=== PATIENT | male | born 1950 | race Caucasian/White ===

== ENCOUNTER → 2024-03-08 06:30 | Day surgery (SDC) | payer OTHER, SELFPAY | LOC: GI 06:30 | PROVIDERS: ATTENDING PHYSICIAN Surgery | DX: Z12.11 Encounter for screening for malignant neoplasm of colon (principal); D12.3 Benign neoplasm of transverse colon; K63.5 Polyp of colon; Z85.048 Personal history of other malignant neoplasm of rectum, rectosigmoid junction, and anus | CPT/HCPCS: 45380; 88305 ==

== ENCOUNTER 2025-05-15 17:59 | Inpatient (IN) | payer OTHER, SELFPAY ==
[2025-05-15] VITALS (7 sets, daily range): BP systolic 94–122; BP diastolic 50–73; BMI 18.2; BMI 17.7
[2025-05-15 10:35] LABS: Hematocrit 37.0 % (39.0-52.0); Hemoglobin 12.4 g/dL (13.0-18.0); Mean Corp Hgb Conc. 33.5 g/dL (33.0-37.0); Mean Corpuscular Volume 86.0 fL (80.0-94.0); Nucleated Red Blood Cells % 0 % (-); Platelet Count 424 10^3/uL (130-400); Red Cell Dist. Width 13.2 % (11.5-14.5)
[2025-05-15 11:02] LABS: ALT (SGPT) 51 U/L (0-50); AST (SGOT) 31 U/L (17-59); Albumin 4.1 g/dl (3.5-5.0); Alkaline Phosphatase 116 U/L (38-126); Blood Urea Nitrogen 89 mg/dl (9-20); Calcium 8.9 mg/dl (8.4-10.2); Carbon Dioxide 19 mmol/L (22-30); Chloride 99 mmol/L (98-107); Glucose 123 mg/dl (70-99); Lipase 189 U/L (23-300); Potassium 5.9 mmol/L (3.5-5.1); Sodium 131 mmol/L (135-145); Total Protein 7.7 g/dl (6.3-8.2); eGFR 25.98
--- NOTE | 2025-05-15 13:15 | ED.GENMED ---
History of Present Illness
<IWONA Connelly - Last Filed: 05/16/25 14:24>
General
Chief Complaint: Ostomy Problem
Source: patient
Exam Limitations: none
Time Seen by Provider: 05/15/25 12:50
Nursing documentation reviewed up to this point in time: agreed with
History of Present Illness
History of Present Illness:
Patient is a 75-year-old male with known history of rectal carcinoma with bladder involvement status post sigmoid loop colostomy 2020, ilial conduit creation ileal sigmoidectomy and loop ileostomy completed chemoradiation presents to the ER. He
reports he started with issues from his colostomy bag in April. He reports he noticed that the stool stopped draining in the colostomy bag and then was draining throughout his anus however recently he noticed drainage through an open wound below his
ostomy sites. He was seen by Dr. Cooper for this and was scheduled for CAT scan tomorrow however because of continued leakage presents to the ER. He denies any fever chills. He denies any nausea vomiting. He is drinking and eating.
Past History
<IWONA Connelly - Last Filed: 05/16/25 14:24>
Past History
ED Past Medical History: Cancer, Hypercholesterolemia and Other (PAD)
ED Past Surgical History: Other (Urostomy, colostomy cystoprostatectomy)
Social History
Tobacco: Smoker
Alcohol: None
Drug: None
Personal:
Living: with family
Phy Exam
<IWONA Connelly - Last Filed: 05/16/25 14:24>
General Physical Exam
General Presentation: no apparent distress
General age: appears stated age
General Skin: warm and dry
General Habitus: normal
General Mental: alert
General Hydration: appears well hydrated
Cardiovascular Exam
Cardiovascular Exam: regular rate/rhythm, no murmur and normal peripheral pulses
Pulmonary Exam
Pulmonary Exam: lungs clear and no respiratory distress
Gastrointestinal Exam
Gastrointestinal Exam: soft and other (+ stoma x2 to abdomen ; below is open wound with what appears to be liquid stool draining from site brown in color )
Neurological Exam
Neurological Exam: alert and oriented x3
Musculoskeletal Exam
Musculoskeletal Exam: full ROM
Skin Exam
Skin Exam: normal color and warm/dry
Psychiatric Exam
Psychiatric Exam: normal mood/affect
Course
<IWONA Connelly - Last Filed: 05/16/25 14:24>
Orders/Labs/Results
Orders:
Orders
05/15/25 10:14
Complete Blood Count/With Diff Urgent
Comprehensive Metabolic Panel Urgent
Lipase Urgent
05/15/25 13:50
CT Abd/pel (oral only)-[facility] Only Urgent
Comment:
Reason For Exam: problem with colostomy dec drainage
0.9% Sodium Chloride 500 ml [Nss] 500 ml IV BOLUS
Iohexol [Omnipaque] See Protocol PO NOW STA
05/15/25 Dinner
NPO
Allow oral meds: Yes
Allow clear liquids: No
NPO with Ice Chips: No
05/15/25 15:10
WOUND/OSTOMY CONSULT Routine
Reason for Consult: redness and drainage abd
05/15/25 16:44
Electrocardiogram (*1) Stat
Reason for Study: Other
Other Reason for Exam: chest pain
05/15/25 17:28
SURGICAL CONSULT Routine
Consulting Provider: King Cooper
Was physician already notified: Yes
Reason for consult: Fecal drainage below ostomy, from penis and anus
05/15/25 17:35
Dextrose 50%-Water [Dextrose 50% Syringe] 12.5 grams IV [id number] PRN
Dextrose 50%-Water [Dextrose 50% Syringe] 25 grams IV NOW STA
Insulin Human Regular [Novolin R] 10 units IV NOW STA
05/15/25 17:36
Bedside Glucose PRE IV Insulin- HyperK+ NOW
05/15/25 17:38
NEPHROLOGY CONSULT Routine
Consulting Provider: Noe Carlson V.
Was physician already notified: Yes
Reason for consult: jessie fecal material penis/ hx urosotomy
05/15/25 17:40
Admit/Transfer Patient As Directed
Co-Sign Provider:
Level of Care: Inpatient admission
Assign to:: Telemetry
Physician / Group: maria c michelle
Diagnosis: jessie,open wound abdomen, anus/ penile fecal discharge, hyperkalemia
Reason for Telemetry: Arrhythmia
Date to Stop Telemetry: 05/18/25
Time to Stop Telemetry: 11:00
Reason for Hospitalization: jessie,open wound abdomen, anus/ penile fecal discharge, hyperkalemia
Expected length of stay greater than two midnights?: Yes
ELOS- Estimated Length of Stay in days: 4
I certify the patient meets the requirements for IP care: Yes
Code Status As Directed
Resuscitation Status: Full Code
05/15/25 17:42
PRN Pain Medication Management As Directed
May give lesser potent ordered pain med per pt: Yes
preference::
Protocol:: Medication orders for pain may be administered in a
manner that supports deferring to patient preference
when the pt is:
- Requesting an ordered lesser potent pain medication.
Least to most potent pain medications are defined
as: acetaminophen < NSAID < tramadol < opioids
(morphine, oxycodone, hydromorphone).
- Requesting a lesser dose of the same medication IF
ORDERED.
- Requesting a less intrusive route of administration
if both routes are prescribed by the provider (PO <
IV).
05/15/25 19:06
Bedside Glucose POST IV Insulin- HyperK+ Q1HX2,Q2HX2
05/15/25 21:27
0.9% Sodium Chloride 1000 ml [Nss] 1,000 ml IV 80 mls/hr
05/15/25 21:27
Activity As Directed
Activity Level: As Tolerated
Intake/ Output As Directed
Frequency: Per unit guidelines
Pneumatic Compression Sleeves As Directed
Type: Knee high
Vital Signs As Directed
Frequency: Per unit guidelines
DX Deep Vein Thrombosis Video Routine
05/15/25 22:10
Basic Metabolic Panel Urgent
05/16/25 06:23
Complete Blood Count/With Diff IN AM
Comprehensive Metabolic Panel IN AM
05/16/25 08:00
Midodrine [ProAmatine] 5 mg PO DAILY
Pantoprazole [Protonix] 40 mg PO DAILY
Rosuvastatin Calcium [Crestor] 10 mg PO DAILY
05/17/25 06:19
Complete Blood Count/With Diff IN AM
Comprehensive Metabolic Panel IN AM
05/18/25 06:06
Complete Blood Count/With Diff IN AM
Comprehensive Metabolic Panel IN AM
05/18/25 11:00
DC Protocol for Telemetry ONCE
Abnormal Lab Results
05/15/25
10:14
WBC 10.9 H 10^3/uL
(4.8-10.8)
RBC 4.30 L 10^6/uL
(4.70-6.10)
Hgb 12.4 L g/dL
(13.0-18.0)
Hct 37.0 L %
(39.0-52.0)
Plt Count 424 H 10^3/uL
(130-400)
Abs Immat Gran (auto) 0.1 H 10^3/uL
(0-0.05)
Absolute Neuts (auto) 9.0 H 10^3/uL
(1.4-6.5)
Absolute Lymphs (auto) 1.0 L 10^3/uL
(1.2-3.4)
Absolute Monos (auto) 0.8 H 10^3/uL
(0.1-0.6)
Immature Gran % 0.7 H %
(0-0.5)
Neutrophils % 82.1 H %
(42.2-75.2)
Lymphocytes % 8.8 L %
(20.5-51.1)
Sodium 131 L mmol/L
(135-145)
Potassium 5.9 H mmol/L
(3.5-5.1)
Carbon Dioxide 19 L mmol/L
(22-30)
BUN 89 H mg/dl
(9-20)
Creatinine 2.5 H mg/dL
(0.7-1.3)
Glucose 123 H mg/dl
(70-99)
ALT 51 H U/L
(0-50)
05/15/25 10:14
05/15/25 10:14
Vital Signs
Initial and Last Documented VS:
Initial Vital Signs
Temp Pulse Resp BP Pulse Ox
97.5 F 92 98 110/56 100
05/15/25 10:07 05/15/25 10:07 05/15/25 10:07 05/15/25 10:07 05/15/25 10:07
Last Documented Vital Signs
Temp Pulse Resp BP Pulse Ox
98.7 F 73 16 128/47 99
05/18/25 23:00 05/18/25 23:00 05/18/25 23:00 05/18/25 23:00 05/18/25 23:00
<Courtney Chowdhury PELT INSPECTOR - Last Filed: 05/19/25 01:45>
Orders/Labs/Results
Orders:
Orders
05/15/25 10:14
Complete Blood Count/With Diff Urgent
Comprehensive Metabolic Panel Urgent
Lipase Urgent
05/15/25 13:50
CT Abd/pel (oral only)-[facility] Only Urgent
Comment:
Reason For Exam: problem with colostomy dec drainage
0.9% Sodium Chloride 500 ml [Nss] 500 ml IV BOLUS
Iohexol [Omnipaque] See Protocol PO NOW STA
05/15/25 Dinner
NPO
Allow oral meds: Yes
Allow clear liquids: No
NPO with Ice Chips: No
05/15/25 15:10
WOUND/OSTOMY CONSULT Routine
Reason for Consult: redness and drainage abd
05/15/25 16:44
Electrocardiogram (*1) Stat
Reason for Study: Other
Other Reason for Exam: chest pain
05/15/25 17:28
SURGICAL CONSULT Routine
Consulting Provider: King Cooper
Was physician already notified: Yes
Reason for consult: Fecal drainage below ostomy, from penis and anus
05/15/25 17:35
Dextrose 50%-Water [Dextrose 50% Syringe] 12.5 grams IV [id number] PRN
Dextrose 50%-Water [Dextrose 50% Syringe] 25 grams IV NOW STA
Insulin Human Regular [Novolin R] 10 units IV NOW STA
05/15/25 17:36
Bedside Glucose PRE IV Insulin- HyperK+ NOW
05/15/25 17:38
NEPHROLOGY CONSULT Routine
Consulting Provider: Noe Carlson V.
Was physician already notified: Yes
Reason for consult: jessie fecal material penis/ hx urosotomy
05/15/25 17:40
Admit/Transfer Patient As Directed
Co-Sign Provider:
Level of Care: Inpatient admission
Assign to:: Telemetry
Physician / Group: ahmed,maria c
Diagnosis: jessie,open wound abdomen, anus/ penile fecal discharge, hyperkalemia
Reason for Telemetry: Arrhythmia
Date to Stop Telemetry: 05/18/25
Time to Stop Telemetry: 11:00
Reason for Hospitalization: jessie,open wound abdomen, anus/ penile fecal discharge, hyperkalemia
Expected length of stay greater than two midnights?: Yes
ELOS- Estimated Length of Stay in days: 4
I certify the patient meets the requirements for IP care: Yes
Code Status As Directed
Resuscitation Status: Full Code
05/15/25 17:42
PRN Pain Medication Management As Directed
May give lesser potent ordered pain med per pt: Yes
preference::
Protocol:: Medication orders for pain may be administered in a
manner that supports deferring to patient preference
when the pt is:
- Requesting an ordered lesser potent pain medication.
Least to most potent pain medications are defined
as: acetaminophen < NSAID < tramadol < opioids
(morphine, oxycodone, hydromorphone).
- Requesting a lesser dose of the same medication IF
ORDERED.
- Requesting a less intrusive route of administration
if both routes are prescribed by the provider (PO <
IV).
05/15/25 19:06
Bedside Glucose POST IV Insulin- HyperK+ Q1HX2,Q2HX2
05/15/25 21:27
0.9% Sodium Chloride 1000 ml [Nss] 1,000 ml IV 80 mls/hr
05/15/25 21:27
Activity As Directed
Activity Level: As Tolerated
Intake/ Output As Directed
Frequency: Per unit guidelines
Pneumatic Compression Sleeves As Directed
Type: Knee high
Vital Signs As Directed
Frequency: Per unit guidelines
DX Deep Vein Thrombosis Video Routine
05/15/25 22:10
Basic Metabolic Panel Urgent
05/16/25 06:23
Complete Blood Count/With Diff IN AM
Comprehensive Metabolic Panel IN AM
05/16/25 08:00
Midodrine [ProAmatine] 5 mg PO DAILY
Pantoprazole [Protonix] 40 mg PO DAILY
Rosuvastatin Calcium [Crestor] 10 mg PO DAILY
05/17/25 06:19
Complete Blood Count/With Diff IN AM
Comprehensive Metabolic Panel IN AM
05/18/25 06:06
Complete Blood Count/With Diff IN AM
Comprehensive Metabolic Panel IN AM
05/18/25 11:00
DC Protocol for Telemetry ONCE
Abnormal Lab Results
05/15/25
10:14
WBC 10.9 H 10^3/uL
(4.8-10.8)
RBC 4.30 L 10^6/uL
(4.70-6.10)
Hgb 12.4 L g/dL
(13.0-18.0)
Hct 37.0 L %
(39.0-52.0)
Plt Count 424 H 10^3/uL
(130-400)
Abs Immat Gran (auto) 0.1 H 10^3/uL
(0-0.05)
Absolute Neuts (auto) 9.0 H 10^3/uL
(1.4-6.5)
Absolute Lymphs (auto) 1.0 L 10^3/uL
(1.2-3.4)
Absolute Monos (auto) 0.8 H 10^3/uL
(0.1-0.6)
Immature Gran % 0.7 H %
(0-0.5)
Neutrophils % 82.1 H %
(42.2-75.2)
Lymphocytes % 8.8 L %
(20.5-51.1)
Sodium 131 L mmol/L
(135-145)
Potassium 5.9 H mmol/L
(3.5-5.1)
Carbon Dioxide 19 L mmol/L
(22-30)
BUN 89 H mg/dl
(9-20)
Creatinine 2.5 H mg/dL
(0.7-1.3)
Glucose 123 H mg/dl
(70-99)
ALT 51 H U/L
(0-50)
05/15/25 10:14
05/15/25 10:14
Vital Signs
Initial and Last Documented VS:
Initial Vital Signs
Temp Pulse Resp BP Pulse Ox
97.5 F 92 98 110/56 100
05/15/25 10:07 05/15/25 10:07 05/15/25 10:07 05/15/25 10:07 05/15/25 10:07
Last Documented Vital Signs
Temp Pulse Resp BP Pulse Ox
98.7 F 73 16 128/47 99
05/18/25 23:00 05/18/25 23:00 05/18/25 23:00 05/18/25 23:00 05/18/25 23:00
<IWONA Connelly - Last Filed: 05/16/25 14:24>
MDM/Problems Addressed
Differential Diagnosis Includes:
Not limited to fistula, renal failure/insufficiency dehydration
MDM/Problems Addressed:
pt with significant medical history rectal carcinoma, colostomy ilial conduit history of enteroanal fistula .presented to the ER for decreased stool in ostomy bag along with now drainage from open wound below stoma. He is followed by Dr. Cooper
and I did speak with Dr. Cooper regarding this. He was scheduled for an outpatient CAT scan tomorrow but patient presented today because of the drainage. Patient denies any abdominal pain. + drainage from open wound to abdomen.
Patient denies any fever chills and is afebrile, wbc 10.9l renal insufficiency with a BUN of 89 and creatinine of 2.5 and elevated potassium of 5.9 sodium minimally low at 131. No acute findings on EKG patient given gentle hydration here in the
ER. Case was discussed with , ct oral contrast ordered only with renal insufficiency. Patient was evaluated by colorectal surgery Elizabeth Joe, PAC will require admission for renal insufficiency as well as continued evaluation for
possible fistula pending CAT scan.
<IWONA Connelly - Last Filed: 05/16/25 14:24>
*Pulse Oximetry
SaO2: 100
Oxygen Mode of Delivery: Room air
Patient hypoxic: no
*EKG
Interpreted by ED Provider?: Yes
Interpretation: normal
Heart Rate: 66
Rate: normal
Rhythm: sinus
Ischemia: no ischemia
*Critical Care Note
Total Time (30-74mins, 75-104mins- exclusive of procedures): Not Applicable
<IWONA Connelly - Last Filed: 05/16/25 14:24>
Patient Management
Discussion with other providers: Driver'S License Examiner (DR Cooper )
<Courtney Chowdhury NP - Last Filed: 05/19/25 01:45>
Update Note
Update Note:
CT report reviewed. Dr. Cooper notified of results via tiger text. He will review CT and will assess in AM.
ED Attending Note
<IWONA Connelly - Last Filed: 05/16/25 14:24>
-
Portions of this chart may have been created with voice recognition software.� Occasional wrong word or��sound alike� substitutions may have occurred due to the inherent limitations of voice recognition software.
Discharge Plan
Departure
Patient Disposition: Admit
Date of Disposition: 05/15/25
Time of Disposition: 16:52
Admit to: Telemetry
Admit to doctor: hospitalist
Presentation/result/management discussed w/ accepting MD/DO: Hospitalist
Patient with high blood pressure during this ER visit?: No
Condition: Fair
Covid-19: Not Applicable
Discharge Problem:
Acute kidney insufficiency, possible fistula
Interventions
Interventions:
*Risk Screen - Suicide Last Done: 05/15/25 22:26
*General Assessment Last Done: 05/15/25 16:26
*Neglect/Abuse Screening Last Done: 05/15/25 15:06
*ED- Fall Risk Assessment Last Done: 05/15/25 16:26
*ED COVID-19 Vaccine History Last Done: 05/15/25 22:26
*Nursing Disposition Last Done: 05/15/25 21:40
GX-Clfkvf-Cjtwvybnhz Assessment Last Done: 05/15/25 14:00
ED-Male Genitourinary Assessment Last Done: 05/15/25 14:00
Discharge Date and Time
Discharge Date/Time: 05/15/25 21:40
--- NOTE | 2025-05-15 14:25 | CON.CRS ---
Consultation
-
Date/Time Consultation Requested: 05/15/2025, 13:30
Date/Time Consultation Performed: 05/15/2025, 14:45
Requesting Provider: Jovanna Velasco NP
Performing Provider: King Cooper MD
Reason for Consultation: fistula
Medical History
-
Chief Complaint: anal drainage/wound drainage
History of Present Illness:
75-year-old male, with an extensive past medical history of rectal cancer with bladder involvement status post multiple surgeries for rectal cancer as well as enteroanal fistula, presents to the emergency department complaining of lack of stool in
the colostomy bag and drainage in his anus. He now notices drainage through the open wound below his ostomy site. He recently saw Dr. Cooper in the office on 04/27/[address] of the abdomen and pelvis was ordered which was scheduled for
tomorrow. This was to look for tumor recurrence and evaluate the fistula situation.
The patient has a very extensive past medical history which includes a pelvic exoneration about 3-1/2 years ago on 08/14/2021. 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
partial small bowel resection about 2 years ago on 04/01/2023. The fistula reoccurred. The last colonoscopy was on 03/08/2024 which showed 2 benign polyps that were removed with plans to repeat in 3 years. He has not seen Dr. Cooper or Dr. Valente
over the past year and he has had no recent imaging. At the office appointment he had complained of increased output from the anterior cutaneous fistula in the lower midline area for the past several weeks. He also noted that passing feculent
material from the anus and penis starting on April 17.
In the ER his WBC is 10.9. He remains afebrile and his vitals are normal. He is currently awaiting a CT scan. Given the above, we have been consulted for further surgical opinion.
Past Medical History
Past Medical History: Other (rectal cancer, Hypercholesterolemia, hypotension)
Past Surgical History: Other (07/10/2021- Robotic sigmoid loop colostomy creation, 08/14/2021- Pelvic exenteration, On bloc ileocecectomy, Omental pedicle flap, Ileal loop urinary diversion following pelvic exoneration performed by Drs. Judge
Gil and King Cooper, 09/24/2021- Right subclavian Port-A-Cath placement)
Social History
Tobacco: Smoker
Alcohol: Occasional
Family History
Family History: Reviewed & Not Pertinent
Allergies / Home Medications
Allergy/AdvReac Type Severity Reaction Status Date / Time
No Known Allergies Allergy Verified 05/15/25 10:06
�Medication �Instructions �Recorded �Confirmed �Type
midodrine 5 mg tablet 5 mg PO DAILY Blood Pressure 03/11/23 03/30/23 History
rosuvastatin 20 mg tablet 20 mg PO DAILY High Cholesterol 03/12/23 03/30/23 History
pantoprazole 40 mg tablet,delayed 40 mg PO DAILY #30 tabs 04/16/23 Rx
release (Protonix)
Review of Systems
-
History Source: Patient
Abdomen/GI: Other (drainage from lower midline wound and anus)
A 10 point review of systems was completed, and was negative except as per HPI.
Physical Exam
Vital Signs
Temp 97.5 F 05/15/25 10:07
Pulse 92 05/15/25 10:07
Resp Rate 98 05/15/25 10:07
Blood pressure 110/56 05/15/25 10:07
SaO2 100 05/15/25 13:16
Lab Results / Allergies
05/15/25 10:14
05/15/25 10:14
WBC 10.9 10^3/uL (4.8-10.8) H 05/15/25 10:14
Hgb 12.4 g/dL (13.0-18.0) L 05/15/25 10:14
Hct 37.0 % (39.0-52.0) L 05/15/25 10:14
Plt Count 424 10^3/uL (130-400) H 05/15/25 10:14
Abs Immat Gran (auto) 0.1 10^3/uL (0-0.05) H 05/15/25 10:14
Neutrophils % 82.1 % (42.2-75.2) H 05/15/25 10:14
Allergy/AdvReac Type Severity Reaction Status Date / Time
No Known Allergies Allergy Verified 05/15/25 10:06
Physical Exam
General: Well Developed, Well Nourished and No Apparent Distress
GI: Other (urostomy and ileostomy warm and pink with function. Lower midline abdominal incision is open, erythematous, warm to touch, and leaking bowel movements)
Skin: Warm and Dry
Neuro: AO x 3
Psych: Calm
Data Reviewed
-
Labs: Labs Reviewed by me, Discussed with Physician and Discussed with Patient
Old Records: Reviewed
Assessment / Plan
-
Assessment: 75-year-old male with an extensive past medical history of rectal cancer status post pelvic exoneration and subsequent anterior cutaneous fistula status postrepair, now presents to the ER complaining of increased wound drainage in the
lower midline aspect as well as drainage from his anal area
Plan:
- CT of the abdomen and pelvis has been ordered. Will await read for further plans.
- For now remain n.p.o.
- Trend labs and blood work
- Stoma nurse for wound management
[2025-05-15] MEDS: OMNIPAQUE 50 ML PO (14:46)
[2025-05-15] MEDS: NSS 500 IV (14:48)
--- NOTE | 2025-05-15 17:09 | HPS.HSE ---
Addendum entered and electronically signed by IWONA Ruiz 05/15/25 18:34:
IV insulin 5 units instead of 10 due to JUANITA creat 2.6
Original Note:
Family Physician
-
Family Physician: Torito Brownlee
Chief Complaint
-
Reported fecal discharge below colostomy, rectum and penis
History of Present Illness
75-year-old male with extensive history of rectal cancer with bladder involvement requiring pelvic exenteration 08/14/2021 with postop and drug cutaneous fistula status post exploratory lap, lysis of adhesions, partial small bowel resection
04/01/2023. Status post colostomy. Patient noticed lack of stool from his colostomy site along with a weeping wound below his ostomy site. In the office he had complained of output from his cutaneous fistula in the lower midline area for the past
several weeks he also noticed passing fecal material from the anus and penis starting on April 17. He reports no stool in his ostomy bag since April 12 other past medical history includes A-fib status post chemical cardioversion with IV amiodarone,
DVT right common femoral vein/PE status post IVC filter April 2023, blood loss anemia from prior surgical site 2022, HLD
Medical History
Past Medical History
Past Medical History: Reports Other
Additional Past Medical History:
Rectal cancer of the bilateral involvement, status post colectomy, colostomy creation urostomy bladder removal
Endocervical fistula
A-fib converted with IV amiodarone
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
Blood loss anemia
Dyslipidemia
Past Surgical History: Reports Other
Additional Past Surgical History:
Colectomy
Total cystectomy, prostatectomy and urostomy creation
Colostomy creation
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
Social History
Unable to obtain full social history at this time due to: Other
Tobacco: Smoker (6 to 7 cigarettes a day)
Alcohol: Former (Daily 1-2 beers has not had in the past 2 months states cannot afford)
Personal:
Living: With Family
Employment: Retired
Family History
Family History: Other
Allergies / Home Medications
Allergies reflects when Allergies were last updated in [facility].
Home Medications with original date entered in [facility]
Allergy/Medication List:
Allergies
Allergy/AdvReac Type Severity Reaction Status Date / Time
No Known Allergies Allergy Verified 05/15/25 10:06
Home Medications
midodrine 5 mg tablet 5 mg PO DAILY Blood Pressure 03/11/23
rosuvastatin 20 mg tablet 20 mg PO DAILY High Cholesterol 03/12/23
pantoprazole 40 mg tablet,delayed release (Protonix) 40 mg PO DAILY #30 tabs 04/16/23
Review of Systems
-
History Source: Patient
A 12 point ROS was completed and negative except as noted: Yes
Constitutional: Denies Fever or Chills
EENT: Denies Sore Throat or Runny Nose
Respiratory: Denies Cough or Trouble Breathing
Cardiac: Denies Chest Pain, Diaphoresis, Palpitations or Syncope
Abdomen/GI: Reports Other (Wound below ostomy reportedly draining fecal material, ostomy left side abdomen no stool in bag); Denies Abdominal Pain, Nausea or Vomiting
: Reports Other (Reports fecal material draining from penis, urostomy bag draining yellow in color right side abdomen); Denies Dysuria
Musculoskeletal: Denies Joint Pain or Edema
Skin: Denies Itching or Rash
Neurological: Denies Dizzy, Headache or Weakness
Endocrine: Reports No Symptoms
Hematologic/Lymphatic: Reports No Symptoms
Psych: Reports Calm
Physical Exam
Vital Signs
Vital Signs
Temp Pulse Resp BP Pulse Ox
97.5 F 92 98 122/61 82
05/15/25 10:07 05/15/25 10:07 05/15/25 10:07 05/15/25 16:00 05/15/25 15:01
Physical Exam
General: No Pain, Fever or Chills
HEENT: NormoCephalic, Anicteric, Moist mucous membranes, PERRLA, [place] Conjunctivae and No Ptosis
Respiratory: Clear; No Wheezes, Rales or Rhonchi
Cardiac: S1/S2 and Regular Rhythm
Breast: Deferred by me
GI: Soft, Non Tender, Non Distended, Normal Bowel Sounds, Ostomy (Reports fecal material draining from penis, urostomy bag draining yellow in color right side abdomen) and Other
Rectal: Other (Colostomy below stoma site with excoriation/erythema from fecal drainage)
Genito-urinary: Other (Ostomy bag draining yellow in color)
Musculoskeletal: No Clubbing, No Cyanosis and No Edema
Skin: Warm and Dry; No Rash
Neuro: AO x 3, No Motor Deficits, Nonfocal/grossly intact, Cranial Nerves Intact and No Sensory Deficits; No Slurred Speech, Facial Droop, Tremors or Sedated
Psych: Calm
Laboratory Results
-
05/15/25 10:14
05/15/25 10:14
Laboratory Results
Total Bilirubin 0.8 mg/dl (0.2-1.3) 05/15/25 10:14
AST 31 U/L (17-59) 05/15/25 10:14
ALT 51 U/L (0-50) H 05/15/25 10:14
Alkaline Phosphatase 116 U/L (38-126) 05/15/25 10:14
Lipase 189 U/L (23-300) 05/15/25 10:14
Impression/Plan
-
Impression/plan:
Admit to telemetry
#Enteroanal fistula/colostomy with ileal conduit
#Open wound abdomen below ileal conduit
#History of rectal CA with bladder involvement status post multiple surgeries, postop enterocutaneous fistula status post exploratory lap/lysis of adhesions 08/14/2021, partial small bowel resection 04/01/2023
WBC 10.9 with left shift, afebrile 97.5, HR 92, 122/61
- Colorectal surgery to follow Dr. Cooper
-No current ABX
-Check CT abdomen and pelvis
-N.p.o.
- Stoma nurse for wound management
#JUANITA
Creat 2.5/bun 89 baseline 0.8
IV NSS 500 cc bolus given in ER, continue IV NSS 80 cc an hour
- Follow BMP
- Consult nephrology
#Acute hyperkalemia in setting of JUANITA
K5.9
-IV insulin 10 units now followed by IV dextrose
-Repeat BMP at 9 PM
# Chronic hypotension
-Continue midodrine 5 mg daily, BP 122/61
#A-fib hx
- March 2023 converted with IV amiodarone
ECHO with LVEF 65-70% , normal left ventricular size, thickness and systolic function. Normal right ventricular size and function. Mild mitral regurgitation. Right heart pressure could not be determined. IVC is normal in size and
demonstrate normal respiratory variation. Mildly dilated aortic root.
#DVT with right common femoral vein thrombosis/PE status post IVC filter April 2023
#Blood loss anemia hx from prior surgical site 2022
Hgb stable 12.4
# HLD
- Continue rosuvastatin 20 mg daily
GERD
Continue Protonix 40 mg daily
DVT prophylaxis
SCDs
Full code
--- NOTE | 2025-05-15 17:29 | W.PN.UPDATE ---
Update Note
Progress Note Update
I saw and examined the patient.
The BIN Ford's note was reviewed and I agree with the note.
Comment: 75 y/o M hx of rectal cancer (with bladder involvement) s/p pelvic exenteration 2020 - complicated by fistula - s/p ex-lap and lysis of adhesions for hx of bowel resection - has a colostomy and urostomy. Presents with lack of stools from
colostomy site, weeping wound below ostomy site and increasing output from cutaneous fistula for past several weeks; also with passing fecal material via anus and penis since April 17.
in ER, he is found to have Metabolic abnormalities including JUANITA And hyperkalemia. Patient sent for CT scan and admitted.
Exam:
General: No Pain, Fever or Chills
HEENT: Normocephalic, Anicteric, Moist mucous membranes, PERRLA, [place] Conjunctivae and No Ptosis
Respiratory: Clear; No Wheezes, Rales or Rhonchi
Cardiac: S1/S2 and Regular Rhythm
Breast: Deferred by me
GI: Soft, Non Tender, Non Distended, Normal Bowel Sounds, Ostomy (Reports fecal material draining from penis, urostomy bag draining yellow in color right side abdomen) and Other
Genito-urinary: Other (Ostomy bag draining yellow in color)
Musculoskeletal: No Clubbing, No Cyanosis and No Edema
Skin: Warm and Dry; Excoriated wound below ostomy bag
Neuro: AO x 3, No Motor Deficits, Nonfocal/grossly intact, Cranial Nerves Intact and No Sensory Deficits; No Slurred Speech, Facial Droop, Tremors or Sedated
Psych: Calm
Assessment:
Enteroanal fistula/colostomy with ileal conduit
Open wound abdomen below ileal conduit
History of rectal CA with bladder involvement status post multiple surgeries, postop enterocutaneous fistula status post exploratory lap/lysis of adhesions 08/14/2021, partial small bowel resection 04/01/2023
- CT scan pending
- Colorectal consulted
- Ostomy nurse consult
- NPO/IVF
- pain control, anti-emetics
JUANITA
acute hyperkalemia
acute hyponatremia
- check FeNA labs, UA
- await CT report
- maintenance IVF
- Nephrology consulted
- for hyperkalemia - provide dextrose/insulin, IVF - repeat BMP 9 PM
Hx of Parox Afib
- currently in sinus
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
Chronic anemia
- check anemia indices
HLD - statin
DVT ppx: SCDs
Code: Full
--- NOTE | 2025-05-15 18:28 | CM ---
CM reviewed chart and met with pt bedside in ED. Lives with , 2 story home, [address], has first floor BR/full BA.
Independent in ADLs, personal care and ambulation at baseline. Cares for ostomies himself.
Confirms he has prescription coverage.
PCP: Torito Brownlee
Pharmacy: [facility], switching to [facility]
Hx [facility] and [facility] in past, no hx SNF
CM will continue to follow for all discharge planning needs.
[2025-05-15 18:29] LABS: Glucose - Point of Care 103 mg/dl (70-99)
[2025-05-15] MEDS: DEXTROSE 50% SYRINGE 25 GRAMS IV (18:29)
[2025-05-15] MEDS: NOVOLIN R 5 UNITS IV (18:38)
[2025-05-15 19:19] LABS: Urine Character Clear (Clear)
[2025-05-15 19:49] LABS: Glucose - Point of Care 100 mg/dl (70-99)
[2025-05-15 19:55] LABS: Urine Red Blood Cell 0-2 /HPF (0-2)
[2025-05-15 20:48] LABS: Glucose - Point of Care 65 mg/dl (70-99)
[2025-05-15 21:09] LABS: Glucose - Point of Care 68 mg/dl (70-99)
--- NOTE | 2025-05-15 21:55 | PTCARENOTE ---
Pt transported from ED to 3W via stretcher. Pt independent from stretcher to bed, AAOX3 and able to make needs known. Vitals obtained and stable, oriented to room w/ call jarquin within reach. Pleasant and cooperative.
[2025-05-15 22:32] LABS: Potassium 5.0 mmol/L (3.5-5.1)
[2025-05-15 22:36] LABS: Blood Urea Nitrogen 88 mg/dl (9-20); Calcium 8.9 mg/dl (8.4-10.2); Carbon Dioxide 19 mmol/L (22-30); Chloride 97 mmol/L (98-107); Estimated Creatinine Clearance 23 ml/min; Glucose 109 mg/dl (70-99); Potassium 5.2 mmol/L (3.5-5.1); Sodium 128 mmol/L (135-145); eGFR 30.28
[2025-05-15] MEDS: NSS 1000 IV (23:07)
[2025-05-16] VITALS (8 sets, daily range): BP systolic 68–120; BP diastolic 50–55; BMI 17.7
[2025-05-16 04:47] LABS: Glucose - Point of Care 99 mg/dl (70-99)
[2025-05-16 07:11] LABS: ALT (SGPT) 46 U/L (0-50); AST (SGOT) 29 U/L (17-59); Albumin 3.6 g/dl (3.5-5.0); Alkaline Phosphatase 97 U/L (38-126); Blood Urea Nitrogen 81 mg/dl (9-20); Calcium 8.6 mg/dl (8.4-10.2); Carbon Dioxide 21 mmol/L (22-30); Chloride 102 mmol/L (98-107); Estimated Creatinine Clearance 24 ml/min; Glucose 88 mg/dl (70-99); Iron 78 ug/dl (49-181); Potassium 5.9 mmol/L (3.5-5.1); Sodium 131 mmol/L (135-145); Total Protein 6.7 g/dl (6.3-8.2); eGFR 33.95
[2025-05-16 07:21] LABS: Total Iron Binding Capacity 251 ug/dl (261-462)
[2025-05-16 07:24] LABS: Hematocrit 32.6 % (39.0-52.0); Hemoglobin 10.9 g/dL (13.0-18.0); Mean Corp Hgb Conc. 33.4 g/dL (33.0-37.0); Mean Corpuscular Volume 86.5 fL (80.0-94.0); Nucleated Red Blood Cells % 0 % (-); Platelet Count 321 10^3/uL (130-400); Red Cell Dist. Width 13.1 % (11.5-14.5)
[2025-05-16] MEDS: CRESTOR 10 MG PO (07:40)
[2025-05-16] MEDS: PROTONIX 40 MG PO (07:40)
[2025-05-16 07:44] LABS: Ferritin 329.0 ng/ml (17.9-464.0)
[2025-05-16 08:15] LABS: Folate > 20.0 ng/ml (2.76-20); Vitamin B12 321 pg/ml (239-931)
[2025-05-16] MEDS: DEXTROSE 50% SYRINGE 25 GRAMS IV (08:41)
[2025-05-16 08:44] LABS: Glucose - Point of Care 98 mg/dl (70-99)
[2025-05-16] MEDS: NOVOLIN R 0.05 UNITS IV (08:50)
[2025-05-16] MEDS: CALCIUM GLUCONATE 1000 MG IV (08:50)
[2025-05-16] MEDS: SODIUM BICARBONATE 50 MEQ IV (08:51)
[2025-05-16 09:48] LABS: Glucose - Point of Care 186 mg/dl (70-99)
--- NOTE | 2025-05-16 09:54 | W.CON.NEPH ---
Consultation
-
Date/Time Consultation Requested: 05/15/25 1738
Date/Time Consultation Performed: 05/15/25 0930
Requesting Provider: Brandan Palacios
Performing Provider: Linda Saldaña
Reason for Consultation: JUANITA, hyperkalemia
Medical History
-
Chief Complaint: Reported fecal discharge below colostomy, rectum and penis
History of Present Illness:
75-year-old male with extensive history of rectal cancer with bladder involvement requiring pelvic exenteration 08/14/2021 with postop and drug cutaneous fistula status post exploratory lap, lysis of adhesions, partial small bowel resection
04/01/2023. Status post colostomy, urostomy. Pt reportedly had a wound on his abdomen for years but this started to drain stool since April and saw Surg. He scheduled to have CT today but since increased amount of drainage he presented to ER
yesterday and CT shows enterocutaneous fistula. His labs noted cr 2.5 from baseline 0.6. k 5.9, sodium 131. He had insulin and dextrose with improvement of k to 5 overnight but this am labs shows k still at 5.9 and improving cr at 2. he reports no
fever or chills. No CP or sob. He lost appetite and lost wt 10-15lbs in last few weeks. No abd pain but soreness at fistula site. No edema or dysuria. No constipation or diarrhea. He is currently NPO pending surg eval.
Other past medical history includes A-fib status post chemical cardioversion, DVT right common femoral vein/PE status post IVC filter April 2023 and HLD on statin. He chronically has low BPs hence maintained on midodrine too.
Past Medical History
Rectal cancer of the bilateral involvement, status post colectomy, colostomy creation urostomy bladder removal
Endocervical fistula
A-fib converted with IV amiodarone
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
Blood loss anemia
Dyslipidemia
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
Social History
Tobacco: Smoker (6-7cigerette/day)
Alcohol: Former (none since 2m ago)
Personal:
Living: With Family
Employment: Retired (worked in [employer] in [employer])
Family History
Family History: Not Pertinent
Allergies / Home Medications
Allergy/AdvReac Type Severity Reaction Status Date / Time
No Known Allergies Allergy Verified 05/15/25 10:06
�Medication �Instructions �Recorded �Confirmed �Type
midodrine 5 mg tablet 5 mg PO DAILY Blood Pressure 03/11/23 03/30/23 History
rosuvastatin 20 mg tablet 20 mg PO DAILY High Cholesterol 03/12/23 03/30/23 History
pantoprazole 40 mg tablet,delayed 40 mg PO DAILY #30 tabs 04/16/23 Rx
release (Protonix)
Review of Systems
-
All other systems: Negative unless noted
Physical Exam
Vital Signs
Vital Signs
Temp Pulse Resp BP Pulse Ox
97.8 F 68 14 100/52 100
05/16/25 07:25 05/16/25 07:40 05/16/25 07:25 05/16/25 07:40 05/16/25 07:25
Lab Results
WBC 7.5 10^3/uL (4.8-10.8) 05/16/25 06:23
RBC 3.77 10^6/uL (4.70-6.10) L 05/16/25 06:23
Hgb 10.9 g/dL (13.0-18.0) L 05/16/25 06:23
Hct 32.6 % (39.0-52.0) L 05/16/25 06:23
Plt Count 321 10^3/uL (130-400) D 05/16/25 06:23
Sodium 131 mmol/L (135-145) L 05/16/25 06:23
Chloride 102 mmol/L (98-107) 05/16/25 06:23
Carbon Dioxide 21 mmol/L (22-30) L 05/16/25 06:23
BUN 81 mg/dl (9-20) H 05/16/25 06:23
Creatinine 2.0 mg/dL (0.7-1.3) H 05/16/25 06:23
eGFR 33.95 05/16/25 06:23
Glucose 88 mg/dl (70-99) 05/16/25 06:23
Calcium 8.6 mg/dl (8.4-10.2) 05/16/25 06:23
Albumin 3.6 g/dl (3.5-5.0) 05/16/25 06:23
Physical Exam
General: Awake, Alert, Oriented, AOx3 and No Distress
HEENT: EOMI, Anicteric, Conjunctivae Clear, Facial Symmetry and No JVD
Respiratory: Clear, Normal Excursion and Nonlabored Respirations
Cardiac: S1/S2 and Regular Rate/Rhythm
Breast: Deferred by me
Abdomen: Soft, Nontender, Nondistended and Other (lower abd wound covered with dressing)
Musculoskeletal: No Cyanosis and No Edema
Skin: No Rash
Neuro: Nonfocal/Grossly Intact
Psych: Mood/afflect pleasant, Insight/judgement good and Appropriate
Data Reviewed
-
Labs: Labs Reviewed by me, Discussed with Nurse and Discussed with Patient
Assessment/Plan
-
IMP:
Enterocutaneous fistula
Enteroanal fistula/colostomy with ileal conduit
Open wound abdomen below ileal conduit
History of rectal CA with bladder involvement status post multiple surgeries, postop enterocutaneous fistula status post exploratory lap/lysis of adhesions 08/14/2021, partial small bowel resection 04/01/2023
JUANITA
Hyperkalemia
Chronic hypotension
A-fib hx
DVT with right common femoral vein thrombosis/PE status post IVC filter April 2023
HLD
GERD
Plan:
A/w draining wound lower abd -CT noted possible enterocutaneous fistula
JUANITA-suspect poor intake based on history
UA bld but no RBC-check CK, pyuria, await cx
U na low suggest prerenal too, CT shows no hydro
cr improving with IVF,cont same
mild met acidosis-improving so far, if worsens change ot bicabr IVF
hyperkalemia likely from JUANITA-cont temporization
Lokelma when starts diet, NPO now waiting for surg eval
Bp sable cotn midodrine
monitor UOP
d/w pt and nursing
[2025-05-16 11:09] LABS: Potassium 5.1 mmol/L (3.5-5.1)
[2025-05-16 11:42] LABS: Glucose - Point of Care 114 mg/dl (70-99)
--- NOTE | 2025-05-16 12:25 | WOUNDNOTE ---
[facility] RN note: Patient admitted with acute kidney injury and new fistula.
See H&P for complete history. Lives with at home.
PMH: ED Past Medical History: Cancer, Hypercholesterolemia and Other (PAD)
ED Past Surgical History: Other (Urostomy, colostomy cystoprostatectomy)
Wound Location and type/assessment: Patient admitted with: new anterior cutaneous fistula lower abdomen supra pubic area. Foul smelling figueroa drainage of small amt, skin surrounding fistula with fungal appearing rash. Patient has urostomy with pink
budded stoma, appliance falling off. Patient reports he has to change daily, peristomal skin intact. Colostomy with slight prolapse, stoma pink and budded. Peristomal skin intact, appliance due to be changed today. Has own supplies at bedside.
Patient ambulated to by self, sacrum intact and heels slightly boggy. at bedside, had to step out of rm. states she can't tolerate the smell, does all on own.
Appetite: Poor, cachectic in appearance.
Pressure redistribution devices in place: On Accumax, turns self and is ad sarwat. Pillows under calves.
Plan: Urostomy and colostomy pouches changed. Used 1 3/4' convex [place] 2 piece for Urostomy. Teaching done with patient on new appliance and if still leakage issues add stoma paste at bedside or natalie ring. Colostomy used patient's own 2 1/4'
[place] 2 piece, gets 3-4 day wear time. Fistula site pouched using Coloplast one piece pouch. Skin prep and Natalie seal applied prior to pouch application. Will order fungal powder to use on skin surrounding fistula for next pouch change. No plan
for surgery today per TERRY Willams. Additional supplies at bedside provided; 1 3/4' convex wafers and pouches, Natalie seals, paste and small Natalie wound managers for fistula, next pouch changes. Teaching done with patient regarding managing all
types of pouches, will follow along and assist as needed.
Will confirm orders with hospitalist and update nurse Mirna. Updated care plan and will follow as needed.
Note to case management of equipment requested for discharge: VN with ostomy nurse if patient needs.
Recommend follow up with GI group.
--- NOTE | 2025-05-16 12:27 | WOUNDNOTE ---
RIGHT LOWER ABDOMEN(UROSTOMY SITE)
--- NOTE | 2025-05-16 13:18 | W.PN.HOSP.TC ---
Today's Communication/Plan
-
IRAD consulted for pelvic drain
monitor K; Lokelma this evening
Assessment / Plan
Assessment / Plan
Assessment:
Enteroanal fistula/colostomy with ileal conduit
Open wound abdomen below ileal conduit
History of rectal CA with bladder involvement status post multiple surgeries, postop enterocutaneous fistula status post exploratory lap/lysis of adhesions 08/14/2021, partial small bowel resection 04/01/2023
- CT: Postoperative changes of the pelvis with a chronic pelvic collection that contains contrast material and gas located in the inferior pelvis with a small tract that is contiguous with an adjacent loop of small bowel. Probable enterocutaneous
fistula of the anterior pelvic wall at midline where there is layering superficial contrast material external to the patient, and for which direct visualization is recommended.
- Colorectal following; IRAD consulted for pelvic drain
- Ostomy nurse following
- NPO/IVF
- pain control, anti-emetics
JUANITA
acute hyperkalemia
acute hyponatremia
- pre-renal by FENA
- maintenance IVF
- Nephrology following
- for hyperkalemia - s/p 2 rounds of dextrose/insulin, IVF. Add Lokelma post-IR procedure
Hx of Parox A.fib
- currently in sinus
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
Chronic anemia
- low normal B12 otherwise normal
- add B12 supplement
HLD - statin
DVT ppx: SCDs
Code: Full
Anticipated Discharge: > 48 hours
Subjective/Interval History
-
Date of Service: May 16, 2025
Resting comfortably, no complaints
Objective Data
-
Labs:
Laboratory Results
05/16/25 05/16/25
06:23 10:50
WBC 7.5
Hgb 10.9 L
Hct 32.6 L
Plt Count 321 D
Sodium 131 L
Potassium 5.9 H 5.1
Chloride 102
Carbon Dioxide 21 L
BUN 81 H
Creatinine 2.0 H
Glucose 88
Calcium 8.6
Total Bilirubin 0.6
AST 29
ALT 46
Alkaline Phosphatase 97
Vital Signs:
Vital Signs
Temp Pulse Resp BP Pulse Ox
97.6 F 70 16 110/50 99
05/16/25 11:15 05/16/25 11:15 05/16/25 11:15 05/16/25 11:15 05/16/25 11:15
I&O
05/15/25 05/16/25 05/17/25
06:59 06:59 06:59
Output Total 200 / 200
Balance -200 / -200
Physical Exam
-
General: No Apparent Distress
HEENT: Normocephalic and Atraumatic
Respiratory: Negative Wheezes
Cardiac: Regular Rhythm and S1/S2
GI: Soft
Genito-urinary: No Costovertebral Tender
Musculoskeletal: No Edema
Skin: Other (excoriated skin, pelvic wound, + ostomy, +urostomy)
Neuro: AO x 3
Data Reviewed
-
Total Time Spent with Patient (in minutes): 41
Labs: Labs Reviewed by me
[2025-05-16 14:17] LABS: Glucose - Point of Care 120 mg/dl (70-99)
[2025-05-16] MEDS: NSS 1000 IV (17:14)
[2025-05-16] MEDS: LOKELMA 10 GRAM PO (20:34)
[2025-05-17] VITALS (7 sets, daily range): BP systolic 96–130; BP diastolic 45–55
[2025-05-17] MEDS: NSS 1000 IV ×2 (05:16→17:23)
[2025-05-17 07:17] LABS: ALT (SGPT) 37 U/L (0-50); AST (SGOT) 24 U/L (17-59); Albumin 3.1 g/dl (3.5-5.0); Alkaline Phosphatase 76 U/L (38-126); Blood Urea Nitrogen 64 mg/dl (9-20); Calcium 8.4 mg/dl (8.4-10.2); Carbon Dioxide 24 mmol/L (22-30); Chloride 107 mmol/L (98-107); Estimated Creatinine Clearance 34 ml/min; Glucose 98 mg/dl (70-99); Potassium 4.9 mmol/L (3.5-5.1); Sodium 135 mmol/L (135-145); Total Protein 6.0 g/dl (6.3-8.2); eGFR 52.09
[2025-05-17 07:42] LABS: Hematocrit 28.7 % (39.0-52.0); Hemoglobin 9.4 g/dL (13.0-18.0); Mean Corp Hgb Conc. 32.8 g/dL (33.0-37.0); Mean Corpuscular Volume 88.0 fL (80.0-94.0); Nucleated Red Blood Cells % 0 % (-); Platelet Count 270 10^3/uL (130-400); Red Cell Dist. Width 13.2 % (11.5-14.5)
[2025-05-17] MEDS: PROTONIX 40 MG PO (08:42)
[2025-05-17] MEDS: CRESTOR 10 MG PO (08:42)
[2025-05-17] MEDS: VITAMIN B-12 1000 MCG PO (08:56)
--- NOTE | 2025-05-17 08:56 | W.PN.CRS1 ---
Today's Communication / Plan
-
await cultures
continue drain
wound care
Assessment/Plan
-
Assessment: 75-year-old male with an extensive past medical history of rectal cancer status post pelvic exoneration and subsequent anterior cutaneous fistula status postrepair, now presents to the ER complaining of increased wound drainage in the
lower midline aspect as well as drainage from his anal area
WBC: 7.0, Hgb 9.4
05/16- IR drain placement
Plan:
- Continue IR drain
- IR drain cultures pending
- Continue regular diet
- Trend labs and blood work
- Stoma nurse for wound management
- urine culture pending
- Anticipate discharge as soon as tomorrow
Subjective Data
Subjective Data
Date of Service: May 17, 2025
Patient states he feels 'great'. He has no complaints. He has no issues with urination. Denies nausea or vomiting. He is having some rectal drainage still.
Objective Data
-
Vital Signs
Temp Pulse Resp BP Pulse Ox
97.8 F 73 16 110/44 98
05/17/25 03:38 05/17/25 08:47 05/17/25 03:38 05/17/25 08:47 05/17/25 03:38
Intake & Output
05/16/25 05/17/25 05/18/25
06:59 06:59 06:59
Intake Total 960 / 960
Output Total 200 / 200
Balance -200 / -200 - 960 / 960
Intake:
IV fluids (Total) 96 / 960
Amount instilled into Drain (
Total)
Right Pelvis Gustavo-Keys
Placed in IR
Output:
Drain Output (Total)
Right Pelvis Gustavo-Keys 35 / 35
Placed in IR
Urostomy output 200 / 200
Other:
Number of approximated MODERATE 1
amounts of urine
Lab Results
05/17/25 06:19
05/17/25 06:19
Physical Exam
-
General: No Acute Distress and AOx3
Abdomen: Soft, Non Distended, Non Tender and Other (urostomy functioning, colostomy warm and pink with function, IR drain with purulent green output)
--- NOTE | 2025-05-17 11:45 | WOUNDNOTE ---
SACRUM (BLANCHABLE RED)
--- NOTE | 2025-05-17 11:55 | WOUNDNOTE ---
[facility] RN note: Checked patient's sacrum per prevalence nurse [place] requested. Sacrum blanchable red. Protective sacral shaped silicone border foam applied. Patient moves self in bed. He declined an air chair cushion. Instructed patient pressure
injury prevention measures.
--- NOTE | 2025-05-17 12:38 | W.PN.NEPH.PH ---
Today's Communication / Plan
-
IVF another day, wean off by morning
Assessment/Plan
-
IMP:
Enterocutaneous fistula
Enteroanal fistula/colostomy with ileal conduit
Open wound abdomen below ileal conduit
History of rectal CA with bladder involvement status post multiple surgeries, postop enterocutaneous fistula status post exploratory lap/lysis of adhesions 08/14/2021, partial small bowel resection 04/01/2023
JUANITA
Hyperkalemia
Chronic hypotension
A-fib hx
DVT with right common femoral vein thrombosis/PE status post IVC filter April 2023
HLD
GERD
Plan:
A/w draining wound lower abd -CT noted possible enterocutaneous fistula
JUANITA-suspect poor intake based on history
UA bld but no RBC-check CK, pyuria, await cx -GNB
U na low suggest prerenal too, CT shows no hydro
cr improving with IVF,cont same another day
mild met acidosis-improving
hyperkalemia resolved
Bp sable cotn midodrine
monitor UOP
d/w pt
-
-
Date of Service: May 17, 2025
CC / HPI / ROS
-
Chief Complaint:
JUANITA, hyperkalemia
History of Present Illness:
cr better at 1.4, k normal
Bp stable
no fever
Review of Systems:
no CP or sob
no n/v
Labs
-
Labs:
WBC 7.0 10^3/uL (4.8-10.8) 05/17/25 06:19
RBC 3.26 10^6/uL (4.70-6.10) L 05/17/25 06:19
Hgb 9.4 g/dL (13.0-18.0) L 05/17/25 06:19
Hct 28.7 % (39.0-52.0) L 05/17/25 06:19
Plt Count 270 10^3/uL (130-400) 05/17/25 06:19
Sodium 135 mmol/L (135-145) 05/17/25 06:19
Potassium 4.9 mmol/L (3.5-5.1) 05/17/25 06:19
Chloride 107 mmol/L (98-107) 05/17/25 06:19
Carbon Dioxide 24 mmol/L (22-30) 05/17/25 06:19
BUN 64 mg/dl (9-20) H 05/17/25 06:19
Creatinine 1.4 mg/dL (0.7-1.3) H 05/17/25 06:19
eGFR 52.09 05/17/25 06:19
Glucose 98 mg/dl (70-99) 05/17/25 06:19
Calcium 8.4 mg/dl (8.4-10.2) 05/17/25 06:19
Albumin 3.1 g/dl (3.5-5.0) L 05/17/25 06:19
Physical Exam
-
Vital Signs:
Vital Signs
Temp Pulse Resp BP Pulse Ox
97.5 F 71 16 112/49 98
05/17/25 11:27 05/17/25 11:27 05/17/25 11:27 05/17/25 11:27 05/17/25 11:27
Cardiovascular:: Regular rate and rhythm
Respiratory:: Bilateral: CTA
Lung Excursion:: Normal
Abdomen:: Nontender and Soft
Extremity Edema:: None: Bilateral:
Jackson Catheter: No
Other Findings::
urostomy clear urine
[2025-05-17] MEDS: NSS IV (13:02)
--- NOTE | 2025-05-17 13:57 | W.PN.HOSP.TC ---
Today's Communication/Plan
-
IVF x 24 hours further; follow BMP; follow Renal recs
continue diet; follow CRS recs
dc planning in 24 hours
Assessment / Plan
Assessment / Plan
Assessment:
Enteroanal fistula/colostomy with ileal conduit
Open wound abdomen below ileal conduit
History of rectal CA with bladder involvement status post multiple surgeries, postop enterocutaneous fistula status post exploratory lap/lysis of adhesions 08/14/2021, partial small bowel resection 04/01/2023
- CT: Postoperative changes of the pelvis with a chronic pelvic collection that contains contrast material and gas located in the inferior pelvis with a small tract that is contiguous with an adjacent loop of small bowel. Probable enterocutaneous
fistula of the anterior pelvic wall at midline where there is layering superficial contrast material external to the patient, and for which direct visualization is recommended.
- Colorectal following; s/p IRAD placed pelvic drain 05/18.
- GS with polymicrobial colonization. No evidence of active infection. Hold off antibiotics.
- Ostomy nurse following
- pain control, anti-emetics
JUANITA
acute hyperkalemia
acute hyponatremia
- pre-renal by FENKasey. admitting Cr 2.2 now currently 1.4
- maintenance IVF
- Nephrology following
- for hyperkalemia - s/p 2 rounds of dextrose/insulin, Lokelma x 1
Hx of Parox A.fib
- currently in sinus
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
Chronic anemia
- low normal B12 otherwise normal
- continue B12 supplement
HLD - statin
DVT ppx: SC Heparin
Code: Full
Anticipated Discharge: Within 24 hours
Subjective/Interval History
-
Date of Service: May 17, 2025
resting comfortably, no complaints
Objective Data
-
Labs:
Laboratory Results
05/17/25
06:19
WBC 7.0
Hgb 9.4 L
Hct 28.7 L
Plt Count 270
Sodium 135
Potassium 4.9
Chloride 107
Carbon Dioxide 24
BUN 64 H
Creatinine 1.4 H
Glucose 98
Calcium 8.4
Total Bilirubin 0.5
AST 24
ALT 37
Alkaline Phosphatase 76
Vital Signs:
Vital Signs
Temp Pulse Resp BP Pulse Ox
97.5 F 83 16 135/93 98
05/17/25 11:27 05/17/25 12:59 05/17/25 11:27 05/17/25 12:59 05/17/25 11:27
I&O
05/16/25 05/17/25 05/18/25
06:59 06:59 06:59
Intake Total 970 / 970
Output Total 200 / 200 35 / 35
Balance -200 / -200 -25 / -25 970 / 970
Physical Exam
-
General: No Apparent Distress
HEENT: Normocephalic and Atraumatic
Respiratory: Negative Wheezes
Cardiac: Regular Rhythm and S1/S2
GI: Soft
Musculoskeletal: No Edema
Skin: Other (excoriated skin, pelvic wound, + ostomy, +urostomy)
Neuro: AO x 3
Psych: Calm
Data Reviewed
-
Total Time Spent with Patient (in minutes): 41
Labs: Labs Reviewed by me
[2025-05-17] MEDS: HEPARIN 5000 UNITS SC (19:46)
[2025-05-18] MEDS: NSS 1000 IV ×2 (03:13→17:20)
[2025-05-18 03:18] VITALS: BP 67/31
[2025-05-18 03:23] VITALS: BP 92/30
[2025-05-18 06:34] LABS: Hematocrit 24.5 % (39.0-52.0); Hemoglobin 8.1 g/dL (13.0-18.0); Mean Corp Hgb Conc. 33.1 g/dL (33.0-37.0); Mean Corpuscular Volume 89.1 fL (80.0-94.0); Nucleated Red Blood Cells % 0 % (-); Platelet Count 219 10^3/uL (130-400); Red Cell Dist. Width 13.2 % (11.5-14.5)
[2025-05-18 06:57] LABS: ALT (SGPT) 30 U/L (0-50); AST (SGOT) 20 U/L (17-59); Albumin 2.6 g/dl (3.5-5.0); Alkaline Phosphatase 65 U/L (38-126); Blood Urea Nitrogen 32 mg/dl (9-20); Calcium 7.6 mg/dl (8.4-10.2); Carbon Dioxide 22 mmol/L (22-30); Chloride 111 mmol/L (98-107); Estimated Creatinine Clearance 54 ml/min; Glucose 92 mg/dl (70-99); Potassium 4.1 mmol/L (3.5-5.1); Sodium 135 mmol/L (135-145); Total Protein 5.3 g/dl (6.3-8.2); eGFR > 60.00
[2025-05-18] MEDS: CRESTOR 10 MG PO (07:26)
[2025-05-18] MEDS: PROTONIX 40 MG PO (07:26)
[2025-05-18] MEDS: VITAMIN B-12 1000 MCG PO (07:26)
[2025-05-18] MEDS: HEPARIN 5000 UNITS SC ×2 (07:26→20:13)
[2025-05-18 07:45] VITALS: BP 75/48
--- NOTE | 2025-05-18 09:57 | W.PN.NEPH.PH ---
Today's Communication / Plan
-
JUANITA resolved
We will sign off
Maintain midodrine for blood pressures
Assessment/Plan
-
IMP:
Enterocutaneous fistula
Enteroanal fistula/colostomy with ileal conduit
Open wound abdomen below ileal conduit
History of rectal CA with bladder involvement status post multiple surgeries, postop enterocutaneous fistula status post exploratory lap/lysis of adhesions 08/14/2021, partial small bowel resection 04/01/2023
JUANITA
Hyperkalemia
Chronic hypotension
A-fib hx
DVT with right common femoral vein thrombosis/PE status post IVC filter April 2023
HLD
GERD
Plan:
A/w draining wound lower abd -CT noted possible enterocutaneous fistula
JUANITA-suspect poor intake based on history , now resolved
UA bld but no RBC-check CK, pyuria, await cx -GNB
U na low suggest prerenal too, CT shows no hydro
mild met acidosis-improving
hyperkalemia resolved
Blood pressure labile on midodrine support 5mg TID,chronic issue
monitor UOP
We will sign off
-
-
Date of Service: May 18, 2025
CC / HPI / ROS
-
Chief Complaint:
JUANITA, hyperkalemia
History of Present Illness:
cr better at 0.9 k normal
Bp labile on midodrine support
no fever
Review of Systems:
no CP or sob
no n/v
Labs
-
Labs:
WBC 6.4 10^3/uL (4.8-10.8) 05/18/25 06:06
RBC 2.75 10^6/uL (4.70-6.10) L 05/18/25 06:06
Hgb 8.1 g/dL (13.0-18.0) L 05/18/25 06:06
Hct 24.5 % (39.0-52.0) L 05/18/25 06:06
Plt Count 219 10^3/uL (130-400) 05/18/25 06:06
Sodium 135 mmol/L (135-145) 05/18/25 06:06
Potassium 4.1 mmol/L (3.5-5.1) 05/18/25 06:06
Chloride 111 mmol/L (98-107) H 05/18/25 06:06
Carbon Dioxide 22 mmol/L (22-30) 05/18/25 06:06
BUN 32 mg/dl (9-20) H 05/18/25 06:06
Creatinine 0.9 mg/dL (0.7-1.3) 05/18/25 06:06
eGFR > 60.00 05/18/25 06:06
Glucose 92 mg/dl (70-99) 05/18/25 06:06
Calcium 7.6 mg/dl (8.4-10.2) L 05/18/25 06:06
Albumin 2.6 g/dl (3.5-5.0) L 05/18/25 06:06
Physical Exam
-
Vital Signs:
Vital Signs
Temp Pulse Resp BP Pulse Ox
98.2 F 62 16 75/48 99
05/18/25 07:45 05/18/25 07:45 05/18/25 07:45 05/18/25 07:45 05/18/25 07:45
Cardiovascular:: Regular rate and rhythm
Respiratory:: Bilateral: CTA
Lung Excursion:: Normal
Abdomen:: Nontender and Soft
Extremity Edema:: None: Bilateral:
Jackson Catheter: No
Other Findings::
urostomy clear urine
--- NOTE | 2025-05-18 11:25 | W.PN.CRS1 ---
Today's Communication / Plan
-
Maintain IR drain
Okay for discharge if hypotension resolves from our standpoint
Follow-up in the office with Dr. Cooper
Assessment/Plan
-
Assessment: 75-year-old male with an extensive past medical history of rectal cancer status post pelvic exoneration and subsequent anterior cutaneous fistula status postrepair, now presents to the ER complaining of increased wound drainage in the
lower midline aspect as well as drainage from his anal area
WBC: 6.4, hemoglobin 8.1 (9.4)
05/16- IR drain placement
Plan:
- Continue IR drain as an outpatient
- IR drain cultures pending
- Continue regular diet
- Trend labs and blood work
- Stoma nurse for wound management
- urine culture pending
- Anticipate discharge as soon as today if blood pressure issues have resolved. Follow-up in the office with Dr. Cooper in a few weeks. At that time we may order a drain study
Subjective Data
Subjective Data
Date of Service: May 18, 2025
Patient states he feels 'fine'. He has no current complaints. Denies nausea or vomiting. Tolerated diet.
Objective Data
-
Vital Signs
Temp Pulse Resp BP Pulse Ox
98.2 F 62 16 75/48 99
05/18/25 07:45 05/18/25 07:45 05/18/25 07:45 05/18/25 07:45 05/18/25 07:45
Intake & Output
05/17/25 05/18/25 05/19/25
06:59 06:59 06:59
Intake Total 2941.7 / 2941.7
Output Total 35 / 35 60 / 60
Balance -25 / 25 2881.7 / 2881.7
Intake:
Oral fluids 1070 / 1070
IV fluids (Total) 1861.7 / 1860.
Amount instilled into Drain (
Total)
Right Pelvis Gustavo-Keys
Placed in IR
Output:
Drain Output (Total) 60 /
Right Pelvis Gustavo-Keys 60 /
Placed in IR
Other:
Number of approximated MODERATE 1 2
amounts of urine
Lab Results
05/18/25 06:06
05/18/25 06:06
Physical Exam
-
General: No Acute Distress and AOx3
Abdomen: Soft, Non Distended, Non Tender and Other (SURAJ drain with purulent output)
Skin: Warm and Dry
[2025-05-18 11:26] VITALS: BP 119/48
[2025-05-18] MEDS: NSS IV (12:48)
--- NOTE | 2025-05-18 12:52 | W.PN.HOSP.TC ---
Today's Communication/Plan
-
monitor BP
Rocephin for possible UTI
Assessment / Plan
Assessment / Plan
Assessment:
Enteroanal fistula/colostomy with ileal conduit
Open wound abdomen below ileal conduit
History of rectal CA with bladder involvement status post multiple surgeries, postop enterocutaneous fistula status post exploratory lap/lysis of adhesions 08/14/2021, partial small bowel resection 04/01/2023
- CT: Postoperative changes of the pelvis with a chronic pelvic collection that contains contrast material and gas located in the inferior pelvis with a small tract that is contiguous with an adjacent loop of small bowel. Probable enterocutaneous
fistula of the anterior pelvic wall at midline where there is layering superficial contrast material external to the patient, and for which direct visualization is recommended.
- Colorectal following; s/p IRAD placed pelvic drain 05/18.
- GS with polymicrobial colonization. No evidence of active infection. Hold off antibiotics.
- Ostomy nurse following
- pain control, anti-emetics
Possible UTI
- Rocephin, day 1
- dc on Cefdinir
JUANITA
acute hyperkalemia
acute hyponatremia
- pre-renal by FENA. admitting Cr 2.2 now currently 0.9
- cap IVF after current bag
- Nephrology following
- for hyperkalemia - s/p 2 rounds of dextrose/insulin, Lokelma x 1
Hx of Parox A.fib
- currently in sinus
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
Chronic anemia
- low normal B12 otherwise normal
- continue B12 supplement
HLD - statin
DVT ppx: SC Heparin
Code: Full
Anticipated Discharge: Within 24 hours
Subjective/Interval History
-
Date of Service: May 18, 2025
resting comfortably, no complaints at present
Objective Data
-
Labs:
Laboratory Results
05/18/25
06:06
WBC 6.4
Hgb 8.1 L
Hct 24.5 L
Plt Count 219
Sodium 135
Potassium 4.1
Chloride 111 H
Carbon Dioxide 22
BUN 32 H
Creatinine 0.9
Glucose 92
Calcium 7.6 L
Total Bilirubin 0.4
AST 20
ALT 30
Alkaline Phosphatase 65
Vital Signs:
Vital Signs
Temp Pulse Resp BP Pulse Ox
98.5 F 73 14 122/49 100
05/18/25 11:26 05/18/25 12:44 05/18/25 11:26 05/18/25 12:44 05/18/25 11:26
I&O
05/17/25 05/18/25 05/19/25
06:59 06:59 06:59
Intake Total 2941.7 / 2941.7
Output Total 35 / 35 60 / 60
Balance - / 2881.7 / 2881.7
Physical Exam
-
General: No Apparent Distress
HEENT: Normocephalic and Atraumatic
Respiratory: Negative Wheezes
Cardiac: Regular Rhythm and S1/S2
GI: Soft and Ostomy
Genito-urinary: No Costovertebral Tender
Musculoskeletal: No Edema
Neuro: AO x 3
Psych: Calm
Data Reviewed
-
Total Time Spent with Patient (in minutes): 42
Labs: Labs Reviewed by me
--- NOTE | 2025-05-18 12:57 | PN.CDI ---
CDI
- -
CDI:
Physician Documentation Request
Admit Date: 05/15/25 17:59
Dear Doctor Adonis,
Patient admitted with enteroanal fistula/colostomy with ileal conduit.
05/16 Nutrition note, 'RD able to visualize temporal wasting, apparent ribs, protrusion of clavicle. With observed muscle and fat wasting and > 5% weight loss in 1 month pt meets AND/ASPEN criteria for severe protein calorie malnutrition of chronic
illness.....clavicle and temporal muscle loss severe...subcutaneous fat loss of rib cage and orbitals severe.'
Please provide in your note the diagnosis associated with the patient's nutrition status and your assessment:
Severe protein calorie malnutrition
Other (please specify)
Hardy Criteria ([facility] 2017)
2 or more criteria must be present for either
non severe or severe malnutrition
Note that the criteria differs related to the
presence of an acute or chronic illness
Chronic Illness
Energy Intake Non Severe: <75% for >1 month
Severe: <75% for >1 month
Weight Loss Non Severe: 5% over 1 month
7.5% over 3 months
10% over 6 months
20% over 1 year
Severe: >5% over 1 month
>7.5% over 3 months
>10% over 6 months
>20% over 1 year
Body Fat Non Severe: Mild Loss
Severe: Severe Loss
Muscle Mass Non Severe: Mild Loss
Severe: Severe Loss
Fluid Accumulation Non Severe: Mild Accumulation
Severe: Moderate to severe
accumulation
Reduced [employer] Custody Strength Non Severe: N/A
Severe: Measurably reduced
Use of terms such as suspected, likely, concern for, or probable (associated with a specific diagnosis that is being evaluated, monitored, or treated as if it exists) are acceptable and can be coded in the inpatient setting, when documented at the
time of discharge.
Thank you,
Bridgette KUHN,RN,CCDS
CDI Specialist
Available via [place] text
Please use your independent medical judgment in providing your response.
[2025-05-18] MEDS: STERILE WATER FOR INJECTION 10 ML IV (13:36)
[2025-05-18] MEDS: ROCEPHIN 1000 MG IV (13:36)
[2025-05-18 15:45] VITALS: BP 124/49
--- NOTE | 2025-05-18 16:44 | CM ---
Referrals sent to [facility], [facility], and [facility]. Please check [facility]port for responses.
[2025-05-18 23:00] VITALS: BP 128/47
[2025-05-19] MEDS: NSS 1000 IV (05:15)
[2025-05-19 07:07] LABS: Hematocrit 24.4 % (39.0-52.0); Hemoglobin 8.0 g/dL (13.0-18.0); Mean Corp Hgb Conc. 32.8 g/dL (33.0-37.0); Mean Corpuscular Volume 88.7 fL (80.0-94.0); Platelet Count 226 10^3/uL (130-400); Red Cell Dist. Width 13.5 % (11.5-14.5)
[2025-05-19 07:30] LABS: Blood Urea Nitrogen 16 mg/dl (9-20); Calcium 7.3 mg/dl (8.4-10.2); Carbon Dioxide 21 mmol/L (22-30); Chloride 111 mmol/L (98-107); Estimated Creatinine Clearance 60 ml/min; Glucose 85 mg/dl (70-99); Potassium 4.0 mmol/L (3.5-5.1); Sodium 135 mmol/L (135-145); eGFR > 60.00
[2025-05-19 08:08] VITALS: BP 133/51
[2025-05-19] MEDS: PROTONIX 40 MG PO (08:17)
[2025-05-19] MEDS: CRESTOR 10 MG PO (08:17)
[2025-05-19] MEDS: HEPARIN 5000 UNITS SC ×2 (08:18→19:27)
[2025-05-19] MEDS: VITAMIN B-12 1000 MCG PO (10:19)
[2025-05-19 11:37] VITALS: BP 106/53
--- NOTE | 2025-05-19 11:38 | W.PN.CRS1 ---
Addendum entered and electronically signed by Yung Dickey MD 05/19/25 14:47:
I saw and examined the patient.
The HOT REPAIRMAN's note was reviewed and I agree with the note.
�Draining succus from around the IR drain versus the enterocutaneous fistula; will request IR to study the drain and possibly upsized to encourage control drainage away from the EC fistula
� Continue regular diet and IV ceftriaxone
Original Note:
Today's Communication / Plan
-
IR drain study on Wednesday
Assessment/Plan
-
Assessment: 75-year-old male with an extensive past medical history of rectal cancer status post pelvic exoneration and subsequent anterior cutaneous fistula status postrepair presenting with inecreasing drainage form chronic EC fistula/rectum.
IR drain placed on 05/16/25 to assist with management
Labs stable
Increased drainage around drain
polymicrobial wound and urine cx
Plan:
- d/w IR, will plan drain study on Wednesday and ?upsizing
- Continue regular diet
- c/w ABX
- Stoma nurse following for wound management
Subjective Data
Subjective Data
Date of Service: May 19, 2025
Pt seen and examined at bedside with Dr. Dickey. His spouse is present, questions addressed. Denies pain, tolerating diet. Notes significant drainage around his IR drain but believes there is less from fistula site.
Objective Data
-
Vital Signs
Temp Pulse Resp BP Pulse Ox
97.5 F 79 16 106/53 98
05/19/25 11:37 05/19/25 11:37 05/19/25 11:37 05/19/25 11:37 05/19/25 11:37
Intake & Output
05/18/25 05/19/25 05/20/25
06:59 06:59 06:59
Intake Total 2941.7 / 2941.7 1068.3 / 1068.3
Output Total 60 / 60 30 / 30
Balance 2881.7 / 2881.7 1038.3 / 1038.3
Intake:
Oral fluids 1070 / 1070 950 / 950
IV fluids (Total) 1861.7 / 1861.7 98.3 / 98.3
Amount instilled into Drain (
Total)
Right Pelvis Gustavo-Keys
Placed in IR
Output:
Drain Output (Total)
Right Pelvis Gustavo-Keys
Placed in IR
Other:
Number of approximated MODERATE 2 1
amounts of urine
Number of approximated LARGE 1
amounts of urine
Lab Results
05/19/25 06:32
05/19/25 06:32
Physical Exam
-
General: No Acute Distress and AOx3
Abdomen: Soft, Non Distended, Non Tender and Other (SURAJ drain with succus output with large amount of drainage on dressing. Pelvic fistula site with some succus drainage as well, minimal)
Skin: Warm, Dry and Other (stoma to urostomy and colostomy both pink. urostomy productive of urine. colostomy productive of soft brown stool)
--- NOTE | 2025-05-19 13:30 | W.PN.HOSP.TC ---
Addendum entered and electronically signed by Glenn Lamb MD 05/19/25 13:38:
CDI response:
Severe protein calorie malnutrition
Original Note:
Today's Communication/Plan
-
IR drain study Wednesday
continue UTI abx (Rocephin)
continue diet
follow CRS recs
Assessment / Plan
Assessment / Plan
Assessment:
Enteroanal fistula/colostomy with ileal conduit
Open wound abdomen below ileal conduit
History of rectal CA with bladder involvement status post multiple surgeries, postop enterocutaneous fistula status post exploratory lap/lysis of adhesions 08/14/2021, partial small bowel resection 04/01/2023
- CT: Postoperative changes of the pelvis with a chronic pelvic collection that contains contrast material and gas located in the inferior pelvis with a small tract that is contiguous with an adjacent loop of small bowel. Probable enterocutaneous
fistula of the anterior pelvic wall at midline where there is layering superficial contrast material external to the patient, and for which direct visualization is recommended.
- Colorectal following; s/p IRAD placed pelvic drain 05/16. IRAD reconsulted 05/19 due to drainage around existing size; evaluation for upsizing on Wednesday.
- GS with polymicrobial colonization. No evidence of active infection. Hold off antibiotics.
- Ostomy nurse following
- pain control, anti-emetics
E. Coli and multi drug resistant Klebsiella UTI
- continue Rocephin, day 11/10
JUANITA
acute hyperkalemia
acute hyponatremia
- pre-renal by FENA. admitting Cr 2.2 now currently 0.9 (after IV fluids)
- Nephrology following
- for hyperkalemia - s/p 2 rounds of dextrose/insulin, Lokelma x 1
Hx of Parox A.fib
- currently in sinus
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
Chronic anemia
- low normal B12 otherwise normal
- continue B12 supplement
HLD - statin
DVT ppx: SC Heparin
Code: Full
Anticipated Discharge: > 48 hours
Subjective/Interval History
-
Date of Service: May 19, 2025
resting comfortably
significant drainage around IR Drain site today
Objective Data
-
Labs:
Laboratory Results
05/19/25
06:32
WBC 7.3
Hgb 8.0 L
Hct 24.4 L
Plt Count 226
Sodium 135
Potassium 4.0
Chloride 111 H
Carbon Dioxide 21 L
BUN 16
Creatinine 0.8
Glucose 85
Calcium 7.3 L
Vital Signs:
Vital Signs
Temp Pulse Resp BP Pulse Ox
97.5 F 79 16 106/53 98
05/19/25 11:37 05/19/25 11:37 05/19/25 11:37 05/19/25 11:37 05/19/25 11:37
I&O
05/18/25 05/19/25 05/20/25
06:59 06:59 06:59
Intake Total 2941.7 / 2941.7 1068.3 / 1068.3
Output Total 60 / 60 30 / 30
Balance 2881.7 / 2881.7 1038.3 / 1038.3
Physical Exam
-
General: No Apparent Distress
HEENT: Normocephalic and Atraumatic
Respiratory: Negative Wheezes
Cardiac: Regular Rhythm and S1/S2
GI: Soft, Ostomy and Other (SURAJ drain with large output/drainage on dressing. Fistula site with some drainage. )
Genito-urinary: Other (urostomy)
Musculoskeletal: No Edema
Neuro: AO x 3
Psych: Calm
Data Reviewed
-
Total Time Spent with Patient (in minutes): 42
Labs: Labs Reviewed by me
[2025-05-19] MEDS: STERILE WATER FOR INJECTION 10 ML IV (14:12)
[2025-05-19] MEDS: FLUSH (NSS) 2 FLUSH IV (14:12)
[2025-05-19] MEDS: ROCEPHIN 1000 MG IV (14:12)
[2025-05-19] MEDS: NSS IV (14:15)
[2025-05-19 16:41] VITALS: BP 156/65
--- NOTE | 2025-05-19 17:41 | PTCARENOTE ---
Pt BP 156/65. TT cross coverage to see if we should hold 1800 dose of Midodrine. Doctor notified this RN to hold 1800 dose of Midodrine, if BP drops later today then to give. Otherwise pt is good until tomorrow's dose.
[2025-05-19 19:50] VITALS: BP 119/60
[2025-05-19 23:39] VITALS: BP 121/57
[2025-05-20 03:25] VITALS: BP 110/50
[2025-05-20 07:30] VITALS: BP 109/50
[2025-05-20 07:37] LABS: Hematocrit 24.0 % (39.0-52.0); Hemoglobin 8.0 g/dL (13.0-18.0); Mean Corp Hgb Conc. 33.3 g/dL (33.0-37.0); Mean Corpuscular Volume 87.3 fL (80.0-94.0); Platelet Count 219 10^3/uL (130-400); Red Cell Dist. Width 13.5 % (11.5-14.5)
[2025-05-20 07:45] LABS: Blood Urea Nitrogen 11 mg/dl (9-20); Calcium 7.3 mg/dl (8.4-10.2); Carbon Dioxide 23 mmol/L (22-30); Chloride 111 mmol/L (98-107); Estimated Creatinine Clearance 60 ml/min; Glucose 82 mg/dl (70-99); Potassium 3.8 mmol/L (3.5-5.1); Sodium 136 mmol/L (135-145); eGFR > 60.00
[2025-05-20] MEDS: PROTONIX 40 MG PO (08:54)
[2025-05-20] MEDS: HEPARIN 5000 UNITS SC ×2 (08:54→20:46)
[2025-05-20] MEDS: CRESTOR 10 MG PO (08:54)
[2025-05-20] MEDS: VITAMIN B-12 1000 MCG PO (08:54)
--- NOTE | 2025-05-20 09:21 | PTCARENOTE ---
Lab informed this RN of critical wound specimen result, result= proteus mirabilis- ESBL. MD made aware. Pt placed on contact precautions.
[2025-05-20 11:30] VITALS: BP 138/56
--- NOTE | 2025-05-20 11:40 | W.PN.HOSP.TC ---
Today's Communication/Plan
-
IR drain study Wednesday
continue UTI abx (Rocephin)
continue diet
follow CRS recs
Assessment / Plan
Assessment / Plan
Assessment:
Enteroanal fistula/colostomy with ileal conduit
Open wound abdomen below ileal conduit
History of rectal CA with bladder involvement status post multiple surgeries, postop enterocutaneous fistula status post exploratory lap/lysis of adhesions 08/14/2021, partial small bowel resection 04/01/2023
- CT: Postoperative changes of the pelvis with a chronic pelvic collection that contains contrast material and gas located in the inferior pelvis with a small tract that is contiguous with an adjacent loop of small bowel. Probable enterocutaneous
fistula of the anterior pelvic wall at midline where there is layering superficial contrast material external to the patient, and for which direct visualization is recommended.
- Colorectal following; s/p IRAD placed pelvic drain 05/16. IRAD reconsulted 05/19 due to drainage around existing size; evaluation for upsizing on Wednesday.
- GS with polymicrobial colonization. No evidence of active infection. Hold off antibiotics.
- Ostomy nurse following
- pain control, anti-emetics
E. Coli and multi drug resistant Klebsiella UTI
- continue Rocephin, day 3
JUANITA
acute hyperkalemia
acute hyponatremia
- pre-renal by FENA. admitting Cr 2.2 now currently 0.9 (after IV fluids)
- for hyperkalemia - s/p 2 rounds of dextrose/insulin, Lokelma x 1
- Nephrology signed off
Hx of Parox A.fib
- currently in sinus
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
Chronic anemia
- low normal B12 otherwise normal
- continue B12 supplement
HLD - statin
Severe protein calorie malnutrition
DVT ppx: SC Heparin
Code: Full
Anticipated Discharge: 24 - 48 hours
Subjective/Interval History
-
Date of Service: May 20, 2025
resting comfortably, no complaints
Objective Data
-
Labs:
Laboratory Results
05/20/25
06:40
WBC 5.8
Hgb 8.0 L
Hct 24.0 L
Plt Count 219
Sodium 136
Potassium 3.8
Chloride 111 H
Carbon Dioxide 23
BUN 11
Creatinine 0.8
Glucose 82
Calcium 7.3 L
Vital Signs:
Vital Signs
Temp Pulse Resp BP Pulse Ox
97.9 F 61 16 109/50 99
05/20/25 07:30 05/20/25 08:54 05/20/25 07:30 05/20/25 08:54 05/20/25 07:30
I&O
05/19/25 05/20/25 05/21/25
06:59 06:59 06:59
Intake Total 1068.3 / 1068.3 1230 / 1230
Output Total 275 / 275
Balance 1038.3 / 1038.3 955 / 955
Physical Exam
-
General: No Apparent Distress
HEENT: Normocephalic and Atraumatic
Respiratory: Negative Wheezes
Cardiac: Regular Rhythm and S1/S2
GI: Soft, Ostomy and Other (SURAJ drain with large output/drainage on dressing. Fistula site with some drainage.)
Genito-urinary: Other (urostomy)
Neuro: AO x 3
Psych: Calm
Data Reviewed
-
Total Time Spent with Patient (in minutes): 42
Labs: Labs Reviewed by me
--- NOTE | 2025-05-20 11:45 | PTCARENOTE ---
Pt ambulating to bathroom, HR increased to 140's. Asymptomatic. HR decreased to 80's-90's. MD made aware.
[2025-05-20] MEDS: ROCEPHIN 1000 MG IV (13:51)
[2025-05-20] MEDS: STERILE WATER FOR INJECTION 10 ML IV (13:52)
--- NOTE | 2025-05-20 15:24 | W.PN.CRS1 ---
Today's Communication / Plan
-
IR for tube study tomorrow
Assessment/Plan
-
Assessment: 75-year-old male with an extensive past medical history of rectal cancer status post pelvic exoneration and subsequent anterior cutaneous fistula status postrepair presenting with increasing drainage form chronic EC fistula/rectum.
IR drain placed on 05/16/25 to assist with management
Labs stable
Draining fluid around IR drain, anally and via EC fistula
polymicrobial wound and urine cx
Plan:
- will plan drain study on Wednesday in IR and ?upsizing
- Continue regular diet, NPO after MN for procedure
- c/w ABX
- Stoma nurse following for wound management
Subjective Data
Subjective Data
Date of Service: May 20, 2025
Pt seen and examined at bedside with Dr. Dickey. Notes he is passing loose material anally as well as around his drain and fistula site. Denies pain.
Objective Data
-
Vital Signs
Temp Pulse Resp BP Pulse Ox
97.5 F 76 16 137/67 99
05/20/25 11:30 05/20/25 13:52 05/20/25 11:30 05/20/25 13:52 05/20/25 11:30
Intake & Output
05/19/25 05/20/25 05/21/25
06:59 06:59 06:59
Intake Total 1068.3 / 1068.3 1230 / 1230
Output Total 275 / 275
Balance 1038.3 / 1038.3 955 / 955
Intake:
Oral fluids 950 / 950 720 / 720
IV fluids (Total) 98.3 / 98.3 500 / 500
Amount instilled into Drain (
Total)
Right Pelvis Gustavo-Keys
Placed in IR
Output:
Drain Output (Total)
Right Pelvis Gustavo-Keys
Placed in IR
Urostomy output 200 / 200
Other:
Number of approximated MODERATE 1
amounts of urine
Number of approximated LARGE 1
amounts of urine
Lab Results
05/20/25 06:40
05/20/25 06:40
Physical Exam
-
General: No Acute Distress and AOx3
Abdomen: Soft, Non Distended, Non Tender and Other (SURAJ drain with succus output with large amount of drainage on dressing. Pelvic fistula site with some succus drainage as well, minimal)
Skin: Warm, Dry and Other (stoma to urostomy and colostomy both pink. urostomy productive of urine. colostomy productive of soft brown stool)
[2025-05-20 16:00] VITALS: BP 132/75
--- NOTE | 2025-05-20 19:30 | PTCARENOTE ---
Pt HR in 140s when ambulating to bathroom. Pt asymptomatic. HR dropped back to 70s. IWONA Zavala notified. Educated patient on remaining in bed for shift. Plan of care ongoing.
[2025-05-20 20:24] VITALS: BP 125/59
[2025-05-21] VITALS (13 sets, daily range): BP systolic 49–128; BP diastolic 45–90
--- NOTE | 2025-05-21 06:39 | PTCARENOTE ---
Dressings at SURAJ drain site and fistula changed due to drainage. Pt wearing attends from home. Attends are soiled with drainage. This RN offered pt underwear with peripads inside. Pt refused. This RN educated pt on infection risk. Pt still refusing.
Stated that his will bring in more attends for him today. Plan of care ongoing.
[2025-05-21 08:27] LABS: Hematocrit 24.3 % (39.0-52.0); Hemoglobin 8.2 g/dL (13.0-18.0); Mean Corp Hgb Conc. 33.7 g/dL (33.0-37.0); Mean Corpuscular Volume 87.1 fL (80.0-94.0); Platelet Count 229 10^3/uL (130-400); Red Cell Dist. Width 13.4 % (11.5-14.5)
--- NOTE | 2025-05-21 08:42 | W.PN.HOSP.TC ---
Today's Communication/Plan
-
For Irad drain study today for upsizing
Assessment / Plan
Assessment / Plan
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
-Tolerating orally
-Though NPO
-IRAD drain 05/16 with drain around the wound
-For IR drain study for upsizing
Urinary tract infection
-E. Coli and multi drug resistant Klebsiella
- IV Rocephin day 5
-Repeat UA on day 5 (tomorrow -05/23/2025)
-Current WBC 6.5
-Broaden ABx coverage (Unacyn) if symtomatic
JUANITA
acute hyperkalemia Now --Now 3.5
acute hyponatremia
- pre-renal by FENA. admitting Cr 2.2 now currently 0.9 (after IV fluids)
- for hyperkalemia - s/p 2 rounds of dextrose/insulin, Lokelma x 1
Nephrology signed off
Hx of Parox A.fib
- currently in sinus
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
Chronic anemia
- low normal B12 otherwise normal
- continue B12 supplement
HLD - statin
Severe protein calorie malnutrition
DVT ppx: SC Heparin
Code: Full
Anticipated Discharge: > 48 hours
Subjective/Interval History
-
Date of Service: May 21, 2025
Patient met in bed
No complains today
Objective Data
-
Labs:
Laboratory Results
05/21/25
07:46
WBC 6.5
Hgb 8.2 L
Hct 24.3 L
Plt Count 229
Sodium Pending
Potassium Pending
Chloride Pending
Carbon Dioxide Pending
BUN Pending
Creatinine Pending
Glucose Pending
Calcium Pending
Vital Signs:
Vital Signs
Temp Pulse Resp BP Pulse Ox
97.9 F 57 16 110/55 100
05/21/25 07:30 05/21/25 07:30 05/21/25 07:30 05/21/25 07:30 05/21/25 07:30
I&O
05/20/25 05/21/25 05/22/25
06:59 06:59 06:59
Intake Total 1230 / 1230 810 / 810
Output Total 275 / 275 1650 / 1650
Balance 955 / 955 -840 / -840
Physical Exam
-
General: No Apparent Distress
HEENT: Normocephalic and Atraumatic
Respiratory: Clear to Auscultation
Cardiac: Regular Rhythm and S1/S2
GI: Soft, Ostomy and Other (SURAJ drain with large output/drainage on dressing. Fistula site with some drainage.)
Genito-urinary: Other (Ostomy bag and SURAJ drain )
Neuro: AO x 3
Psych: Calm
[2025-05-21 08:43] LABS: Blood Urea Nitrogen 11 mg/dl (9-20); Calcium 7.9 mg/dl (8.4-10.2); Carbon Dioxide 22 mmol/L (22-30); Chloride 110 mmol/L (98-107); Estimated Creatinine Clearance 69 ml/min; Glucose 82 mg/dl (70-99); Potassium 3.5 mmol/L (3.5-5.1); Sodium 134 mmol/L (135-145); eGFR > 60.00
[2025-05-21] MEDS: PROTONIX 40 MG PO (08:47)
[2025-05-21] MEDS: CRESTOR 10 MG PO (08:48)
[2025-05-21] MEDS: VITAMIN B-12 1000 MCG PO (08:48)
[2025-05-21] MEDS: HEPARIN 5000 UNITS SC ×2 (08:48→20:20)
--- NOTE | 2025-05-21 08:54 | W.PN.CRS1 ---
Today's Communication / Plan
-
IR today for ?upsizing of drain
Assessment/Plan
-
Assessment: 75-year-old male with an extensive past medical history of rectal cancer status post pelvic exoneration and subsequent anterior cutaneous fistula status postrepair presenting with increasing drainage form chronic EC fistula/rectum.
IR drain placed on 05/16/25 to assist with management
Labs stable
Draining fluid around IR drain, anally and via EC fistula
polymicrobial wound and urine cx
Plan:
- Drain study on Wednesday in IR and ?upsizing
- Continue regular diet, NPO after MN for procedure. Can advance back to regular after IR.
- c/w ABX
- Stoma nurse following for wound management
Subjective Data
Subjective Data
Date of Service: May 21, 2025
Patient states he is still having a lot of discharge from his anus. It ranges from brown to bloody. It describes feeling a 'constant' pressure.
Objective Data
-
Vital Signs
Temp Pulse Resp BP Pulse Ox
97.9 F 57 16 110/55 100
05/21/25 07:30 05/21/25 07:30 05/21/25 07:30 05/21/25 07:30 05/21/25 07:30
Intake & Output
05/20/25 05/21/25 05/22/25
06:59 06:59 06:59
Intake Total 1230 / 1230 810 / 810
Output Total 275 / 275 1650 / 1650
Balance 955 / 955 -840 / -840
Intake:
Oral fluids 720 / 720 800 / 800
IV fluids (Total) 500 / 500
Amount instilled into Drain (
Total)
Right Pelvis Gustavo-Keys
Placed in IR
Output:
Liquid stool amount 600 / 600
Colostomy 600 / 600
Drain Output (Total) 75 / 75 150 / 150
Right Pelvis Gustavo-Keys 75 / 75 150 / 150
Placed in IR
Urostomy output 200 / 200 900 / 900
Lab Results
05/21/25 07:46
05/21/25 07:46
Physical Exam
-
General: No Acute Distress and AOx3
Abdomen: Soft, Non Distended, Non Tender and Other (Drain with purulent output )
Skin: Warm and Dry
Incision: Clear, Dry, Intact
--- NOTE | 2025-05-21 15:58 | CM ---
Patient unavailable - At IR
at bedside
referrals in [facility] for [facility] accepted- agreeable
PLAN: home with [facility] fax #: [phone]
[2025-05-21] MEDS: STERILE WATER FOR INJECTION 10 ML IV (17:17)
[2025-05-21] MEDS: ROCEPHIN 1000 MG IV (17:17)
[2025-05-22 04:00] VITALS: BP 121/40
[2025-05-22 06:18] LABS: Hematocrit 27.0 % (39.0-52.0); Hemoglobin 9.1 g/dL (13.0-18.0); Mean Corp Hgb Conc. 33.7 g/dL (33.0-37.0); Mean Corpuscular Volume 86.8 fL (80.0-94.0); Platelet Count 245 10^3/uL (130-400); Red Cell Dist. Width 13.4 % (11.5-14.5)
[2025-05-22 06:48] LABS: Blood Urea Nitrogen 13 mg/dl (9-20); Calcium 8.4 mg/dl (8.4-10.2); Carbon Dioxide 24 mmol/L (22-30); Chloride 108 mmol/L (98-107); Estimated Creatinine Clearance 60 ml/min; Glucose 86 mg/dl (70-99); Potassium 4.2 mmol/L (3.5-5.1); Sodium 136 mmol/L (135-145); eGFR > 60.00
[2025-05-22 06:54] LABS: Urine Character Clear (Clear)
[2025-05-22 07:04] LABS: Urine Squamous Cell None seen /LPF (Few)
[2025-05-22 07:05] LABS: Urine White Cell 50-60 /HPF (0-5)
--- NOTE | 2025-05-22 07:08 | W.PN.HOSP.TC ---
Today's Communication/Plan
-
Drain replacement done, plan for definitive surgery on outpatient basis
Convert IV Ceftriaxone to Amoxicillin/Clavulanate today to complete 7 day ABX
Assessment / Plan
Assessment / Plan
Stomy- (600), urostomy 620, drain 70
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
-Tolerating orally
-Had IRAD drain upsizing done yesterday
-Previous draining 05/16 with drain around the wound
-For a definitive surgery per surgical team
Urinary tract infection
-E. Coli and multi drug resistant Klebsiella
-Repeat UA today, Pyuria with moderate bacteruria,
-Culture pending
-Currently Asymptomatic, Current WBC 7.2
- IV Rocephin day 5
-Can be converted to PO Amoxicillin/Clavulanate 875/125
-Fu with PCP with culture
Hypotension
-121/40
-Midodrine 5mg
JUANITA
-Resolved
-Initial acute hyperkalemia Now -Now- K-4.2
acute hyponatremia
- pre-renal by FENA. Admitting Cr 2.2 now currently 0.8 (after IV fluids)
Hx of Parox A.fib
- currently in sinus
Chronic anemia
-Hb 9.1
- low normal B12 otherwise normal
- continue B12 supplement
HLD -
Rosuvastatin
Severe protein calorie malnutrition
DVT ppx: SC Heparin
Code: Full
Anticipated Discharge: Today
Subjective/Interval History
-
Date of Service: May 22, 2025
A 75 year old male, S/P drain study and upsizing done yesterday (05/21/2025) Initial done 05/16/2025
History of Pelvic exenteration for extensive pelvic cancer
Procedure was well tolerated, he is eating well
Still draining from his penis and anus
Objective Data
-
Labs:
Laboratory Results
05/22/25
05:49
WBC 7.2
Hgb 9.1 L
Hct 27.0 L
Plt Count 245
Sodium 136
Potassium 4.2
Chloride 108 H
Carbon Dioxide 24
BUN 13
Creatinine 0.8
Glucose 86
Calcium 8.4
Vital Signs:
Vital Signs
Temp Pulse Resp BP Pulse Ox
98.5 F 58 16 121/40 100
05/22/25 04:00 05/22/25 04:00 05/22/25 04:00 05/22/25 04:00 05/22/25 04:00
I&O
05/21/25 05/22/25 05/23/25
06:59 06:59 06:59
Intake Total 810 / 810 1135 / 1135
Output Total 1650 / 1650 990 / 990
Balance -840 / -840 145 / 145
Review of Systems
-
History Source: Patient
Constitutional: Reports No Symptoms
EENT: Reports No Symptoms Reported
Respiratory: Reports No Symptoms
Cardiac: Reports No Symptoms
Abdomen/GI: Reports No Symptoms
Physical Exam
-
General: No Apparent Distress
HEENT: Normocephalic and Atraumatic
Respiratory: Clear to Auscultation
Cardiac: Regular Rhythm and S1/S2
GI: Soft, Ostomy (Draining stool from the Penis, anus and minimal around the SURAJ) and Other (SURAJ drain with large output/drainage on dressing. Fistula site with some drainage.)
Genito-urinary: Other (Ostomy bag and SURAJ drain )
Neuro: AO x 3
Psych: Calm
Data Reviewed
-
Labs: Labs Reviewed by me, Discussed with Physician and Discussed with Patient
[2025-05-22 07:44] VITALS: BP 115/51
[2025-05-22] MEDS: PROTONIX 40 MG PO (08:45)
[2025-05-22] MEDS: HEPARIN 5000 UNITS SC (08:46)
[2025-05-22] MEDS: CRESTOR 10 MG PO (08:46)
[2025-05-22] MEDS: VITAMIN B-12 1000 MCG PO (09:23)
--- NOTE | 2025-05-22 09:23 | W.PN.CRS1 ---
Today's Communication / Plan
-
continue current care
eventual surgery (not during this admission)
dispo per primary team
Assessment/Plan
-
Assessment: 75-year-old male with an extensive past medical history of rectal cancer status post pelvic exoneration and subsequent anterior cutaneous fistula status postrepair presenting with increasing drainage form chronic EC fistula/rectum.
IR drain placed on 05/16/25 to assist with management
Labs normal, vitals normal
Drain: 70ml
liquid stool: 300ml
Draining fluid around IR drain, anally and via EC fistula
05/21: drain upsized to 10F
Plan:
- Will need eventual surgery per Dr. Cooper (not during this admission). He will work on surgical planning and correspond with the patient for a surgical date.
- c/w ABX per hospitalist
- Stoma nurse following for wound management
- Follow up with Dr. Cooper in 2 to 4 weeks in the office to discuss surgical planning. Dispo per primary team. Continue IR drain as an outpatient. Will need clearance by his primary care doctor, Dr. Sanz, for eventual surgery. Discussed with
patient.
Subjective Data
Subjective Data
Date of Service: May 22, 2025
Patient states he is still having drainage from his buttock area. He is tolerating a diet. His ileostomy is functioning. Denies nausea or vomiting.
Objective Data
-
Vital Signs
Temp Pulse Resp BP Pulse Ox
98.6 F 57 22 115/51 100
05/22/25 07:44 05/22/25 08:45 05/22/25 07:44 05/22/25 08:45 05/22/25 07:44
Intake & Output
05/21/25 05/22/25 05/23/25
06:59 06:59 06:59
Intake Total 810 / 810 1135 / 1135
Output Total 1650 / 1650 990 / 990
Balance -840 / -840 145 / 145
Intake:
Oral fluids 800 / 800 1040 / 1040
IV fluids (Total) 75 / 75
NSS 75 / 75
Amount instilled into Drain (
Total)
Right Lower Pelvis Gustavo-
Keys B Placed in IR
Right Pelvis Gustavo-Keys
Placed in IR
Output:
Liquid stool amount 600 / 600 300 / 300
Colostomy 600 / 600 300 / 300
Drain Output (Total) 150 / 150 70 / 70
Right Lower Pelvis Gustavo- 70 / 70
Keys B Placed in IR
Right Pelvis Gustavo-Keys 150 / 150
Placed in IR
Urostomy output 900 / 900 620 / 620
Lab Results
05/22/25 05:49
05/22/25 05:49
Physical Exam
-
General: No Acute Distress and AOx3
Abdomen: Soft, Non Distended, Non Tender and Other (lower midline incision with drainage, IR drain with brown purulent output)
Skin: Warm and Dry
[2025-05-22] MEDS: AUGMENTIN 875 MG/125 MG 1 TABLET PO (09:24)
--- NOTE | 2025-05-22 10:22 | WOUNDNOTE ---
FISTULA SITE AND DRAIN
[2025-05-22 11:50] VITALS: BP 120/64
[2025-05-22] MEDS: SANDOSTATIN 200 MCG SC (12:26)
[2025-05-22 12:29] VITALS: BP 120/64
[2025-05-22 15:08] VITALS: BP 111/53
== END 2025-05-22 15:55 | disposition home health service (06) | DRG 393 ==
LOC: 3 WEST ACU 17:59
PROVIDERS: Clinical Nurse Specialist Family Health; Radiology Vascular & Interventional Radiology; Student in an Organized Health Care Education/Training Program; ADMITTING PHYSICIAN Internal Medicine; ATTENDING PHYSICIAN Internal Medicine; CONSULT PHYSICIAN Surgery; EMERGENCY PHYSICIAN Emergency Medicine; FAMILY PHYSICIAN Family Medicine; OTHER PHYSICIAN Internal Medicine
PROC: 0W9J30Z Drainage of Pelvic Cavity with Drainage Device, Percutaneous Approach (ICD-10-PCS; 2025-05-16)
DX: K63.2 Fistula of intestine (principal); E43 Unspecified severe protein-calorie malnutrition; S31.605A Unspecified open wound of abdominal wall, periumbilic region with penetration into peritoneal cavity, initial encounter; N17.9 Acute kidney failure, unspecified; E87.1 Hypo-osmolality and hyponatremia; E87.20 Acidosis, unspecified; Z68.1 Body mass index [BMI] 19.9 or less, adult; N39.0 Urinary tract infection, site not specified; Z16.24 Resistance to multiple antibiotics; E78.00 Pure hypercholesterolemia, unspecified; F17.210 Nicotine dependence, cigarettes, uncomplicated; E87.5 Hyperkalemia; L98.8 Other specified disorders of the skin and subcutaneous tissue; L25.9 Unspecified contact dermatitis, unspecified cause; I95.89 Other hypotension; K21.9 Gastro-esophageal reflux disease without esophagitis; I77.810 Thoracic aortic ectasia; D64.9 Anemia, unspecified; I48.0 Paroxysmal atrial fibrillation; E86.0 Dehydration; B96.1 Klebsiella pneumoniae [K. pneumoniae] as the cause of diseases classified elsewhere; B96.20 Unspecified Escherichia coli [E. coli] as the cause of diseases classified elsewhere; X58.XXXA Exposure to other specified factors, initial encounter; Y93.9 Activity, unspecified; Y92.9 Unspecified place or not applicable; Z93.3 Colostomy status; Z85.048 Personal history of other malignant neoplasm of rectum, rectosigmoid junction, and anus; Z92.21 Personal history of antineoplastic chemotherapy; Z92.3 Personal history of irradiation; Z90.49 Acquired absence of other specified parts of digestive tract; Z86.718 Personal history of other venous thrombosis and embolism; Z95.828 Presence of other vascular implants and grafts
CPT/HCPCS: 49406; 49423; 74176; 75984; 80048; 80053; 81003; 81015; 82550; 82570; 82607; 82728; 82746; 82962; 83540; 83550; 83690; 84132; 84300; 85025; 85027; 87070; 87077; 87086; 87186; 87205; 93005; 96360; 99285; C1729; C1769

== ENCOUNTER → 2025-07-10 12:48 | Outpatient (REF) | payer OTHER, SELFPAY ==
[2025-07-10 14:07] LABS: Potassium 5.7 mmol/L (3.5-5.1)
== END ==
LOC: REG 12:48
PROVIDERS: ATTENDING PHYSICIAN Surgery; FAMILY PHYSICIAN Family Medicine
DX: E87.6 Hypokalemia (principal)
CPT/HCPCS: 36415; 84132

== ENCOUNTER 2025-07-11 15:08 | Inpatient (IN) | payer OTHER, SELFPAY ==
[2025-07-11] VITALS (13 sets, daily range): BP systolic 84–113; BP diastolic 49–85
[2025-07-11 12:32] LABS: Hematocrit 33.7 % (39.0-52.0); Hemoglobin 11.2 g/dL (13.0-18.0); Mean Corp Hgb Conc. 33.2 g/dL (33.0-37.0); Mean Corpuscular Volume 84.9 fL (80.0-94.0); Nucleated Red Blood Cells % 0 % (-); Platelet Count 342 10^3/uL (130-400); Red Cell Dist. Width 14.7 % (11.5-14.5)
[2025-07-11 13:02] LABS: Troponin I 0.017 ng/ml
[2025-07-11 13:09] LABS: Blood Urea Nitrogen 82 mg/dl (9-20); Calcium 9.3 mg/dl (8.4-10.2); Carbon Dioxide 17 mmol/L (22-30); Chloride 102 mmol/L (98-107); Glucose 130 mg/dl (70-99); Sodium 130 mmol/L (135-145); eGFR 27.28
--- NOTE | 2025-07-11 13:53 | ED.GENMED ---
History of Present Illness
<Horacio Lu PA-C - Last Filed: 07/11/25 14:59>
General
Chief Complaint: Abnormal Lab Value
Source: patient, records, spouse and physician
Time Seen by Provider: 07/11/25 13:40
History of Present Illness
History of Present Illness:
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
potassium of 5.7, sent to the ER to be admitted for medical optimization prior to surgery which is scheduled for this coming Wednesday. Notes that he has a history of chronic rectal pain which is not any different today, declining anything for current
symptoms. He denies any nausea/vomiting, notes somewhat liquidy stool within his colostomy. No fevers. No other concerns at this time.
Past History
<Horacio Lu PA-C - Last Filed: 07/11/25 14:59>
Past History
ED Past Medical History: Cancer, Hypercholesterolemia and Other (PAD)
ED Past Surgical History: Urological and Other (Urostomy, colostomy cystoprostatectomy)
Social History
Tobacco: Smoker
Alcohol: None
Drug: None
Personal:
Living: with family
Review of Systems
<Horacio Lu PA-C - Last Filed: 07/11/25 14:59>
Review of Systems
All Other Systems: ROS reviewed and negative except as documented in HPI and ROS
Phy Exam
<Horacio Lu PA-C - Last Filed: 07/11/25 14:59>
Physical Exam
Physical Exam:
GENERAL: Alert , in no apparent distress, Thin and appears older than stated age
EYE: clear conjunctiva b/l
HEAD: NCAT
ENT: Dry mucous membranes
CARDIAC: Regular rate and rhythm .
LUNGS: Clear breath sounds bilaterally, no acute respiratory distress, no wheezes/rales/rhonchi
ABDOMEN: Soft, without focal tenderness, no r/g, no cvat, urostomy and colostomy noted, clear yellow urine and light brown stool within the bag.
NEUROLOGICAL: Alert and oriented
SKIN: Warm and dry, skin intact.
MUSCULOSKELETAL: No edema, well perfused.
PSYCH: Normal and appropriate interaction.
Scores
<Horacio Lu PA-C - Last Filed: 07/11/25 14:59>
Heart Failure Risk
Heart Failure Risk Score: Not Applicable
Heart Score for Chest Pain Patients
STEMI patient?: Not applicable
Withdrawal Assessment of Alcohol
Withdrawal Assessment Completed?: Not applicable
Course
<Horacio Lu PA-C - Last Filed: 07/11/25 14:59>
Orders/Labs/Results
Orders:
Orders
07/11/25 12:14
Electrocardiogram (*1) Urgent
Reason for Study: Other
Other Reason for Exam: elevated Potassium
07/11/25 12:15
EKG- Treatment ONCE
07/11/25 12:24
Basic Metabolic Panel Urgent
Complete Blood Count/With Diff Urgent
Troponin I Urgent
07/11/25 13:41
0.9% Sodium Chloride 1000 ml [Nss] 1,000 ml IV BOLUS
07/11/25 14:11
WOUND/OSTOMY CONSULT Routine
Reason for Consult: leaking ostomy bag
07/11/25 14:47
Admit/Transfer Patient As Directed
Co-Sign Provider:
Level of Care: Inpatient admission
Assign to:: Telemetry
Physician / Group: Vivian Chaney
Diagnosis: acute kidney injury, acute hyponatremia
Reason for Telemetry: Arrhythmia
Date to Stop Telemetry: 07/14/25
Time to Stop Telemetry: 11:00
Reason for Hospitalization: acute kidney injury, acute hyponatremia
Expected length of stay greater than two midnights?: Yes
ELOS- Estimated Length of Stay in days: 3
I certify the patient meets the requirements for IP care: Yes
07/11/25 14:48
PRN Pain Medication Management As Directed
May give lesser potent ordered pain med per pt: Yes
preference::
Protocol:: Medication orders for pain may be administered in a
manner that supports deferring to patient preference
when the pt is:
- Requesting an ordered lesser potent pain medication.
Least to most potent pain medications are defined
as: acetaminophen < NSAID < tramadol < opioids
(morphine, oxycodone, hydromorphone).
- Requesting a lesser dose of the same medication IF
ORDERED.
- Requesting a less intrusive route of administration
if both routes are prescribed by the provider (PO <
IV).
07/11/25 14:49
Code Status As Directed
Resuscitation Status: Full Code
07/11/25 14:54
Potassium Urgent
07/14/25 11:00
DC Protocol for Telemetry ONCE
Abnormal Lab Results
07/11/25
12:24
WBC 10.9 H 10^3/uL
(4.8-10.8)
RBC 3.97 L 10^6/uL
(4.70-6.10)
Hgb 11.2 L g/dL
(13.0-18.0)
Hct 33.7 L %
(39.0-52.0)
RDW 14.7 H %
(11.5-14.5)
Abs Immat Gran (auto) 0.1 H 10^3/uL
(0-0.05)
Absolute Neuts (auto) 8.6 H 10^3/uL
(1.4-6.5)
Absolute Monos (auto) 0.8 H 10^3/uL
(0.1-0.6)
Immature Gran % 0.6 H %
(0-0.5)
Neutrophils % 78.9 H %
(42.2-75.2)
Lymphocytes % 10.9 L %
(20.5-51.1)
Sodium 130 L mmol/L
(135-145)
Carbon Dioxide 17 L mmol/L
(22-30)
BUN 82 H mg/dl
(9-20)
Creatinine 2.4 H mg/dL
(0.7-1.3)
Glucose 130 H mg/dl
(70-99)
07/11/25 12:24
Vital Signs
Initial and Last Documented VS:
Initial Vital Signs
Temp Pulse Resp BP Pulse Ox
97.8 F 114 18 92/55 98
07/11/25 12:11 07/11/25 12:11 07/11/25 12:11 07/11/25 12:11 07/11/25 12:11
Last Documented Vital Signs
Temp Pulse Resp BP Pulse Ox
97.7 F 72 16 84/69 95
07/11/25 14:56 07/11/25 14:45 07/11/25 14:45 07/11/25 14:42 07/11/25 14:56
<Matt Allen MD - Last Filed: 07/11/25 14:14>
Orders/Labs/Results
Orders:
Orders
07/11/25 12:14
Electrocardiogram (*1) Urgent
Reason for Study: Other
Other Reason for Exam: elevated Potassium
07/11/25 12:15
EKG- Treatment ONCE
07/11/25 12:24
Basic Metabolic Panel Urgent
Complete Blood Count/With Diff Urgent
Troponin I Urgent
07/11/25 13:41
0.9% Sodium Chloride 1000 ml [Nss] 1,000 ml IV BOLUS
07/11/25 14:11
WOUND/OSTOMY CONSULT Routine
Reason for Consult: leaking ostomy bag
07/11/25 14:47
Admit/Transfer Patient As Directed
Co-Sign Provider:
Level of Care: Inpatient admission
Assign to:: Telemetry
Physician / Group: Vivian Chaney
Diagnosis: acute kidney injury, acute hyponatremia
Reason for Telemetry: Arrhythmia
Date to Stop Telemetry: 07/14/25
Time to Stop Telemetry: 11:00
Reason for Hospitalization: acute kidney injury, acute hyponatremia
Expected length of stay greater than two midnights?: Yes
ELOS- Estimated Length of Stay in days: 3
I certify the patient meets the requirements for IP care: Yes
07/11/25 14:48
PRN Pain Medication Management As Directed
May give lesser potent ordered pain med per pt: Yes
preference::
Protocol:: Medication orders for pain may be administered in a
manner that supports deferring to patient preference
when the pt is:
- Requesting an ordered lesser potent pain medication.
Least to most potent pain medications are defined
as: acetaminophen < NSAID < tramadol < opioids
(morphine, oxycodone, hydromorphone).
- Requesting a lesser dose of the same medication IF
ORDERED.
- Requesting a less intrusive route of administration
if both routes are prescribed by the provider (PO <
IV).
07/11/25 14:49
Code Status As Directed
Resuscitation Status: Full Code
07/11/25 14:54
Potassium Urgent
07/14/25 11:00
DC Protocol for Telemetry ONCE
Abnormal Lab Results
07/11/25
12:24
WBC 10.9 H 10^3/uL
(4.8-10.8)
RBC 3.97 L 10^6/uL
(4.70-6.10)
Hgb 11.2 L g/dL
(13.0-18.0)
Hct 33.7 L %
(39.0-52.0)
RDW 14.7 H %
(11.5-14.5)
Abs Immat Gran (auto) 0.1 H 10^3/uL
(0-0.05)
Absolute Neuts (auto) 8.6 H 10^3/uL
(1.4-6.5)
Absolute Monos (auto) 0.8 H 10^3/uL
(0.1-0.6)
Immature Gran % 0.6 H %
(0-0.5)
Neutrophils % 78.9 H %
(42.2-75.2)
Lymphocytes % 10.9 L %
(20.5-51.1)
Sodium 130 L mmol/L
(135-145)
Carbon Dioxide 17 L mmol/L
(22-30)
BUN 82 H mg/dl
(9-20)
Creatinine 2.4 H mg/dL
(0.7-1.3)
Glucose 130 H mg/dl
(70-99)
07/11/25 12:24
Vital Signs
Initial and Last Documented VS:
Initial Vital Signs
Temp Pulse Resp BP Pulse Ox
97.8 F 114 18 92/55 98
07/11/25 12:11 07/11/25 12:11 07/11/25 12:11 07/11/25 12:11 07/11/25 12:11
Last Documented Vital Signs
Temp Pulse Resp BP Pulse Ox
97.7 F 72 16 84/69 95
07/11/25 14:56 07/11/25 14:45 07/11/25 14:45 07/11/25 14:42 07/11/25 14:56
<Horacio Lu PA-C - Last Filed: 07/11/25 14:59>
MDM/Problems Addressed
Differential Diagnosis Includes:
JUANITA
CKD
Hyperkalemia 2/2 dehydration/renal dysfunction vs medication side effects
Malabsorption
Worsening fistula/abscess
MDM/Problems Addressed:
75-year-old male presenting to the ER for evaluation of abnormal chemistry found on outpatient labs, scheduled for major operative surgery with colorectal surgery this coming Wednesday, recommended to come to the ER for medical optimization prior to
surgery. Other than patient's chronic rectal pain he notes no current new symptoms. Labs initiated in triage do show a new JUANITA and a significantly elevated BUN. Will treat this with normal saline. Potassium unfortunately hemolyzed, will redraw.
EKG without any acute changes but will have low threshold to treat potassium if patient still has significant hyperkalemia.
Chronic conditions affecting care: Previous abdomnial surgery
Acute Exacerbation and/or Progression of Chronic Illness: Previous abdomnial surgery
<Horacio Lu PA-C - Last Filed: 07/11/25 14:59>
*Pulse Oximetry
SaO2: 98
Oxygen Mode of Delivery: Room air
Patient hypoxic: no
*EKG
Heart Rate: 75
Rate: normal
Rhythm: sinus
QRS Pattern: normal QRS
Ischemia: no ischemia
*Artificial Breeding Technician Interpretation
Rate: normal
Heart Rate: 72
Rhythm: sinus
*Critical Care Note
Total Time (30-74mins, 75-104mins- exclusive of procedures): Not Applicable
Data Reviewed
Review of Other/Old Records Reveals: Labs, Records and Operative Reports
Source: patient, records and physician
<Horacio Lu PA-C - Last Filed: 07/11/25 14:59>
Patient Management
Discussion with other providers: Hospitalist and Payroll Administrator
Escalation/DeEscalation of care consider admission/obs:
Hospitalist team accepts for continued evaluation and treatment
ED Attending Note
<Horacio Lu PA-C - Last Filed: 07/11/25 14:59>
-
Portions of this chart may have been created with voice recognition software.� Occasional wrong word or��sound alike� substitutions may have occurred due to the inherent limitations of voice recognition software.
<Matt Allen MD - Last Filed: 07/11/25 14:14>
ED Attending Note
Patient seen and examined by attending physician: Yes
ED Attending Note:
I have seen and evaluated the patient with a [id number] encounter. I have spoken to the advance practicer provider and involved in the medical history, the physical exam, medical decision making.
Evaluation and management service: agree unless noted differently below.
Results interpretation: agree unless noted differently below.
Focused HPI: 75-year-old male with history as noted presents to the ER sent by his colorectal surgeon due to abnormal labs. Patient is set for significant surgery for small bowel fistula this upcoming Wednesday. His preop labs showed mild elevation
of creatinine as well as elevated potassium. He was sent by his surgeon for admission for optimization of labs prior to operation. Patient reports he has had some leaking from his ostomy. He has had some chronic pains in his rear-end. He denies
any other acute complaints today.
Physical exam: Awake and alert not in distress. No cardiac rubs gallops or murmurs appreciated. Lungs sound clear. [address] on the abdomen with good output�right sided ostomy bag is secured in place with duct tape as patient says
there was leakage.
Medical Decision Makin-year-old male sent in for abnormal labs in anticipation of major procedure on Wednesday. Will provide IV fluids, treat potassium pending repeat to confirm elevation. Ostomy consult for bag change. Admit to hospitalist.
Discussed with colorectal surgery.
Discharge Plan
Departure
Patient Disposition: Admit
Date of Disposition: 07/11/25
Time of Disposition: 13:53
Presentation/result/management discussed w/ accepting MD/DO: Hospitalist
Discharge Problem:
Fistula of small intestine, JUANITA (acute kidney injury), Hyperkalemia
Prescriptions:
No Action
midodrine 5 MG tablet
5 mg PO TID
rosuvastatin 20 mg tablet
20 mg PO DAILY
cholecalciferol (vitamin D3) [Vitamin D3] 25 mcg (1,000 unit) Tablet,Chewable
25 mcg PO DAILY
pantoprazole [Protonix] 40 mg Tablet,Delayed Release (Dr/Ec)
40 mg PO DAILY
Referrals:
UNKNOWN - PT DOES,NOT KNOW [Unknown Provider]
Interventions
Interventions:
*Risk Screen - Suicide Last Done: 07/11/25 12:11
*General Assessment Last Done: 07/11/25 12:11
*Neglect/Abuse Screening Last Done: 07/11/25 12:11
*ED- Fall Risk Assessment Last Done: 07/11/25 14:56
*ED COVID-19 Vaccine History Last Done: 07/11/25 14:56
*ED Influenza Vaccine History Last Done: 07/11/25 14:56
Discharge Date and Time
Print Language: NEPALI
--- NOTE | 2025-07-11 14:07 | HPS.HSE ---
Addendum entered and electronically signed by Kuldip Chaney MD 07/11/25 19:41:
This is an addendum to H&P written by Lisandra Mera on 07/11/2025. �Patient seen and examined independently with SIGNAL WIRER.
75-year-old male past medical history of atrial fibrillation, chronic hypotension, hyperlipidemia, rectal cancer with bladder involvement status post colostomy with ileal conduit complicated by postoperative enterocutaneous fistula status post
repair, prior DVT of right common femoral veins, pulmonary embolism status post IVC filter, chronic anemia, multidrug-resistant Klebsiella UTI, presenting with outpatient labs showing hyperkalemia 5.7. He has upcoming surgery on Wednesday for
enterocutaneous fistula. Patient denies any symptoms such as abdominal pain fever, vomiting or diarrhea.
Vital signs showed blood pressure 90s.
Labs show leukocytosis of 10.9. Stable hemoglobin 11.2. Creatinine of 2.4. Sodium 130. Potassium 6.3.
Patient with JUANITA, hyperkalemia presumably prerenal. IV fluids. Bladder scan protocol. Repeat potassium showed elevation of potassium to 6.3. Insulin dextrose given, Lokelma and calcium gluconate given. Recheck BMP. Colorectal surgery consulted
for planned surgery in 2 days.
Consider Abdominal imaging if Renal fucntion does not improve.
Addendum entered and electronically signed by IWONA Jones 07/11/25 16:02:
#hyperkalemia
Patient potassium resulted at 6.3
- IV insulin 5mg with IV dextrose ordered
- Repeat K+ at 2000 this evening
- trend daily BMP
Original Note:
Family Physician
-
Family Physician: Torito Brownlee
Chief Complaint
-
abnormal out patient labs
History of Present Illness
Patient is a 75-year-old with past medical history significant for hypertension, dyslipidemia, rectal cancer with bladder involvement and enterovesical fistula who presented to [facility] ED for abnormal out patient labs. Patient states he had out patient
labs drawn yesterday for Colorectal in preparation of scheduled surgery on Wednesday07/13/2025. He received a call today requesting he come to the ED for evaluation for elevated potassium. He reports labs last Wednesday07/02/2025, that he assumes were
all normal as he did not receive any phone call. Patient reports he has poor PO intake and is mainly drinking Boost, lemonade or ice tea at home. He has complaint about leaking ostomy site. Denies any fever, chills, cough, shortness of breath, chest
pain, nausea or vomiting.
Medical History
Past Medical History
Past Medical History: Reports Other
Additional Past Medical History:
Rectal cancer of the bilateral involvement, status post colectomy, colostomy creation urostomy bladder removal
Endocervical fistula
A-fib converted with IV amiodarone
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
Blood loss anemia
Dyslipidemia
hypertension
GERD
Past Surgical History: Reports Other
Additional Past Surgical History:
Colectomy
Total cystectomy, prostatectomy and urostomy creation
Colostomy creation
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
Social History
Unable to obtain full social history at this time due to: Other
Tobacco: Smoker (5 to 7 cigarettes a day)
Alcohol: Former (Daily 1-2 beers has not had in the past 2 months states cannot afford)
Drug: None
Personal:
Living: With Family
Employment: Retired
Family History
Family History: Other
Allergies / Home Medications
Allergies reflects when Allergies were last updated in Collections.
Home Medications with original date entered in Collections
Allergy/Medication List:
Allergies
Allergy/AdvReac Type Severity Reaction Status Date / Time
No Known Allergies Allergy Verified 07/11/25 12:11
Home Medications
midodrine 5 mg tablet 5 mg PO TID Blood Pressure 03/11/23
rosuvastatin 20 mg tablet 20 mg PO DAILY High Cholesterol 03/12/23
cholecalciferol (vitamin D3) 25 mcg (1,000 unit) chewable tablet (Vitamin D3) 25 mcg PO DAILY 07/06/25
pantoprazole 40 mg tablet,delayed release (Protonix) 40 mg PO DAILY 07/11/25
Review of Systems
-
History Source: Patient
Constitutional: Denies Fever, Weight Gain or Chills
EENT: Denies Sore Throat
Respiratory: Denies Cough, Hemoptysis or Trouble Breathing
Cardiac: Denies Chest Pain, Diaphoresis, Palpitations or Syncope
Abdomen/GI: Denies Abdominal Pain, Nausea or Vomiting
: Denies Dysuria, Frequency or Urgency
Musculoskeletal: Denies Joint Pain
Skin: Reports Other (leaking around ostomy ); Denies Rash
Neurological: Denies Dizzy, Headache or Numbness
Physical Exam
Vital Signs
Vital Signs
Temp Pulse Resp BP Pulse Ox
97.8 F 114 18 92/55 98
07/11/25 12:11 07/11/25 12:11 07/11/25 12:11 07/11/25 12:11 07/11/25 13:59
Physical Exam
General: No Apparent Distress, Comfortable, Conversant, Appears Chronically Ill and Cachectic
HEENT: NormoCephalic and [place] Conjunctivae
Respiratory: Clear and Non Labored Respirations; No Wheezes, Rales, Rhonchi or Crackles
Cardiac: S1/S2 and Regular Rhythm; No Murmur, Rub or Gallop
GI: Soft, Non Tender, Non Distended, Normal Bowel Sounds and Ostomy (colostomy (light brown stool))
Genito-urinary: Other (urostomy (clear yellow urine) )
Musculoskeletal: No No Clubbing, No Cyanosis or No Edema
Skin: Other (duct tape around ostomy sites, patient states all leaking )
Neuro: Awake and AO x 3
Psych: Calm
Laboratory Results
-
07/11/25 12:24
Laboratory Results
Total Bilirubin Cancelled 07/11/25 12:24
AST Cancelled 07/11/25 12:24
ALT Cancelled 07/11/25 12:24
Alkaline Phosphatase Cancelled 07/11/25 12:24
Troponin I 0.017 ng/ml 07/11/25 12:24
Data Reviewed
-
Medical Tests (Nuc Med, Echo, EKG etc): Report Reviewed by me (EKG: NORMAL SINUS RHYTHM)
Lab Data: Labs Reviewed by me (WBC 10.9, hgb 11.2, hct 33.7, neut 78.9, Na+ 130, HCO3 17, BUN 82, Creat 2.4, eGFR 27.28)
Impression/Plan
-
IMPRESSION/PLAN:
#abnormal out patient labs (K+ 5.7)
#acute kidney injury
#acute hyponatremia
likely r/t poor PO intake, patient mainly drinking Boost, lemonade or ice tea at home
Na+ 130, HCO3 17, BUN 82, Creat 2.4, eGFR 27.28
- Admit to telemetry
- K+ pending
- Consider Consult to Nephrology if no improvement
- IV NSS 80cc/hr
- trend BMP
#rectal cancer with bladder involvement
#enterovesical fistula
WBC 10.9, hgb 11.2, hct 33.7, neut 78.9
- Consult Colorectal Surgery
- Consult Ostomy nurse
- currently scheduled for surgery Wednesday07/13/2025
#chronic hypotension
- continue midodrine
#dyslipidemia
- continue rosuvastatin
#GERD
- continue pantoprazole
#Hx atrial fibrillation
EKG: NORMAL SINUS RHYTHM
03/2023 converted with IV amiodarone
#DVT with right common femoral vein thrombosis/PE
s/p IVC filter April 2023
Code status: full code
DVT prophylaxis: heparin sq
[2025-07-11] MEDS: NSS 1000 IV ×2 (14:32→20:42)
--- NOTE | 2025-07-11 15:36 | WOUNDNOTE ---
RIGHT LOWER ABDOMEN(UROSTOMY SITE)
--- NOTE | 2025-07-11 15:39 | WOUNDNOTE ---
SACRAL COCCYX/BILATERAL BUTTOCKS
[2025-07-11 15:47] LABS: Potassium 6.3 mmol/L (3.5-5.1)
[2025-07-11] MEDS: LOKELMA 10 GRAM PO (16:19)
[2025-07-11 16:31] LABS: Glucose - Point of Care 92 mg/dl (70-99)
[2025-07-11] MEDS: DEXTROSE 50% SYRINGE 25 GRAMS IV (16:31)
[2025-07-11] MEDS: NOVOLIN R 5 UNITS IV (16:36)
[2025-07-11] MEDS: CALCIUM GLUCONATE 1000 MG IV (16:40)
[2025-07-11 17:36] LABS: Glucose - Point of Care 186 mg/dl (70-99)
--- NOTE | 2025-07-11 18:15 | EDCM ---
CM reviewed chart and spoke with patient in ED room 20.
He lives in a 2 story home with his . 5STE. He has 1st floor setup with full bath.
Prior to admission he reports that he was independent with ADLs. Ambulating w/o any AD.
Only DME he reports are urostomy and ostomy and fistula care.Scheduled for OR on 07/13 for fistula take down.
Has all the supplies at home but cannot remember the name of DME vendor
Confirmed RX coverage
hx of VN last one [facility] but pat declined the service
no hx of SNF
PCP Dr. Torito Sanz
RX [facility] in [place]
Anticipated dc location home
CM will continue to follow for dcp needs.
[2025-07-11 20:30] LABS: Glucose - Point of Care 113 mg/dl (70-99)
[2025-07-11] MEDS: HEPARIN 5000 UNITS SC (20:39)
[2025-07-11 21:46] LABS: Blood Urea Nitrogen 79 mg/dl (9-20); Calcium 9.1 mg/dl (8.4-10.2); Carbon Dioxide 21 mmol/L (22-30); Chloride 101 mmol/L (98-107); Estimated Creatinine Clearance 24 ml/min; Glucose 92 mg/dl (70-99); Potassium 5.1 mmol/L (3.5-5.1); Sodium 131 mmol/L (135-145); eGFR 36.11
[2025-07-11 22:54] LABS: Glucose - Point of Care 126 mg/dl (70-99)
[2025-07-12] MEDS: HEPARIN SC (01:02)
[2025-07-12 03:14] VITALS: BP 101/42
[2025-07-12 07:13] LABS: Hematocrit 27.2 % (39.0-52.0); Hemoglobin 9.0 g/dL (13.0-18.0); Mean Corp Hgb Conc. 33.1 g/dL (33.0-37.0); Mean Corpuscular Volume 85.5 fL (80.0-94.0); Platelet Count 243 10^3/uL (130-400); Red Cell Dist. Width 14.6 % (11.5-14.5)
[2025-07-12 07:22] LABS: Blood Urea Nitrogen 69 mg/dl (9-20); Calcium 8.6 mg/dl (8.4-10.2); Carbon Dioxide 20 mmol/L (22-30); Chloride 105 mmol/L (98-107); Estimated Creatinine Clearance 27 ml/min; Glucose 88 mg/dl (70-99); Potassium 5.1 mmol/L (3.5-5.1); Sodium 130 mmol/L (135-145); eGFR 41.26
[2025-07-12 07:43] VITALS: BP 109/69
[2025-07-12] MEDS: LR 1000 IV (08:16)
[2025-07-12] MEDS: CRESTOR 20 MG PO (08:21)
[2025-07-12] MEDS: PROTONIX 40 MG PO (08:23)
[2025-07-12] MEDS: HEPARIN 5000 UNITS SC (08:23)
--- NOTE | 2025-07-12 10:18 | WOUNDNOTE ---
[facility] RN NOTE: Reviewed chart and met with patient. Patient has extensive history and a colostomy, urostomy and suprapubic fistula with SURAJ drain, as well as fecal drainage from rectum. Patient performs all care on his own. At time of assessment
patient had duct tape securing his urostomy pouch and his fistula dressing. Colostomy pouch intact without duct tape. Patient reports changing colostomy pouch before going to ER. Patient said he likes using the convex barrier for his urostomy, but
he never ordered and reports leaking with using flat barrier and paste. He changes urostomy pouch daily.The urostomy stoma is pink and budded and peristomal skin is intact. Urostomy changed with barrier [id number] and urostomy pouch # [id number] and [place]
seal. Urostomy was attached to drainage bag. Redness noted around fistula after duct tape removed. The skin was cleaned with soap and water and no-sting barrier was applied to skin. Site was dressed with drain sponges and secured with micropore
tape. Sacral and buttocks with some open areas and redness related to MASD. The skin was cleaned with soap and water and Calazime was applied. Patient said he had not been using skin barrier and reported pain and soreness to this area. Will
recommend antifungal ointment to buttocks and sacrum. Plan is for patient to have multiple surgeries on 07/13 which include lap and hernia repair, fistula take down and muscle flap. Explained to patient that urostomy ordering information will be
added to discharge instructions. Heel are intact and patient turns well in bed. Patient is on a [employer]. Will continue to follow during in patient stay.
[2025-07-12] MEDS: NSS 1000 IV (10:33)
[2025-07-12 11:24] LABS: Blood Urea Nitrogen 65 mg/dl (9-20); Calcium 8.2 mg/dl (8.4-10.2); Carbon Dioxide 19 mmol/L (22-30); Chloride 106 mmol/L (98-107); Estimated Creatinine Clearance 35 ml/min; Glucose 98 mg/dl (70-99); Potassium 4.6 mmol/L (3.5-5.1); Sodium 130 mmol/L (135-145); eGFR 56.93
[2025-07-12] MEDS: ANTIFUNGAL CLEAR 1 APPLIC TOPICAL ×2 (12:19→22:14)
--- NOTE | 2025-07-12 13:00 | W.PN.HOSP.TC ---
Today's Communication/Plan
-
Monitor BMP
CLD, bowel prep this evening
OR tomorrow
Assessment / Plan
Assessment / Plan
General: No Apparent Distress, Comfortable, Conversant, Appears Chronically Ill and Cachectic
HEENT: NormoCephalic and [place] Conjunctivae
Respiratory: Clear and Non Labored Respirations; No Wheezes, Rales, Rhonchi or Crackles
Cardiac: S1/S2 and Regular Rhythm; No Murmur, Rub or Gallop
GI: Soft, Non Tender, Non Distended, Normal Bowel Sounds and Ostomy (colostomy (light brown stool))
Genito-urinary: Other (urostomy (clear yellow urine) )
Musculoskeletal: No No Clubbing, No Cyanosis or No Edema
Skin: Other (duct tape around ostomy sites, patient states all leaking )
Neuro: Awake and AO x 3
Psych: Calm
#Hyperkalemia, likely 2/2 to JUANITA
#acute kidney injury, improved
#acute hyponatremia, likely hypovolemic hyponatremia
likely pre-renal in setting of poor PO intake
-Improving with Fluids
-S/p Cocktail for hyperK
- Admit to telemetry
-Cont IVF
-LR bolus today
- trend BMP
#rectal cancer with bladder involvement
#enterovesical fistula
- Consult Colorectal Surgery
- Consult Ostomy nurse
- currently scheduled for surgery Wednesday07/13/2025 - planned for CLD and bowel prep today
#chronic hypotension
- continue midodrine
#dyslipidemia
- continue rosuvastatin
#GERD
- continue pantoprazole
#Hx atrial fibrillation
EKG: NORMAL SINUS RHYTHM
03/2023 converted with IV amiodarone
#DVT with right common femoral vein thrombosis/PE
s/p IVC filter April 2023
Code status: full code
DVT prophylaxis: heparin sq
Anticipated Discharge: > 48 hours
Subjective/Interval History
-
Date of Service: July 12, 2025
Electrolytes improvement with fluid
Objective Data
-
Labs:
Laboratory Results
07/12/25 07/12/25
06:35 10:07
WBC 7.3
Hgb 9.0 L
Hct 27.2 L
Plt Count 243 D
Sodium 130 L 130 L
Potassium 5.1 4.6
Chloride 105 106
Carbon Dioxide 20 L 19 L
BUN 69 H 65 H
Creatinine 1.7 H 1.3
Glucose 88 98
Calcium 8.6 8.2 L
Vital Signs:
Vital Signs
Temp Pulse Resp BP Pulse Ox
98.2 F 69 17 109/69 97
07/12/25 07:43 07/12/25 07:43 07/12/25 07:43 07/12/25 07:43 07/12/25 07:43
I&O
07/11/25 07/12/25 07/13/25
06:59 06:59 06:59
Output Total 625 / 625
Balance -625 / -625
Review of Systems
-
History Source: Patient
Constitutional: Reports No Symptoms
EENT: Reports No Symptoms Reported
Respiratory: Reports No Symptoms
Cardiac: Reports No Symptoms
Abdomen/GI: Reports No Symptoms
Data Reviewed
-
Ultrasound: Report Reviewed by me
Labs: Labs Reviewed by me
--- NOTE | 2025-07-12 14:25 | CON.CRS ---
Consultation
-
Date/Time Consultation Requested: 07/11/2025, 18:25
Date/Time Consultation Performed: 07/12/2025, 08:00
Requesting Provider: Kelley Mera
Performing Provider: King Cooper MD
Reason for Consultation: rectal cancer
Medical History
-
Chief Complaint: rectal drainage
History of Present Illness:
Patient is now almost 3 years status post pelvic exenteration after chemoradiation for rectal cancer on 08/14/2021. This was followed by exploratory laparotomy with takedown of enterocutaneous fistula on 04/01/2023 which is a bit over 2 years ago.
Unfortunately he has recurrent enterocutaneous fistulas. Also has fistulas to his urethra into his anal stump. Since his last visit to the office he was admitted to the hospital for exacerbation of his symptoms. He had a IR drain placed that is
putting out feculent material.� Imaging at that time confirmed a small bowel fistula. CEA on 04/27/2025 was reasonable at 3.7. He is scheduled for surgery with Dr. Cooper tomorrow as well as Dr. Ramos. However, his outpatient K was high and thus he
was admitted to the hospital for further workup.
Past Medical History
Past Medical History: Other (Rectal cancer of the bilateral involvement, status post colectomy, colostomy creation, urostomy bladder removal Endocervical fistula, A-fib converted with IV amiodarone, DVT with PE status post IVC filter April 2023,
Blood loss anemia, Dyslipidemia, hypertension, GERD)
Past Surgical History: Other (Colectomy Total cystectomy, prostatectomy and urostomy creation, Colostomy creation, DVT with PE status post IVC filter April 2023)
Social History
Tobacco: Smoker (5-7 cigarettes a day)
Alcohol: Former
Drug: None
Personal:
Family History
Family History: Reviewed & Not Pertinent
Allergies / Home Medications
Allergy/AdvReac Type Severity Reaction Status Date / Time
No Known Allergies Allergy Verified 07/11/25 12:11
�Medication �Instructions �Recorded �Confirmed �Type
midodrine 5 mg tablet 5 mg PO TID Blood Pressure 03/11/23 07/11/25 History
rosuvastatin 20 mg tablet 20 mg PO DAILY High Cholesterol 03/12/23 07/11/25 History
cholecalciferol (vitamin D3) 25 25 mcg PO DAILY Supplement 07/06/25 07/11/25 History
mcg (1,000 unit) chewable tablet
(Vitamin D3)
pantoprazole 40 mg tablet,delayed 40 mg PO DAILY GERD 07/11/25 07/11/25 History
release (Protonix)
Review of Systems
-
History Source: Patient
Constitutional: No Symptoms
: Other (anal drainage)
A 10 point review of systems was completed, and was negative except as per HPI.
Physical Exam
Vital Signs
Temp 98.2 F 07/12/25 07:43
Pulse 69 07/12/25 07:43
Resp Rate 17 07/12/25 07:43
Blood pressure 109/69 07/12/25 07:43
SaO2 97 07/12/25 07:43
07/11/25 07/12/25 07/13/25
06:59 06:59 06:59
Actual Weight 51.4 kg
Body Mass Index (BMI) 0.0
Lab Results / Allergies
07/12/25 06:35
07/12/25 10:07
WBC 7.3 10^3/uL (4.8-10.8) 07/12/25 06:35
Hgb 9.0 g/dL (13.0-18.0) L 07/12/25 06:35
Hct 27.2 % (39.0-52.0) L 07/12/25 06:35
Plt Count 243 10^3/uL (130-400) D 07/12/25 06:35
Abs Immat Gran (auto) 0.1 10^3/uL (0-0.05) H 07/11/25 12:24
Neutrophils % 78.9 % (42.2-75.2) H 07/11/25 12:24
Allergy/AdvReac Type Severity Reaction Status Date / Time
No Known Allergies Allergy Verified 07/11/25 12:11
Physical Exam
General: No Apparent Distress
GI: Soft, Non Tender, Non Distended and Other (ileostomy and urostomy in place)
Neuro: AO x 3
Psych: Calm
Data Reviewed
-
Labs: Labs Reviewed by me, Discussed with Physician and Discussed with Patient
Old Records: Reviewed
Assessment / Plan
-
75-year-old male with a history of radiation for rectal cancer and pelvic exenteration with both a right sided urostomy and a left-sided colostomy with a parastomal hernia as well as anterocutaneous fistula to the lower midline and to a IR drain as
well as fistulization to his urethra and to his probably partially chronically�dehisced anal staple line/anal stump
-OR tomorrow with Dr. Cooper and Dr. Ramos
-Appreciate hospitalist for electrolyte correction
-Pre op medications and labs ordered
-Bowel prep today, NPO at midnight
-Hold heparin sq prior to surgery
-Discussed above with patient
[2025-07-12 14:32] VITALS: BMI 16.3
[2025-07-12 15:10] VITALS: BP 102/57
--- NOTE | 2025-07-12 17:21 | PTCARENOTE ---
patient with poor PO intake, no complaints. patient has had frequent bed changes due to large amount of feces leaking from rectum and fistula at SURAJ drain site leaking large amount of feces. colostomy draining brown loose/liquid stool and urostomy
draining yellow urine. assist x1 to bsc, vss, will continue to monitor.
[2025-07-12] MEDS: CITROMA 300 ML PO (18:03)
--- NOTE | 2025-07-12 18:11 | CM ---
chart reviewed
OR tomorrow with Dr. Cooper and Dr. Ramos
PLAN: TBD, follow hospital progress, CM to follow for needs
[2025-07-12 18:45] LABS: Hepatitis C Antibody Negative (Negative)
[2025-07-12 19:00] VITALS: BP 114/63
[2025-07-12 23:15] VITALS: BP 108/55
[2025-07-13] VITALS (35 sets, daily range): BP systolic 10–117; BP diastolic 34–72; BMI 16.2
[2025-07-13] MEDS: NSS 1000 IV ×2 (02:34→17:34)
[2025-07-13] MEDS: HEPARIN 5000 UNITS SC (06:06)
[2025-07-13] MEDS: NEURONTIN 600 MG PO (06:07)
[2025-07-13] MEDS: TYLENOL 1000 MG PO (06:08)
--- NOTE | 2025-07-13 09:30 | W.IMMPOSTOP ---
Addendum entered and electronically signed by King Cooper MD 07/13/25 09:44:
Patient's updated via phone conversation.
Original Note:
Surgical Immed Post Op Note
-
Primary Surgeon: Zainab Cooper MD
Assisting Surgeon: Anselmo Dickey MD; GRACIELA Kim
Pre-op Diagnosis: 1) entero-cutaneous/urethral/anal fistulas 2) parastomal hernia
Post-op Diagnosis: same
Procedure Performed: exploratory laparotomy with lysis of adhesions
Anesthesia Type: general plus local
Specimen / Cultures: none
Estimated Blood Loss: 20 cc
Complications: no immediate
Operative Findings: concrete like/dense upper pelvic adhesions (leading to decision to abort the plan and back out)
Will send to med surg.
--- NOTE | 2025-07-13 09:59 | PN.CDI ---
CDI
- -
CDI:
Physician Documentation Request
Admit Date: 07/11/25 15:08
Dear Doctor Maxim,
Patient admitted with hyperkalemia.
07/12 Nutrition note, 'With observed muscle and fat wasting and > 10% weight loss in 3 month pt meets AND/ASPEN criteria for severe protein calorie malnutrition of chronic illness....subcutaneous loss over rib cage -severe and orbit- moderate....
temporal muscle loss moderate.... clavicle muscle loss severe.'
Please provide in your note the diagnosis associated with the above nutritional findings and your assessment:
Severe protein calorie malnutrition of chronic illness
Moderate protein calorie malnutrition of chronic illness
Other
[place] Criteria ([facility] Hospitalist 2017)
2 or more criteria must be present for either
non severe or severe malnutrition
Note that the criteria differs related to the
presence of an acute or chronic illness
Chronic Illness
Energy Intake Non Severe: <75% for >1 month
Severe: <75% for >1 month
Weight Loss Non Severe: 5% over 1 month
7.5% over 3 months
10% over 6 months
20% over 1 year
Severe: >5% over 1 month
>7.5% over 3 months
>10% over 6 months
>20% over 1 year
Body Fat Non Severe: Mild Loss
Severe: Severe Loss
Muscle Mass Non Severe: Mild Loss
Severe: Severe Loss
Fluid Accumulation Non Severe: Mild Accumulation
Severe: Moderate to severe
accumulation
Reduced Brim Molder Strength Non Severe: N/A
Severe: Measurably reduced
Use of terms such as suspected, likely, concern for, or probable (associated with a specific diagnosis that is being evaluated, monitored, or treated as if it exists) are acceptable and can be coded in the inpatient setting, when documented at the
time of discharge.
Thank you,
Bridgette KUHN,RN,CCDS
CDI Specialist
Available via [place] text
Please use your independent medical judgment in providing your response.
[2025-07-13 10:15] LABS: Hematocrit 25.2 % (39.0-52.0); Hemoglobin 8.1 g/dL (13.0-18.0); Mean Corp Hgb Conc. 32.1 g/dL (33.0-37.0); Mean Corpuscular Volume 86.6 fL (80.0-94.0); Nucleated Red Blood Cells % 0 % (-); Platelet Count 204 10^3/uL (130-400); Red Cell Dist. Width 14.4 % (11.5-14.5)
[2025-07-13 10:28] LABS: Glucose - Point of Care 103 mg/dl (70-99)
[2025-07-13 10:38] LABS: Blood Urea Nitrogen 39 mg/dl (9-20); Calcium 7.9 mg/dl (8.4-10.2); Carbon Dioxide 18 mmol/L (22-30); Chloride 108 mmol/L (98-107); Estimated Creatinine Clearance 41 ml/min; Glucose 99 mg/dl (70-99); Magnesium 2.5 mg/dl (1.6-2.3); Potassium 4.4 mmol/L (3.5-5.1); Sodium 133 mmol/L (135-145); eGFR > 60.00
[2025-07-13] MEDS: LR 1000 IV ×2 (11:10→22:53)
[2025-07-13 12:28] LABS: Venous Blood Gas B.E. -8.0 mmol/L (-4 to +4); Venous Blood Gas O2 Sat % 68.0 %
[2025-07-13 12:29] LABS: Hematocrit 24.9 % (39.0-52.0); Hemoglobin 8.1 g/dL (13.0-18.0); Mean Corp Hgb Conc. 32.5 g/dL (33.0-37.0); Mean Corpuscular Volume 87.1 fL (80.0-94.0); Platelet Count 177 10^3/uL (130-400); Red Cell Dist. Width 14.6 % (11.5-14.5)
--- NOTE | 2025-07-13 12:42 | SUR.PHASEI ---
Dr. Cooper made aware pt remains in PACU. Low BP's. At bedside and updated pt on procedure.
Dr. Pan made aware, BP remains low after LR bolus. Labs drawn and sent. Will upgrade to IMU level of care
[2025-07-13] MEDS: ANTIFUNGAL CLEAR TOPICAL (12:47)
[2025-07-13 12:49] LABS: ALT (SGPT) 25 U/L (0-50); AST (SGOT) 15 U/L (17-59); Albumin 2.3 g/dl (3.5-5.0); Alkaline Phosphatase 77 U/L (38-126); Blood Urea Nitrogen 33 mg/dl (9-20); Calcium 7.2 mg/dl (8.4-10.2); Carbon Dioxide 18 mmol/L (22-30); Chloride 112 mmol/L (98-107); Estimated Creatinine Clearance 51 ml/min; Glucose 98 mg/dl (70-99); Potassium 4.5 mmol/L (3.5-5.1); Sodium 134 mmol/L (135-145); Total Protein 4.9 g/dl (6.3-8.2); eGFR > 60.00
[2025-07-13] MEDS: TYLENOL 650 MG PO ×2 (12:49→18:29)
[2025-07-13] MEDS: CRESTOR 20 MG PO (12:59)
[2025-07-13] MEDS: PROTONIX 40 MG PO (13:00)
--- NOTE | 2025-07-13 13:47 | W.PN.HOSP.TC ---
Today's Communication/Plan
-
LR bolus, IVF
Midodrine
monitor MAPs, maintain >65
Assessment / Plan
Assessment / Plan
General: No Apparent Distress, Comfortable, Conversant, Appears Chronically Ill and Cachectic
HEENT: NormoCephalic and [place] Conjunctivae
Respiratory: Clear and Non Labored Respirations; No Wheezes, Rales, Rhonchi or Crackles
Cardiac: S1/S2 and Regular Rhythm; No Murmur, Rub or Gallop
GI: Soft, Non Tender, Non Distended, Normal Bowel Sounds and Ostomy (colostomy (light brown stool))
Genito-urinary: Other (urostomy (clear yellow urine) )
Musculoskeletal: No No Clubbing, No Cyanosis or No Edema
Skin: Other (duct tape around ostomy sites, patient states all leaking )
Neuro: Awake and AO x 3
Psych: Calm
#Hyperkalemia, likely 2/2 to JUANITA
#acute kidney injury, improved
#acute hyponatremia, likely hypovolemic hyponatremia
likely pre-renal in setting of poor PO intake
-Improving with Fluids
-S/p Cocktail for hyperK
- Admit to telemetry
-Cont IVF
- trend BMP
#hypotension
-likely related to analgesics, sedation, volume depletion
-ivf - 2L bolus
-monitor
-lactate neg
-may need additional liter bolus
-midodrine
-tx to IMU due to hypotension despite fluids
#rectal cancer with bladder involvement
#enterovesical fistula
- Consult Colorectal Surgery
- Consult Ostomy nurse
- currently scheduled for surgery Wednesday07/13/2025 - planned for CLD and bowel prep today
#chronic hypotension
- continue midodrine
#dyslipidemia
- continue rosuvastatin
#GERD
- continue pantoprazole
#Hx atrial fibrillation
EKG: NORMAL SINUS RHYTHM
03/2023 converted with IV amiodarone
#DVT with right common femoral vein thrombosis/PE
s/p IVC filter April 2023
Code status: full code
DVT prophylaxis: heparin sq
Total time spent on today's encounter was 51 minutes which included time spent in counseling the patient/family regarding diagnosis and treatment plan as listed above, goals of care, and symptom management. Case was discussed with nursing staff,
specialists, and care coordinators/case management. All labs and imaging personally reviewed by me. Remainder the time spent in detailed review of previous records, lab data, imaging, and other medical provider documentation.
Anticipated Discharge: 24 - 48 hours
Subjective/Interval History
-
Date of Service: July 13, 2025
unable to perform procedure
Objective Data
-
Labs:
Laboratory Results
07/13/25 07/13/25
09:53 12:19
WBC 3.8 L 4.9
Hgb 8.1 L 8.1 L
Hct 25.2 L 24.9 L
Plt Count 204 177
Sodium 133 L 134 L
Potassium 4.4 4.5
Chloride 108 H 112 H
Carbon Dioxide 18 L 18 L
BUN 39 H 33 H
Creatinine 1.1 0.9
Glucose 99 98
Calcium 7.9 L 7.2 L
Total Bilirubin 0.4
AST 15 L
ALT 25
Alkaline Phosphatase 77
Vital Signs:
Vital Signs
Temp Pulse Resp BP Pulse Ox
96.9 F L 91 19 94/48 100
07/13/25 09:30 07/13/25 13:15 07/13/25 13:15 07/13/25 13:15 07/13/25 13:15
I&O
07/12/25 07/13/25 07/14/25
06:59 06:59 06:59
Intake Total 3010 / 3010 1999
Output Total 625 / 625 1860 / 1860 295 / 295
Balance -625 / -625 1150 / 1150 1705 / 1705
Review of Systems
-
History Source: Patient
Constitutional: Reports No Symptoms
EENT: Reports No Symptoms Reported
Respiratory: Reports No Symptoms
Cardiac: Reports No Symptoms
Abdomen/GI: Reports No Symptoms
Data Reviewed
-
Ultrasound: Report Reviewed by me
Labs: Labs Reviewed by me
[2025-07-13] MEDS: TYLENOL PO (16:09)
[2025-07-13 16:29] LABS: Glucose - Point of Care 128 mg/dl (70-99)
--- NOTE | 2025-07-13 18:30 | PTCARENOTE ---
Received patient from PACU. Patient transferred to IMU for closer monitoring of BP's. Patient AAOx3. BP on arrival to unit 99/58(71) SB on monitor HR 55,13,99% RA. IV fluids infusing via left arm NSS@80mls/hr. Right abdominal SURAJ drain emptied
for 85mls brown purulent drainage. Urostomy and colostomy bags were emptied prior to arrival to the floor. Patient denies any pain or discomfort. Clear liquid diet ordered. Knee high sequentials on. Oriented patient to room.
[2025-07-13] MEDS: NSS 500 IV (21:26)
[2025-07-13] MEDS: LEVOPHED 250 IV (21:45)
--- NOTE | 2025-07-13 22:20 | W.PN.UPDATE ---
Addendum entered and electronically signed by IWONA Marcelino 07/14/25 05:27:
HH recheck 8.8/26.2. Will attempt to wean dopamine infusion. BP 149/46 with HR 79. In good spirits. No abdominal pain, distention. Blood transfusion cancelled for now.
Addendum entered and electronically signed by IWONA Marcelino 07/14/25 04:43:
Ultrasound of abdomen (limited) done to ascertain if patient bleeding post operatively. No overt fluid collections noted and final report is pending. Hgb came back at 7.4 which could be dilutional too. Dopamine started for HR and BP support. Very
sensitive though with bp 129/59 (89) and when paused he drops to 79/40. HR improves to 70s NSR. Will recheck HH this am.
Original Note:
Update Note
Progress Note Update
Hypothermic, lina hugger.� hypotensive 80-90s systolic, bradycardia 40s . IVF bolus (1 L LR and 500 MLs NSS). Added levophed infusion but became more bradycardic into 30s so stopped. Gave midodrine x2. Has hx of afib has seen CBC in past consult
placed. Will draw electrolytes and replete to K+ 4 and Mag 2 if needed.
[2025-07-13] MEDS: ANTIFUNGAL CLEAR 1 APPLIC TOPICAL (22:26)
[2025-07-14] VITALS (79 sets, daily range): BP systolic 73–152; BP diastolic 33–114; PULSE 45–72; BMI 18.1
[2025-07-14 01:42] LABS: Hematocrit 22.2 % (39.0-52.0); Hemoglobin 7.4 g/dL (13.0-18.0); Mean Corp Hgb Conc. 33.3 g/dL (33.0-37.0); Mean Corpuscular Volume 85.4 fL (80.0-94.0); Platelet Count 185 10^3/uL (130-400); Red Cell Dist. Width 14.6 % (11.5-14.5)
[2025-07-14] MEDS: TYLENOL PO ×5 (02:07→17:03)
[2025-07-14 02:08] LABS: Blood Urea Nitrogen 26 mg/dl (9-20); Calcium 7.9 mg/dl (8.4-10.2); Carbon Dioxide 18 mmol/L (22-30); Chloride 112 mmol/L (98-107); Estimated Creatinine Clearance 57 ml/min; Glucose 150 mg/dl (70-99); Magnesium 2.1 mg/dl (1.6-2.3); Potassium 4.8 mmol/L (3.5-5.1); Sodium 133 mmol/L (135-145); eGFR > 60.00
[2025-07-14 05:08] LABS: Hematocrit 26.2 % (39.0-52.0); Hemoglobin 8.8 g/dL (13.0-18.0)
[2025-07-14] MEDS: NSS IV (05:33)
--- NOTE | 2025-07-14 05:37 | PTCARENOTE ---
Addendum entered by Kristen Arreguin RN 07/14/25 06:16:
Pt also initially hypothermic at 95 rectally. lina hugger applied at 2130. temp improved up to 97 orally, lina hugger off at 0245, pt tolerating
Original Note:
Assumed care of patient at 1900. Pt AOx3, resting comfortably in bed. Pts heart rate bradycardic in the 50's occasionally 40's. BP running low also but pt asymptomatic. throughout shift, HR and BP continued to be low. No signs of bleeding. Attempted
extra doses of midodrine and 2 boluses. Attempted starting levophed but pts hr dropped into 30s shortly after so SHACTOR HELPER discontinued for the time being.Pt was eventually started on dopamine. He is very sensitive to dosage and will have high BP with 5
mcg/kg/min but drops back to 79/40 with it being on standby. Pt also had labs drawn and it showed a low hgb so SHACTOR HELPER ordered an US of abdomen to make sure he was not bleeding. Abdomen is soft, nontender, no increased drainage from drain/colostomy.
repeat hgb check was normal. Pt remains asymptomatic and has no complaints at this time. Call jarquin within reach.
[2025-07-14] MEDS: PROTONIX 40 MG PO (08:26)
[2025-07-14] MEDS: CRESTOR 20 MG PO (08:26)
[2025-07-14] MEDS: ANTIFUNGAL CLEAR TOPICAL ×2 (08:28→20:45)
--- NOTE | 2025-07-14 11:58 | W.PN.CRS1 ---
Today's Communication / Plan
-
Regular diet
Assessment/Plan
-
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
fistula as wall as L parastomal hernia. Has chronic IR drain in place to pelvis.
POD #1 ex lap, claritza. Was originally planned for fistula takedown and parastomal hernia repair but frozen abdomen encountered intraop and procedure aborted
chronic anemia present, stable
hyponatremia, stable
Afebrile
Stable vss but on dopamine gtt (being weaned)
Tolerating clears with good bowel function
Plan:
Advance to regular diet
Medical management as per hospitalist team
OOB as tolerated
Lovenox for VTE ppx, scds while in bed
Subjective Data
Procedure
07/13/2025 exploratory laparotomy with lysis of adhesions
Subjective Data
Date of Service: July 14, 2025
Pt seen and examined at bedside with Dr. Holland. Denies pain. Denies n/v. Stoma and urostomy with good function. No acute complaints
Objective Data
-
Vital Signs
Temp Pulse Resp BP Pulse Ox
98.6 F 69 15 148/51 97
07/14/25 07:45 07/14/25 06:30 07/14/25 06:30 07/14/25 06:30 07/14/25 06:00
Intake & Output
07/13/25 07/14/25 07/15/25
06:59 06:59 06:59
Intake Total 3010 / 3010 4060 / 4060
Output Total 1860 / 1860 1775 / 1775 450 / 450
Balance 1150 / 1150 2285 / 2285 -450 / -450
Intake:
Oral fluids 1690 / 1690
IV fluids (Total) 1320 / 1320 4060 / 4060
lactacted ringers 1000 / 1000
normal saline 560 / 560
normosol 1000 / 1000
Output:
Liquid stool amount 150 / 150
Colostomy 150 / 150
Drain Output (Total) 460 / 460 350 / 350
Right Pelvis Gustavo-Keys 460 / 460 350 / 350
Urostomy output 1250 / 1250 1425 / 1425 450 / 450
Lab Results
07/14/25 04:56
07/14/25 01:29
Physical Exam
-
General: No Acute Distress
Abdomen: Soft, Non Distended, Tender and Other (left abd colostomy with stool/flatus, right abd Urostomy with yellow urine, pelvic drain with succus )
Incision: Clear, Dry, Intact (intact midline dressing)
[2025-07-14] MEDS: LEVOPHED 250 IV (13:09)
--- NOTE | 2025-07-14 13:40 | CON.CAR ---
Consultation
Consultation Request
Date/Time Consultation Requested: 07/14/25
Date/Time Consultation Performed: 07/14/25
Requesting Provider: Dr Pan
Performing Provider: Dr Lima
Reason for Consultation: Bradycardia
Medical History
-
Chief Complaint: anal leakage
History of Present Illness:
75 y/o male with complex history of colon cancer with rectal and bladder with raditiona s/p right sided urostomy and a left-sided colostomy with a parastomal hernia with multiple fistulas, post op afib in 2022 <24 hours after ex lap, CLARITZA, SBR, and
takedown of enteroanal fistula on 04/01/23 further complicated by PE but not a OAT candidateafter bleeding on heparin so IVC filter was placed, chronic anemia, MDR Kleb UTI presented with JUANITA and hyperkalemia prior to schedule enterocutaneous
fistula on 07/13/25. Now he is POD #1 ex lap, claritza. The planned for fistula takedown and parastomal hernia repair was aborted due to intraop finding of frozen abdomen. Post op was noted to be hypotensive, levophed was started resulting in
paradoxical bradycardia. DA was started with normal HR and BP response. Currently back on levophed with normal rate. He has no dizziness, fatigue, sob or cp.
Past Medical History
Past Medical History: Cancer, Hypercholesterolemia and Other (low BP)
Past Surgical History: Other (colon)
Social History
Tobacco: Smoker
Alcohol: Occasional
Family History
Family History: Reviewed & Not Pertinent
Allergies / Home Medications
Allergy/AdvReac Type Severity Reaction Status Date / Time
No Known Allergies Allergy Verified 07/11/25 12:11
�Medication �Instructions �Recorded �Confirmed �Type
midodrine 5 mg tablet 5 mg PO TID Blood Pressure 03/11/23 07/11/25 History
rosuvastatin 20 mg tablet 20 mg PO DAILY High Cholesterol 03/12/23 07/11/25 History
cholecalciferol (vitamin D3) 25 25 mcg PO DAILY Supplement 07/06/25 07/11/25 History
mcg (1,000 unit) chewable tablet
(Vitamin D3)
pantoprazole 40 mg tablet,delayed 40 mg PO DAILY GERD 07/11/25 07/11/25 History
release (Protonix)
Review of Systems
-
All other systems: Negative unless noted
Physical Exam
Vital Signs
Temp Pulse Resp BP Pulse Ox
98.4 F 67 17 106/46 99
07/14/25 11:30 07/14/25 12:15 07/14/25 12:15 07/14/25 12:00 07/14/25 12:15
Lab Results
07/14/25 04:56
07/14/25 01:29
Troponin I 0.017 ng/ml 07/11/25 12:24
Physical Exam
General: Well Developed, Well Nourished and No Apparent Distress
HEENT: Normocephalic and Anicteric
Respiratory: Clear; Negative Wheezes, Crackles or Rhonchi
Cardiac: S1/S2 and Regular Rhythm; Negative Murmur, Rub or Peripheral Edema
GI: Soft and Other (ostomy in place)
Musculoskeletal: No Clubbing, No Cyanosis and No Edema
Neuro: AO x 3
Impression / Plan
-
Bradycardia;
-in sinus and ectopic atrial rhythm (no clinical significance)
-Sinus debbie during hypothermia and Levophed, no pathologic.
-no e/o pauses or high grade av block
-no indication for any intervention
-treat source of hypothermia and hypotension
paf: one episode 2 years ago, monitor for recurrence
hypotension: acute on chronic
-on levophed
- chronically on midodrine, add back and wean levophed
-w/u per medicine and sugery
JUANITA: on arrival, with hyperkalemia. Resolved.
rectal cancer with bladder involvement
enterovesical fistula
POD #1 ex lap, claritza.
-care per surgery
No active cardiac issue, available to return at your request
Data Reviewed
-
EKG: Tracing Personally Visualized and interpreted (Sinus bradycardia with pacs, prolonged QTC at 482m/s . Compared to the prior the HR is decreased and qtc is prolonged) and Other (tele sinus,ectopic atrial rhythm)
--- NOTE | 2025-07-14 15:25 | W.PN.HOSP.TC ---
Today's Communication/Plan
-
increase midodrine
cortisol in am
wean pressors
Assessment / Plan
Assessment / Plan
General: No Apparent Distress, Comfortable, Conversant, Appears Chronically Ill and Cachectic
HEENT: NormoCephalic and [place] Conjunctivae
Respiratory: Clear and Non Labored Respirations; No Wheezes, Rales, Rhonchi or Crackles
Cardiac: S1/S2 and Regular Rhythm; No Murmur, Rub or Gallop
GI: Soft, Non Tender, Non Distended, Normal Bowel Sounds and Ostomy (colostomy (light brown stool))
Genito-urinary: Other (urostomy (clear yellow urine) )
Musculoskeletal: No No Clubbing, No Cyanosis or No Edema
Skin: Other (duct tape around ostomy sites, patient states all leaking )
Neuro: Awake and AO x 3
Psych: Calm
#acute on chronic hypotension, vasopressor dependent
-likely related to analgesics, sedation, volume depletion s/p post OP
-ivf - 2L bolus
-monitor
-lactate neg
-midodrine increased to 10mg TID
-Cortisol in the AM
-Wean off Pressors; Goal SBP >90
-may Consider stress dose steroids if continued BP drop -
-tx to IMU due to hypotension despite fluids
#Bradycardia
-likely related to hypothermia
-resolved
-ctm
#Hypothermia, resolved
-most likely post op
-monitor fever curve, hemodynamics
#Hyperkalemia, likely 2/2 to JUANITA
#acute kidney injury, improved
#acute hyponatremia, likely hypovolemic hyponatremia
likely pre-renal in setting of poor PO intake
-Improving with Fluids
-S/p Cocktail for hyperK
- Admit to telemetry
-Cont IVF
- trend BMP
#rectal cancer with bladder involvement
#enterovesical fistula
- Consult Colorectal Surgery
- Consult Ostomy nurse
- currently scheduled for surgery Wednesday07/13/2025 -aborted tony-operatively
#Hyponatremia
-mild
#chronic hypotension
- continue midodrine, increase midodrine
-see plan above
#dyslipidemia
- continue rosuvastatin
#GERD
- continue pantoprazole
#Hx atrial fibrillation
EKG: NORMAL SINUS RHYTHM
03/2023 converted with IV amiodarone
#DVT with right common femoral vein thrombosis/PE
s/p IVC filter April 2023
Code status: full code
DVT prophylaxis: heparin sq
Total Critical Care Time 45 minutes. I was immediately available to the patient and staff. I personally examined, reviewed labs, diagnostic images/reports, interpretations, treatment plans, discussed patient care with other providers and family
or caregivers (if patient is unable to make decisions), entered orders as appropriate and documented the medical record.
Anticipated Discharge: Today
Subjective/Interval History
-
Date of Service: July 14, 2025
hypothermic, bradycardic requiring lina hugger overnight. on dopamine overnight until this morning.
Objective Data
-
Labs:
Laboratory Results
07/14/25
04:56
Hgb 8.8 L
Hct 26.2 L
Vital Signs:
Vital Signs
Temp Pulse Resp BP Pulse Ox
98.4 F 63 17 103/52 98
07/14/25 11:30 07/14/25 14:15 07/14/25 14:15 07/14/25 14:15 07/14/25 14:15
I&O
07/13/25 07/14/25 07/15/25
06:59 06:59 06:59
Intake Total 3010 / 3010 4060 / 4060
Output Total 1860 / 1860 1775 / 1775 600 / 600
Balance 1150 / 1150 2285 / 2285 -600 / -600
Review of Systems
-
History Source: Patient
Constitutional: Reports No Symptoms
EENT: Reports No Symptoms Reported
Respiratory: Reports No Symptoms
Cardiac: Reports No Symptoms
Abdomen/GI: Reports No Symptoms
Physical Exam
-
General: No Apparent Distress
HEENT: Normocephalic and Atraumatic
Respiratory: Clear to Auscultation
Cardiac: Regular Rhythm and S1/S2
GI: Soft, Ostomy (Draining stool from the Penis, anus and minimal around the SURAJ) and Other (SURAJ drain with large output/drainage on dressing. Fistula site with some drainage.)
Genito-urinary: Other (Ostomy bag and SURAJ drain )
Neuro: AO x 3
Psych: Calm
Data Reviewed
-
Ultrasound: Report Reviewed by me
Labs: Labs Reviewed by me
[2025-07-14] MEDS: LOVENOX 40 MG SC (18:28)
[2025-07-14] MEDS: TYLENOL 650 MG PO (20:41)
[2025-07-15] VITALS (24 sets, daily range): BP systolic 91–139; BP diastolic 36–66; BMI 17.5
[2025-07-15] MEDS: TYLENOL PO ×5 (01:06→23:49)
--- NOTE | 2025-07-15 02:31 | PTCARENOTE ---
Pt resting comfortably in bed; Urostomy red budded draining clear yellow urine; Colostomy red budded draining brown tarry stool; Right SURAJ drain intact and draining thin brown liquid; Pt frequently incontinent of loose liquid stool - rectum and
surrounding skin red and tender, Calazime cream applied often. Aquacel dressing over midline abdominal incision intact and maintained. Pt denies pain at surgical site at rest however states moderate pain when turning or using abd muscles.
[2025-07-15 05:51] LABS: Hematocrit 22.8 % (39.0-52.0); Hemoglobin 7.6 g/dL (13.0-18.0); Mean Corp Hgb Conc. 33.3 g/dL (33.0-37.0); Mean Corpuscular Volume 87.7 fL (80.0-94.0); Platelet Count 188 10^3/uL (130-400); Red Cell Dist. Width 14.6 % (11.5-14.5)
[2025-07-15 06:15] LABS: ALT (SGPT) 19 U/L (0-50); AST (SGOT) 14 U/L (17-59); Albumin 2.3 g/dl (3.5-5.0); Alkaline Phosphatase 75 U/L (38-126); Blood Urea Nitrogen 18 mg/dl (9-20); Calcium 7.7 mg/dl (8.4-10.2); Carbon Dioxide 20 mmol/L (22-30); Chloride 111 mmol/L (98-107); Estimated Creatinine Clearance 55 ml/min; Glucose 99 mg/dl (70-99); Potassium 4.6 mmol/L (3.5-5.1); Sodium 134 mmol/L (135-145); Total Protein 4.9 g/dl (6.3-8.2); eGFR > 60.00
[2025-07-15 06:44] LABS: Cortisol, Random 9.9 ug/dl
[2025-07-15] MEDS: ANTIFUNGAL CLEAR TOPICAL ×2 (08:36→21:16)
[2025-07-15] MEDS: CRESTOR 20 MG PO (09:02)
[2025-07-15] MEDS: PROTONIX 40 MG PO (09:02)
[2025-07-15] MEDS: LR 1000 IV (09:09)
--- NOTE | 2025-07-15 09:35 | W.PN.CRS1 ---
Today's Communication / Plan
-
Regular diet
Assessment/Plan
-
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
fistula as wall as L parastomal hernia. Has chronic IR drain in place to pelvis.
POD #2 ex lap, claritza. Was originally planned for fistula takedown and parastomal hernia repair but frozen abdomen encountered intraop and procedure aborted
chronic anemia present, stable
hyponatremia, stable
Afebrile, VSS (off all drips)
Tolerating regular diet
Plan:
Continue regular diet
Wound care consult for am, will change ostomy appliances and incisional dressing together
Medical management as per hospitalist team
OOB as tolerated
Lovenox for VTE ppx, scds while in bed
Subjective Data
Procedure
07/13/2025 exploratory laparotomy with lysis of adhesions
Subjective Data
Date of Service: July 15, 2025
Pt seen and examined at bedside with Dr. Holland. Denies n/v. Denies pain. Tolerating diet. Not much from colostomy.
Objective Data
-
Vital Signs
Temp Pulse Resp BP Pulse Ox
97.6 F 61 15 91/38 97
07/15/25 07:25 07/15/25 07:00 07/15/25 07:00 07/15/25 07:00 07/15/25 05:00
Intake & Output
07/14/25 07/15/25 07/16/25
06:59 06:59 06:59
Intake Total 4060 / 4060 480 / 480
Output Total 1775 / 1775 1400 / 1400
Balance 2285 / 2285 -920 / -920
Intake:
Oral fluids 480 / 480
IV fluids (Total) 4060 / 4060
lactacted ringers 1000 / 1000
normal saline 560 / 560
normosol 1000 / 1000
Output:
Drain Output (Total) 350 / 350 175 / 175
Right Pelvis Gustavo-Keys 350 / 350 175 / 175
Urostomy output 1425 / 1425 1225 / 1225
Lab Results
07/15/25 05:36
07/15/25 05:36
Physical Exam
-
General: No Acute Distress
Abdomen: Soft, Non Distended, Tender and Other (left abd colostomy with minimal stool/flatus, right abd Urostomy with yellow urine, pelvic drain with succus )
Incision: Clear, Dry, Intact (intact midline dressing)
--- NOTE | 2025-07-15 13:53 | W.PN.HOSP.TC ---
Addendum entered and electronically signed by Jeremy Pan MD 07/25/25 15:42:
Severe protein calorie malnutrition of chronic illness
Original Note:
Today's Communication/Plan
-
lr bolus today
monitor hemodynamics, can downgrade if blood pressures remain steady throughout the day
Continue midodrine
Wound care for ostomy
Assessment / Plan
Assessment / Plan
General: No Apparent Distress, Comfortable, Conversant, Appears Chronically Ill and Cachectic
HEENT: NormoCephalic and [place] Conjunctivae
Respiratory: Clear and Non Labored Respirations; No Wheezes, Rales, Rhonchi or Crackles
Cardiac: S1/S2 and Regular Rhythm; No Murmur, Rub or Gallop
GI: Soft, Non Tender, Non Distended, Normal Bowel Sounds and Ostomy (colostomy (light brown stool))
Genito-urinary: Other (urostomy (clear yellow urine) )
Musculoskeletal: No No Clubbing, No Cyanosis or No Edema
Skin: Other (duct tape around ostomy sites, patient states all leaking )
Neuro: Awake and AO x 3
Psych: Calm
#acute on chronic hypotension, vasopressor dependent
-likely related to analgesics, sedation, volume depletion and neurogenic delay s/p post OP
-ivf - 3L bolus (3rd liter today)
-monitor
-lactate neg
-midodrine increased to 10mg TID
-Cortisol WNL
-Wean off Pressors - weaned off norepinephrine 10/11 night. Goal SBP >90
-Can downgrade to tele if continued improvement later tonight
#rectal cancer with bladder involvement
#enterovesical fistula
-POD #2 ex lap, claritza. Was originally planned for fistula takedown and parastomal hernia repair but frozen abdomen encountered intraop and procedure aborted
-Wound care consult for am
#Bradycardia
-likely related to hypothermia
-resolved
-ctm
#Hypothermia, resolved
-most likely post op
-monitor fever curve, hemodynamics
#Hyperkalemia, likely 2/2 to JUANITA
#acute kidney injury, improved
#acute hyponatremia, likely hypovolemic hyponatremia
likely pre-renal in setting of poor PO intake
-Improving with Fluids
-S/p Cocktail for hyperK
- Admit to telemetry
-Cont IVF
- trend BMP
#Hyponatremia
-mild
#chronic hypotension
- continue midodrine, increase midodrine
-see plan above
#dyslipidemia
- continue rosuvastatin
#GERD
- continue pantoprazole
#Hx atrial fibrillation
EKG: NORMAL SINUS RHYTHM
03/2023 converted with IV amiodarone
#DVT with right common femoral vein thrombosis/PE
s/p IVC filter April 2023
Code status: full code
DVT prophylaxis: lovenox
Anticipated Discharge: Within 24 hours
Subjective/Interval History
-
Date of Service: July 15, 2025
off pressors last night
Objective Data
-
Labs:
Laboratory Results
07/15/25
05:36
WBC 6.2
Hgb 7.6 L
Hct 22.8 L
Plt Count 188
Sodium 134 L
Potassium 4.6
Chloride 111 H
Carbon Dioxide 20 L
BUN 18
Creatinine 0.9
Glucose 99
Calcium 7.7 L
Total Bilirubin 0.2
AST 14 L
ALT 19
Alkaline Phosphatase 75
Vital Signs:
Vital Signs
Temp Pulse Resp BP Pulse Ox
98.5 F 67 16 121/49 97
07/15/25 11:17 07/15/25 12:00 07/15/25 12:00 07/15/25 12:00 07/15/25 05:00
I&O
07/14/25 07/15/25 07/16/25
06:59 06:59 06:59
Intake Total 4060 / 4060 480 / 480 1480 / 1480
Output Total 1775 / 1775 1400 / 1400 300 / 300
Balance 2285 / 2285 -920 / -920 1180 / 1180
Review of Systems
-
History Source: Patient
Constitutional: Reports No Symptoms
EENT: Reports No Symptoms Reported
Respiratory: Reports No Symptoms
Cardiac: Reports No Symptoms
Abdomen/GI: Reports No Symptoms
Data Reviewed
-
Ultrasound: Report Reviewed by me
Labs: Labs Reviewed by me
[2025-07-15] MEDS: TYLENOL 650 MG PO ×2 (15:40→21:16)
[2025-07-15] MEDS: LOVENOX 40 MG SC (18:15)
[2025-07-16] VITALS (20 sets, daily range): BP systolic 97–140; BP diastolic 46–72; PULSE 82; O2SAT 97; BMI 17.7
[2025-07-16] MEDS: TYLENOL PO ×2 (04:09→12:00)
--- NOTE | 2025-07-16 04:16 | PTCARENOTE ---
Pt reported ABD derssing over lower abd saturated; Noted large amounts thin brown liquid oozing around SURAJ tube at insertion site; Area cleaned and new dressing applied and secured with tegaderm. 100ml's drained from SURAJ tube as well; Pt also
continues to have anal leakage via rectum, skin around rectum and sacrum excoriated. Area thoroughly cleaned and moisture barrier applied; No output from Colostomy; Will continue to monitor and assess.
[2025-07-16 05:39] LABS: Hematocrit 25.0 % (39.0-52.0); Hemoglobin 8.3 g/dL (13.0-18.0); Mean Corp Hgb Conc. 33.2 g/dL (33.0-37.0); Mean Corpuscular Volume 88.0 fL (80.0-94.0); Platelet Count 191 10^3/uL (130-400); Red Cell Dist. Width 14.8 % (11.5-14.5)
[2025-07-16 05:59] LABS: ALT (SGPT) 20 U/L (0-50); AST (SGOT) 16 U/L (17-59); Albumin 2.2 g/dl (3.5-5.0); Alkaline Phosphatase 73 U/L (38-126); Blood Urea Nitrogen 15 mg/dl (9-20); Calcium 7.7 mg/dl (8.4-10.2); Carbon Dioxide 23 mmol/L (22-30); Chloride 111 mmol/L (98-107); Estimated Creatinine Clearance 62 ml/min; Glucose 88 mg/dl (70-99); Potassium 3.9 mmol/L (3.5-5.1); Sodium 134 mmol/L (135-145); Total Protein 5.0 g/dl (6.3-8.2); eGFR > 60.00
[2025-07-16] MEDS: TYLENOL 650 MG PO ×2 (08:45→16:51)
[2025-07-16] MEDS: CRESTOR 20 MG PO (08:46)
[2025-07-16] MEDS: PROTONIX 40 MG PO (08:46)
[2025-07-16] MEDS: ANTIFUNGAL CLEAR TOPICAL (10:04)
--- NOTE | 2025-07-16 11:30 | WOUNDNOTE ---
JANEY RN NOTE: Followed up today at request of GI group for leaking fistula drain R suprapubic area and can remove incisional dressing. Urostomy and Colostomy appliances both changed, stoma's pink and peristomal skin intact, additional set of supplies
at bedside. SURAJ drain emptied 60ml, quickly filled up again, leaking around insertion site. Skin surrounding drain is getting pink and denuded from leaking. Confirmed with Ting Екатерина can pouch drain. Trimmed pubic hair with electric razor, skin
prepped surrounding skin then applied cut to fit one piece Coloplast pouch. Patient able to turn onto sides, sacrum and heels are blanchable pink, on Air mattress. Teaching done with patient on how to change fistula drain pouch. Will see if
tolerates and contains drainage before ordering more supplies. Abdominal surgical site with intact lan, no drainage, removed dressing as requested. Will update nurse, discharge instructions and follow as needed.
--- NOTE | 2025-07-16 12:02 | W.PN.CRS1 ---
Today's Communication / Plan
-
wound RN for ostomy/bandage change
d/c per hospitalist, okay from our perspective
f/u with Dr. Cooper as an outpatient
Assessment/Plan
-
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
fistula as wall as L parastomal hernia. Has chronic IR drain in place to pelvis.
POD #3 ex lap, claritza. Was originally planned for fistula takedown and parastomal hernia repair but frozen abdomen encountered intraop and procedure aborted
Hgb: 8.3 (7.6, 8.8), WBC 6.7
Afebrile, VSS (off all drips)
Tolerating regular diet
Plan:
-Continue regular diet
-Wound care consult for am, will change ostomy appliances and incisional dressing together
-Medical management as per hospitalist team
-OOB as tolerated
-Lovenox for VTE ppx, scds while in bed
-Pelvic drain remains in place
-Okay for discharge from our perspective after wound care. Will need to follow up with Dr. Cooper in the office for further discussions.
Subjective Data
Procedure
07/13/2025 exploratory laparotomy with lysis of adhesions
Subjective Data
Date of Service: July 16, 2025
Patient states he has no complaints. He overall feels well. He has bowel function. Denies nausea or vomiting.
Objective Data
-
Vital Signs
Temp Pulse Resp BP Pulse Ox
98.1 F 56 13 108/53 95
07/16/25 07:45 07/16/25 11:00 07/16/25 11:00 07/16/25 11:00 07/16/25 11:00
Intake & Output
07/15/25 07/16/25 07/17/25
06:59 06:59 06:59
Intake Total 480 / 480 1960 / 1960
Output Total 1400 / 1400 1050 / 1050
Balance -920 / -920 910 / 910
Intake:
Oral fluids 480 / 480 960 / 960
IV fluids (Total) 1000 / 1000
Output:
Drain Output (Total) 175 / 175 200 / 200
Right Pelvis Gustavo-Keys 175 / 175 200 / 200
Urostomy output 1225 / 1225 850 / 850
Lab Results
07/16/25 05:26
07/16/25 05:26
Physical Exam
-
General: No Acute Distress and AOx3
Abdomen: Soft, Non Distended, Non Tender and Other (SURAJ drain in place - stool )
Skin: Warm and Dry
Wound: Dressing in Place
--- NOTE | 2025-07-16 12:30 | W.DCSUMMARY ---
Addendum entered and electronically signed by Nas Almodovar MD 07/16/25 13:53:
Physical examination
HEENT: moist mucus membrane,
Chest: Clear to auscultation
Heart: N s1/s2, RRR, no rub/mrumur/gallops
Abd: Colostomy/urostomy, midline dressing, no tenderness normal bowel sound
Neuro: No motor deficits, aox3
Ext: No cyanosis, Clubbing, edema
Original Note:
Discharge Summary
Discharge Data
Date of Admission: 07/11/25
Date of Discharge: 07/16/25
-
Pending Results: No
Hospital Course
Discharging Physician : Dr Nas Almodovar
Disposition : Home
Primary care physician : Dr Torito Brownlee
Principal Discharge diagnosis :
Acute renal failure
Hyperkalemia
Postoperative hypotension requiring vasopressor
Hypothermia
Bradycardia
Chronic Discharge diagnosis :
History of rectal cancer with history of exenteration surgery
History of colostomy with parastomal hernia
Enterocutaneous/anal/urethral fistula
History of urostomy formation
History of paroxysmal atrial fibrillation
History of deep venous thrombosis/pulmonary embolism
History of inferior vena cava filter placement
Hyperlipidemia
Hypertension
Gastroesophageal reflux disease
Hospital Course :
Patient is a 75-year-old male with no major past medical history was sent into ER after patient was noted to having abnormal potassium level on outpatient lab. In ER on evaluation patient was noted to having renal failure and likely explaining
hyperkalemia. Patient was provided temporizing measures for hyperkalemia and was started on IV hydration. Patient had rapid improvement in renal function and hyperkalemia within 48 hours. Patient also had an elective outpatient surgery planned
for patient's chronic enterocutaneous/urethral/anal fistulas. Colorectal surgeon was involved in care and patient was taken to the OR. Intraoperatively patient was found to have concrete/dense upper pelvic adhesions and surgery was aborted.
Postoperatively patient was noted to be having pronounced Hypotension and required to be started on vasopressor for blood pressure support. Patient was not deemed to be septic per se in light of history of chronic hypotension. With adjunctive
therapy of IV hydration and midodrine patient was able to be weaned off of pressors. Cortisol levels were checked and were within normal limit. Patient was cleared by colorectal surgery at this point with plan for patient to be discharged at home .
Important imaging findings :
None
Procedure findings :
None
Discharge Plan
-
Patient Disposition: Home (Routine Discharge)
Discharge Diagnosis/Procedures: Entero cutaneous fistula, acute kidney inj, hyperkalemia
Condition: Fair
Diet: Regular
Activity: As tolerated
Driving Restrictions: As prior to admission
Bathing Restrictions: OK to Shower
Wound Care: Change midline incision daily and as needed. Okay to leave open to air when skin is sealed between lan. Okay to remove to shower.
Activity Restrictions/Additional Instructions:
Urostomy changed with barrier 05719 and urostomy pouch # [id number] and [place]ins seal. Continue with current appliance for colostomy.
Call supply company (list in folder provided) for monthly Ostomy supplies after discharge (ask VN to order supplies while on service).
Follow up with surgeon.
Call [facility] RN nurse for ostomy pouching concerns or leakage problems [phone] or [phone] or [phone].
Referrals:
King Cooper MD [Active, ColoRectal] - in two to three weeks
Torito Brownlee MD [Family Provider, Family Practice] - in one week
Prescriptions:
Continued
midodrine 5 MG tablet
5 mg PO TID
rosuvastatin 20 mg tablet
20 mg PO DAILY
cholecalciferol (vitamin D3) [Vitamin D3] 25 mcg (1,000 unit) Tablet,Chewable
25 mcg PO DAILY
pantoprazole [Protonix] 40 mg Tablet,Delayed Release (Dr/Ec)
40 mg PO DAILY
Discharge Orders:
Discharge Patient (As Directed); Ordered 07/16/25
Ordered By: Nas Almodovar
Discharge Date and Time
Print Language: BHUTANESE
--- NOTE | 2025-07-16 16:00 | WOUNDNOTE ---
JANEY RN NOTE: Nurse Diana notified this customs entry writer that patient states pouch around fistula drain is leaking. Patient said he prefers drainage sponges that can be changed as needed. Teaching done with nurse on how to remove pouch, confirmed she can do
by self. Available for assistance if needed.
--- NOTE | 2025-07-16 16:32 | CM ---
Addendum entered by Orville Marroquin 07/16/25 16:41:
Patient declined Home VN as well. Patient/ takes care of his ostomy and see physician as outpatient, per patient.
Addendum entered by Orville Marroquin 07/16/25 16:40:
IMM Completed
Original Note:
F/U: ARPAN Jacinto saw discharge order so spoke to the RN who said PT/OT will evaluate him. Patient did well to not need SNF. Hospitalist was told that the / patient (more the ) is stalling on the discharge. Hospitalist said there is nothing
else to keep the patient here. ARPAN Jacinto met with the patient, said he was discharge, that we can offer Home PT, but he refused, otherwise told both / patient that discharge order is in and time to discharge. There was no push back and RN aware
to move forward with the discharge after she fix his drain aware with dressing. Hospitalist aware.
PLAN: Home No Needs
== END 2025-07-16 17:27 | disposition home or self-care (01) | DRG 335 ==
LOC: IMU 15:08
PROVIDERS: Emergency Medicine; Internal Medicine; Nurse Practitioner Family; Physician Assistant Medical; Registered Nurse; ADMITTING PHYSICIAN Hospitalist; ATTENDING PHYSICIAN Hospitalist; CONSULT PHYSICIAN Internal Medicine Cardiovascular Disease; EMERGENCY PHYSICIAN Emergency Medicine; FAMILY PHYSICIAN Family Medicine; OTHER PHYSICIAN Surgery
PROC: 0DN80ZZ Release Small Intestine, Open Approach (ICD-10-PCS; 2025-07-13)
DX: K66.0 Peritoneal adhesions (postprocedural) (postinfection) (principal); E43 Unspecified severe protein-calorie malnutrition; K63.2 Fistula of intestine; C20 Malignant neoplasm of rectum; N17.9 Acute kidney failure, unspecified; I48.20 Chronic atrial fibrillation, unspecified; N32.1 Vesicointestinal fistula; N36.0 Urethral fistula; Z68.1 Body mass index [BMI] 19.9 or less, adult; E87.1 Hypo-osmolality and hyponatremia; E87.5 Hyperkalemia; K43.5 Parastomal hernia without obstruction or gangrene; E78.00 Pure hypercholesterolemia, unspecified; I73.9 Peripheral vascular disease, unspecified; F17.210 Nicotine dependence, cigarettes, uncomplicated; D72.829 Elevated white blood cell count, unspecified; I95.89 Other hypotension; K21.9 Gastro-esophageal reflux disease without esophagitis; I10 Essential (primary) hypertension; E78.5 Hyperlipidemia, unspecified; G89.29 Other chronic pain; R68.0 Hypothermia, not associated with low environmental temperature; Z53.9 Procedure and treatment not carried out, unspecified reason; Z86.718 Personal history of other venous thrombosis and embolism; Z90.49 Acquired absence of other specified parts of digestive tract; Z93.3 Colostomy status; Z95.828 Presence of other vascular implants and grafts; Z86.711 Personal history of pulmonary embolism; Z87.440 Personal history of urinary (tract) infections; Z79.899 Other long term (current) drug therapy
CPT/HCPCS: 76705; 76770; 80048; 80053; 82533; 82805; 82962; 83605; 83735; 84132; 84484; 85014; 85018; 85025; 85027; 86803; 86850; 86900; 86901; 86920; 87070; 93005; 96360; 97163; 99285; 99406; C1776; J1335

== ENCOUNTER 2025-07-29 06:09 | Inpatient (IN) | payer OTHER, SELFPAY ==
[2025-07-29] VITALS (69 sets, daily range): BP systolic 67–135; BP diastolic 36–102; PULSE 66–76; O2SAT 100; BMI 15.6
[2025-07-29] MEDS: NSS 1000 IV (02:43)
[2025-07-29 02:50] LABS: Hematocrit 36.8 % (39.0-52.0); Hemoglobin 11.5 g/dL (13.0-18.0); Mean Corp Hgb Conc. 31.3 g/dL (33.0-37.0); Mean Corpuscular Volume 88.9 fL (80.0-94.0); Nucleated Red Blood Cells % 0 % (-); Platelet Count 666 10^3/uL (130-400); Red Cell Dist. Width 14.2 % (11.5-14.5)
[2025-07-29 03:22] LABS: Troponin I 0.021 ng/ml
[2025-07-29 03:27] LABS: ALT (SGPT) 40 U/L (0-50); AST (SGOT) 27 U/L (17-59); Albumin 3.9 g/dl (3.5-5.0); Alkaline Phosphatase 229 U/L (38-126); Blood Urea Nitrogen 74 mg/dl (9-20); Calcium 9.5 mg/dl (8.4-10.2); Carbon Dioxide 16 mmol/L (22-30); Chloride 93 mmol/L (98-107); Estimated Creatinine Clearance 9 ml/min; Glucose 229 mg/dl (70-99); Potassium 6.7 mmol/L (3.5-5.1); Sodium 128 mmol/L (135-145); Total Protein 7.8 g/dl (6.3-8.2); eGFR 12.83
[2025-07-29 04:12] LABS: Urine Character Cloudy (Clear)
--- NOTE | 2025-07-29 04:23 | ED.GENMED ---
History of Present Illness
General
Chief Complaint: Breathing Problem
Source: patient and previous hospital records (Recent hospitalization July 11 to July 16 for acute renal failure, hyperkalemia, postoperative hypotension requiring vasopressors.)
Exam Limitations: none
Time Seen by Provider: 07/29/25 04:19
Nursing documentation reviewed up to this point in time: agreed with
History of Present Illness
History of Present Illness:
This is a 75-year-old gentleman who resides at home with his . He has extensive past medical history including history of rectal cancer with exenteration surgery, history of colostomy with parastomal hernia, enterocutaneous anal/urethral
fistula, urostomy formation, history of paroxysmal atrial fibrillation, history of DVT/PE, inferior vena cava filter placement, hypertension, GERD. Recent hospitalization July 11 to July 16 for treatment of acute kidney injury with
hyperkalemia thought to be prerenal in nature. He underwent surgical procedure/exploratory laparotomy on July 13 with lysis of adhesions and plan for repair of enterocutaneous/urethral/anal fistulas and parastomal hernia. Unfortunately finding
concrete like dense upper pelvic adhesions thus surgery was aborted. Since discharge home on the patient reports minimal oral intake and has had minimal output in his colostomy. In fact he tells me he has not needed to change the bag since he
was discharged on the . He has continued with regular output from his urostomy however somewhat decreased. He continues with drainage from his SURAJ drain that is located suprapubic.
He presents tonight via EMS due to shortness of breath, significant lightheadedness and fatigue with standing as well as generalized lower abdominal discomfort. He has not had a fever nor chills. No cough, no chest pain. No leg pain or swelling.
According to our records he has lost approximately 20 pounds over the past 2 weeks.
He arrives via EMS. Sinus tachycardia, hypotensive with systolic blood pressure at 70. Patient does have history of low blood pressure, maintained on midodrine.
Clinically appears dry. IV fluid bolus has been initiated promptly upon arrival. BP has responded nicely, systolic blood pressure now in the 90s to 100.
He remains afebrile.
Past History
Past History
ED Past Medical History: Cancer (Colorectal cancer, vesico-intestinal fistula), Hypercholesterolemia, Other (PAD, DVT/PE, IVC filter in place,) and Other (Orthostatic hypotension)
ED Past Surgical History: Urological (Ileal conduit, chronic SURAJ drains suprapubic) and Other (Urostomy, colostomy cystoprostatectomy)
Social History
Tobacco: Smoker
Alcohol: None
Drug: None
Personal:
Living: with family
Employment: Retired
Family History
Family History: Other (Noncontributory)
Phy Exam
Physical Exam
Physical Exam:
GENERAL: 75-year-old gentleman appears somewhat older than stated age, appears somewhat chronically debilitated, cachectic, he is bright and alert, pleasant, overall appears in no acute distress.
EYE: pupils equal and reactive. anicteric
NECK: Supple, nontender, no meningismus, no significant adenopathy.
ENT: posterior pharynx is clear, oral mucosa is significantly dry. Lips are dry. TM clear b/l, nares patent.
CARDIAC: Regular rhythm, mildly tachycardic, no murmur.
LUNGS: Clear breath sounds bilaterally, no acute respiratory distress, no wheezes/rales/rhonchi
ABDOMEN: nondistended, colostomy left lower quadrant with soft brown stool in the bag. Ileal conduit right lower quadrant with cloudy yellow urine. There is a SURAJ drain suprapubic region with dark purulent liquid within the bulb. There is
midline, vertical, lower abdominal lan intact. Lower abdomen is concave, significantly firm without appreciable tenderness. There is mild erythema suprapubic and bilateral inguinal area which patient states is chronic and unchanged. no r/g,
no cvat. normoactive BS.
NEUROLOGICAL: Alert and oriented x3, no focal neuro deficits.
SKIN: Warm and dry, normal color, skin intact. No rash. Poor turgor.
MUSCULOSKELETAL: No C/C/E. peripheral pulses are full and equal b/l. No palpable tenderness.
PSYCH: Normal and appropriate interaction.
Scores
Heart Failure Risk
Heart Failure Risk Score: Not Applicable
Sepsis
Sepsis Screening
Sepsis Assessment: Sepsis
Sepsis Screening: Lactate >2mmol/L, Hypotension and ARF-Creatinine >2.0
Sepsis Screen
Sepsis Screen: Sepsis
Date: 07/29/25
Time: 06:39
Course
Orders/Labs/Results
Orders:
Orders
07/29/25 02:28
Electrocardiogram (*1) Urgent
Reason for Study: Shortness of Breath
07/29/25 02:29
Electrocardiogram (*1) Urgent
Reason for Study: Other
Other Reason for Exam: Respiratory Distress
Cardiac Monitoring- Treatment ONCE
EKG- Treatment ONCE
EKG- Treatment ONCE
IV Insert/Care/Rem.- Treatment PRN
CR Chest - 2 Views Urgent
Comment:
Reason For Exam: respiratory distress
Pulse Ox/cont/shift [RESP] Urgent
Quantity: 1
Special Instructions: continuous pulse ox
07/29/25 02:35
Complete Blood Count/With Diff Urgent
Comprehensive Metabolic Panel Urgent
NT-proBNP Urgent
Troponin I Urgent
07/29/25 02:37
Lactic Acid Urgent
Blood Culture Urgent
GEOFFREY Source: Blood/Venous
Specimen Description:
07/29/25 02:43
0.9% Sodium Chloride 1000 ml [Nss] 1,000 ml IV BOLUS
07/29/25 04:01
Urinalysis Reflex To Culture Urgent
Date Specimen was Collected: 07/29/25
Time Specimen was Collected: 03:52
Urine Microscopic Reflex Cult Urgent
Urine Culture Urgent
GEOFFREY Source: U
Specimen Description:
Date Specimen was Collected: 07/29/25
Time Specimen was Collected: 03:52
07/29/25 04:19
Cardiac Monitoring- Treatment ONCE
Calcium Gluconate 1,000 mg IV NOW STA
Dextrose 50%-Water [Dextrose 50% Syringe] 12.5 grams IV [id number] PRN
Dextrose 50%-Water [Dextrose 50% Syringe] 25 grams IV NOW STA
Insulin Human Regular [Novolin R] 5 units IV NOW STA
Sodium Bicarbonate 50 meq IV NOW STA
07/29/25 04:22
Bedside Glucose PRE IV Insulin- HyperK+ NOW
07/29/25 04:23
CT Abd/pel Without Iv Or Oral Urgent
Comment:
Reason For Exam: GENERALIZED LOWER ABD PAIN, SEPSIS
07/29/25 04:35
Piperacillin/Tazo 3.375 Gram [Zosyn] 3.375 gram in 50 ml IV NOW
07/29/25 04:36
Potassium Urgent
Comment: draw 2 hours after regular insulin IV administration
Blood Culture Urgent
GEOFFREY Source: Blood/Venous
Specimen Description:
07/29/25 05:22
0.9% Sodium Chloride 500 ml [Nss] 500 ml IV BOLUS
07/29/25 05:30
0.45% Sodium Chloride 1000 ml [0.45%NaCl] 500 ml Sodium Bicarbonate 75 meq IV 1,000 mls/hr
07/29/25 05:32
Sodium Zirconium Cyclosilicate [Lokelma] 10 gram PO NOW STA
07/29/25 05:37
Admit/Transfer Patient As Directed
Co-Sign Provider:
Level of Care: Inpatient admission
Assign to:: IMU- Intermediate Care
Physician / Group: Edel
Diagnosis: sepsis with JUANITA secondary to possible intraabdominal infection
Reason for Hospitalization: sepsis with JUANITA secondary to possible intraabdominal infection
Expected length of stay greater than two midnights?: Yes
ELOS- Estimated Length of Stay in days: 2
I certify the patient meets the requirements for IP care: Yes
PRN Pain Medication Management As Directed
May give lesser potent ordered pain med per pt: Yes
preference::
Protocol:: Medication orders for pain may be administered in a
manner that supports deferring to patient preference
when the pt is:
- Requesting an ordered lesser potent pain medication.
Least to most potent pain medications are defined
as: acetaminophen < NSAID < tramadol < opioids
(morphine, oxycodone, hydromorphone).
- Requesting a lesser dose of the same medication IF
ORDERED.
- Requesting a less intrusive route of administration
if both routes are prescribed by the provider (PO <
IV).
07/29/25 05:38
Code Status As Directed
Resuscitation Status: Full Code
07/29/25 05:52
Bedside Glucose POST IV Insulin- HyperK+ Q1HX2,Q2HX2
07/29/25 06:00
0.45% Sodium Chloride 1000 ml [0.45%NaCl] 1,000 ml Sodium Bicarbonate 75 meq IV 100 mls/hr
Abnormal Lab Results
07/29/25 07/29/25 07/29/25
02:35 02:37 04:01
WBC 21.8 H 10^3/uL
(4.8-10.8)
RBC 4.14 L 10^6/uL
(4.70-6.10)
Hgb 11.5 L g/dL
(13.0-18.0)
Hct 36.8 L %
(39.0-52.0)
MCHC 31.3 L g/dL
(33.0-37.0)
Plt Count 666 H 10^3/uL
(130-400)
Abs Immat Gran (auto) 0.6 H 10^3/uL
(0-0.05)
Absolute Neuts (auto) 18.7 H 10^3/uL
(1.4-6.5)
Absolute Monos (auto) 1.0 H 10^3/uL
(0.1-0.6)
Immature Gran % 2.8 H %
(0-0.5)
Neutrophils % 85.8 H %
(42.2-75.2)
Lymphocytes % 5.7 L %
(20.5-51.1)
Sodium 128 L mmol/L
(135-145)
Potassium 6.7 H* mmol/L
(3.5-5.1)
Chloride 93 L mmol/L
(98-107)
Carbon Dioxide 16 L mmol/L
(22-30)
BUN 74 H mg/dl
(9-20)
Creatinine 4.5 H* mg/dL
(0.7-1.3)
Glucose 229 H mg/dl
(70-99)
Lactic Acid 8.6 H* mmol/L
(0.7-2.0)
Alkaline Phosphatase 229 H U/L
(38-126)
Urine Ketones 1+ A
(Negative)
Ur Occult Blood Reflex 2+ A
(Negative)
Leukocyte Esterase Rfl 3+ A
(Negative)
Urine Bacteria (Reflex) Many A
(Negative)
Urine Albumin (Reflex) 3+ A
(Neg - Trace)
POC Glucose
07/29/25 07/29/25 07/29/25
04:36 04:58 06:07
WBC
RBC
Hgb
Hct
MCHC
Plt Count
Abs Immat Gran (auto)
Absolute Neuts (auto)
Absolute Monos (auto)
Immature Gran %
Neutrophils %
Lymphocytes %
Sodium
Potassium 6.0 H mmol/L
(3.5-5.1)
Chloride
Carbon Dioxide
BUN
Creatinine
Glucose
Lactic Acid
Alkaline Phosphatase
Urine Ketones
Ur Occult Blood Reflex
Leukocyte Esterase Rfl
Urine Bacteria (Reflex)
Urine Albumin (Reflex)
POC Glucose 114 H mg/dl 149 H mg/dl
(70-99) (70-99)
07/29/25 02:35
07/29/25 04:36
Vital Signs
Initial and Last Documented VS:
Initial Vital Signs
Temp Pulse Resp
97.8 F 105 28
07/29/25 02:23 07/29/25 02:23 07/29/25 02:23
Last Documented Vital Signs
Temp Pulse Resp BP Pulse Ox
97.8 F 84 30 107/55 100
07/29/25 02:23 07/29/25 06:15 07/29/25 06:15 07/29/25 06:15 07/29/25 06:15
MDM/Problems Addressed
Differential Diagnosis Includes:
The Differential Diagnosis includes, in no particular order and is not limited to:
- Post-surgical complications
- Colostomy blockage or malfunction
- Dehydration due to insufficient oral intake
- Electrolyte imbalance
- Gastrointestinal infection
- Respiratory infection (secondary to decreased breath sounds)
- Radiation enteritis
- Adhesive bowel obstruction
- Fistula complications
- Malnutrition
MDM/Problems Addressed:
Acute Problems:
- Shortness of breath
- Dehydration
- JUANITA
- Significant lactic acidosis
- Elevated potassium levels
- Abdominal pain with decreased colostomy output
Chronic Problems:
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
Patient appears significantly dehydrated and initial EKG shows sinus tachycardia with peaked T waves.
Noted to be moderately hypotensive. Blood pressure is improved with IV fluid resuscitation.
Noted to have significantly elevated lactic acid, 8.6; significantly elevated creatinine at 4.5 with elevated potassium of 6.7.
Significantly elevated white blood cell count as well as 21.8.
I have significant concern for sepsis.
Concern for intra-abdominal sepsis, UTI related sepsis.
Chest x-ray shows clear lung connors.
IV fluid resuscitation continues, thus far has not required pressors.
Acute treatment for hyperkalemia with IV calcium gluconate, sodium bicarb, IV insulin and dextrose.
Will check CT abdomen pelvis without contrast.
Will initiate broad-spectrum antibiotics and will admit to hospitalist service.
Chronic conditions affecting care: HTN, Arrhythmia, Kidney disease, Cancer and Other (Prior history of DVT/PE. Vena cava filter in place.)
Acute Exacerbation and/or Progression of Chronic Illness: Previous abdomnial surgery and Kidney disease
*Radiology
Radiology exam reviewed: preliminary read by ED provider (Chest x-ray shows clear lung connors.) and radiology read reviewed (Limited CAT scan due to lack of contrast. Drainage catheter present at the level of the bladder which is surgically absent,
difficult to differentiate from perforation/abscess in this area.)
*Pulse Oximetry
SaO2: 100
Nasal Cannula flow liters per minute: 2
Patient hypoxic: no
*EKG
Interpreted by ED Provider?: Yes
Interpretation: abnormal
Comparison EKG: changes noted (Sinus tachycardia has replaced sinus bradycardia noted July 13)
Rate: tachycardiac
Rhythm: sinus
Elmer: normal axis
Interval: normal interval
QRS Pattern: normal QRS
Ischemia: other (Peaked T waves)
*Mission Worker Interpretation
Rate: tachycardiac
Interpretation: abnormal
Rhythm: sinus
*Critical Care Note
Total Time (30-74mins, 75-104mins- exclusive of procedures): 50
comment:
Critical care statement: A total of 50 minutes of critical care time was provided for this patient. This includes management of unstable vital signs, evaluation of the patient at bedside, reviewing the patient's pertinent medical records, discussion
with consultants, review of old EKGs and review of pertinent medical records. This time with separate from time utilized to perform the aforementioned documented procedures
ED Attending Note
-
Portions of this chart may have been created with voice recognition software.� Occasional wrong word or��sound alike� substitutions may have occurred due to the inherent limitations of voice recognition software.
Discharge Plan
Departure
Patient Disposition: Admit
Date of Disposition: 07/29/25
Time of Disposition: 04:35
Admit to: ICU
Admit to doctor: Shailesh
Presentation/result/management discussed w/ accepting MD/DO: Hospitalist
Condition: Serious
Discharge Problem:
Acute renal failure related to dehydrati, Acute lactic acidosis, Sepsis associated hypotension, Abdominal fistula, Fistula of small intestine, JUANITA (acute kidney injury), Hyperkalemia, Severe protein-calorie malnutrition, Urinary tract infection
Interventions
Interventions:
*Risk Screen - Suicide Last Done: 07/29/25 02:32
*General Assessment Last Done: 07/29/25 02:32
*Neglect/Abuse Screening Last Done: 07/29/25 02:32
*ED- Fall Risk Assessment Last Done: 07/29/25 02:32
*ED COVID-19 Vaccine History Last Done: 07/29/25 02:32
*ED Influenza Vaccine History Last Done: 07/29/25 02:32
ED- Cardiac Assessment Last Done: 07/29/25 04:00
ED- Pulmonary Assessment Last Done: 07/29/25 04:00
[2025-07-29 04:29] LABS: Urine Squamous Cell SEEN /LPF (Few)
--- NOTE | 2025-07-29 04:39 | HPS.HSE ---
Family Physician
-
Family Physician: Torito Brownlee
Chief Complaint
-
Generalized aches and shortness of breath
History of Present Illness
Patient is a 75-year-old male with extensive surgical history who presents to the emergency for ongoing and worsening generalized aches, shortness of breath and lightheadedness.
Patient has a past medical history significant for rectal cancer with extensive surgery including colostomy with proximal hernia, enterocutaneous anal/urethral fistula, urostomy formation, history of proximal atrial fibrillation, history of DVT/PE
status post IVC filter, orthostatic hypotension, GERD will was recently hospitalized in July 11 through 05 16 for acute kidney injury with hyperkalemia thought to be prerenal. Status post ex lap on July 13 with lysis of adhesion and went for
repair of the enterocutaneous/ureteral/renal fistula and parastomal hernia, unfortunately he had significant adhesions and surgery was aborted. Post-op hypotension, JUANITA and hyperkalemia.
Patient was given fluids and started on vasopressor support briefly. He was not thought to be septic and culture data was negative on that admission. With midodrine he was weaned off pressors. His cortisol was within normal limits. His renal
function recovered. And he was discharged.
Patient reported that since discharge he has very limited output from his colostomy bag. He also reports that his urostomy output has reduced. He states that he has not changed his colostomy bag and content has been there since July 16. Denies
nausea or vomiting. He has chronic abdominal discomfort. Denies any distension. Denies have any fevers or chills. Denies flank pain.
He states he has just been drinking water and no significant p.o. intake. He does report some increased drainage from around the SURAJ's insertion site as well as opening in the suprapubic region (cutanous fistula). Some erythema around that area and
chronic discomfort discomfort. He has surgical lan that he says have remained clean dry without any drainage. He also reports that he is urostomy output has been more cloudy.
When EMS arrived to bring the patient to the ED is blood pressures were in the 70s systolic.
On initial arrival to the emergency department blood pressure was 67/30, it improved to 117/71 with fluids. Pulse rate was in the 90s compared to his prior ECG that showed bradycardia usually. He is satting 100% on room air with a temperature of
nine 7.8. His chest x-ray was completely clear. His UA was positive similar to prior. CBC shows a white count of 21.8 and normal hemoglobin of 11.5 with a platelet of 600. He had a hyperkalemia to 6.2 and a sodium of 128 bicarb of 16. Lactic
acid was 8. LFTs were normal. Troponin was negative.
CT abdomen pelvis without IV or oral contrast is pending.
Medical History
Past Medical History
Past Medical History: Reports Other
Additional Past Medical History:
Rectal cancer of the bilateral involvement, status post colectomy, colostomy creation urostomy bladder removal
Endocervical fistula
A-fib converted with IV amiodarone
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
Blood loss anemia
Dyslipidemia
hypertension
GERD
Past Surgical History: Reports Other
Additional Past Surgical History:
Colectomy
Total cystectomy, prostatectomy and urostomy creation
Colostomy creation
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
Social History
Unable to obtain full social history at this time due to: Other
Tobacco: Smoker (5 to 7 cigarettes a day)
Alcohol: Former (Daily 1-2 beers has not had in the past 2 months states cannot afford)
Drug: None
Personal:
Living: With Family
Employment: Retired
Family History
Family History: Other
Allergies / Home Medications
Allergies reflects when Allergies were last updated in [facility].
Home Medications with original date entered in [facility]
Allergy/Medication List:
Allergies
Allergy/AdvReac Type Severity Reaction Status Date / Time
No Known Allergies Allergy Verified 07/11/25 12:11
Home Medications
midodrine 5 mg tablet 5 mg PO TID Blood Pressure 03/11/23
rosuvastatin 20 mg tablet 20 mg PO DAILY High Cholesterol 03/12/23
cholecalciferol (vitamin D3) 25 mcg (1,000 unit) chewable tablet (Vitamin D3) 25 mcg PO DAILY 07/06/25
pantoprazole 40 mg tablet,delayed release (Protonix) 40 mg PO DAILY 07/11/25
Review of Systems
-
History Source: Patient
Constitutional: Denies Fever, Weight Gain or Chills
EENT: Denies Sore Throat
Respiratory: Reports Trouble Breathing; Denies Cough or Hemoptysis
Cardiac: Denies Chest Pain, Diaphoresis, Palpitations or Syncope
Abdomen/GI: Reports Abdominal Pain; Denies Nausea or Vomiting
: Denies Dysuria, Frequency, Flank Pain or Urgency
Musculoskeletal: Denies Joint Pain
Skin: Reports Other (leaking around ostomy ); Denies Rash
Neurological: Reports Dizzy; Denies Headache or Numbness
Physical Exam
Vital Signs
Vital Signs
Temp Pulse Resp BP Pulse Ox
97.8 F 90 16 117/71 100
07/29/25 02:23 07/29/25 03:45 07/29/25 03:45 07/29/25 03:45 07/29/25 04:34
Physical Exam
General: No Apparent Distress, Appears Chronically Ill and Cachectic
HEENT: NormoCephalic and [place] Conjunctivae
Respiratory: Clear and Non Labored Respirations; No Wheezes, Rales, Rhonchi or Crackles
Cardiac: S1/S2 and Regular Rhythm; No Murmur, Rub or Gallop
GI: Soft, Non Tender, Non Distended, Normal Bowel Sounds, Ostomy (colostomy pasty light brown stool, urostomy with slightly cloudy urine, SURAJ tube with dark serosanguineous drainage) and Other (Suprapubic opening likely fistula with mucus drainage
but clear., There is mild erythema surrounding the drain site without crepitus or induration. SURAJ drain with brown serosanguinous material); No Tender or Distended
Rectal: Deferred by Provider
Genito-urinary: Other (urostomy (clear yellow urine) )
Musculoskeletal: No No Clubbing, No Cyanosis or No Edema
Skin: Other (duct tape around ostomy sites, patient states all leaking )
Neuro: Awake, AO x 3 and Nonfocal/grossly intact
Psych: Calm
Laboratory Results
-
07/29/25 02:35
Laboratory Results
Lactic Acid 8.6 mmol/L (0.7-2.0) H* 07/29/25 02:37
Total Bilirubin 1.1 mg/dl (0.2-1.3) 07/29/25 02:35
AST 27 U/L (17-59) 07/29/25 02:35
ALT 40 U/L (0-50) 07/29/25 02:35
Alkaline Phosphatase 229 U/L (38-126) H 07/29/25 02:35
Troponin I 0.021 ng/ml 07/29/25 02:35
Data Reviewed
-
Diagnostic Radiology: Image Personally Visualized and interpreted
CT Scan: Report Reviewed by me
Lab Data: Labs Reviewed by me
Old Records: Reviewed
Impression/Plan
-
IMPRESSION:
77-year-old with past medical history significant for severe protein calorie malnutrition, hypotension, rectal cancer status post surgery with extensive postsurgical complications now with colostomy, urostomy, enterocutaneous/anal/ureteral fistulae,
recent ex lap and DC lysis, follow-up attempted repair of the fistula was aborted due to extensive compacted adhesions, presents to the emergency department with lightheadedness (patient states this is primary symptoms), shortness of breath and
generalized aches and pains. He has had minimal p.o. intake and was found to have about a 20 pound weight loss since July 16 2 weeks ago. Patient has minimal appetite, does not eat food but has been drinking water. He has been no nausea or
vomiting. CT scan of the abdomen pelvis without contrast is negative for any acute obstruction. He came in hypotensive to the 60s systolic improving with hydration. His labs are markedly abnormal with profound leukocytosis to 21.8, lactic
acidosis to 8.6, hyperkalemia to 6.2, JUANITA with a creatinine of 4.5 and a BUN of 70. His chest x-ray is clear.
PLAN:
Hypotension -hypovolemic and/or in combination with sepsis, source not entirely clear.
- admit to IMU
Possible sepsis with JUANITA 2/2 intraabdominal infection or possible ut
- possible sepsis sources include intraabdominal abscess, urine or skin. Lungs completely clear despite sob. Not requiring oxygen, placed on for comfort.
- blood, urine cultures sent
- fluid sample from SURAJ drain and likely enterocutanous fistula sent. Patient reports increased drainage from the fistula but no evidence of down-stream obstruction. Cannot rule out enteritis.
- IV zosyn for now, mrsa swab
- 30 ml/kg crystalloid, 1.5L NS, then another 500 ml for MAP < 65.
- vasopressor to maintain map> 65, wean with midodrine
- ID consultation
- colorectal consult
Hypovolemia - chronic continous output from enteroanal and enterocutanous fistula with very poor intake/cachexia
- patient clearly cachectic, minimal colostomy output, 20 Ib weightloss in 2 weeks, Na 128. BUN/Cr relatively high given cachexia.
- sepsis fluids
- continue with 1/2NS+75meq bicarb at 100ml/hr
Hyperkalemia - K 6.7. 2/2 prerenal azotemia. Similar prior presentation. Normal cortisol levels at that time.
- temporized in ED to 6.0
- add lokelma 10 now
- low K diet,
- nephrology consult,
Lactic acidosis - Lactate 8. Hepatic function normal. C/W sepsis, global hypoperfusion from hypovolemia and hypotension. Cannot rule out bowel ischemia but patient is w/o sig abd pain or bowel obstruction. Abdomen is benign on examination except
for the suprapubic fistula drainage and surrounding erythema
- sepsis protocol for now, fluids, maintain map > 65
- trend lactate levels
- unable to perform CT angio due to creatinine at this time
- based on benign exam, no obvious obstruction on imaging, chronic collection, consult to surgery
JUANITA - Creatinine 4.5, bl 0.9. Suspect pre-renal azotemia. No obstruction on CT scan. Cannot rule out ATN
- non oliguric, continue IV hydration but monitor closely. BNP elevated. Xray is clear for now
- i/os
- pulse oximetry
- nephrology consult
Hyponatremia - Suspect hypovolemic given history of poor po, JUANITA and hypotension. Prior w/u negative for adrenal insufficiency
- Fluid resuscitation with isotonic crystalloids
- f/u repeat labs
- nephrology consult
DVT s/p IVC filter, h/o afib. Not on AC. NSR now.
- heparin s/q
PTOT
Code status - full code
[2025-07-29] MEDS: SODIUM BICARBONATE 50 MEQ IV (04:52)
[2025-07-29] MEDS: NOVOLIN R 5 UNITS IV (04:56)
[2025-07-29] MEDS: CALCIUM GLUCONATE 1000 MG IV (04:56)
[2025-07-29] MEDS: DEXTROSE 50% SYRINGE 25 GRAMS IV (04:56)
[2025-07-29 04:58] LABS: Potassium 6.0 mmol/L (3.5-5.1)
[2025-07-29 05:09] LABS: Glucose - Point of Care 114 mg/dl (70-99)
[2025-07-29] MEDS: ZOSYN 50 IV ×3 (05:23→20:08)
[2025-07-29] MEDS: NSS 500 IV ×2 (05:28→07:21)
[2025-07-29] MEDS: LOKELMA 10 GRAM PO ×2 (05:56→17:28)
[2025-07-29 06:08] LABS: Glucose - Point of Care 149 mg/dl (70-99)
[2025-07-29] MEDS: SODIUM BICARBONATE 1075 MEQ IV (06:53)
[2025-07-29 07:05] LABS: Glucose - Point of Care 103 mg/dl (70-99)
[2025-07-29] MEDS: LEVOPHED 250 IV ×2 (07:34→23:07)
--- NOTE | 2025-07-29 07:46 | W.CON.NEPH ---
Consultation
-
Date/Time Consultation Requested: 07/29/2025 7:30 AM
Date/Time Consultation Performed: 07/29/2025 7:45 AM
Requesting Provider: Dr. Pan
Performing Provider: Dr. Carlson
Reason for Consultation: Acute kidney injury/hyperkalemia
Medical History
-
Chief Complaint: Acute kidney injury hyperkalemia
History of Present Illness:
75-year-old male with extensive history of rectal cancer with bladder involvement requiring pelvic exenteration 08/14/2021 with postop and drug cutaneous fistula status post exploratory lap, lysis of adhesions, partial small bowel resection
04/01/2023. Status post colostomy, urostomy. He was recently hospitalized from July 11 through July 16, 2025 for acute kidney injury with hyperkalemia thought to be prerenal in origin. He underwent ex lap on July 13 with lysis of adhesions
and 1 for repair of enterocutaneous ureteral renal fistula with parastomal hernia. Unfortunately had significant adhesions and the surgery was aborted. There were also complications including postop hypotension acute kidney injury and
hyperkalemia. His kidney function eventually improved and he was discharged. Since discharge he has had very limited output from his colostomy bag. He also reports that his urostomy output had been reduced. He denied any associated nausea or
vomiting but does have chromanol abdominal discomfort. He also denied any fevers chills or flank pain. He says he had only been drinking water without significant p.o. intake. He also noted some increased drainage from around the JPs insertion
site as well as opening in the suprapubic region from the cutaneous fistula. He also reported that his urostomy output had been more cloudy. When he was brought to the emergency room he was profoundly hypotensive with systolic blood pressures in
the 70s. He was hyperkalemic and an acute kidney injury with creatinine rise into the fours. His blood pressure on arrival to the emergency room was 67/30. He was also noted to be hyponatremic and with lactic metabolic acidosis. Nephrology was
consulted for his acute kidney injury hyperkalemia and metabolic acidosis.
Other past medical history includes A-fib status post chemical cardioversion, DVT right common femoral vein/PE status post IVC filter April 2023 and HLD on statin. He chronically has low BPs hence maintained on midodrine too.
Past Medical History
Rectal cancer of the bilateral involvement, status post colectomy, colostomy creation urostomy bladder removal
Endocervical fistula
A-fib converted with IV amiodarone
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
Blood loss anemia
Dyslipidemia
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
Social History
Tobacco: Smoker (6-7cigerette/day)
Alcohol: Former (none since 2m ago)
Personal:
Living: With Family
Employment: Retired (worked in [employer] in [place])
Family History
Family History: Not Pertinent
Allergies / Home Medications
Allergy/AdvReac Type Severity Reaction Status Date / Time
No Known Allergies Allergy Verified 07/11/25 12:11
�Medication �Instructions �Recorded �Confirmed �Type
midodrine 5 mg tablet 5 mg PO TID Blood Pressure 03/11/23 07/29/25 History
rosuvastatin 20 mg tablet 20 mg PO DAILY High Cholesterol 03/12/23 07/29/25 History
cholecalciferol (vitamin D3) 25 25 mcg PO DAILY Supplement 07/06/25 07/29/25 History
mcg (1,000 unit) chewable tablet
(Vitamin D3)
pantoprazole 40 mg tablet,delayed 40 mg PO DAILY GERD 07/11/25 07/29/25 History
release (Protonix)
Review of Systems
-
History Source: Patient
All other systems: Negative unless noted
Constitutional: Weight Loss
Abdomen/GI: Anorexia and Other (Colostomy)
: Other (Suprapubic discomfort, urostomy)
Physical Exam
Vital Signs
Vital Signs
Temp Pulse Resp BP Pulse Ox
98.6 F 76 16 97/49 100
07/29/25 07:16 07/29/25 07:16 07/29/25 07:16 07/29/25 07:16 07/29/25 07:16
Lab Results
07/29/25 02:35
WBC 21.8 10^3/uL (4.8-10.8) H 07/29/25 02:35
RBC 4.14 10^6/uL (4.70-6.10) L 07/29/25 02:35
Hgb 11.5 g/dL (13.0-18.0) L 07/29/25 02:35
Hct 36.8 % (39.0-52.0) L 07/29/25 02:35
Plt Count 666 10^3/uL (130-400) H 07/29/25 02:35
eGFR 12.83 07/29/25 02:35
Jic-N-Iqcatvwvxcm Pept 1630 pg/ml 07/29/25 02:35
Albumin 3.9 g/dl (3.5-5.0) 07/29/25 02:35
Physical Exam
General: Awake, Alert, Oriented, AOx3, No Distress and Other (Advanced cachexia)
HEENT: EOMI, Anicteric, Conjunctivae Clear, Oropharynx Clear/Moist (Mucous membranes dry), Dentition Intact (Exceedingly poor dentition), Facial Symmetry, Neck Supple, Trachea Midline and No JVD
Respiratory: Clear, Normal Excursion and Nonlabored Respirations
Cardiac: S1/S2 and Regular Rate/Rhythm
Breast: Deferred by me
Abdomen: Soft, Nondistended and Other (lower abd wound covered with dressing, urostomy/colostomy/Johan drain)
Genito-urinary: Other (Suprapubic opening like fistula with mucus drainage, tender and erythematous)
Musculoskeletal: No Cyanosis and No Edema
Skin: No Rash
Neuro: Nonfocal/Grossly Intact
Psych: Mood/afflect pleasant, Insight/judgement good and Appropriate
Data Reviewed
-
Radiology: Image Personally Visualized and interpreted (Chest x-ray personally reviewed showed hyperinflated lung connors no evidence of heart failure or pneumonic process)
Labs: Labs Reviewed by me (BMP CBC lactic acid)
Old Records: Reviewed (Reviewed previous nephrology consult for acute kidney injury on 05/16/2025. Also reviewed recent creatinine level of 0.8 on 07/16/25)
Assessment/Plan
-
Impression:
Acute kidney injury
Hyperkalemia
Metabolic acidosis (lactic acidosis)
Hyponatremia
Hypotension in setting of suspected hypovolemia in combination with possible underlying sepsis
History of DVT with IVC filter
History of atrial fibrillation
Chronic hypotension on midodrine
History of rectal cancer with bladder involvement status post multiple procedures
Enterocutaneous fistula
Colostomy/urostomy
GERD
Plan:
JUANITA:
- Presumably prerenal in nature given hypotension with possible underlying sepsis on admission
-Isotonic IVs fluid resuscitation's and pressor support (Levophe) to keep MAP 65 or greater, change IV fluids to 150 mill equivalents of sodium bicarbonate per liter
-Continue chronic p.o. midodrine
-CT scan will evaluate for any obstructive process or intra-abdominal processes
Hyponatremia:
- Likely a function of appropriate ADH in setting of hypotension as well as poor solute intake
-Isotonic saline and religious of hemodynamics
Hyperkalemia:
- Likely due to hypotension and acute renal failure with exacerbation by underlying lactic acidosis (due to hypotension)
- Lokelma provided should improve with recovery of acute renal failure
-Can temporize with insulin and glucose
Anion gapped (19) acidosis
- Likely due to evolving lactic acidosis in setting of hypotension
Patient is critically ill in setting of hemodynamic instability acute renal failure metabolic acidosis and life-threatening hyperkalemia
Total Time Spent with Patient (in minutes): 45 minutes critical care time spent with patient
[2025-07-29 08:11] LABS: Blood Urea Nitrogen 73 mg/dl (9-20); Calcium 8.0 mg/dl (8.4-10.2); Carbon Dioxide 24 mmol/L (22-30); Chloride 100 mmol/L (98-107); Estimated Creatinine Clearance 11 ml/min; Glucose 81 mg/dl (70-99); Potassium 5.5 mmol/L (3.5-5.1); Sodium 130 mmol/L (135-145); eGFR 15.23
[2025-07-29] MEDS: SODIUM BICARBONATE 1150 MEQ IV ×2 (09:07→19:37)
--- NOTE | 2025-07-29 09:21 | EDRN ---
this RN called report to the receiving IMU nurse Frida SUMNER
[2025-07-29 09:24] LABS: Glucose - Point of Care 100 mg/dl (70-99)
--- NOTE | 2025-07-29 09:30 | EDRN ---
this RN received the pt from previous plant operator/shift supervisor nurse Christiane SUMNER, the pt is resting in stretcher in the lowest position, side rails up x2, call jarquin within reach, HOB elevated, this RN noticed that the pts blood pressure was hypotensive upon
entering the pts room during shift change, Dr. Hollingsworth was at the pts bedside and an IVF Bolus was discussed and starting Levophed was discussed, IVF Bolus was hung and Levophed was initiated for pressure support, Sodium Bicarb was hung and
running, appropriate PIV access was obtained, the tp has a RUQ urostomy and LLQ colostomy which and the wafers and drainage bags had not been changed since 07/16 per the pt and per the dates labeled on the wafer, this RN called SPD and requested for
the ostomy box be brought to this RN in the ED, SPD brought the ostomy box and this RN removed the old colostomy and urostomy bags and wafers and placed new ones, the pt stated that he was soiled and this RN cleaned the pt, and provided a new gown,
new covidian pad with a new draw sheet, and repositioned the pt in stretcher for comfort, this RN noticed that the pts b/l buttock and sacral area was excoriated, this RN placed barrier cream, the pt has c/o b/l buttock pain from excoriation, the pt
will be turned every two ours to offload the pt off of his bottom, pt has a positive response to levophed, the pt is on 3L NC Sp02 100%, no c/o chest pain, no c/o SOB, NSR in the 70's, MRSA swab sent, and BMP was sent per providers orders,
medication reconciliation was performed and completed, the pt was updated on the plan of care, while the pt was in the ED nephrology was at the pts bedside and surgery was at the pts bedside and spoke to the pt
--- NOTE | 2025-07-29 09:41 | CON.CRS ---
Consultation
-
Date/Time Consultation Performed: 07/29/25 0745
Medical History
-
History of Present Illness:
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 Has chronic IR drain in place and was taken for elective surgery on 07/13/25 for laparotomy with planned open partial SBR with takedown fistula(s), resection of anal remnant, primary
parastomal hernia repair but the procedure had to be aborted due to a frozen abdomen. He was noted to be hypotensive post operatively and was placed on pressors which were quickly weaned off. He was able to be discharged on POD #3 for outpatient
follow up. He presents through the ED with shortness of breath and generalized achiness. He notes limited outputs from his ostomy at home although some stool noted on exam. The chronic IR drain is present with feculant outpus. EC fistula with some
minimal redness to site and expected succus present. He denies fevers or chills.
Past Medical History
Past Medical History: Arrhythmias (afib ), Cancer (Rectal cancer with bladder involvement status post colectomy, colostomy creation, urostomy bladder removal Endocervical fistula), HTN, Hypercholesterolemia and Other (DVT/PE with IVC filter placed
2022, chronic pelvic enterocutaneous, enteroanal and possible entero urethral fistulas)
Past Surgical History: Bowel Resection (colectomy with colostomy creation (pelvic exoneration)), Urological (prostatectomy/cystectomy with urostomy at time of pelvic exoneration ) and Other (ex lap on 07/13 with frozen abdomen encountered)
Social History
Tobacco: Smoker (5-7/day)
Alcohol: Former
Personal:
Living: With Family
Employment: Retired
Family History
Family History: Reviewed & Not Pertinent
Allergies / Home Medications
Allergy/AdvReac Type Severity Reaction Status Date / Time
No Known Allergies Allergy Verified 07/11/25 12:11
�Medication �Instructions �Recorded �Confirmed �Type
midodrine 5 mg tablet 5 mg PO TID Blood Pressure 03/11/23 07/29/25 History
rosuvastatin 20 mg tablet 20 mg PO DAILY High Cholesterol 03/12/23 07/29/25 History
cholecalciferol (vitamin D3) 25 25 mcg PO DAILY Supplement 07/06/25 07/29/25 History
mcg (1,000 unit) chewable tablet
(Vitamin D3)
pantoprazole 40 mg tablet,delayed 40 mg PO DAILY GERD 07/11/25 07/29/25 History
release (Protonix)
Review of Systems
-
History Source: Patient
All other systems: Negative unless noted
A 10 point review of systems was completed, and was negative except as per HPI.
Physical Exam
Vital Signs
Temp 98.6 F 07/29/25 07:16
Pulse 76 07/29/25 09:24
Resp Rate 20 07/29/25 09:24
Blood pressure 88/53 07/29/25 09:24
SaO2 100 07/29/25 09:24
07/28/25 07/29/25 07/30/25
06:59 06:59 06:59
Actual Weight 48 kg
Body Mass Index (BMI) 15.6
Lab Results / Allergies
07/29/25 02:35
WBC 21.8 10^3/uL (4.8-10.8) H 07/29/25 02:35
Hgb 11.5 g/dL (13.0-18.0) L 07/29/25 02:35
Hct 36.8 % (39.0-52.0) L 07/29/25 02:35
Plt Count 666 10^3/uL (130-400) H 07/29/25 02:35
Abs Immat Gran (auto) 0.6 10^3/uL (0-0.05) H 07/29/25 02:35
Neutrophils % 85.8 % (42.2-75.2) H 07/29/25 02:35
Allergy/AdvReac Type Severity Reaction Status Date / Time
No Known Allergies Allergy Verified 07/11/25 12:11
Physical Exam
General: Well Developed and Well Nourished
HEENT: Normocephalic and Moist Mucous Membranes
Respiratory: Non Labored Respirations
GI: Soft, Non Tender and Non Distended
Skin: Warm and Other (midline incision with intact lan. Stoma to left abd: pink/intact with stool in appliance. Urostomy to right abd: pink/intact with urine present) EC fistula to pelvis with succus. IR drain to pelvis with feculent outputs. )
Neuro: Awake, Alert and AO x 3
Psych: Calm
Assessment / Plan
-
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 Has chronic IR drain in place and was taken for elective surgery on 07/13/25 for laparotomy with planned open partial SBR with takedown fistula(s), resection of anal remnant, primary
parastomal hernia repair but the procedure had to be aborted due to a frozen abdomen.
He presents through the ED with shortness of breath and generalized achiness. He has noted leukocytosis (WBC of 21.8) with unclear etiology. JUANIAT present with nephrology following. BP soft, but with normal MAP. ?Poor PO intake/dehydration as
etiology of elevated WBC. CT without IV or PO contrast without acute findings. Fistulas present as previous. Await official ready on CXR.
Plan:
ID eval pending
Continue IR drain
Will consult wound nurses to assist with stomas, ?appliance to EC fistula in pelvis.
No surgical interventions warranted, Ok for regular diet from surgical standpoint
--- NOTE | 2025-07-29 10:35 | CON.ID ---
Consultation
-
Date/Time Consultation Requested: 07/29/25 7:30
Date/Time Consultation Performed: 07/29/25 10:36
Requesting Provider: Dr Hollingsworth
Performing Provider: Dr Michelle
Reason for Consultation: sepsis, source uncertain
Chief Complaint / Past History
Chief Complaint
malaise and shortness of breath
History of Present Illness
Mr Delong is a 75 year old male history of locally advanced rectal cancer with bladder involvement status post sigmoid loop colostomy July 2021 followed by pelvic exoneration with ileal conduit creation patient, ileal sigmoidectomy and loop
ileostomy in August 2021 followed by chemotherapy and radiation completed. 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
He has a chronic IR drain in place. He was planned for ex lap Jul 13 however procedure aborted de to frozen abdomen. Post operatively he has developed anorexia, malaise. He now presents to the ER for dyspnea and myalgias, he reports limited
output from his ostomy - he states he hasnt changed the bag and the contents have been there for the last 13 days. His urostomy continues with some output reports he is drinking some fluids. He denies headaches, sinus tenderness, sore throat, new
sputum production, nausea, vomiting, diarrhea, distension. He reports urostomy output has been cloudy. Has a chronic cough and is a smoker. No fevers or chills. Had his influenza shot. Has never had a covid shot.
Since arrival here he has been afebrile, BP was initially hypotensive now requiring pressors at 4 mcg/min, HR 90s, saturing 100% on room air, WBC 21.8, hgb 11.5, plt 600, sodium 128, bicarb 16, cr 4.5 from 0.8, K initially 6.7 on repeat 5.5, lactic
acid initially 8.6 now improved to 3.4, UA with 3+ leukocyte esterase and many bacteria, CXR formal read pending my read clear lung connors, CT a/p 4.8 x 3.3 cm gas and fluid containing focus with a percutaneous drain present
Past History
Additional Past Medical History:
Rectal cancer of the bilateral involvement, status post colectomy, colostomy creation urostomy bladder removal
Endocervical fistula
A-fib converted with IV amiodarone
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
Blood loss anemia
Dyslipidemia
hypertension
GERD
Additional Past Surgical History:
Colectomy
Total cystectomy, prostatectomy and urostomy creation
Colostomy creation
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
Allergy History:
No Known Allergies Allergy (Verified 07/11/25 12:11)
Medications Reviewed: Yes
Social History
Tobacco: Smoker
Alcohol: Occasional
Drug: None
Family History
Family History: Not Pertinent
Review of Systems
Review of Systems
Constitutional: Denies Fever, Weight Gain or Chills
EENT: Denies Sore Throat
Respiratory: Reports Trouble Breathing; Denies Cough or Hemoptysis
Cardiac: Denies Chest Pain, Diaphoresis, Palpitations or Syncope
Abdomen/GI: Reports Abdominal Pain; Denies Nausea or Vomiting
: Denies Frequency, Flank Pain
Musculoskeletal: Denies Joint Pain
Skin: Reports Other (leaking around urostomy ); Denies Rash
Neurological: Reports Dizzy; Denies Headache or Numbness
Vital Signs
Temp Pulse Resp BP Pulse Ox
97.9 F 68 14 118/92 100
07/29/25 09:54 07/29/25 10:15 07/29/25 10:15 07/29/25 10:00 07/29/25 09:30
Physical Exam
Physical Exam
Constitutional: No Acute Distress
Cardiovascular: Regular Rate and S1/S2; Negative Murmur or Rub
Pulmonary: Clear and Symmetric; Negative Wheezes, Rales or Rhonchi
Gastrointestinal: Soft, Non Tender, Non Distended and Normal Bowel Sounds
Skin: Warm and Dry; Negative Rash or Jaundice
Wound: Other (urostomy with clear urine, colostomy with scant loose stool, EC fistula drain - liquid stool)
Lab / Diagnostic Study Results
07/29/25 02:35
Abs Immat Gran (auto) 0.6 10^3/uL (0-0.05) H 07/29/25 02:35
Absolute Neuts (auto) 18.7 10^3/uL (1.4-6.5) H 07/29/25 02:35
Absolute Lymphs (auto) 1.2 10^3/uL (1.2-3.4) 07/29/25 02:35
Absolute Monos (auto) 1.0 10^3/uL (0.1-0.6) H 07/29/25 02:35
Absolute Basos (auto) 0.1 10^3/uL (0-0.2) 07/29/25 02:35
Immature Gran % 2.8 % (0-0.5) H 07/29/25 02:35
Neutrophils % 85.8 % (42.2-75.2) H 07/29/25 02:35
Lymphocytes % 5.7 % (20.5-51.1) L 07/29/25 02:35
Monocytes % 4.6 % (1.7-9.3) 07/29/25 02:35
Eosinophils % 0.6 % (0-6) 07/29/25 02:35
Basophils % 0.5 % (0-2) 07/29/25 02:35
Lactic Acid 3.4 mmol/L (0.7-2.0) H 07/29/25 06:37
Ur Squamous Epith Cells Seen /LPF (Few) 07/29/25 04:01
Microbiology Results
Micro:
07/29/25 07:42 MRSA Screen - Pending
Nose
07/29/25 04:36 Blood Culture - Pending
Blood/Venous
07/29/25 04:01 Urine Culture - Pending
Urine
07/29/25 02:37 Blood Culture - Pending
Blood/Venous
Assessment / Plan
Septic shock
Leukocytosis
JUANITA
Hyperkalemia
- surgical site clean, dry, intact - no reports of contamination by patient.
- check covid and influenza swabs
- UA with pyuria - urine culture in progress
- blood cultures are in progress
- broken carious teeth noted throughout the mouth, no obvious swelling or abscess
- CXR clear lung connors
- CT a/p drain may be slightly retracted, however clinically patient continues with output from the drain
- mrsa screen pending
- agree with antonia
Discussed possibility of hospice, patient reports that prior to the last two weeks he has been content with his quality of life and he has hopes to return to that.
[2025-07-29] MEDS: HEPARIN 5000 UNITS SC ×2 (11:41→20:08)
[2025-07-29] MEDS: PROTONIX IV 40 MG IV (11:44)
[2025-07-29] MEDS: NSS (PRESERVATIVE FREE) 10 ML IV (11:46)
[2025-07-29 12:10] LABS: COVID-19 Antigen Negative (Negative)
[2025-07-29 12:22] LABS: Glucose - Point of Care 128 mg/dl (70-99)
--- NOTE | 2025-07-29 12:25 | W.PN.UPDATE ---
Update Note
Progress Note Update
Continue antibiotics
Imaging with contrast unfortunately cannot be done due to JUANITA�defer need to surgery
Follow-up MRSA screening
Follow-up cultures including blood and urine
Wound nurse assistance
Nephrology recommendations for JUANITA, hyperkalemia�monitor closely
Continue bicarbonate drip
Lactate improved
Monitor labs, hemodynamics closely
--- NOTE | 2025-07-29 12:43 | PTCARENOTE ---
Received ptwho is alert and oriented x 3, he becomes angry when questioned about his personal care and follow up at home. He has been refusing to accept visiting nurse and he also reports poor nutiritional intake. Pt's and son at bedside and
are expressing frustration with pt's refusal of food and VN. Discussed options and purpose of VN support. Pt is oriented x3. Moving all extremities but reports having to be carried from bathroom yesterday and extreme weakness. Pt received on 4mcg of
Levophed and will continue with protocol. NSR in 60-70s. Pt on 3L nc with pulse ox98% Lungs diminished throughout. Pt reports eating difficulties stem with 'too much ' chewing ' that contributes to fatigue and that he has been focused on liquids
such as lemonade,juices, milk on occasional and black coffee. He denies difficulty with swallowing process or food getting caught. Arrived with Colostomy intact with light brown pastey BM, Urostomy with cloudy sediment yellow, SURAJ with Liquid brown,
Rectum leakage of large amount of liquid Brown that he reports has been occurring since original GI surgery. He has midline abdominal incision with lan intact , redness present along incisional line. CBS stable after morning treatment for
elevated Potassium.
--- NOTE | 2025-07-29 14:10 | CM ---
manager advertising reviewed patient's chart and met with patient and patient states that he lives with his spouse and son in a 2 story home with 5 steps to enter, patient reports he is independent with adl's and ambulation, patient says he may have a
walker in the basement but he does not remember where it is. Patient drives, home when stable. Patient manages own ostomy.
PCP: Dr. Torito Brownlee
Pharmacy: [facility] in [place].
[2025-07-29 16:20] LABS: Blood Urea Nitrogen 76 mg/dl (9-20); Calcium 8.4 mg/dl (8.4-10.2); Carbon Dioxide 26 mmol/L (22-30); Chloride 95 mmol/L (98-107); Estimated Creatinine Clearance 11 ml/min; Glucose 130 mg/dl (70-99); Potassium 5.6 mmol/L (3.5-5.1); Sodium 129 mmol/L (135-145); eGFR 15.72
[2025-07-29 17:23] LABS: Glucose - Point of Care 168 mg/dl (70-99)
--- NOTE | 2025-07-29 18:32 | PTCARENOTE ---
Upon admission noted that pt rectal area, groin and pelvic red and excoriated. Copious amounts of liquid brown from rectum and pt reports he has been continually leaking this at home. Pt anterior groin area red, excoriated.midline incision with
lan and redness, at base of midline incision. Pt provided with frequent skin care and order obtained to place rectal trumpet to decrease MASD and increase pt comfort. >600ml of rectal output. Colostomy functioning for small amount of brown
stool and Urostomy found to be leaking and bed saturated once. measurable amount documented. SURAJ drain inrt lower quadrant draining Brown liquid and filling frequently, discussed this with Dr. Woodard and will continue to empty frequently. Pt
instructed to notify staff if he feels the bulb has filled. Desenex also obtain for skin care. Abd dressing placed under colostomy and Urostomy pouches to protect skin. Pt denies need for any pain medication but had yelled out in discomfort during
perineal clean up.
[2025-07-29] MEDS: DESENEX/MITRAZOL/ZEASORB 1 APPLIC TOPICAL (20:08)
[2025-07-29 21:52] LABS: Blood Urea Nitrogen 74 mg/dl (9-20); Calcium 8.1 mg/dl (8.4-10.2); Carbon Dioxide 30 mmol/L (22-30); Chloride 92 mmol/L (98-107); Estimated Creatinine Clearance 12 ml/min; Glucose 113 mg/dl (70-99); Potassium 4.6 mmol/L (3.5-5.1); Sodium 128 mmol/L (135-145); eGFR 16.23
[2025-07-30] VITALS (55 sets, daily range): BP systolic 64–121; BP diastolic 26–89; BMI 15.9
--- NOTE | 2025-07-30 03:33 | PTCARENOTE ---
assumed care of patient. pt is AAOx3, flat affect. able to make needs known. 1L NC, 100%, pt was on 3L NC at start of the shift. colostomy intact draining brown soft stool. urostomy intact, draining yellow urine. SURAJ drain to right abdomen intact,
draining brown foul smelling urine. lan in midline abdomen intact, TEODORA. rectal trumpet intact, draining figueroa/brown liquid. q2t. IV fluids infusing. levophed gtt infusing to keep MAP >65. titrated per protocol. care ongoing.
[2025-07-30] MEDS: SODIUM BICARBONATE 1150 MEQ IV (05:30)
[2025-07-30] MEDS: ZOSYN 50 IV ×3 (05:30→21:19)
[2025-07-30 05:56] LABS: ALT (SGPT) 26 U/L (0-50); AST (SGOT) 18 U/L (17-59); Albumin 2.7 g/dl (3.5-5.0); Alkaline Phosphatase 135 U/L (38-126); Blood Urea Nitrogen 73 mg/dl (9-20); Calcium 7.7 mg/dl (8.4-10.2); Carbon Dioxide 34 mmol/L (22-30); Chloride 91 mmol/L (98-107); Estimated Creatinine Clearance 13 ml/min; Glucose 121 mg/dl (70-99); Potassium 3.8 mmol/L (3.5-5.1); Sodium 128 mmol/L (135-145); Total Protein 5.7 g/dl (6.3-8.2); eGFR 17.96
[2025-07-30 06:06] LABS: Hematocrit 22.9 % (39.0-52.0); Hemoglobin 7.8 g/dL (13.0-18.0); Mean Corp Hgb Conc. 34.1 g/dL (33.0-37.0); Mean Corpuscular Volume 83.0 fL (80.0-94.0); Platelet Count 410 10^3/uL (130-400); Red Cell Dist. Width 14.0 % (11.5-14.5)
[2025-07-30 06:52] LABS: Hepatitis C Antibody Negative (Negative)
--- NOTE | 2025-07-30 08:39 | W.PN.HOSP.TC ---
Today's Communication/Plan
-
see A/P
Assessment / Plan
Assessment / Plan
HPI: 77-year-old M with past medical history significant for severe protein calorie malnutrition, hypotension, rectal cancer status post surgery with extensive postsurgical complications now with colostomy, urostomy, enterocutaneous/anal/ureteral
fistulae, recent ex lap and DC lysis, follow-up attempted repair of the fistula was aborted due to extensive compacted adhesions, history of proximal atrial fibrillation, history of DVT/PE status post IVC filter; was recently hospitalized in July
through for acute kidney injury with hyperkalemia thought to be prerenal and status post ex lap on July 13 with lysis of adhesion and went for repair of the enterocutaneous/ureteral/renal fistula and parastomal hernia, unfortunately he had
significant adhesions and surgery was aborted, p/w lightheadedness (patient states this is primary symptoms), shortness of breath and generalized aches and pains.
Patient reported that since recent discharge he has very limited output from his colostomy bag. He also reports that his urostomy output has reduced. He has chronic abdominal discomfort. Denies any distension.
He does report some increased drainage from around the SURAJ's insertion site as well as opening in the suprapubic region (cutanous fistula). Some erythema around that area and chronic discomfort discomfort. He has surgical lan that he says have
remained clean dry without any drainage. He also reports that he is urostomy output has been more cloudy.
He has had minimal p.o. 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 Patient has minimal appetite, does not eat food but has been drinking water. No nausea or vomiting.
CT scan of the abdomen pelvis without contrast is negative for any acute obstruction.
He came in hypotensive to the 60s systolic improved with hydration.
His labs are markedly abnormal with profound leukocytosis to 21.8, lactic acidosis to 8.6, hyperkalemia to 6.2, JUANITA with a creatinine of 4.5 and a BUN of 70.
His chest x-ray is clear.
A/P:
# Hypovolemic Hypotension
# Possible Septic shock POA, Source may be intraabdominal abscess vs urine
# Lactic acidosis POA, resolved
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
CT AP without contrast is limited, showed a 4.8 x 3.3 cm gas and fluid containing focus within the lower abdomen with a percutaneous drain present. This may represent an abscess or possibly the urinary bladder with superimposed infection.
Admission blood cultures so far negative
Follow urine culture
Cont Zosyn
Cont pressor Levophed and wean as tolerated
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
Appreciate ID input
Colorectal on board, continue IR drain. No surgical interventions warranted
Wound nurse CS to assist with stomas
# cachexia
# Severe protein caloric malnutrition
BMP 15
Regular diet with ensure supplement
# JUANITA suspect Prerenal, Cannot rule out ATN
# Hyperkalemia, resolved
Creatinine 4.5 on admission, today at 3.4
Continue IV hydration , change bicarb drip to NSS
Renal on board
# Hyponatremia - Suspect hypovolemic
Cont IVF with NSS
Monitor Sodium level, today at 128
# h/o DVT s/p IVC filter
# h/o paroxysmal afib.
Not on AC.
DVT ppx: HSQ
Code status - full code
DW RN
total time 51 min
Anticipated Discharge: > 48 hours
Subjective/Interval History
-
Date of Service: July 30, 2025
Objective Data
-
Labs:
Laboratory Results
07/29/25 07/30/25
21:19 05:25
WBC 8.3
Hgb 7.8 L D
Hct 22.9 L
Plt Count 410 H D
Sodium 128 L 128 L
Potassium 4.6 3.8
Chloride 92 L 91 L
Carbon Dioxide 30 34 H
BUN 74 H 73 H
Creatinine 3.7 H 3.4 H
Glucose 113 H 121 H
Calcium 8.1 L 7.7 L
Total Bilirubin 0.8
AST 18
ALT 26
Alkaline Phosphatase 135 H
Vital Signs:
Vital Signs
Temp Pulse Resp BP Pulse Ox
36.9 C 69 14 106/50 100
07/30/25 03:23 07/30/25 06:30 07/30/25 06:30 07/30/25 06:30 07/30/25 06:30
I&O
07/29/25 07/30/25 07/31/25
06:59 06:59 06:59
Intake Total 1457 / 1457
Output Total 120 / 120 1845 / 1845
Balance -120 / -120 -388 / -388
Review of Systems
-
History Source: Patient
All other systems: Reviewed and negative
Physical Exam
-
General: No Apparent Distress, Comfortable, Appears Chronically Ill and Cachectic
HEENT: Normocephalic and Atraumatic
Respiratory: Clear to Auscultation and Non Labored Respirations; Negative Accessory Resp Muscle Use
Cardiac: Regular Rhythm and S1/S2
GI: Soft, Ostomy and Other (SURAJ drain)
Genito-urinary: Other (urostomy bag)
Neuro: Awake and Alert
Psych: Calm and Intact Judgement/Insight
Data Reviewed
-
CT Scan: Report Reviewed by me
Labs: Labs Reviewed by me
--- NOTE | 2025-07-30 09:42 | WOUNDNOTE ---
[facility] RN note: Patient admitted with sepsis, JUANITA. Patient lives with family. He does his own ostomy care at home.
See H&P for complete history.
PMH: rectal and bladder ca, s/p MANAGER INTEGRITY, pelvic exoneration, urostomy, colostomy, enterocutaneous fistula, a fib, DVT/PE, IVC filter, orthostatic HOTN, JUANITA, aborted exploratory lap, smoker.
Wound Location and type/assessment: Patient admitted with: stage 2 along with MASD sacral/coccyx ulcers. Perianal/buttocks MASD. Pelvic/lower abdominal MASD. Stomas pink and functioning. Stool soft brown. Urine yellow.
Appetite: currently NPO. Patient cachectic appearing.
Pressure redistribution devices in place: Centrella Max air bed. He can turn self in bed.
Plan: Colostomy appliance change using Umberto wafer # [id number], Natalie seal and Dauphin pouch # [id number]. Urostomy 1 piece pouch # [id number] intact and patient requested it not be changed. Patient stated he did not want a leg or bedside drainage bag
attached to urostomy pouch. Sacral shaped silicone border foam applied to sacrum. Silicone border foam applied to R lower buttocks linear skin crack. Heels off bed with air chair cushion. Instructed patient pressure injury prevention measures.
Ostomy supplies left in room. Nursing care assist patient with routine ostomy appliance changes. Cavilon advance skin protectant applied to red skin around SURAJ drain and suprapubic fistula. Patient reports not too much drainage from SURAJ nor fistula.
Patient is a poor candidate for pouching suprapubic fistula d/t patient's anatomy and it is in a deep crease. Drainage sponges changed around SURAJ drain and ABD pad applied over fistula/drainage sponges. Instructed patient to take air chair cushion
when discharged. He uses [employer] [facility] for ostomy supplies.
Will confirm orders with Dr. Llanes and will update nurse Jensen.
Care plan to be updated and will follow as needed.
Note to case management requested for discharge: VN if patient wants.
Recommend follow up at wound care center upon discharge if needed.
[2025-07-30] MEDS: HEPARIN 5000 UNITS SC ×2 (10:19→21:19)
[2025-07-30] MEDS: NSS (PRESERVATIVE FREE) 10 ML IV (10:20)
[2025-07-30] MEDS: PROTONIX IV 40 MG IV (10:20)
[2025-07-30] MEDS: DESENEX/MITRAZOL/ZEASORB 1 APPLIC TOPICAL ×2 (10:21→21:20)
[2025-07-30] MEDS: NSS 1000 IV ×2 (10:21→21:20)
--- NOTE | 2025-07-30 10:36 | W.PN.ID1 ---
Date of Service
Date of Service: July 30, 2025
Today's Communication
repeat urine culture
follow pressor requirements
Assessment / Plan
Septic shock
Suspected urinary tract infection
Leukocytosis - improved
JUANITA - improving
Cachexia
- surgical site clean, dry, intact - no reports of contamination by patient; small hematoma vs seroma under the incision site
- covid and influenza swabs - negative
- UA with pyuria - urine culture mixed abbi, will repeat
- blood cultures are in progress
- broken carious teeth noted throughout the mouth, no obvious swelling or abscess
- CXR clear lung connors
- CT a/p drain may be slightly retracted, however clinically patient continues with output from the drain
- mrsa screen pending
- agree with zosyn
Chief Complaint
-: Fever and Other (septic shock)
Subjective / Review of Systems
afebrile
continues with levophed requirement 4 mcg/min
Vital Signs / Physical Exam
Vital Signs
Vital Signs
Temp Pulse Resp BP Pulse Ox
97.9 F 69 14 106/50 100
07/30/25 07:40 07/30/25 06:30 07/30/25 06:30 07/30/25 06:30 07/30/25 06:30
Physical Exam
Constitutional: No Acute Distress
Cardiovascular: Regular Rate and S1/S2; Negative Murmur or Rub
Pulmonary: Clear and Symmetric; Negative Wheezes or Rales
Gastrointestinal: Soft, Non Tender, Non Distended and Normal Bowel Sounds
Genito-Urinary: Clear Urine
Skin: Warm and Dry; Negative Rash or Jaundice
Objective Data
Lab Data
Lab Results
07/30/25 05:25
07/30/25 05:25
Estimated Creat Clear 13 ml/min 07/30/25 05:25
Lactic Acid 2.0 mmol/L (0.7-2.0) 07/30/25 05:25
Total Bilirubin 0.8 mg/dl (0.2-1.3) 07/30/25 05:25
AST 18 U/L (17-59) 07/30/25 05:25
ALT 26 U/L (0-50) 07/30/25 05:25
Alkaline Phosphatase 135 U/L (38-126) H 07/30/25 05:25
Most recent labs reviewed.
Micro Results:
07/29/25 04:01 Urine Culture - Final
Urine
07/29/25 07:42 MRSA Screen - Final
Nose No Methicillin Resistant Staphylococcus aureus isolated.
07/29/25 04:36 Blood Culture - Preliminary
Blood/Venous No Growth in 24 hours- Final report to follow
07/29/25 02:37 Blood Culture - Preliminary
Blood/Venous No Growth in 24 hours- Final report to follow
07/29/25 11:35 Influenza Types A & B (FRANCISCO) - Final
Nasal Swab Negative for Influenza A & B, NAAT
Negative results must be combined with clinical observations
and patient history.
Nucleic Acid Amplification test (NAAT)performed on the
[employer] platform.
--- NOTE | 2025-07-30 10:47 | W.PN.CRS1 ---
Today's Communication / Plan
-
IR study today
rectal trumpet to remain in place
Assessment/Plan
-
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 Has chronic IR drain in place and was taken for elective surgery on 07/13/25 for laparotomy with planned open partial SBR with takedown fistula(s), resection of anal remnant, primary
parastomal hernia repair but the procedure had to be aborted due to a frozen abdomen.
WBC: 8.3 (21.8), Hgb 7.8 (11.5)
Creatinine: 3.4 (3.7)
Plan:
-Appreciate ID/hospitalist/nephrology
-On zosyn IV- blood/urine cultures pending
-IR reconsulted for drain study
-NPO for IR, then okay for regular diet with supplements
-Will consult wound nurses to assist with stomas
-No surgical interventions warranted
-Trend wbc
-Maintain rectal trumpet
Subjective Data
Subjective Data
Date of Service: July 30, 2025
Patient states he feels 'okay'. Denies nausea or vomiting. A fecal tube was placed yesterday which was initially painful but now he feels better.
Objective Data
-
Vital Signs
Temp Pulse Resp BP Pulse Ox
97.9 F 69 14 106/50 100
07/30/25 07:40 07/30/25 06:30 07/30/25 06:30 07/30/25 06:30 07/30/25 06:30
Intake & Output
07/29/25 07/30/25 07/31/25
06:59 06:59 06:59
Intake Total 1457 / 1457
Output Total 120 / 120 1845 / 1845 120 / 120
Balance -120 / -120 -388 / -388 -120 / -120
Intake:
Oral fluids 407 / 407
IV fluids (Total) 1000 / 1000
IV piggybacks 50 / 50
Output:
Liquid stool amount 1100 / 1100
Rectum 1100 / 1100
Drain Output (Total) 145 / 145
Right Gustavo-Keys 145 / 145
Urinary Drain Output (Total)
Right Nephrostomy
Urostomy output 100 / 100 575 / 575 120 / 120
Other:
Number of unmeasured liquid
stools
Colostomy 1
Rectum 1
Lab Results
07/30/25 05:25
07/30/25 05:25
Physical Exam
-
General: No Acute Distress and AOx3
Abdomen: Soft, Non Distended, Non Tender and Other (colostomy warm and pink, urostomy pink and intact, IR drain to pelvic with feculent output, rectal tube with feculent output)
--- NOTE | 2025-07-30 10:49 | W.PN.NEPH.PH ---
Today's Communication / Plan
-
continue midodrine
Assessment/Plan
-
Impression:
Acute kidney injury
Hyperkalemia
Metabolic acidosis (lactic acidosis)
Hyponatremia
Hypotension in setting of suspected hypovolemia in combination with possible underlying sepsis
History of DVT with IVC filter
History of atrial fibrillation
Chronic hypotension on midodrine
History of rectal cancer with bladder involvement status post multiple procedures
Enterocutaneous fistula
Colostomy/urostomy
GERD
Plan:
switch to NSS
follow BMP
drain upsizing
continue midodrine
-
-
Date of Service: July 30, 2025
CC / HPI / ROS
-
Chief Complaint:
hypotension
History of Present Illness:
acidosis resolved on IVF bicarb
Na 128
JUANITA/Cr down to 3.4
BP low stable on midodrine
Review of Systems:
no CP/SOB
NPO currently
Labs
-
Labs:
WBC 8.3 10^3/uL (4.8-10.8) 07/30/25 05:25
RBC 2.76 10^6/uL (4.70-6.10) L 07/30/25 05:25
Hgb 7.8 g/dL (13.0-18.0) L D 07/30/25 05:25
Hct 22.9 % (39.0-52.0) L 07/30/25 05:25
Plt Count 410 10^3/uL (130-400) H D 07/30/25 05:25
Sodium 128 mmol/L (135-145) L 07/30/25 05:25
Potassium 3.8 mmol/L (3.5-5.1) 07/30/25 05:25
Chloride 91 mmol/L (98-107) L 07/30/25 05:25
Carbon Dioxide 34 mmol/L (22-30) H 07/30/25 05:25
BUN 73 mg/dl (9-20) H 07/30/25 05:25
Creatinine 3.4 mg/dL (0.7-1.3) H 07/30/25 05:25
eGFR 17.96 07/30/25 05:25
Glucose 121 mg/dl (70-99) H 07/30/25 05:25
Calcium 7.7 mg/dl (8.4-10.2) L 07/30/25 05:25
Vie-X-Wxdvdmihksf Pept 1630 pg/ml 07/29/25 02:35
Albumin 2.7 g/dl (3.5-5.0) L 07/30/25 05:25
Physical Exam
-
Vital Signs:
Vital Signs
Temp Pulse Resp BP Pulse Ox
97.9 F 69 14 106/50 100
07/30/25 07:40 07/30/25 06:30 07/30/25 06:30 07/30/25 06:30 07/30/25 06:30
[2025-07-30] MEDS: LEVOPHED 250 IV (15:26)
--- NOTE | 2025-07-30 16:20 | CM ---
F/U: [facility] [place] remembers patient who was admitted before. Patient refused Home VN as well as PT. This time, PT/OT recommend SNF, but he wants to know what his medical course will be here and see how he does after some more PT/OT sessions befoer
deciding. PLAN: Home VN/PT vs. SNF
[2025-07-31] VITALS (50 sets, daily range): BP systolic 80–125; BP diastolic 35–73; PULSE 67–83; O2SAT 100; BMI 16.1
[2025-07-31] MEDS: ZOSYN 50 IV ×3 (04:32→20:27)
[2025-07-31 05:00] LABS: Hematocrit 22.7 % (39.0-52.0); Hemoglobin 7.4 g/dL (13.0-18.0); Mean Corp Hgb Conc. 32.6 g/dL (33.0-37.0); Mean Corpuscular Volume 85.0 fL (80.0-94.0); Platelet Count 335 10^3/uL (130-400); Red Cell Dist. Width 14.0 % (11.5-14.5)
[2025-07-31 05:22] LABS: Blood Urea Nitrogen 53 mg/dl (9-20); Calcium 7.6 mg/dl (8.4-10.2); Carbon Dioxide 32 mmol/L (22-30); Chloride 98 mmol/L (98-107); Estimated Creatinine Clearance 16 ml/min; Glucose 94 mg/dl (70-99); Magnesium 1.9 mg/dl (1.6-2.3); Potassium 3.3 mmol/L (3.5-5.1); Sodium 132 mmol/L (135-145); eGFR 23.68
--- NOTE | 2025-07-31 05:48 | PTCARENOTE ---
Received pt at change of shift. Levo running at 2 mcg/min. Increased to 4 throughout shift to maintain map>65. Attempted to wean again at 03:00 but unable to maintain MAP. Currently running at 4 mcg/min. Pt offers no complaints at this time.
--- NOTE | 2025-07-31 08:00 | W.PN.HOSP.TC ---
Addendum entered and electronically signed by Aniya Llanes MD 07/31/25 14:13:
# stage 2 along with MASD sacral/ coccyx ulcer POA
Original Note:
Today's Communication/Plan
-
see A/P
Assessment / Plan
Assessment / Plan
HPI: 77-year-old M with past medical history significant for severe protein calorie malnutrition, hypotension, rectal cancer status post surgery with extensive postsurgical complications now with colostomy, urostomy, enterocutaneous/anal/ureteral
fistulae, recent ex lap and DC lysis, follow-up attempted repair of the fistula was aborted due to extensive compacted adhesions, history of proximal atrial fibrillation, history of DVT/PE status post IVC filter; was recently hospitalized in July
through for acute kidney injury with hyperkalemia thought to be prerenal and status post ex lap on July 13 with lysis of adhesion and went for repair of the enterocutaneous/ureteral/renal fistula and parastomal hernia, unfortunately he had
significant adhesions and surgery was aborted, p/w lightheadedness (patient states this is primary symptoms), shortness of breath and generalized aches and pains.
Patient reported that since recent discharge he has very limited output from his colostomy bag. He also reports that his urostomy output has reduced. He has chronic abdominal discomfort. Denies any distension.
He does report some increased drainage from around the SURAJ's insertion site as well as opening in the suprapubic region (cutanous fistula). Some erythema around that area and chronic discomfort discomfort. He has surgical lan that he says have
remained clean dry without any drainage. He also reports that he is urostomy output has been more cloudy.
He has had minimal p.o. 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 Patient has minimal appetite, does not eat food but has been drinking water. No nausea or vomiting.
CT scan of the abdomen pelvis without contrast is negative for any acute obstruction.
He came in hypotensive to the 60s systolic improved with hydration.
His labs are markedly abnormal with profound leukocytosis to 21.8, lactic acidosis to 8.6, hyperkalemia to 6.2, JUANITA with a creatinine of 4.5 and a BUN of 70.
His chest x-ray is clear.
A/P:
# Hypovolemic Hypotension POA
# Possible Septic shock POA, Source may be intraabdominal abscess vs urine
# Lactic acidosis POA, resolved
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
CT AP without contrast is limited, showed a 4.8 x 3.3 cm gas and fluid containing focus within the lower abdomen with a percutaneous drain present. This may represent an abscess or possibly the urinary bladder with superimposed infection.
Admission blood cultures negative
Admission urine culture contaminated, checking repeat urine culture
Cont Zosyn
Cont pressor Levophed and wean as tolerated
Cont DIGITAL ASSET MANAGER midodrine
Appreciate ID input
Colorectal on board, continue IR drain. No surgical interventions warranted
Wound care nurse on board
# cachexia
# Severe protein caloric malnutrition
BMP 15
Cont regular diet with ensure supplement
# JUANITA suspect Prerenal, Cannot rule out ATN
# Hyperkalemia, resolved
Creatinine 4.5 on admission, today at 2.7
Continue IVF NSS
Renal on board
# Hypokalemia
replete lyte
# Hyponatremia - Suspect hypovolemic , improving
Cont IVF with NSS
Monitor Sodium level, today at 132
# h/o DVT s/p IVC filter
# h/o paroxysmal afib.
Not on AC.
DVT ppx: HSQ
Code status - full code
Anticipated Discharge: > 48 hours
Subjective/Interval History
-
Date of Service: July 31, 2025
Objective Data
-
Labs:
Laboratory Results
07/31/25
04:38
WBC 6.6
Hgb 7.4 L
Hct 22.7 L
Plt Count 335
Sodium 132 L
Potassium 3.3 L
Chloride 98
Carbon Dioxide 32 H
BUN 53 H
Creatinine 2.7 H
Glucose 94
Calcium 7.6 L
Vital Signs:
Vital Signs
Temp Pulse Resp BP Pulse Ox
36.7 C 54 19 108/45 99
07/31/25 03:00 07/31/25 06:00 07/31/25 06:00 07/31/25 06:00 07/31/25 06:00
I&O
07/30/25 07/31/25 08/01/25
06:59 06:59 06:59
Intake Total 1457 / 1457 1440 / 1440
Output Total 1845 / 1845 1875 / 1875
Balance -388 / -388 -435 / -435
Review of Systems
-
History Source: Patient
All other systems: Reviewed and negative
Physical Exam
-
General: No Apparent Distress, Comfortable, Conversant, Appears Chronically Ill and Cachectic
HEENT: Normocephalic and Atraumatic
Respiratory: Clear to Auscultation and Non Labored Respirations; Negative Accessory Resp Muscle Use
Cardiac: Regular Rhythm and S1/S2
GI: Soft, Ostomy and Other (SURAJ drain)
Genito-urinary: Other (urostomy )
Neuro: Awake and Alert
Psych: Calm and Intact Judgement/Insight
Data Reviewed
-
CT Scan: Report Reviewed by me
Labs: Labs Reviewed by me
[2025-07-31] MEDS: NSS 1000 IV ×2 (08:48→18:10)
[2025-07-31] MEDS: KCL 40 MEQ PO (08:49)
[2025-07-31] MEDS: PROTONIX IV 40 MG IV (08:49)
[2025-07-31] MEDS: HEPARIN 5000 UNITS SC ×2 (08:49→20:22)
[2025-07-31] MEDS: NSS (PRESERVATIVE FREE) 10 ML IV (08:49)
[2025-07-31] MEDS: DESENEX/MITRAZOL/ZEASORB 1 APPLIC TOPICAL ×2 (08:50→20:22)
--- NOTE | 2025-07-31 08:54 | W.PN.ID1 ---
Date of Service
Date of Service: July 31, 2025
Today's Communication
continue zosyn
Assessment / Plan
Septic shock - persistent
Suspected urinary tract infection
Leukocytosis - improved
JUANITA - improving
Cachexia
- surgical site clean, dry, intact - no reports of contamination by patient; small hematoma vs seroma under the incision site
- covid and influenza swabs - negative
- UA with pyuria - urine culture mixed abbi, will repeat
- blood cultures are in progress
- broken carious teeth noted throughout the mouth, no obvious swelling or abscess
- CXR clear lung connors
- drain study done yesterday and tube now in good position
- mrsa screen pending
- agree with zosyn
Chief Complaint
-: Fever and Other (septic shock)
Subjective / Review of Systems
afebrile
remains on norepi at 4 mcg/min
underwent abscess drain change yesterday
Vital Signs / Physical Exam
Vital Signs
Vital Signs
Temp Pulse Resp BP Pulse Ox
98.0 F 59 19 110/54 99
07/31/25 03:00 07/31/25 08:49 07/31/25 06:00 07/31/25 08:49 07/31/25 06:00
Physical Exam
Constitutional: No Acute Distress
Cardiovascular: Regular Rate and S1/S2; Negative Murmur or Rub
Pulmonary: Clear and Symmetric; Negative Wheezes or Rales
Gastrointestinal: Soft, Non Tender, Non Distended and Normal Bowel Sounds
Skin: Warm and Dry; Negative Rash or Jaundice
Objective Data
Lab Data
Lab Results
07/31/25 04:38
07/31/25 04:38
Estimated Creat Clear 16 ml/min 07/31/25 04:38
Lactic Acid 2.0 mmol/L (0.7-2.0) 07/30/25 05:25
Total Bilirubin 0.8 mg/dl (0.2-1.3) 07/30/25 05:25
AST 18 U/L (17-59) 07/30/25 05:25
ALT 26 U/L (0-50) 07/30/25 05:25
Alkaline Phosphatase 135 U/L (38-126) H 07/30/25 05:25
Most recent labs reviewed.
Micro Results:
07/29/25 04:36 Blood Culture - Preliminary
Blood/Venous No Growth in 48 hours- Final report to follow
07/29/25 02:37 Blood Culture - Preliminary
Blood/Venous No Growth in 48 hours- Final report to follow
07/29/25 04:01 Urine Culture - Final
Urine
07/29/25 07:42 MRSA Screen - Final
Nose No Methicillin Resistant Staphylococcus aureus isolated.
07/29/25 11:35 Influenza Types A & B ([facility]ISCO) - Final
Nasal Swab Negative for Influenza A & B, NAAT
Negative results must be combined with clinical observations
and patient history.
Nucleic Acid Amplification test (NAAT)performed on the
[employer] platform.
--- NOTE | 2025-07-31 09:26 | W.PN.CRS1 ---
Today's Communication / Plan
-
abx
continue regular tube
regular diet
Assessment/Plan
-
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 Has chronic IR drain in place and was taken for elective surgery on 07/13/25 for laparotomy with planned open partial SBR with takedown fistula(s), resection of anal remnant, primary
parastomal hernia repair but the procedure had to be aborted due to a frozen abdomen.
WBC: 6.6 (8.3, 21.8), Hgb 7.4 (7.8, 11.5)
Creatinine: 2.7 (3.4, 3.7)
07/30- IR drain repositioned
Plan:
-Appreciate ID/hospitalist/nephrology
-On zosyn IV- blood/urine cultures pending
-Regular diet with supplements
-Wound nurses to assist with stomas
-No surgical interventions warranted
-Trend wbc
-Maintain rectal trumpet
Subjective Data
Subjective Data
Date of Service: July 31, 2025
Patient states he feels okay. He is eating. Denies nausea or vomiting. His pain is controlled.
Objective Data
-
Vital Signs
Temp Pulse Resp BP Pulse Ox
98.0 F 59 19 110/54 99
07/31/25 03:00 07/31/25 08:49 07/31/25 06:00 07/31/25 08:49 07/31/25 06:00
Intake & Output
07/30/25 07/31/25 08/01/25
06:59 06:59 06:59
Intake Total 1457 / 1457 1440 / 1440
Output Total 1845 / 1845 187 / 187
Balance -388 / -388 -435 / -435
Intake:
Oral fluids 407 / 407 240 / 240
IV fluids (Total) 1000 / 1000 1200 / 1200
IV piggybacks 50 / 50
Output:
Liquid stool amount 1100 / 1100 1100 / 1100
Rectum 1100 / 1100 1100 / 1100
Drain Output (Total) 145 / 145 30 / 30
Right Gustavo-Keys 145 / 145 30 / 30
Urinary Drain Output (Total)
Right Nephrostomy /
Urine, Voided 275 / 275
Urostomy output 575 / 575 470 / 470
Other:
Number of unmeasured liquid
stools
Colostomy 1
Rectum 1
Lab Results
07/31/25 04:38
07/31/25 04:38
Physical Exam
-
General: No Acute Distress and AOx3
Abdomen: Soft, Non Distended, Non Tender and Other (urostomy warm and pink, colostomy warm and pink with output)
Rectal: Other (rectal tube - feculent output)
Skin: Warm and Dry
[2025-07-31] MEDS: LEVOPHED 250 IV (10:53)
--- NOTE | 2025-07-31 10:56 | PTOTSP ---
AUTUMN ORDER OCCUPATIONAL THERAPY FOR ADL DYSFUNCTION AND DC PLANNING. THANK YOU.
--- NOTE | 2025-07-31 12:07 | W.PN.NEPH.PH ---
Today's Communication / Plan
-
follow BMP
Assessment/Plan
-
Impression:
Acute kidney injury
Hyperkalemia
Metabolic acidosis (lactic acidosis)
Hyponatremia
Hypotension in setting of suspected hypovolemia in combination with possible underlying sepsis
History of DVT with IVC filter
History of atrial fibrillation
Chronic hypotension on midodrine
History of rectal cancer with bladder involvement status post multiple procedures
Enterocutaneous fistula
Colostomy/urostomy
GERD
Plan:
continue NSS
follow BMP
taking po
could also consider florinef if BP remains low
continue midodrine
-
-
Date of Service: July 31, 2025
CC / HPI / ROS
-
Chief Complaint:
hypotension
History of Present Illness:
now with alkalosis
Na up to 132
JUANITA/Cr down to 2.7
BP low stable on midodrine
s/p tube upsizing
Review of Systems:
no CP/SOB
Labs
-
Labs:
WBC 6.6 10^3/uL (4.8-10.8) 07/31/25 04:38
RBC 2.67 10^6/uL (4.70-6.10) L 07/31/25 04:38
Hgb 7.4 g/dL (13.0-18.0) L 07/31/25 04:38
Hct 22.7 % (39.0-52.0) L 07/31/25 04:38
Plt Count 335 10^3/uL (130-400) 07/31/25 04:38
Sodium 132 mmol/L (135-145) L 07/31/25 04:38
Potassium 3.3 mmol/L (3.5-5.1) L 07/31/25 04:38
Chloride 98 mmol/L (98-107) 07/31/25 04:38
Carbon Dioxide 32 mmol/L (22-30) H 07/31/25 04:38
BUN 53 mg/dl (9-20) H 07/31/25 04:38
Creatinine 2.7 mg/dL (0.7-1.3) H 07/31/25 04:38
eGFR 23.68 07/31/25 04:38
Glucose 94 mg/dl (70-99) 07/31/25 04:38
Calcium 7.6 mg/dl (8.4-10.2) L 07/31/25 04:38
Clp-N-Veqkuuqqgst Pept 1630 pg/ml 07/29/25 02:35
Albumin 2.7 g/dl (3.5-5.0) L 07/30/25 05:25
Physical Exam
-
Vital Signs:
Vital Signs
Temp Pulse Resp BP Pulse Ox
98.0 F 64 15 89/39 98
07/31/25 03:00 07/31/25 11:30 07/31/25 09:45 07/31/25 11:30 07/31/25 09:38
Respiratory:: Bilateral: Coarse
Lung Excursion:: Normal
Abdomen:: Nontender and Soft
Bowel Sounds:: Normal
Extremity Edema:: None: Bilateral:
--- NOTE | 2025-07-31 13:29 | PN.CDI ---
CDI
- -
CDI:
Physician Documentation Request
Admit Date: 07/29/25 06:09
Dear Doctor Mario Alberto,
07/30 WOCN note states 'Patient admitted with: stage 2 along with MASD sacral/ coccyx ulcer'
Physician documentation of the type and location of wounds is required for compliant documentation. Based on the above clinical findings and your assessment, please provide the following in your progress note:
1. Location of the ulcer/wound, including laterality.
2. Type (etiology) of ulcer/wound:
- Traumatic wound
- Pressure (decubitus) ulcer
- Other
Use of terms such as suspected, likely, concern for, or probable (associated with a specific diagnosis that is being evaluated, monitored, or treated as if it exists) are acceptable and can be coded in the inpatient setting, when documented at the
time of discharge.
Thank you,
Tory Moctezuma RN, BSN
CDI Specialist
tiger text
Please use your independent medical judgment in providing your response.
*Source: National Pressure Ulcer Advisory Panel (NPUAP)
--- NOTE | 2025-07-31 15:52 | CM ---
F/U: PT/OT is recommending SNF again after a second time seeing the patient. ARPAN Moranjay spoke to the patient who is not sure, stating that he has 'not got out of bed', but then said 'today' was his first time, and he wished he could walk to the
bathroom. His blood pressure was the issue thus why PT/OT could not try. Patient was agreeable to send referrals out just in case when he is ready, he might want SNF. PLAN: Home No Needs (because he always refuses VN) vs. SNF.
--- NOTE | 2025-07-31 20:47 | PTCARENOTE ---
Caring for pt overnight. NSR, RA 98%. Denies pain. No SOB. Urostomy draining yellow urine, good output. Colostomy draining formed brown stool, although pt has stated that it hasnt had new output for days, the stool thats in the bag has been there.
RT in place draining liquid brown, DRAINED 1700ml at the very start of my shift. SURAJ drained 10ml brown liquid. Lungs clear. Apical regular. +BS. No edema. Pt comfortable. Ate dinner, good appetite. IVF & IVABX. Levo running at 3mcg to keep MAP >65.
Will monitor.
[2025-08-01] VITALS (49 sets, daily range): BP systolic 89–136; BP diastolic 39–107; BMI 16.0
[2025-08-01] MEDS: LEVOPHED 250 IV ×2 (02:41→23:45)
[2025-08-01] MEDS: ZOSYN 50 IV ×4 (05:38→23:46)
[2025-08-01] MEDS: NSS 1000 IV ×3 (05:38→20:01)
[2025-08-01 05:45] LABS: Hematocrit 25.6 % (39.0-52.0); Hemoglobin 7.9 g/dL (13.0-18.0); Mean Corp Hgb Conc. 30.9 g/dL (33.0-37.0); Mean Corpuscular Volume 90.8 fL (80.0-94.0); Platelet Count 334 10^3/uL (130-400); Red Cell Dist. Width 13.9 % (11.5-14.5)
[2025-08-01 06:07] LABS: Blood Urea Nitrogen 30 mg/dl (9-20); Calcium 7.6 mg/dl (8.4-10.2); Carbon Dioxide 26 mmol/L (22-30); Chloride 102 mmol/L (98-107); Estimated Creatinine Clearance 24 ml/min; Glucose 115 mg/dl (70-99); Magnesium 1.8 mg/dl (1.6-2.3); Potassium 3.4 mmol/L (3.5-5.1); Sodium 135 mmol/L (135-145); eGFR 38.53
--- NOTE | 2025-08-01 07:54 | W.PN.HOSP.TC ---
Addendum entered and electronically signed by Aniya Llanes MD 08/01/25 10:31:
d/w patient about GOC.
d/w about GOC for pt. verbalized understanding but appears to need some time.
Will let them process the information and [place] back tmr.
Original Note:
Today's Communication/Plan
-
see A/P
Assessment / Plan
Assessment / Plan
HPI: 77-year-old M with past medical history significant for severe protein calorie malnutrition, hypotension, rectal cancer status post surgery with extensive postsurgical complications now with colostomy, urostomy, enterocutaneous/anal/ureteral
fistulae, recent ex lap and DC lysis, follow-up attempted repair of the fistula was aborted due to extensive compacted adhesions, history of proximal atrial fibrillation, history of DVT/PE status post IVC filter; was recently hospitalized in July
through for acute kidney injury with hyperkalemia thought to be prerenal and status post ex lap on July 13 with lysis of adhesion and went for repair of the enterocutaneous/ureteral/renal fistula and parastomal hernia, unfortunately he had
significant adhesions and surgery was aborted, p/w lightheadedness (patient states this is primary symptoms), shortness of breath and generalized aches and pains.
Patient reported that since recent discharge he has very limited output from his colostomy bag. He also reports that his urostomy output has reduced. He has chronic abdominal discomfort. Denies any distension.
He does report some increased drainage from around the SURAJ's insertion site as well as opening in the suprapubic region (cutanous fistula). Some erythema around that area and chronic discomfort discomfort. He has surgical lan that he says have
remained clean dry without any drainage. He also reports that he is urostomy output has been more cloudy.
He has had minimal p.o. intake and was found to have about a 20 pound weight loss since July 16, 2 weeks ago AIRPLANE NAVIGATOR. Patient has minimal appetite, does not eat food but has been drinking water. No nausea or vomiting.
CT scan of the abdomen pelvis without contrast is negative for any acute obstruction.
He came in hypotensive to the 60s systolic improved with hydration.
His labs are markedly abnormal with profound leukocytosis to 21.8, lactic acidosis to 8.6, hyperkalemia to 6.2, JUANITA with a creatinine of 4.5 and a BUN of 70.
His chest x-ray is clear.
A/P:
# Hypovolemic Hypotension POA
# Possible Septic shock POA, Source may be intraabdominal abscess vs urine
# Lactic acidosis POA, resolved
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
CT AP without contrast is limited, showed a 4.8 x 3.3 cm gas and fluid containing focus within the lower abdomen with a percutaneous drain present. This may represent an abscess or possibly the urinary bladder with superimposed infection.
Admission blood cultures negative
Admission urine culture contaminated, checking repeat urine culture
Cont Zosyn
Cont to require pressor Levophed, wean as tolerated
Cont AIRPLANE NAVIGATOR midodrine
Appreciate ID input
Colorectal on board, continue IR drain. No surgical interventions warranted
Wound care nurse on board
# cachexia
# Severe protein caloric malnutrition
BMP 15
Cont regular diet with ensure supplement
# JUANITA suspect Prerenal, Cannot rule out ATN
# Hyperkalemia- resolved, now hypokalemia
Creatinine 4.5 on admission, today at 1.8
Continue IVF NSS
replete lyte K
Renal on board
# Hyponatremia - Suspect hypovolemic, resolved
Cont IVF with NSS
Monitor Sodium level, today at 135
# h/o DVT s/p IVC filter
# h/o paroxysmal afib.
Not on AC.
DVT ppx: HSQ
Code status - full code
Anticipated Discharge: > 48 hours
Subjective/Interval History
-
Date of Service: August 01, 2025
Objective Data
-
Labs:
Laboratory Results
08/01/25
05:15
WBC 7.0
Hgb 7.9 L
Hct 25.6 L
Plt Count 334
Sodium 135
Potassium 3.4 L
Chloride 102
Carbon Dioxide 26
BUN 30 H
Creatinine 1.8 H
Glucose 115 H
Calcium 7.6 L
Vital Signs:
Vital Signs
Temp Pulse Resp BP Pulse Ox
36.9 C 66 16 103/55 100
08/01/25 03:00 08/01/25 06:30 08/01/25 06:30 08/01/25 06:30 08/01/25 06:30
I&O
07/31/25 08/01/25 08/02/25
06:59 06:59 06:59
Intake Total 1440 / 1440 1974
Output Total 1875 / 1875 5310 / 5310
Balance -435 / -435 -3335 / -3335
Review of Systems
-
History Source: Patient
All other systems: Reviewed and negative
Physical Exam
-
General: No Apparent Distress, Comfortable, Conversant, Appears Chronically Ill and Cachectic
HEENT: Normocephalic and Atraumatic
Respiratory: Clear to Auscultation and Non Labored Respirations; Negative Accessory Resp Muscle Use
Cardiac: Regular Rhythm and S1/S2
GI: Soft, Ostomy and Other (SURAJ drain)
Genito-urinary: Other (urostomy )
Neuro: Awake and Alert
Psych: Calm and Intact Judgement/Insight
Data Reviewed
-
CT Scan: Report Reviewed by me
Labs: Labs Reviewed by me
--- NOTE | 2025-08-01 08:05 | W.PN.CRS1 ---
Today's Communication / Plan
-
maintain rectal drain
iv abx
no plans for surgery
Assessment/Plan
-
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 Has chronic IR drain in place and was taken for elective surgery on 07/13/25 for laparotomy with planned open partial SBR with takedown fistula(s), resection of anal remnant, primary
parastomal hernia repair but the procedure had to be aborted due to a frozen abdomen.
WBC: 7.0 (6.6, 8.3, 21.8), Hgb 7.8 (7.4, 7.8, 11.5)
Creatinine: 1.7 (2.7, 3.4, 3.7)
07/30- IR drain repositioned
Plan:
-Appreciate ID/hospitalist/nephrology
-On zosyn IV- blood/urine cultures pending
-Regular diet with supplements
-Wound nurses to assist with stomas
-No surgical interventions warranted
-Trend wbc
-Palliative care discussed with patient - he is willing to discuss options with them
-Maintain rectal trumpet
Subjective Data
Subjective Data
Date of Service: August 01, 2025
Patient states he does not have any pain. He has no rectal pain. His tube is draining quite a bit. He denies any output from his penis. He has been eating.
Objective Data
-
Vital Signs
Temp Pulse Resp BP Pulse Ox
98.4 F 66 16 103/55 100
08/01/25 03:00 08/01/25 06:30 08/01/25 06:30 08/01/25 06:30 08/01/25 06:30
Intake & Output
07/31/25 08/01/25 08/02/25
06:59 06:59 06:59
Intake Total 1440 / 1440 1974
Output Total 1875 / 1875 5310 / 5310
Balance -435 / -435 -3335 / -3335
Intake:
Oral fluids 240 / 240 600 / 600
IV fluids (Total) 1200 / 1200 1200 / 1200
IV piggybacks 175 / 175
Output:
Liquid stool amount 1100 / 1100 4450 / 4450
Rectum 1100 / 1100 4450 / 4450
Drain Output (Total)
Right Gustavo-Keys
Right Pelvis
Urinary Drain Output (Total) 175 / 175
Right Nephrostomy 175 / 175
Urine, Voided 275 / 275 125 / 125
Urostomy output 470 / 470 550 / 550
Other:
Number of unmeasured liquid
stools
Colostomy 1
Lab Results
08/01/25 05:15
08/01/25 05:15
Physical Exam
-
General: No Acute Distress and AOx3
Abdomen: Soft, Non Distended, Non Tender and Other (urostomy warm and pink with urine, colostomy warm and pink with stool output, IR drain with feculent output)
Rectal: Other (rectal tube with feculent output)
[2025-08-01] MEDS: HEPARIN 5000 UNITS SC ×2 (08:21→20:02)
[2025-08-01] MEDS: KCL 270 MEQ IV (08:21)
[2025-08-01] MEDS: NSS (PRESERVATIVE FREE) 10 ML IV (08:21)
[2025-08-01] MEDS: PROTONIX IV 40 MG IV (08:21)
[2025-08-01] MEDS: DESENEX/MITRAZOL/ZEASORB 1 APPLIC TOPICAL ×2 (08:22→20:01)
--- NOTE | 2025-08-01 10:29 | W.PN.ID1 ---
Date of Service
Date of Service: August 01, 2025
Today's Communication
continue zosyn
Assessment / Plan
Septic shock - persistent
Suspected urinary tract infection
Leukocytosis - improved
JUANITA - improving
Cachexia
- surgical site clean, dry, intact - no reports of contamination by patient; small hematoma vs seroma under the incision site
- UA with pyuria - 3K johana albicans - johana is not the source of sepsis, I do suspect the original polymicrobial urine is the cause of sepsis
- blood cultures are in progress - no growth to date
- drain study done and tube now in good position - may be a high output EC fistula
- mrsa screen pending
- continue with zosyn
- goals of care conversations are ongoing
Chief Complaint
-: Fever and Other (septic shock)
Subjective / Review of Systems
remains afebrile
continues with a low dose pressor requirement
concern for high output from the EC fistula
Vital Signs / Physical Exam
Vital Signs
Vital Signs
Temp Pulse Resp BP Pulse Ox
98.3 F 65 16 114/49 100
08/01/25 07:25 08/01/25 08:21 08/01/25 06:30 08/01/25 08:21 08/01/25 06:30
Physical Exam
Constitutional: No Acute Distress
Cardiovascular: Regular Rate and S1/S2; Negative Murmur or Rub
Pulmonary: Clear and Symmetric; Negative Wheezes or Rales
Gastrointestinal: Soft, Non Tender, Non Distended and Normal Bowel Sounds
Skin: Warm and Dry; Negative Rash or Jaundice
Objective Data
Lab Data
Lab Results
08/01/25 05:15
08/01/25 05:15
Estimated Creat Clear 24 ml/min 08/01/25 05:15
Lactic Acid 2.0 mmol/L (0.7-2.0) 07/30/25 05:25
Total Bilirubin 0.8 mg/dl (0.2-1.3) 07/30/25 05:25
AST 18 U/L (17-59) 07/30/25 05:25
ALT 26 U/L (0-50) 07/30/25 05:25
Alkaline Phosphatase 135 U/L (38-126) H 07/30/25 05:25
Most recent labs reviewed.
Micro Results:
07/31/25 10:37 Urine Culture - Preliminary
Urine Johana albicans
07/29/25 04:36 Blood Culture - Preliminary
Blood/Venous No Growth in 72 hours- Final report to follow
07/29/25 02:37 Blood Culture - Preliminary
Blood/Venous No Growth in 72 hours- Final report to follow
07/29/25 04:01 Urine Culture - Final
Urine
07/29/25 07:42 MRSA Screen - Final
Nose No Methicillin Resistant Staphylococcus aureus isolated.
07/29/25 11:35 Influenza Types A & B (FRANCISCO) - Final
Nasal Swab Negative for Influenza A & B, NAAT
Negative results must be combined with clinical observations
and patient history.
Nucleic Acid Amplification test (NAAT)performed on the
[employer] platform.
--- NOTE | 2025-08-01 12:56 | W.PN.NEPH.PH ---
Today's Communication / Plan
-
see plan
Assessment/Plan
-
Impression:
Acute kidney injury
Hyperkalemia
Metabolic acidosis (lactic acidosis)
Hyponatremia
Hypotension in setting of suspected hypovolemia in combination with possible underlying sepsis
History of DVT with IVC filter
History of atrial fibrillation
Chronic hypotension on midodrine
History of rectal cancer with bladder involvement status post multiple procedures
Enterocutaneous fistula
Colostomy/urostomy
GERD
Plan:
JUANTIA-prerenal improving with IVF
still net neg balance with sig GI out put
will increase IVF rate to 150cc/hr
titrate pressor to keep MAP>65
increase midodrine dose
follow BMP
taking po
could also consider florinef if BP remains low
d/w pt and nursing
agree need GOC , briefly reviewed with pt
-
-
Date of Service: August 01, 2025
CC / HPI / ROS
-
Chief Complaint:
hypotension
History of Present Illness:
Na up to 135
JUANITA/Cr down to 1.8, k low 3.4
BP low stable on midodrine, levo
s/p tube upsizing this admit
4lit out from rectal tube
non oliguric with urostomy
Review of Systems:
no CP/SOB
no dizzines, no n/v
Labs
-
Labs:
WBC 7.0 10^3/uL (4.8-10.8) 08/01/25 05:15
RBC 2.82 10^6/uL (4.70-6.10) L 08/01/25 05:15
Hgb 7.9 g/dL (13.0-18.0) L 08/01/25 05:15
Hct 25.6 % (39.0-52.0) L 08/01/25 05:15
Plt Count 334 10^3/uL (130-400) 08/01/25 05:15
Sodium 135 mmol/L (135-145) 08/01/25 05:15
Potassium 3.4 mmol/L (3.5-5.1) L 08/01/25 05:15
Chloride 102 mmol/L (98-107) 08/01/25 05:15
Carbon Dioxide 26 mmol/L (22-30) 08/01/25 05:15
BUN 30 mg/dl (9-20) H 08/01/25 05:15
Creatinine 1.8 mg/dL (0.7-1.3) H 08/01/25 05:15
eGFR 38.53 08/01/25 05:15
Glucose 115 mg/dl (70-99) H 08/01/25 05:15
Calcium 7.6 mg/dl (8.4-10.2) L 08/01/25 05:15
Xji-R-Ewpznzpnius Pept 1630 pg/ml 07/29/25 02:35
Albumin 2.7 g/dl (3.5-5.0) L 07/30/25 05:25
Physical Exam
-
Vital Signs:
Vital Signs
Temp Pulse Resp BP Pulse Ox
98.3 F 73 16 104/49 100
08/01/25 07:25 08/01/25 12:12 08/01/25 06:30 08/01/25 12:12 08/01/25 06:30
Cardiovascular:: Regular rate and rhythm
Respiratory:: Bilateral: CTA
Lung Excursion:: Normal
Abdomen:: Nontender and Soft (urostomy, colostomy )
Bowel Sounds:: Normal
Extremity Edema:: None: Bilateral:
Jackson Catheter: No
--- NOTE | 2025-08-01 16:20 | W.PN.UPDATE ---
Update Note
Progress Note Update
Spoke to patient at the bedside just now for 15 minutes or so. Discussed his very high transanal drain output and what this portends. Discussed options including maximum medical measures including TPN/octreotide/continued antibiotics vs palliative
care/Hospice. He understands that if maximal medical measures are undertaken, it is still a longshot that he would get strong enough to tolerate another surgical attempt at correction of the fistula. I believe he undersands the gravity of his
circumstances. He wishes to ponder these optons further. I also updated his via phone thereafter.
--- NOTE | 2025-08-01 17:55 | PTCARENOTE ---
Rec'd pt this AM. remains on levo. rectal trumpet continues to drain large amt of stool. able to tolerate meals. multiple conversations with providers regarding goals of care and prognosis.
[2025-08-02] VITALS (25 sets, daily range): BP systolic 100–127; BP diastolic 37–66; BMI 16.6
--- NOTE | 2025-08-02 01:04 | PTCARENOTE ---
Caring for patient overnight. Pt AAOx3, very pleasant. NSR on the monitor. Pt remains on RA, 98%. Pt remains on Levo currently at 4mcg to keep MAP >65. IVF cont. IV abx. Colostomy emptying soft brown stool. RT putting out large amounts of liquid
stool. SURAJ drain site cleaned and redressed. CHG bath done. Pt denies any pain. Moisture barrier cream applied to buttocks. Urostomy draining yellow urine. Call jarquin within reach.
--- NOTE | 2025-08-02 02:04 | PTCARENOTE ---
Caring for patient overnight. Pt AAOx3, very pleasant. NSR on the monitor. Pt remains on RA, 98%. Pt remains on Levo currently at 3mcg to keep MAP >65. IVF cont. IV abx. Colostomy emptying soft brown stool. RT putting out large amounts of liquid
stool. SURAJ drain site cleaned and redressed. CHG bath done. Pt denies any pain. Moisture barrier cream applied to buttocks. Urostomy draining yellow urine. Call jarquin within reach.
[2025-08-02] MEDS: NSS 1000 IV ×2 (03:07→09:08)
[2025-08-02] MEDS: ZOSYN 50 IV ×4 (05:06→23:15)
[2025-08-02 05:58] LABS: Hematocrit 23.7 % (39.0-52.0); Hemoglobin 7.3 g/dL (13.0-18.0); Mean Corp Hgb Conc. 30.8 g/dL (33.0-37.0); Mean Corpuscular Volume 91.9 fL (80.0-94.0); Platelet Count 259 10^3/uL (130-400); Red Cell Dist. Width 14.1 % (11.5-14.5)
[2025-08-02 06:09] LABS: Blood Urea Nitrogen 19 mg/dl (9-20); Calcium 7.4 mg/dl (8.4-10.2); Carbon Dioxide 23 mmol/L (22-30); Chloride 106 mmol/L (98-107); Estimated Creatinine Clearance 35 ml/min; Glucose 104 mg/dl (70-99); Magnesium 1.6 mg/dl (1.6-2.3); Potassium 3.7 mmol/L (3.5-5.1); Sodium 131 mmol/L (135-145); eGFR 56.93
--- NOTE | 2025-08-02 08:23 | W.PN.HOSP.TC ---
Today's Communication/Plan
-
see A/P
Assessment / Plan
Assessment / Plan
HPI: 77-year-old M with past medical history significant for severe protein calorie malnutrition, hypotension, rectal cancer status post surgery with extensive postsurgical complications now with colostomy, urostomy, enterocutaneous/anal/ureteral
fistulae, recent ex lap and DC lysis, follow-up attempted repair of the fistula was aborted due to extensive compacted adhesions, history of proximal atrial fibrillation, history of DVT/PE status post IVC filter; was recently hospitalized in July
through for acute kidney injury with hyperkalemia thought to be prerenal and status post ex lap on July 13 with lysis of adhesion and went for repair of the enterocutaneous/ureteral/renal fistula and parastomal hernia, unfortunately he had
significant adhesions and surgery was aborted, p/w lightheadedness (patient states this is primary symptoms), shortness of breath and generalized aches and pains.
Patient reported that since recent discharge he has very limited output from his colostomy bag. He also reports that his urostomy output has reduced. He has chronic abdominal discomfort. Denies any distension.
He does report some increased drainage from around the SURAJ's insertion site as well as opening in the suprapubic region (cutanous fistula). Some erythema around that area and chronic discomfort discomfort. He has surgical lan that he says have
remained clean dry without any drainage. He also reports that he is urostomy output has been more cloudy.
He has had minimal p.o. 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 Patient has minimal appetite, does not eat food but has been drinking water. No nausea or vomiting.
CT scan of the abdomen pelvis without contrast is negative for any acute obstruction.
He came in hypotensive to the 60s systolic improved with hydration.
His labs are markedly abnormal with profound leukocytosis to 21.8, lactic acidosis to 8.6, hyperkalemia to 6.2, JUANITA with a creatinine of 4.5 and a BUN of 70.
His chest x-ray is clear.
A/P:
# Hypovolemic Hypotension POA
# Possible Septic shock POA, Source may be intraabdominal abscess vs urine
# Lactic acidosis POA, resolved
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
CT AP without contrast is limited, showed a 4.8 x 3.3 cm gas and fluid containing focus within the lower abdomen with a percutaneous drain present. This may represent an abscess or possibly the urinary bladder with superimposed infection.
Admission blood cultures negative
Admission urine culture contaminated, repeat urine culture grew kanika
Cont current Zosyn per ID
Pt cont to require pressor Levophed support, has not difficult to wean thus far
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
Appreciate ID input
Colorectal on board, continue IR drain. No surgical interventions warranted. Grace GOC discussion with transitioning to hospice appropriate due to current severe clinical deconditioning.
Wound care nurse on board
# cachexia
# Severe protein caloric malnutrition
# severe clinical deconditioning
BMP 15
Cont regular diet with ensure supplement
# JUANITA suspect Prerenal, Cannot rule out ATN
# Hyperkalemia- resolved
# hypokalemia- repleted
Creatinine 4.5 on admission, today at 1.3
Continue IVF NSS
replete lyte K PRN
Renal on board
# Hyponatremia - Suspect hypovolemic
# h/o DVT s/p IVC filter
# h/o paroxysmal afib.
Not on AC.
DVT ppx: HSQ
Code status - full code
Updated on phone. Continued GOC discussion with her.
Anticipate to meet in person today to cont GOC discussion in the presence of the patient.
Anticipated Discharge: > 48 hours
Subjective/Interval History
-
Date of Service: August 02, 2025
Objective Data
-
Labs:
Laboratory Results
08/02/25
05:17
WBC 6.5
Hgb 7.3 L
Hct 23.7 L
Plt Count 259 D
Sodium 131 L
Potassium 3.7
Chloride 106
Carbon Dioxide 23
BUN 19
Creatinine 1.3
Glucose 104 H
Calcium 7.4 L
Vital Signs:
Vital Signs
Temp Pulse Resp BP Pulse Ox
36.9 C 57 14 106/45 100
08/02/25 07:43 08/02/25 06:00 08/02/25 06:00 08/02/25 06:00 08/02/25 06:00
I&O
08/01/25 08/02/25 08/03/25
06:59 06:59 06:59
Intake Total 1974 / 1974 1600 / 1600
Output Total 5310 / 5310 4230 / 4230
Balance -3335 / -3335 -2630 / -2630
Review of Systems
-
History Source: Patient
All other systems: Reviewed and negative
Physical Exam
-
General: No Apparent Distress, Comfortable, Conversant, Appears Chronically Ill and Cachectic
HEENT: Normocephalic and Atraumatic
Respiratory: Clear to Auscultation and Non Labored Respirations; Negative Accessory Resp Muscle Use
Cardiac: Regular Rhythm and S1/S2
GI: Soft, Ostomy and Other (SURAJ drain)
Genito-urinary: Other (urostomy )
Neuro: Awake and Alert
Psych: Calm and Intact Judgement/Insight
Data Reviewed
-
CT Scan: Report Reviewed by me
Labs: Labs Reviewed by me
--- NOTE | 2025-08-02 09:02 | W.PN.ID1 ---
Addendum entered and electronically signed by Yudi Michelle MD 08/02/25 09:28:
surgical site clean, dry, no erythema or dehiscence
rectal tube, fistula drain, urostomy and colostomy noted
Original Note:
Date of Service
Date of Service: August 02, 2025
Today's Communication
continue zosyn
Assessment / Plan
Shock - persistent - hypovolemic/septic
Suspected urinary tract infection
Leukocytosis - improved
JUANITA - improving
Cachexia
- I do suspect the original polymicrobial urine is the cause of sepsis
- blood cultures are in progress - no growth to date
- note high output EC fistula
- continue with zosyn
- goals of care conversations are ongoing
Chief Complaint
-: Fever and Other (septic shock)
Subjective / Review of Systems
afebrile
bp stable
net negative 2.5L
Vital Signs / Physical Exam
Vital Signs
Vital Signs
Temp Pulse Resp BP Pulse Ox
98.5 F 57 14 106/45 100
08/02/25 07:43 08/02/25 06:00 08/02/25 06:00 08/02/25 06:00 08/02/25 06:00
Physical Exam
Constitutional: No Acute Distress
Cardiovascular: Regular Rate and S1/S2; Negative Murmur or Rub
Pulmonary: Clear and Symmetric; Negative Wheezes or Rales
Gastrointestinal: Soft, Non Tender, Non Distended and Normal Bowel Sounds
Skin: Warm and Dry; Negative Rash or Jaundice
Objective Data
Lab Data
Lab Results
08/02/25 05:17
08/02/25 05:17
Estimated Creat Clear 35 ml/min 08/02/25 05:17
Lactic Acid 2.0 mmol/L (0.7-2.0) 07/30/25 05:25
Total Bilirubin 0.8 mg/dl (0.2-1.3) 07/30/25 05:25
AST 18 U/L (17-59) 07/30/25 05:25
ALT 26 U/L (0-50) 07/30/25 05:25
Alkaline Phosphatase 135 U/L (38-126) H 07/30/25 05:25
Most recent labs reviewed.
Micro Results:
07/31/25 10:37 Urine Culture - Final
Urine Johana albicans
07/29/25 04:36 Blood Culture - Preliminary
Blood/Venous No Growth in 4 days- Final report to follow
07/29/25 02:37 Blood Culture - Preliminary
Blood/Venous No Growth in 4 days- Final report to follow
07/29/25 04:01 Urine Culture - Final
Urine
07/29/25 07:42 MRSA Screen - Final
Nose No Methicillin Resistant Staphylococcus aureus isolated.
07/29/25 11:35 Influenza Types A & B (FRANCISCO) - Final
Nasal Swab Negative for Influenza A & B, NAAT
Negative results must be combined with clinical observations
and patient history.
Nucleic Acid Amplification test (NAAT)performed on the
[employer] platform.
[2025-08-02] MEDS: MAGNESIUM SULFATE 50 IV (09:12)
[2025-08-02] MEDS: HEPARIN 5000 UNITS SC ×2 (09:14→20:25)
[2025-08-02] MEDS: DESENEX/MITRAZOL/ZEASORB 1 APPLIC TOPICAL ×2 (09:14→20:25)
[2025-08-02] MEDS: NSS (PRESERVATIVE FREE) 10 ML IV (09:16)
[2025-08-02] MEDS: PROTONIX IV 40 MG IV (09:18)
--- NOTE | 2025-08-02 10:30 | WOUNDNOTE ---
[facility] RN note: Patient's urostomy and colostomy appliances changed. Skin red around urostomy stoma d/t pouch opening too large. Miconazole powder and Cavilon advanced skin prep applied then Parker urostomy pouch # [id number] with an Natalie seal. Colostomy
peristomal skin intact. Parker wafer # [id number], Natalie seal and Parker pouch # [id number] applied. Sacral skin less open. R lower buttocks slit opening healed. Buttocks skin dull red with flaking dry skin. Sacral shaped silicone border foam changed on
sacrum. Miconazole and Calazime applied to buttocks. Patient turns self in bed. Skin on heels intact without redness. Patient declined heel elevation. Air chair cushion in room. Patient is on a [facility] air bed. Nursing can assist patient with
ongoing routine appliance changes. Ostomy supplies left at bedside. Next appliance change due Wednesday or Wednesday.
--- NOTE | 2025-08-02 10:30 | WOUNDNOTE ---
L ELBOW (DISTAL LATERAL)
--- NOTE | 2025-08-02 11:44 | W.PN.CRS1 ---
Today's Communication / Plan
-
maintain rectal trumpet
family meeting today
Assessment/Plan
-
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 Has chronic IR drain in place and was taken for elective surgery on 07/13/25 for laparotomy with planned open partial SBR with takedown fistula(s), resection of anal remnant, primary
parastomal hernia repair but the procedure had to be aborted due to a frozen abdomen.
WBC: 6.5 (7.0, 6.6, 8.3, 21.8), Hgb 7.3 (7.8, 7.4, 7.8, 11.5)
Creatinine: 1.3 (1.7, 2.7, 3.4, 3.7)
07/30- IR drain repositioned
Plan:
-Appreciate ID/hospitalist/nephrology
-On zosyn IV- blood/urine cultures pending
-Regular diet with supplements
-Wound nurses to assist with stomas
-No surgical interventions warranted
-Trend wbc
-His will be in today to talk with hospitalist regarding overall plan/prognosis/quality of life. We will try to attend if schedule around surgeries allow.
-Maintain rectal trumpet
Subjective Data
Subjective Data
Date of Service: August 02, 2025
Patient states he feels 'the same'. He has no complaints.
Objective Data
-
Vital Signs
Temp Pulse Resp BP Pulse Ox
98.5 F 58 14 114/60 100
08/02/25 11:13 08/02/25 09:17 08/02/25 06:00 08/02/25 09:17 08/02/25 06:00
Intake & Output
08/01/25 08/02/25 08/03/25
06:59 06:59 06:59
Intake Total 1974 / 1974 1600 / 1600
Output Total 5310 / 5310 4230 / 4230
Balance -3335 / -3335 -2630 / -2630
Intake:
Oral fluids 600 / 600
IV fluids (Total) 1200 / 1200 1500 / 1500
IV piggybacks 175 / 175 100 / 100
Output:
Liquid stool amount 4450 / 4450 2350 / 2350
Rectum 4450 / 4450 2350 / 2350
Drain Output (Total)
Right Pelvis
Urinary Drain Output (Total) 175 / 175 350 / 350
Right Nephrostomy 175 / 175 350 / 350
Urostomy output 675 / 675 1525 / 1525
Other:
Number of unmeasured liquid
stools
Colostomy 1
Lab Results
08/02/25 05:17
08/02/25 05:17
Physical Exam
-
General: No Acute Distress and AOx3
Abdomen: Soft, Non Distended, Non Tender and Other (colostomy warm and pink with liquid output. Urostomy with urine in bag. IR drain with scant feculent output. Rectal tube with feculent liquid output. )
Skin: Warm and Dry
--- NOTE | 2025-08-02 13:32 | W.PN.NEPH.PH ---
Today's Communication / Plan
-
follow lab s
Assessment/Plan
-
Impression:
Acute kidney injury
Hyperkalemia
Metabolic acidosis (lactic acidosis)
Hyponatremia
Hypotension in setting of suspected hypovolemia in combination with possible underlying sepsis
History of DVT with IVC filter
History of atrial fibrillation
Chronic hypotension on midodrine
History of rectal cancer with bladder involvement status post multiple procedures
Enterocutaneous fistula
Colostomy/urostomy
GERD
Plan:
JUANITA-prerenal improved with IVF
monitor off IVF
titrate pressor to keep MAP>65
cont midodrine dose
follow BMP
encourage po intake
could also consider florinef if BP remains low
monitor h/h low at 7.3
d/w pt
agree need GOC
will s/o, call with ?s
-
-
Date of Service: August 02, 2025
CC / HPI / ROS
-
Chief Complaint:
hypotension
History of Present Illness:
Na down to 131
JUANITA/Cr down to 1.3, k low 3.7
BP low stable on midodrine, levo
s/p tube upsizing this admit
liquid stool from rectal tube
non oliguric with urostomy
Review of Systems:
no CP/SOB
no dizzines supine, no n/v
Labs
-
Labs:
WBC 6.5 10^3/uL (4.8-10.8) 08/02/25 05:17
RBC 2.58 10^6/uL (4.70-6.10) L 08/02/25 05:17
Hgb 7.3 g/dL (13.0-18.0) L 08/02/25 05:17
Hct 23.7 % (39.0-52.0) L 08/02/25 05:17
Plt Count 259 10^3/uL (130-400) D 08/02/25 05:17
Sodium 131 mmol/L (135-145) L 08/02/25 05:17
Potassium 3.7 mmol/L (3.5-5.1) 08/02/25 05:17
Chloride 106 mmol/L (98-107) 08/02/25 05:17
Carbon Dioxide 23 mmol/L (22-30) 08/02/25 05:17
BUN 19 mg/dl (9-20) 08/02/25 05:17
Creatinine 1.3 mg/dL (0.7-1.3) 08/02/25 05:17
eGFR 56.93 08/02/25 05:17
Glucose 104 mg/dl (70-99) H 08/02/25 05:17
Calcium 7.4 mg/dl (8.4-10.2) L 08/02/25 05:17
Mnb-L-Hkydurebzyu Pept 1630 pg/ml 07/29/25 02:35
Albumin 2.7 g/dl (3.5-5.0) L 07/30/25 05:25
Physical Exam
-
Vital Signs:
Vital Signs
Temp Pulse Resp BP Pulse Ox
98.5 F 63 14 108/47 100
08/02/25 11:13 08/02/25 12:02 08/02/25 06:00 08/02/25 12:02 08/02/25 06:00
Cardiovascular:: Regular rate and rhythm
Respiratory:: Bilateral: CTA
Lung Excursion:: Normal
Abdomen:: Nontender and Soft (urostomy, colostomy )
Bowel Sounds:: Normal
Extremity Edema:: None: Bilateral:
Jackson Catheter: No
--- NOTE | 2025-08-02 15:44 | W.PN.UPDATE ---
Update Note
Progress Note Update
Discussed care with and son in person, in front of the patient.
Explained to everyone pt's current clinical deconditioning and that he is unable to support his own BP without pressor support.
He also has high ostomy output for which he has been getting IVF.
Pt, and son verbalized understanding and his current clinical deconditioning/deterioration.
Discussed GOC, and they are accepting the idea of hospice.
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
They agree with stopping levo and IVF and observe clinically.
They understand that if he does not do well without levo and IVF, then plan would be to transition to hospice.
Also addressed code status, pt and family agree with code status change to DNR DNI.
Informed CRS Dr Cooper, ID, Renal, RN on family discussion.
--- NOTE | 2025-08-02 16:47 | CM ---
F/U: RN stated that the Hospital team spoke to the patient, ex-, and son today to share that his treatment option are starting to be limited due to needing BP medication with all the medical issues/ re-hospitalizations that he has had. Patient/
family may consider hospice. Case Management to follow up. PLAN: Hospice vs. SNF
--- NOTE | 2025-08-02 19:34 | PTCARENOTE ---
see nursing assessment. ostomy bags changed by woc rn this am. dressing over flynn changed x 2 for large amounts brownish drainage. flynn drained 20 mls. pt tolerating diet. denies discomfort. iv levophed discontinued per order. purple dnr bracelet placed
as pt is now dnr status.
[2025-08-03] VITALS (12 sets, daily range): BP systolic 83–115; BP diastolic 40–55; BMI 16.9
--- NOTE | 2025-08-03 01:28 | PTCARENOTE ---
Caring for patient overnight. Levo and IVF d/c'd during the day. Pt aware of POC. Pt denies any pain or discomfort. Pt AAOx3, pleasant. NSR on the monitor. BPs soft. RT putting out large amounts of liquid stool. Colostomy emptying soft brown stool.
Pt offers no complaints. Call jarquin within reach.
[2025-08-03] MEDS: ZOSYN 50 IV ×4 (05:02→23:44)
[2025-08-03 05:32] LABS: Hematocrit 22.0 % (39.0-52.0); Hemoglobin 7.2 g/dL (13.0-18.0); Mean Corp Hgb Conc. 32.7 g/dL (33.0-37.0); Mean Corpuscular Volume 87.6 fL (80.0-94.0); Platelet Count 255 10^3/uL (130-400); Red Cell Dist. Width 14.2 % (11.5-14.5)
[2025-08-03 05:52] LABS: Blood Urea Nitrogen 15 mg/dl (9-20); Calcium 7.6 mg/dl (8.4-10.2); Carbon Dioxide 23 mmol/L (22-30); Chloride 106 mmol/L (98-107); Estimated Creatinine Clearance 39 ml/min; Glucose 79 mg/dl (70-99); Magnesium 1.8 mg/dl (1.6-2.3); Potassium 3.9 mmol/L (3.5-5.1); Sodium 130 mmol/L (135-145); eGFR > 60.00
--- NOTE | 2025-08-03 08:30 | W.PN.HOSP.TC ---
Today's Communication/Plan
-
Cont current Zosyn
GOC discussion ongoing, current plan is to observe off pressor Levo and IVF support, and if the pt is unable to support himself, then would likely transition to hospice
Assessment / Plan
Assessment / Plan
HPI: 77-year-old M with past medical history significant for severe protein calorie malnutrition, hypotension, rectal cancer status post surgery with extensive postsurgical complications now with colostomy, urostomy, enterocutaneous/anal/ureteral
fistulae, recent ex lap and DC lysis, follow-up attempted repair of the fistula was aborted due to extensive compacted adhesions, history of proximal atrial fibrillation, history of DVT/PE status post IVC filter; was recently hospitalized in July
through for acute kidney injury with hyperkalemia thought to be prerenal and status post ex lap on July 13 with lysis of adhesion and went for repair of the enterocutaneous/ureteral/renal fistula and parastomal hernia, unfortunately he had
significant adhesions and surgery was aborted, p/w lightheadedness (patient states this is primary symptoms), shortness of breath and generalized aches and pains.
Patient reported that since recent discharge he has very limited output from his colostomy bag. He also reports that his urostomy output has reduced. He has chronic abdominal discomfort. Denies any distension.
He does report some increased drainage from around the SURAJ's insertion site as well as opening in the suprapubic region (cutanous fistula). Some erythema around that area and chronic discomfort discomfort. He has surgical lan that he says have
remained clean dry without any drainage. He also reports that he is urostomy output has been more cloudy.
He has had minimal p.o. 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 Patient has minimal appetite, does not eat food but has been drinking water. No nausea or vomiting.
CT scan of the abdomen pelvis without contrast is negative for any acute obstruction.
He came in hypotensive to the 60s systolic improved with hydration.
His labs are markedly abnormal with profound leukocytosis to 21.8, lactic acidosis to 8.6, hyperkalemia to 6.2, JUANITA with a creatinine of 4.5 and a BUN of 70.
His chest x-ray is clear.
A/P:
# Hypovolemic Hypotension POA
# Possible Septic shock POA, Source may be intraabdominal abscess vs urine
# Lactic acidosis POA, resolved
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
CT AP without contrast is limited, showed a 4.8 x 3.3 cm gas and fluid containing focus within the lower abdomen with a percutaneous drain present. This may represent an abscess or possibly the urinary bladder with superimposed infection.
Admission urine culture contaminated, repeat urine culture grew kanika
Cont current Zosyn per ID (suspect the original polymicrobial urine is the cause of sepsis)
Started GOC discussion, current plan is to observe off pressor Levo and IVF support, and if the pt is unable to support himself, then would likely transition to hospice
Cont midodrine, now at 10 mg TID
of note, per CRS. No surgical interventions warranted at this time.
# cachexia
# Severe protein caloric malnutrition
# severe clinical deconditioning
BMP 15
Cont regular diet with ensure supplement
# JUANITA suspect Prerenal, Cannot rule out ATN
# Hyperkalemia- resolved
# hypokalemia- repleted
Creatinine 4.5 on admission, today at 1.2
Observe off additional IVF support
replete lyte K PRN
Renal on board
# Hyponatremia - Suspect hypovolemic
# h/o DVT s/p IVC filter
# h/o paroxysmal afib.
Not on AC.
DVT ppx: HSQ
Code status - full code
DW RN
Anticipated Discharge: > 48 hours
Subjective/Interval History
-
Date of Service: August 03, 2025
Objective Data
-
Labs:
Laboratory Results
08/03/25
04:56
WBC 7.4
Hgb 7.2 L
Hct 22.0 L
Plt Count 255
Sodium 130 L
Potassium 3.9
Chloride 106
Carbon Dioxide 23
BUN 15
Creatinine 1.2
Glucose 79
Calcium 7.6 L
Vital Signs:
Vital Signs
Temp Pulse Resp BP Pulse Ox
36.8 C 55 17 83/40 100
08/03/25 07:27 08/03/25 06:00 08/03/25 06:00 08/03/25 06:00 08/03/25 06:00
I&O
08/02/25 08/03/25 08/04/25
06:59 06:59 06:59
Intake Total 1600 / 1600 2800 / 2800
Output Total 4230 / 4230 2975 / 2975
Balance -2630 / -2630 -175 / -175
Review of Systems
-
History Source: Patient
All other systems: Reviewed and negative
Physical Exam
-
General: No Apparent Distress, Comfortable, Conversant, Appears Chronically Ill and Cachectic
HEENT: Normocephalic and Atraumatic
Respiratory: Clear to Auscultation and Non Labored Respirations; Negative Accessory Resp Muscle Use
Cardiac: Regular Rhythm and S1/S2
GI: Soft, Ostomy and Other (SURAJ drain)
Genito-urinary: Other (urostomy )
Neuro: Awake and Alert
Psych: Calm and Intact Judgement/Insight
Data Reviewed
-
CT Scan: Report Reviewed by me
Labs: Labs Reviewed by me
[2025-08-03] MEDS: HEPARIN 5000 UNITS SC ×2 (08:53→19:34)
[2025-08-03] MEDS: DESENEX/MITRAZOL/ZEASORB 1 APPLIC TOPICAL ×2 (08:55→19:33)
[2025-08-03] MEDS: PROTONIX 40 MG PO (08:57)
[2025-08-03] MEDS: NSS (PRESERVATIVE FREE) IV (09:14)
[2025-08-03] MEDS: PROTONIX IV IV (09:14)
--- NOTE | 2025-08-03 09:17 | W.PN.ID1 ---
Date of Service
Date of Service: August 03, 2025
Today's Communication
continue with zosyn for now pending hospice decision
Assessment / Plan
Shock - persistent - hypovolemic/septic
s/p Suspected urinary tract infection
Leukocytosis - improved
JUANITA - improving
Cachexia
- I do suspect the original polymicrobial urine is the cause of sepsis
- blood cultures no growth
- note high output EC fistula
- overall poor prognosis
- continue with zosyn for now pending hospice decision
- currently observing off pressor; if continues to decline, transition to comfort measure/hospice.
Chief Complaint
-: Other (septic shock)
Subjective / Review of Systems
No pain. Is comfortable.
Vital Signs / Physical Exam
Vital Signs
Vital Signs
Temp Pulse Resp BP Pulse Ox
98.2 F 55 17 83/40 100
08/03/25 07:27 08/03/25 06:00 08/03/25 06:00 08/03/25 06:00 08/03/25 06:00
Physical Exam
Constitutional: Chronically Ill
Cardiovascular: Regular Rate and S1/S2
Pulmonary: Clear (anterior chest)
Gastrointestinal: Soft, Non Tender, Non Distended, Normal Bowel Sounds and Other (Rectal trumpet with light brown thick liquid stool, urostomy and colostomy intact, SURAJ drain brown ouput)
Extremities: Negative Edema
Neurological: Awake and Alert
Objective Data
Lab Data
Lab Results
08/03/25 04:56
08/03/25 04:56
Estimated Creat Clear 39 ml/min 08/03/25 04:56
Lactic Acid 2.0 mmol/L (0.7-2.0) 07/30/25 05:25
Total Bilirubin 0.8 mg/dl (0.2-1.3) 07/30/25 05:25
AST 18 U/L (17-59) 07/30/25 05:25
ALT 26 U/L (0-50) 07/30/25 05:25
Alkaline Phosphatase 135 U/L (38-126) H 07/30/25 05:25
Most recent labs reviewed.
Micro Results:
07/29/25 04:36 Blood Culture - Final
Blood/Venous No Growth - Final Report
07/29/25 02:37 Blood Culture - Final
Blood/Venous No Growth - Final Report
07/31/25 10:37 Urine Culture - Final
Urine Johana albicans
07/29/25 04:01 Urine Culture - Final
Urine
07/29/25 07:42 MRSA Screen - Final
Nose No Methicillin Resistant Staphylococcus aureus isolated.
07/29/25 11:35 Influenza Types A & B (FRANCISCO) - Final
Nasal Swab Negative for Influenza A & B, NAAT
Negative results must be combined with clinical observations
and patient history.
Nucleic Acid Amplification test (NAAT)performed on the
[employer] platform.
--- NOTE | 2025-08-03 09:24 | W.PN.CRS1 ---
Today's Communication / Plan
-
maintain current care
no plans for surgery
Assessment/Plan
-
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 Has chronic IR drain in place and was taken for elective surgery on 07/13/25 for laparotomy with planned open partial SBR with takedown fistula(s), resection of anal remnant, primary
parastomal hernia repair but the procedure had to be aborted due to a frozen abdomen.
WBC: 7.4 (6.5, 7.0, 6.6, 8.3, 21.8), Hgb 7.2 (7.3, 7.8, 7.4, 7.8, 11.5)
Creatinine: 1.2 (1.3, 1.7, 2.7, 3.4, 3.7)
07/30- IR drain repositioned
Plan:
-Appreciate ID/hospitalist/nephrology
-On zosyn IV- blood/urine cultures pending
-Regular diet with supplements
-Wound nurses to assist with stomas
-No surgical interventions warranted
-Trend wbc
-Patient and decided no further levophed. Now DNR. If decompensates, transitions to hospice.
-Maintain rectal trumpet
Subjective Data
Subjective Data
Date of Service: August 03, 2025
Patient has no complaints.
Objective Data
-
Vital Signs
Temp Pulse Resp BP Pulse Ox
98.2 F 55 17 83/40 100
08/03/25 07:27 08/03/25 06:00 08/03/25 06:00 08/03/25 06:00 08/03/25 06:00
Intake & Output
08/02/25 08/03/25 08/04/25
06:59 06:59 06:59
Intake Total 1600 / 1600 2800 / 2800
Output Total 4230 / 4230 2975 / 2975 125 / 125
Balance -2630 / -2630 -175 / -175 -125 / -125
Intake:
Oral fluids 1400 / 1400
IV fluids (Total) 1500 / 1500 1200 / 1200
IV piggybacks 100 / 100 200 / 200
Output:
Liquid stool amount 2350 / 2350 1350 / 1350
Rectum 2350 / 2350 1350 / 1350
Drain Output (Total)
Right Pelvis
Urinary Drain Output (Total) 350 / 350
Right Nephrostomy 350 / 350
Urostomy output 1525 / 1525 1600 / 1600 125 / 125
Lab Results
08/03/25 04:56
08/03/25 04:56
Physical Exam
-
General: No Acute Distress and AOx3
Abdomen: Soft, Non Distended, Non Tender and Other (colostomy with output, SURAJ with feculent output, rectal tube with feculent output, urostomy warm with urine)
Skin: Warm and Dry
--- NOTE | 2025-08-03 15:08 | PTCARENOTE ---
Encouraged to get oob - declines d/t dizziness and bp dropping. Midodrine given as orderd, BP maintaining 90-110s/50s. Oriented x3 pleasant, denies pain. Vandana encouraged po diet says he will order soon but has only had liquids from this
nursing station. Urostomy with clear yellow output, Left Colostomy with no output today, stoma pink . SURAJ suprapubic area is purulent. Rectal trumpet patent- cleansed well and replaced tape, flushed it with 40ml gently. Calazime to scabbed areas
in perineum. Midline incision CDI and dixie- cleansed as well. RSC Port with kvo infusing for antibx. Refuses turning but will turn side to side with care.
--- NOTE | 2025-08-03 19:49 | PTCARENOTE ---
Pt received resting in bed at beginning of shift. at bedside. AAOX3. Denies pain or discomfort. VSS. Afebrile. SB/PQT on CM rate 48's. POX RA 100%. Colostomy red/budded stoma without drainage in bag. Urostomy drained for 300mls urine with
sediment. Mid lower perineum SURAJ with scant amount yellow drainage. At site of SURAJ drain with large amount purulent drainage pools in perineum and on gown and top sheet and cover. Pt received partial bath and linens and gown changed. MASD to perineum
area and would care provided. Gauze dressing placed over site. Rectal trumpet remains in and draining. Cachectic. Very diminished appetite. Able to eat some small pieces of chocolate. Rest of assessment as documented. Able to turn self in bed. Call
jarquin remains within reach. Will continue to monitor.
[2025-08-04] VITALS (12 sets, daily range): BP systolic 97–117; BP diastolic 40–62; BMI 16.9
[2025-08-04 03:58] LABS: Hematocrit 24.2 % (39.0-52.0); Hemoglobin 7.5 g/dL (13.0-18.0); Mean Corp Hgb Conc. 31.0 g/dL (33.0-37.0); Mean Corpuscular Volume 90.6 fL (80.0-94.0); Platelet Count 233 10^3/uL (130-400); Red Cell Dist. Width 14.4 % (11.5-14.5)
[2025-08-04 04:22] LABS: Blood Urea Nitrogen 18 mg/dl (9-20); Calcium 7.5 mg/dl (8.4-10.2); Carbon Dioxide 21 mmol/L (22-30); Chloride 108 mmol/L (98-107); Estimated Creatinine Clearance 46 ml/min; Glucose 124 mg/dl (70-99); Potassium 3.8 mmol/L (3.5-5.1); Sodium 132 mmol/L (135-145); eGFR > 60.00
--- NOTE | 2025-08-04 04:55 | PTCARENOTE ---
Colostomy without drainage for shift. Rectal trumpet output 1400mls loose light brown stool. Lower mid pelvic area redressed multiple times throughout shift for large amounts purulent drainage from SURAJ site. 10ml TO from purulent. Urostomy
draining yellow with sediment urine. VSS. No change from previous assessment. Call jarquin remains within reach. Will continue to monitor.
[2025-08-04] MEDS: ZOSYN 50 IV ×3 (05:08→17:54)
[2025-08-04] MEDS: PROTONIX 40 MG PO (08:43)
[2025-08-04] MEDS: HEPARIN 5000 UNITS SC ×2 (08:43→19:26)
[2025-08-04] MEDS: DESENEX/MITRAZOL/ZEASORB 1 APPLIC TOPICAL ×2 (08:43→19:26)
--- NOTE | 2025-08-04 08:57 | W.PN.ID1 ---
Date of Service
Date of Service: August 04, 2025
Today's Communication
Continue Zosyn for today.
Assessment / Plan
Hypotension; improved
- Remains off pressors
s/p Suspected urinary tract infection
Leukocytosis - improved
JUANITA - improving
Cachexia
Recommendations:
- blood cultures no growth; white count normal
- note high output EC fistula
- overall poor prognosis
- continue with zosyn (d#8) pending hospice decision
����������������������������������������������������������
Chief Complaint
-: Other (septic shock)
Subjective / Review of Systems
Review of Systems: No Fever, No Chills and No Abdominal Pain
Vital Signs / Physical Exam
Vital Signs
Vital Signs
Temp Pulse Resp BP Pulse Ox
98.5 F 63 17 97/43 100
08/04/25 07:00 08/04/25 08:42 08/04/25 06:02 08/04/25 08:42 08/04/25 06:02
Physical Exam
Constitutional: No Acute Distress, Comfortable, Chronically Ill and Non-toxic
Eyes: Sclera Anicteric
Cardiovascular: Regular Rate and S1/S2; Negative S3/S4
Pulmonary: Clear (anterior chest)
Gastrointestinal: Soft, Non Tender, Non Distended, Normal Bowel Sounds and Other (Rectal trumpet with light brown thick liquid stool, urostomy and colostomy intact, SURAJ drain brown ouput)
Extremities: Negative Edema
Neurological: Awake and Alert
Objective Data
Lab Data
Lab Results
08/04/25 03:37
08/04/25 03:37
Estimated Creat Clear 46 ml/min 08/04/25 03:37
Lactic Acid 2.0 mmol/L (0.7-2.0) 07/30/25 05:25
Total Bilirubin 0.8 mg/dl (0.2-1.3) 07/30/25 05:25
AST 18 U/L (17-59) 07/30/25 05:25
ALT 26 U/L (0-50) 07/30/25 05:25
Alkaline Phosphatase 135 U/L (38-126) H 07/30/25 05:25
Most recent labs reviewed.
Micro Results:
07/29/25 04:36 Blood Culture - Final
Blood/Venous No Growth - Final Report
07/29/25 02:37 Blood Culture - Final
Blood/Venous No Growth - Final Report
07/31/25 10:37 Urine Culture - Final
Urine Johana albicans
07/29/25 04:01 Urine Culture - Final
Urine
07/29/25 07:42 MRSA Screen - Final
Nose No Methicillin Resistant Staphylococcus aureus isolated.
07/29/25 11:35 Influenza Types A & B (FRANCISCO) - Final
Nasal Swab Negative for Influenza A & B, NAAT
Negative results must be combined with clinical observations
and patient history.
Nucleic Acid Amplification test (NAAT)performed on the
[employer] platform.
--- NOTE | 2025-08-04 09:22 | W.PN.HOSP.TC ---
Today's Communication/Plan
-
see AP
Assessment / Plan
Assessment / Plan
HPI: 77-year-old M with past medical history significant for severe protein calorie malnutrition, hypotension, rectal cancer status post surgery with extensive postsurgical complications now with colostomy, urostomy, enterocutaneous/anal/ureteral
fistulae, recent ex lap and DC lysis, follow-up attempted repair of the fistula was aborted due to extensive compacted adhesions, history of proximal atrial fibrillation, history of DVT/PE status post IVC filter; was recently hospitalized in July
through for acute kidney injury with hyperkalemia thought to be prerenal and status post ex lap on July 13 with lysis of adhesion and went for repair of the enterocutaneous/ureteral/renal fistula and parastomal hernia, unfortunately he had
significant adhesions and surgery was aborted, p/w lightheadedness (patient states this is primary symptoms), shortness of breath and generalized aches and pains.
Patient reported that since recent discharge he has very limited output from his colostomy bag. He also reports that his urostomy output has reduced. He has chronic abdominal discomfort. Denies any distension.
He does report some increased drainage from around the SURAJ's insertion site as well as opening in the suprapubic region (cutanous fistula). Some erythema around that area and chronic discomfort discomfort. He has surgical lan that he says have
remained clean dry without any drainage. He also reports that he is urostomy output has been more cloudy.
He has had minimal p.o. intake and was found to have about a 20 pound weight loss since July 16, 2 weeks ago [facility]. Patient has minimal appetite, does not eat food but has been drinking water. No nausea or vomiting.
CT scan of the abdomen pelvis without contrast is negative for any acute obstruction.
He came in hypotensive to the 60s systolic improved with hydration.
His labs are markedly abnormal with profound leukocytosis to 21.8, lactic acidosis to 8.6, hyperkalemia to 6.2, JUANITA with a creatinine of 4.5 and a BUN of 70.
His chest x-ray is clear.
A/P:
# Hypovolemic Hypotension POA
# Possible Septic shock POA, Source may be intraabdominal abscess vs urine
# Lactic acidosis POA, resolved
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
CT AP without contrast is limited, showed a 4.8 x 3.3 cm gas and fluid containing focus within the lower abdomen with a percutaneous drain present. This may represent an abscess or possibly the urinary bladder with superimposed infection.
Admission urine culture contaminated, repeat urine culture grew kanika
Cont current Zosyn per ID (suspect the original polymicrobial urine is the cause of sepsis)
Started GOC discussion, current plan is to observe off pressor Levo and IVF support, and if the pt is unable to support himself, plan would be to transition to hospice
Cont midodrine, now at 10 mg TID
of note, per CRS. No surgical interventions warranted at this time.
# cachexia
# Severe protein caloric malnutrition
# severe clinical deconditioning
BMP 15
Cont regular diet with ensure supplement
# JUANITA suspect Prerenal, Cannot rule out ATN
# Hyperkalemia- resolved
# hypokalemia- repleted
Creatinine 4.5 on admission, today at 1.0
Observe off additional IVF support
replete lyte K PRN
Renal on board
# Hyponatremia - Suspect hypovolemic
# h/o DVT s/p IVC filter
# h/o paroxysmal afib.
Not on AC.
DVT ppx: HSQ
Code status - full code
DW at bedside
Anticipated Discharge: 24 - 48 hours
Subjective/Interval History
-
Date of Service: August 04, 2025
Objective Data
-
Labs:
Laboratory Results
08/04/25
03:37
WBC 6.8
Hgb 7.5 L
Hct 24.2 L
Plt Count 233
Sodium 132 L
Potassium 3.8
Chloride 108 H
Carbon Dioxide 21 L
BUN 18
Creatinine 1.0
Glucose 124 H
Calcium 7.5 L
Vital Signs:
Vital Signs
Temp Pulse Resp BP Pulse Ox
36.9 C 63 17 97/43 100
08/04/25 07:00 08/04/25 08:42 08/04/25 06:02 08/04/25 08:42 08/04/25 06:02
I&O
08/03/25 08/04/25 08/05/25
06:59 06:59 05:59
Intake Total 2800 / 2800 960 / 960
Output Total 2975 / 2975 2625 / 2625
Balance -175 / -175 -1665 / -1665
Review of Systems
-
History Source: Patient
All other systems: Reviewed and negative
Physical Exam
-
General: No Apparent Distress, Comfortable, Conversant, Appears Chronically Ill and Cachectic
HEENT: Normocephalic and Atraumatic
Respiratory: Clear to Auscultation and Non Labored Respirations; Negative Accessory Resp Muscle Use
Cardiac: Regular Rhythm and S1/S2
GI: Soft, Ostomy and Other (SURAJ drain)
Genito-urinary: Other (urostomy )
Neuro: Awake and Alert
Psych: Calm and Intact Judgement/Insight
Data Reviewed
-
CT Scan: Report Reviewed by me
Labs: Labs Reviewed by me
--- NOTE | 2025-08-04 18:22 | PTCARENOTE ---
Rec'd pt this AM. no output in colostomy. urostomy with urine and sediment. rectal trumpet with large amount of liquid plus air. vital signs stable.
--- NOTE | 2025-08-04 20:27 | PTCARENOTE ---
Pt received resting in bed. AAOX3. At present time without pain or discomfort. VSS. Afebrile. SR on CM. Colostomy without drainage. Rectal trumpet draining light brown loose BM. SURAJ with minimal amount purulent drainage. Mid lower abdomen/perineum
with with less purulent drainage than last night. Urostomy draining yellow with sediment urine. Perineum with MASD. Wound care provided. Odor noted presently unsure from where. CHG bath given. Rest of assessment as documented. Turns self in bed.
Call jarquin remains within reach. Will continue to monitor.
[2025-08-05] VITALS (11 sets, daily range): BP systolic 88–116; BP diastolic 36–67; BMI 16.5
[2025-08-05] MEDS: ZOSYN 50 IV ×5 (00:04→23:47)
[2025-08-05 03:31] LABS: Hematocrit 25.6 % (39.0-52.0); Hemoglobin 8.0 g/dL (13.0-18.0); Mean Corp Hgb Conc. 31.3 g/dL (33.0-37.0); Mean Corpuscular Volume 90.5 fL (80.0-94.0); Platelet Count 235 10^3/uL (130-400); Red Cell Dist. Width 14.7 % (11.5-14.5)
[2025-08-05 03:54] LABS: Blood Urea Nitrogen 19 mg/dl (9-20); Calcium 8.2 mg/dl (8.4-10.2); Carbon Dioxide 22 mmol/L (22-30); Chloride 107 mmol/L (98-107); Estimated Creatinine Clearance 46 ml/min; Glucose 77 mg/dl (70-99); Potassium 4.0 mmol/L (3.5-5.1); Sodium 130 mmol/L (135-145); eGFR > 60.00
--- NOTE | 2025-08-05 08:37 | W.PN.ID1 ---
Date of Service
Date of Service: August 05, 2025
Today's Communication
Continue antibiotics for today.
Assessment / Plan
Hypotension; improved
- Remains off pressors
s/p Suspected urinary tract infection
Leukocytosis - improved
JUANITA - improving
Cachexia
EC fistula
Hx rectal CA
Recommendations:
- blood cultures no growth; white count normal
- note high output EC fistula
- overall poor prognosis
- continue with zosyn (d#9) pending [facility] discussions
����������������������������������������������������������
Chief Complaint
-: Other (septic shock)
Subjective / Review of Systems
Review of Systems: No Fever and No Chills
Vital Signs / Physical Exam
Vital Signs
Vital Signs
Temp Pulse Resp BP Pulse Ox
98.4 F 57 19 114/64 100
08/05/25 03:42 08/05/25 04:00 08/05/25 04:00 08/05/25 04:00 08/05/25 04:00
Physical Exam
Constitutional: No Acute Distress, Comfortable, Chronically Ill and Non-toxic
Eyes: Sclera Anicteric
Cardiovascular: Regular Rate and S1/S2; Negative S3/S4
Pulmonary: Clear (anterior chest)
Gastrointestinal: Soft, Non Tender, Non Distended, Normal Bowel Sounds and Other (Urostomy and colostomy intact, SURAJ drain brown ouput)
Extremities: Negative Edema
Neurological: Awake and Alert
Objective Data
Lab Data
Lab Results
08/05/25 03:07
08/05/25 03:07
Estimated Creat Clear 46 ml/min 08/05/25 03:07
Lactic Acid 2.0 mmol/L (0.7-2.0) 07/30/25 05:25
Total Bilirubin 0.8 mg/dl (0.2-1.3) 07/30/25 05:25
AST 18 U/L (17-59) 07/30/25 05:25
ALT 26 U/L (0-50) 07/30/25 05:25
Alkaline Phosphatase 135 U/L (38-126) H 07/30/25 05:25
Most recent labs reviewed.
Micro Results:
07/29/25 04:36 Blood Culture - Final
Blood/Venous No Growth - Final Report
07/29/25 02:37 Blood Culture - Final
Blood/Venous No Growth - Final Report
07/31/25 10:37 Urine Culture - Final
Urine Johana albicans
07/29/25 04:01 Urine Culture - Final
Urine
07/29/25 07:42 MRSA Screen - Final
Nose No Methicillin Resistant Staphylococcus aureus isolated.
07/29/25 11:35 Influenza Types A & B (FRANCISCO) - Final
Nasal Swab Negative for Influenza A & B, NAAT
Negative results must be combined with clinical observations
and patient history.
Nucleic Acid Amplification test (NAAT)performed on the
[employer] platform.
--- NOTE | 2025-08-05 08:40 | W.PN.HOSP.TC ---
Today's Communication/Plan
-
see A/P
OK to downgrade to med surg
Assessment / Plan
Assessment / Plan
HPI: 77-year-old M with past medical history significant for severe protein calorie malnutrition, hypotension, rectal cancer status post surgery with extensive postsurgical complications now with colostomy, urostomy, enterocutaneous/anal/ureteral
fistulae, recent ex lap and DC lysis, follow-up attempted repair of the fistula was aborted due to extensive compacted adhesions, history of proximal atrial fibrillation, history of DVT/PE status post IVC filter; was recently hospitalized in July
through for acute kidney injury with hyperkalemia thought to be prerenal and status post ex lap on July 13 with lysis of adhesion and went for repair of the enterocutaneous/ureteral/renal fistula and parastomal hernia, unfortunately he had
significant adhesions and surgery was aborted, p/w lightheadedness (patient states this is primary symptoms), shortness of breath and generalized aches and pains.
Patient reported that since recent discharge he has very limited output from his colostomy bag. He also reports that his urostomy output has reduced. He has chronic abdominal discomfort. Denies any distension.
He does report some increased drainage from around the SURAJ's insertion site as well as opening in the suprapubic region (cutanous fistula). Some erythema around that area and chronic discomfort discomfort. He has surgical lan that he says have
remained clean dry without any drainage. He also reports that he is urostomy output has been more cloudy.
He has had minimal p.o. intake and was found to have about a 20 pound weight loss since July 16, 2 weeks ago [facility]. Patient has minimal appetite, does not eat food but has been drinking water. No nausea or vomiting.
CT scan of the abdomen pelvis without contrast is negative for any acute obstruction.
He came in hypotensive to the 60s systolic improved with hydration.
His labs are markedly abnormal with profound leukocytosis to 21.8, lactic acidosis to 8.6, hyperkalemia to 6.2, JUANITA with a creatinine of 4.5 and a BUN of 70.
His chest x-ray is clear.
A/P:
# Hypovolemic Hypotension POA
# Possible Septic shock POA, Source may be intraabdominal abscess vs urine
# Lactic acidosis POA, resolved
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
CT AP without contrast is limited, showed a 4.8 x 3.3 cm gas and fluid containing focus within the lower abdomen with a percutaneous drain present. This may represent an abscess or possibly the urinary bladder with superimposed infection.
Admission urine culture contaminated, repeat urine culture grew kanika
Cont current Zosyn per ID (suspect the original polymicrobial urine is the cause of sepsis)
Started GOC discussion, current plan is to observe off pressor Levo and IVF support, and if the pt is unable to support himself, plan would be to transition to hospice. If remain, stable, could consider dispo to SNF.
Cont midodrine, now at 10 mg TID
of note, per CRS. No surgical interventions warranted at this time.
# cachexia
# Severe protein caloric malnutrition
# severe clinical deconditioning
BMP 15
Cont regular diet with ensure supplement
# JUANITA suspect Prerenal, Cannot rule out ATN
# Hyperkalemia- resolved
# hypokalemia- repleted
Creatinine 4.5 on admission, today at 1.0
Observe off additional IVF support
replete lyte K PRN
Renal on board
# Hyponatremia - Suspect hypovolemic
# h/o DVT s/p IVC filter
# h/o paroxysmal afib.
Not on AC.
DVT ppx: HSQ
Code status - full code
Anticipated Discharge: 24 - 48 hours
Subjective/Interval History
-
Date of Service: August 05, 2025
Objective Data
-
Labs:
Laboratory Results
08/05/25
03:07
WBC 5.8
Hgb 8.0 L
Hct 25.6 L
Plt Count 235
Sodium 130 L
Potassium 4.0
Chloride 107
Carbon Dioxide 22
BUN 19
Creatinine 1.0
Glucose 77
Calcium 8.2 L
Vital Signs:
Vital Signs
Temp Pulse Resp BP Pulse Ox
36.9 C 57 19 114/64 100
08/05/25 03:42 08/05/25 04:00 08/05/25 04:00 08/05/25 04:00 08/05/25 04:00
I&O
08/04/25 08/05/25 08/06/25
06:59 05:59 06:59
Intake Total 960 / 960 580 / 580
Output Total 2625 / 2625 2910 / 2910
Balance -1665 / -1665 -2330 / -2330
Review of Systems
-
History Source: Patient
All other systems: Reviewed and negative
Physical Exam
-
General: No Apparent Distress, Comfortable, Conversant, Appears Chronically Ill and Cachectic
HEENT: Normocephalic and Atraumatic
Respiratory: Clear to Auscultation and Non Labored Respirations; Negative Accessory Resp Muscle Use
Cardiac: Regular Rhythm and S1/S2
GI: Soft, Ostomy and Other (SURAJ drain)
Genito-urinary: Other (urostomy )
Neuro: Awake and Alert
Psych: Calm and Intact Judgement/Insight
Data Reviewed
-
CT Scan: Report Reviewed by me
Labs: Labs Reviewed by me
[2025-08-05] MEDS: HEPARIN 5000 UNITS SC ×2 (09:24→21:45)
[2025-08-05] MEDS: DESENEX/MITRAZOL/ZEASORB 1 APPLIC TOPICAL ×2 (09:24→21:45)
[2025-08-05] MEDS: PROTONIX 40 MG PO (09:24)
--- NOTE | 2025-08-05 10:14 | W.PN.CRS1 ---
Addendum entered and electronically signed by Bebeto Peters MD 08/05/25 10:45:
Patient seen and examined. Agree with assessment plan as documented below.
Original Note:
Today's Communication / Plan
-
regular diet/rectal trumpet
Assessment/Plan
-
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 Has chronic IR drain in place and was taken for elective surgery on 07/13/25 for laparotomy with planned open partial SBR with takedown fistula(s), resection of anal remnant, primary
parastomal hernia repair but the procedure had to be aborted due to a frozen abdomen.
07/30- IR drain repositioned, Rectal tube in place
Plan:
-Appreciate ID/hospitalist/nephrology
-Regular diet with supplements
-Wound nurses to assist with stomas
-No surgical interventions warranted
-Now DNR. If decompensates, transitions to hospice. May need SNF.
-Maintain rectal trumpet
Subjective Data
Subjective Data
Date of Service: August 05, 2025
Pt seen at bedside with Dr. Peters. Denies acute complaints, only minimal discomfort. Eating breakfast.
Objective Data
-
Vital Signs
Temp Pulse Resp BP Pulse Ox
98.4 F 80 19 98/67 100
08/05/25 03:42 08/05/25 09:24 08/05/25 04:00 08/05/25 09:24 08/05/25 04:00
Intake & Output
08/04/25 08/05/25 08/06/25
06:59 05:59 06:59
Intake Total 960 / 960 580 / 580
Output Total 2625 / 2625 2910 / 2910 240 / 240
Balance -1665 / -1665 -2330 / -2330 -240 / -240
Intake:
Oral fluids 720 / 720 480 / 480
IV fluids (Total) 40 / 40
IV piggybacks 200 / 200 100 / 100
Output:
Liquid stool amount 1600 / 1600 2149 / 2149
Colostomy 0 / 0
Rectum 1600 / 1600 2149 / 2149
Drain Output (Total) 50 / 50 50 / 50 90 / 90
Right Pelvis 50 / 50 50 / 50 90 / 90
Urinary Drain Output (Total) 250 / 250 150 / 150
Right Nephrostomy 250 / 250 150 / 150
Urostomy output 725 / 725 710 / 710
Lab Results
08/05/25 03:07
08/05/25 03:07
Physical Exam
-
General: No Acute Distress and AOx3
Abdomen: Soft, Non Distended, Non Tender and Other (colostomy with output, SURAJ with feculent output, rectal tube with feculent output, urostomy warm with urine)
Skin: Warm and Dry
--- NOTE | 2025-08-05 13:21 | PTCARENOTE ---
Patient in bed, denying pain when asked. SURAJ drain putting out approx. 100ml of figueroa/ brown fluid, midline incision on abdomen has an area underneath that is draining figueroa liquid. Area cleansed and covered with gauze. Pateint has a colostomy with no
output. Urostomy draining yellow urine with sediment.
--- NOTE | 2025-08-05 14:36 | PTCARENOTE ---
Report given to Leonarda SUMNER for transfer to med/surg. Belongings packed up and sent with patient. Patient educated about plan of care, verbalized understanding.
[2025-08-06 04:58] LABS: Hematocrit 24.4 % (39.0-52.0); Hemoglobin 8.0 g/dL (13.0-18.0); Mean Corp Hgb Conc. 32.8 g/dL (33.0-37.0); Mean Corpuscular Volume 86.8 fL (80.0-94.0); Platelet Count 218 10^3/uL (130-400); Red Cell Dist. Width 14.9 % (11.5-14.5)
[2025-08-06 05:22] LABS: Blood Urea Nitrogen 22 mg/dl (9-20); Calcium 8.1 mg/dl (8.4-10.2); Carbon Dioxide 23 mmol/L (22-30); Chloride 106 mmol/L (98-107); Estimated Creatinine Clearance 41 ml/min; Glucose 111 mg/dl (70-99); Potassium 4.3 mmol/L (3.5-5.1); Sodium 133 mmol/L (135-145); eGFR > 60.00
[2025-08-06] MEDS: ZOSYN 50 IV (05:29)
[2025-08-06 05:51] VITALS: BMI 16.5
[2025-08-06 07:41] VITALS: BP 87/50
[2025-08-06] MEDS: HEPARIN 5000 UNITS SC ×2 (08:15→20:25)
[2025-08-06] MEDS: DESENEX/MITRAZOL/ZEASORB 1 APPLIC TOPICAL ×2 (08:17→20:25)
[2025-08-06] MEDS: PROTONIX 40 MG PO (08:17)
--- NOTE | 2025-08-06 09:30 | W.PN.ID1 ---
Date of Service
Date of Service: August 06, 2025
Today's Communication
stop zosyn and observe clinically
Assessment / Plan
Hypotension; improved
- Remains off pressors
s/p Suspected urinary tract infection
Leukocytosis - improved
JUANITA - improving
Cachexia
EC fistula
Hx rectal CA
Recommendations:
- blood cultures no growth; white count normal
- note high output EC fistula
- overall poor prognosis
- stop zosyn and observe clinically
����������������������������������������������������������
Chief Complaint
-: Other (septic shock)
Subjective / Review of Systems
afebrile
bp stable
tolerating current therapies
Vital Signs / Physical Exam
Vital Signs
Vital Signs
Temp Pulse Resp BP Pulse Ox
98.0 F 61 16 87/50 100
08/06/25 07:41 08/06/25 07:41 08/06/25 07:41 08/06/25 07:41 08/06/25 07:41
Physical Exam
Constitutional: No Acute Distress
Cardiovascular: Regular Rate and S1/S2; Negative Murmur or Rub
Pulmonary: Clear and Symmetric; Negative Wheezes or Rales
Gastrointestinal: Soft, Non Tender, Non Distended and Normal Bowel Sounds
Skin: Warm and Dry; Negative Rash or Jaundice
Lines: Other (colostomy with soft brown stool, urostomy with clear urine)
Objective Data
Lab Data
Lab Results
08/06/25 04:49
08/06/25 04:49
Estimated Creat Clear 41 ml/min 08/06/25 04:49
Lactic Acid 2.0 mmol/L (0.7-2.0) 07/30/25 05:25
Total Bilirubin 0.8 mg/dl (0.2-1.3) 07/30/25 05:25
AST 18 U/L (17-59) 07/30/25 05:25
ALT 26 U/L (0-50) 07/30/25 05:25
Alkaline Phosphatase 135 U/L (38-126) H 07/30/25 05:25
Most recent labs reviewed.
Micro Results:
07/29/25 04:36 Blood Culture - Final
Blood/Venous No Growth - Final Report
07/29/25 02:37 Blood Culture - Final
Blood/Venous No Growth - Final Report
07/31/25 10:37 Urine Culture - Final
Urine Johana albicans
07/29/25 04:01 Urine Culture - Final
Urine
07/29/25 07:42 MRSA Screen - Final
Nose No Methicillin Resistant Staphylococcus aureus isolated.
07/29/25 11:35 Influenza Types A & B (FRANCISCO) - Final
Nasal Swab Negative for Influenza A & B, NAAT
Negative results must be combined with clinical observations
and patient history.
Nucleic Acid Amplification test (NAAT)performed on the
[employer] platform.
--- NOTE | 2025-08-06 11:08 | W.PN.CRS1 ---
Today's Communication / Plan
-
continue current measures
will discuss with patient/family regarding plan of care
Assessment/Plan
-
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 Has chronic IR drain in place and was taken for elective surgery on 07/13/25 for laparotomy with planned open partial SBR with takedown fistula(s), resection of anal remnant, primary
parastomal hernia repair but the procedure had to be aborted due to a frozen abdomen.
07/30- IR drain repositioned, Rectal tube in place
Plan:
-Appreciate ID/hospitalist/nephrology
-Regular diet with supplements
-Wound nurses to assist with stomas
-No surgical interventions warranted
-Now DNR. If decompensates, transitions to hospice. If he is discharged to SNF, will require TPN/PICC given lack of nutritional status. Will touch base with family regarding this later today.
-Maintain rectal trumpet
Subjective Data
Subjective Data
Date of Service: August 06, 2025
Patient states he feels the same. Has no complaints.
Objective Data
-
Vital Signs
Temp Pulse Resp BP Pulse Ox
98.0 F 61 16 87/50 100
08/06/25 07:41 08/06/25 07:41 08/06/25 07:41 08/06/25 07:41 08/06/25 07:41
Intake & Output
08/05/25 08/06/25 08/07/25
05:59 06:59 06:59
Intake Total 580 / 580 1057 / 1057
Output Total 2910 / 2910 1740 / 1740
Balance -2330 / -2330 -683 / -683
Intake:
Oral fluids 480 / 480 957 / 957
IV fluids (Total) 100 / 100
IV piggybacks 100 / 100
Output:
Liquid stool amount 2150 / 2150 600 / 600
Colostomy 0 / 0
Rectum 2150 / 2150 600 / 600
Drain Output (Total) 50 / 50 215 / 215
Right Pelvis 50 / 50 215 / 215
Urinary Drain Output (Total) 275 / 275
Right Nephrostomy 275 / 275
Urostomy output 710 / 710 650 / 650
Lab Results
08/06/25 04:49
08/06/25 04:49
Physical Exam
-
General: No Acute Distress and AOx3
Abdomen: Soft, Non Distended, Non Tender and Other (colostomy with output, SURAJ with feculent output, rectal tube with feculent output, urostomy warm with urine)
Skin: Warm and Dry
Incision: Clear, Dry, Intact
[2025-08-06 12:47] VITALS: BP 102/58; BP 116/48; BP 90/55; PULSE 62; PULSE 77; O2SAT 94
--- NOTE | 2025-08-06 15:28 | W.PN.HOSP.TC ---
Today's Communication/Plan
-
BP is stable, ID is stopping Zosyn, monitor oral intake.
Assessment / Plan
Assessment / Plan
77M with PAF, DVT/PE s/p IVC filter, rectal CA s/p surgery with extensive postsurgical complications now with colostomy, urostomy, enterocutaneous/anal/ureteral fistulae, recent ex lap and DC lysis, follow-up attempted repair of the fistula was
aborted due to extensive compacted adhesions, was recently hospitalized in July 11- for acute kidney injury with hyperkalemia thought to be prerenal and status post ex lap on July 13 with lysis of adhesion and went for repair of the
enterocutaneous/ureteral/renal fistula and parastomal hernia, unfortunately he had significant adhesions and surgery was aborted, p/w lightheadedness, found to have septic shock.
A/P:
Possible Septic shock POA
with LA, requiring pressors, now off. BP currently stable, cont midodrine
Suspected due to UTI, possible intra-abdominal abscess.
CT AP without contrast is limited, showed a 4.8 x 3.3 cm gas and fluid containing focus within the lower abdomen with a percutaneous drain present. This may represent an abscess or possibly the urinary bladder with superimposed infection. Patient
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 CRS consulted, no surgical intervention planned.
Admission urine culture contaminated, repeat urine culture grew kanika. BCx NGTD.
s/p Zosyn per ID, held today with plans to observe clinically.
Cachexia
Severe protein caloric malnutrition
Cont regular diet with ensure supplement. Possibility of TPN was discussed by colorectal surgery with patient and family, they declined at this time, plan is to monitor his oral intake.
Nutrition consult
JUANITA
Prerenal, Creatinine 4.5 on admission, resolved with IVF.
Renal consulted, signed off.
Deconditioning
PT/OT
SNF on discharge
Anemia
Likely anemia of chronic disease
Continue to monitor, transfuse if Hgb<7
Hyponatremia
- Suspect hypovolemic, improving. Monitor with improved oral intake.
h/o DVT s/p IVC filter
Not on AC.
DVT ppx: HSQ
Code status - full code
Anticipated Discharge: 24 - 48 hours
Subjective/Interval History
-
Date of Service: August 06, 2025
Patient denies any acute issues overnight, no CP/SOB/N/V/CP/N/V. Was able to eat breakfast.
Objective Data
-
Labs:
Laboratory Results
08/06/25
04:49
WBC 6.5
Hgb 8.0 L
Hct 24.4 L
Plt Count 218
Sodium 133 L
Potassium 4.3
Chloride 106
Carbon Dioxide 23
BUN 22 H
Creatinine 1.1
Glucose 111 H
Calcium 8.1 L
Vital Signs:
Vital Signs
Temp Pulse Resp BP Pulse Ox
98.0 F 61 16 87/50 100
08/06/25 07:41 08/06/25 07:41 08/06/25 07:41 08/06/25 07:41 08/06/25 07:41
I&O
08/05/25 08/06/25 08/07/25
05:59 06:59 06:59
Intake Total 580 / 580 1057 / 1057
Output Total 2910 / 2910 1740 / 1740
Balance -2330 / -2330 -683 / -683
Review of Systems
-
All other systems: Reviewed and negative
Physical Exam
-
General: No Apparent Distress
HEENT: Moist Mucous Membranes, Anicteric and PERRLA
Respiratory: Clear to Auscultation; Negative Wheezes, Rales or Rhonchi
Cardiac: Regular Rhythm and S1/S2; Negative Murmur, Rub or Gallop
GI: Soft, Nontender, Nondistended, Normal Bowel Sounds, Ostomy (With brown stool) and Other (Conduit bag with clear yellow urine)
Musculoskeletal: No Edema
Skin: Warm and Dry; Negative Rash, Ulcers or Lesions
Neuro: Awake and AO x 3
Hematologic / Lymphatic: No Lymphadenopathy
Psych: Calm
Data Reviewed
-
Labs: Labs Reviewed by me and Discussed with Patient
--- NOTE | 2025-08-06 15:38 | W.PN.UPDATE ---
Update Note
Progress Note Update
Discussion had with patient, his , and one of his son's at the bedside this afternoon. I reiterated the challenges of his circumstance. Neither the patient nor the patient's family feel comfortable with the idea of him going straight home and
prefer that he goes to a facility. They are not eager at this point in time to contemplate palliative care/hospice, although they realize this may be on the horizon. Therefore, discharge to a SNF type facility is where things may be heading. I
emphasized that I believe he is at high risk for readmission to the hospital particularly given his high output fistula if he is not given supplemental IV fluids/nutrition in the form of TPN, particular given his poor p.o. intake. They understand
this. I am also not sure that a SNF would be willing to take the patient with a nasal trumpet transiently connected to a tube. I did my best answer all the questions posed. They appreciated the discussions.
[2025-08-06 16:06] VITALS: BP 100/47
[2025-08-06 23:25] VITALS: BP 114/50
--- NOTE | 2025-08-07 04:26 | PTCARENOTE ---
During walking rounds, this RN assesed patient's drains. Urostomy leaking. Appliance changed.
[2025-08-07 06:00] VITALS: BMI 16.0
[2025-08-07 06:23] LABS: Hematocrit 26.4 % (39.0-52.0); Hemoglobin 8.0 g/dL (13.0-18.0); Mean Corp Hgb Conc. 30.3 g/dL (33.0-37.0); Mean Corpuscular Volume 90.1 fL (80.0-94.0); Nucleated Red Blood Cells % 0 % (-); Platelet Count 234 10^3/uL (130-400); Red Cell Dist. Width 15.0 % (11.5-14.5)
[2025-08-07 06:49] LABS: ALT (SGPT) 20 U/L (0-50); AST (SGOT) 14 U/L (17-59); Albumin 2.5 g/dl (3.5-5.0); Alkaline Phosphatase 201 U/L (38-126); Blood Urea Nitrogen 22 mg/dl (9-20); Calcium 8.3 mg/dl (8.4-10.2); Carbon Dioxide 23 mmol/L (22-30); Chloride 103 mmol/L (98-107); Estimated Creatinine Clearance 49 ml/min; Glucose 87 mg/dl (70-99); Potassium 4.4 mmol/L (3.5-5.1); Sodium 129 mmol/L (135-145); Total Protein 5.6 g/dl (6.3-8.2); eGFR > 60.00
[2025-08-07] MEDS: PROTONIX 40 MG PO (07:56)
[2025-08-07] MEDS: HEPARIN 5000 UNITS SC ×2 (07:57→20:20)
[2025-08-07] MEDS: DESENEX/MITRAZOL/ZEASORB 1 APPLIC TOPICAL ×2 (08:04→20:24)
[2025-08-07 08:20] VITALS: BP 102/52
--- NOTE | 2025-08-07 11:34 | W.PN.ID1 ---
Date of Service
Date of Service: August 07, 2025
Today's Communication
- remains stable off of antibiotics
Assessment / Plan
Hypotension; improved
- Remains off pressors
s/p Suspected urinary tract infection
Leukocytosis - improved
JUANITA - improving
Cachexia
EC fistula
Hx rectal CA
Recommendations:
- blood cultures no growth; white count normal
- note high output EC fistula
- overall poor prognosis, goals of care conversations ongoing
- remains stable off of antibiotics
����������������������������������������������������������
Chief Complaint
-: Other (septic shock)
Subjective / Review of Systems
afebrile
bp stable
no complaints
has a cooler of food at the bedside
Vital Signs / Physical Exam
Vital Signs
Vital Signs
Temp Pulse Resp BP Pulse Ox
98.3 F 70 14 102/52 98
08/07/25 08:20 08/07/25 08:20 08/07/25 08:20 08/07/25 08:20 08/07/25 08:20
Physical Exam
Constitutional: No Acute Distress and Cachetic
Cardiovascular: Regular Rate and S1/S2; Negative Murmur or Rub
Pulmonary: Clear and Symmetric; Negative Wheezes or Rales
Gastrointestinal: Soft, Non Tender, Non Distended and Normal Bowel Sounds
Skin: Warm and Dry; Negative Rash or Jaundice
Objective Data
Lab Data
Lab Results
08/07/25 05:45
08/07/25 05:45
Estimated Creat Clear 49 ml/min 08/07/25 05:45
Lactic Acid 2.0 mmol/L (0.7-2.0) 07/30/25 05:25
Total Bilirubin 0.5 mg/dl (0.2-1.3) 08/07/25 05:45
AST 14 U/L (17-59) L 08/07/25 05:45
ALT 20 U/L (0-50) 08/07/25 05:45
Alkaline Phosphatase 201 U/L (38-126) H 08/07/25 05:45
Most recent labs reviewed.
Micro Results:
07/29/25 04:36 Blood Culture - Final
Blood/Venous No Growth - Final Report
07/29/25 02:37 Blood Culture - Final
Blood/Venous No Growth - Final Report
07/31/25 10:37 Urine Culture - Final
Urine Johana albicans
07/29/25 04:01 Urine Culture - Final
Urine
07/29/25 07:42 MRSA Screen - Final
Nose No Methicillin Resistant Staphylococcus aureus isolated.
07/29/25 11:35 Influenza Types A & B (FRANCISCO) - Final
Nasal Swab Negative for Influenza A & B, NAAT
Negative results must be combined with clinical observations
and patient history.
Nucleic Acid Amplification test (NAAT)performed on the
[employer] platform.
--- NOTE | 2025-08-07 12:10 | W.PN.CRS1 ---
Today's Communication / Plan
-
dispo to snf
maintain rectal tube
Assessment/Plan
-
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 Has chronic IR drain in place and was taken for elective surgery on 07/13/25 for laparotomy with planned open partial SBR with takedown fistula(s), resection of anal remnant, primary
parastomal hernia repair but the procedure had to be aborted due to a frozen abdomen.
07/30- IR drain repositioned, Rectal tube in place
Plan:
-Appreciate ID/hospitalist/nephrology
-Regular diet with supplements
-Wound nurses to assist with stomas
-No surgical interventions warranted
-Plan is to [facility] with rectal trumpet. Discussion with family yesterday- decided against TPN at [facility].
-Maintain rectal trumpet
-Dispo per primary team
Subjective Data
Subjective Data
Date of Service: August 07, 2025
Patient states he has no complaints.
Objective Data
-
Vital Signs
Temp Pulse Resp BP Pulse Ox
98.3 F 70 14 102/52 98
08/07/25 08:20 08/07/25 08:20 08/07/25 08:20 08/07/25 08:20 08/07/25 08:20
Intake & Output
08/06/25 08/07/25 08/08/25
06:59 06:59 06:59
Intake Total 1057 / 1057 1650 / 1650
Output Total 1740 / 1740 2155 / 2155
Balance -683 / -683 -505 / -505
Intake:
Oral fluids 957 / 957 1650 / 1650
IV fluids (Total) 100 / 100
Output:
Liquid stool amount 600 / 600 1649
Rectum 600 / 600 1649
Drain Output (Total) 215 / 215 50 / 50
Right Pelvis 215 / 215 50 / 50
Urinary Drain Output (Total) 275 / 275 30 / 30
Right Nephrostomy 275 / 275 30 / 30
Urostomy output 650 / 650 425 / 425
Other:
How many times incontinent 1
SMALL amount urine
Lab Results
08/07/25 05:45
08/07/25 05:45
Physical Exam
-
General: No Acute Distress and AOx3
Abdomen: Soft, Non Distended, Non Tender and Other (colostomy and urostomy warm and pink with function. SURAJ drain feculent. Rectal tube fectulent.)
Skin: Warm and Dry
[2025-08-07 16:00] VITALS: BP 107/53
[2025-08-07 23:19] VITALS: BP 115/54
[2025-08-08 05:23] VITALS: BMI 15.7
[2025-08-08 06:32] LABS: Hematocrit 27.4 % (39.0-52.0); Hemoglobin 8.7 g/dL (13.0-18.0); Mean Corp Hgb Conc. 31.8 g/dL (33.0-37.0); Mean Corpuscular Volume 85.4 fL (80.0-94.0); Nucleated Red Blood Cells % 0 % (-); Platelet Count 258 10^3/uL (130-400); Red Cell Dist. Width 15.2 % (11.5-14.5)
[2025-08-08 06:56] LABS: ALT (SGPT) 29 U/L (0-50); AST (SGOT) 21 U/L (17-59); Albumin 2.7 g/dl (3.5-5.0); Alkaline Phosphatase 270 U/L (38-126); Blood Urea Nitrogen 24 mg/dl (9-20); Calcium 8.5 mg/dl (8.4-10.2); Carbon Dioxide 20 mmol/L (22-30); Chloride 104 mmol/L (98-107); Estimated Creatinine Clearance 39 ml/min; Glucose 97 mg/dl (70-99); Potassium 4.4 mmol/L (3.5-5.1); Sodium 132 mmol/L (135-145); Total Protein 5.9 g/dl (6.3-8.2); eGFR > 60.00
[2025-08-08 07:25] VITALS: BP 92/44
[2025-08-08] MEDS: HEPARIN 5000 UNITS SC ×2 (08:05→20:13)
[2025-08-08] MEDS: PROTONIX 40 MG PO (08:05)
[2025-08-08] MEDS: DESENEX/MITRAZOL/ZEASORB 1 APPLIC TOPICAL ×2 (08:08→20:12)
--- NOTE | 2025-08-08 12:04 | W.PN.HOSP.TC ---
Today's Communication/Plan
-
Sodium improved
Mild hypotension, recheck after midodrine
DC to SNF when arranged
Assessment / Plan
Assessment / Plan
77M with PAF, DVT/PE s/p IVC filter, rectal CA s/p surgery with extensive postsurgical complications now with colostomy, urostomy, enterocutaneous/anal/ureteral fistulae, recent ex lap and DC lysis, follow-up attempted repair of the fistula was
aborted due to extensive compacted adhesions, was recently hospitalized in July 11- for acute kidney injury with hyperkalemia thought to be prerenal and status post ex lap on July 13 with lysis of adhesion and went for repair of the
enterocutaneous/ureteral/renal fistula and parastomal hernia, unfortunately he had significant adhesions and surgery was aborted, p/w lightheadedness, found to have septic shock.
A/P:
Possible Septic shock POA - resolved
with LA, requiring pressors, now off. BP currently some hypotension, cont midodrine and recheck BP
Suspected due to UTI, possible intra-abdominal abscess.
CT AP without contrast is limited, showed a 4.8 x 3.3 cm gas and fluid containing focus within the lower abdomen with a percutaneous drain present. This may represent an abscess or possibly the urinary bladder with superimposed infection. Patient
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 CRS consulted, no surgical intervention planned.
Admission urine culture contaminated, repeat urine culture grew kanika. BCx NGTD.
s/p Zosyn per ID, held today with plans to observe clinically.
Cachexia
Severe protein caloric malnutrition
Cont regular diet with ensure supplement. Possibility of TPN was discussed by colorectal surgery with patient and family, they declined at this time, plan is to monitor his oral intake. Seems to be doing well
Nutrition consult
JUANITA resolved
Prerenal, Creatinine 4.5 on admission, resolved with IVF.
Renal consulted, signed off.
Deconditioning
PT/OT
SNF on discharge. Discussed with RN and CM
Anemia
Likely anemia of chronic disease
Continue to monitor, transfuse if Hgb<7
Hyponatremia
- Suspect hypovolemic, improving. Monitor with improved oral intake.
h/o DVT s/p IVC filter
Not on AC.
DVT ppx: HSQ
Code status - full code
Anticipated Discharge: Within 24 hours
Subjective/Interval History
-
Date of Service: August 08, 2025
Patient denies any acute issues, all his drains and tubes are functioning well. He is eating solid food with no issue. Discussed with RN
Objective Data
-
Labs:
Laboratory Results
08/08/25
05:59
WBC 6.8
Hgb 8.7 L
Hct 27.4 L
Plt Count 258
Sodium 132 L
Potassium 4.4
Chloride 104
Carbon Dioxide 20 L
BUN 24 H
Creatinine 1.1
Glucose 97
Calcium 8.5
Total Bilirubin 0.6
AST 21
ALT 29
Alkaline Phosphatase 270 H
Vital Signs:
Vital Signs
Temp Pulse Resp BP Pulse Ox
97.7 F 68 16 92/44 100
08/08/25 07:25 08/08/25 08:05 08/08/25 07:25 08/08/25 08:05 08/08/25 07:25
I&O
08/07/25 08/08/25 08/09/25
06:59 06:59 06:59
Intake Total 1650 / 1650 720 / 720
Output Total 2155 / 2155 1570 / 1570
Balance -505 / -505 -850 / -850
Physical Exam
-
General: No Apparent Distress
HEENT: Moist Mucous Membranes, Anicteric and PERRLA
Respiratory: Clear to Auscultation; Negative Wheezes, Rales or Rhonchi
Cardiac: Regular Rhythm and S1/S2; Negative Murmur, Rub or Gallop
GI: Soft, Nontender, Nondistended, Normal Bowel Sounds, Ostomy (With brown stool) and Other (Conduit bag with clear yellow urine)
Musculoskeletal: No Edema
Skin: Warm and Dry; Negative Rash, Ulcers or Lesions
Neuro: Awake and AO x 3
Hematologic / Lymphatic: No Lymphadenopathy
Psych: Calm
--- NOTE | 2025-08-08 12:37 | W.PN.ID1 ---
Date of Service
Date of Service: August 08, 2025
Today's Communication
- remains stable off of antibiotics
ID service will no longer actively follow this patient please recall for further questions
Assessment / Plan
s/p Suspected urinary tract infection
Leukocytosis - improved
JUANITA - improving
Cachexia
EC fistula
Hx rectal CA
Recommendations:
- blood cultures no growth; white count normal
- note high output EC fistula
- overall poor prognosis, goals of care conversations ongoing
- remains stable off of antibiotics
ID service will no longer actively follow this patient please recall for further questions
����������������������������������������������������������
Chief Complaint
-: Other (septic shock)
Subjective / Review of Systems
afebrile
mildly hypotensive on midodrine
in good spirits
Vital Signs / Physical Exam
Vital Signs
Vital Signs
Temp Pulse Resp BP Pulse Ox
97.7 F 68 16 92/44 100
08/08/25 07:25 08/08/25 08:05 08/08/25 07:25 08/08/25 08:05 08/08/25 07:25
Physical Exam
Constitutional: No Acute Distress
Cardiovascular: Regular Rate and S1/S2; Negative Murmur or Rub
Pulmonary: Clear and Symmetric; Negative Wheezes or Rales
Gastrointestinal: Soft, Non Tender, Non Distended and Normal Bowel Sounds
Skin: Warm and Dry; Negative Rash or Jaundice
Wound: Other (colostomy with soft brown stool, urostomy with clear urine)
Objective Data
Lab Data
Lab Results
08/08/25 05:59
08/08/25 05:59
Estimated Creat Clear 39 ml/min 08/08/25 05:59
Lactic Acid 2.0 mmol/L (0.7-2.0) 07/30/25 05:25
Total Bilirubin 0.6 mg/dl (0.2-1.3) 08/08/25 05:59
AST 21 U/L (17-59) 08/08/25 05:59
ALT 29 U/L (0-50) 08/08/25 05:59
Alkaline Phosphatase 270 U/L (38-126) H 08/08/25 05:59
Most recent labs reviewed.
Micro Results:
07/29/25 04:36 Blood Culture - Final
Blood/Venous No Growth - Final Report
07/29/25 02:37 Blood Culture - Final
Blood/Venous No Growth - Final Report
07/31/25 10:37 Urine Culture - Final
Urine Johana albicans
07/29/25 04:01 Urine Culture - Final
Urine
07/29/25 07:42 MRSA Screen - Final
Nose No Methicillin Resistant Staphylococcus aureus isolated.
07/29/25 11:35 Influenza Types A & B (FRANCISCO) - Final
Nasal Swab Negative for Influenza A & B, NAAT
Negative results must be combined with clinical observations
and patient history.
Nucleic Acid Amplification test (NAAT)performed on the
[employer] platform.
[2025-08-08 15:45] VITALS: BP 100/51
--- NOTE | 2025-08-08 16:26 | CM ---
Addendum entered by Nora Gloria 08/08/25 16:29:
Referral sent to [facility] which is closer to pt's home. CM to follow up tomorrow to determine ability to accept pt and provide the care that is needed.
Original Note:
Pt is cleared for discharge and was accepted to [facility], however the staff is not able to provide the care for his rectal tube.
CM to make additional referrals to facilities in the area to determine bed availability as well as capability to manage pt's needs.
[2025-08-08 23:00] VITALS: BP 104/53
[2025-08-09 05:26] LABS: Hematocrit 28.5 % (39.0-52.0); Hemoglobin 9.3 g/dL (13.0-18.0); Mean Corp Hgb Conc. 32.6 g/dL (33.0-37.0); Mean Corpuscular Volume 86.1 fL (80.0-94.0); Nucleated Red Blood Cells % 0 % (-); Platelet Count 269 10^3/uL (130-400); Red Cell Dist. Width 15.1 % (11.5-14.5)
[2025-08-09 05:52] LABS: ALT (SGPT) 26 U/L (0-50); AST (SGOT) 16 U/L (17-59); Albumin 2.8 g/dl (3.5-5.0); Alkaline Phosphatase 264 U/L (38-126); Blood Urea Nitrogen 25 mg/dl (9-20); Calcium 8.8 mg/dl (8.4-10.2); Carbon Dioxide 21 mmol/L (22-30); Chloride 105 mmol/L (98-107); Estimated Creatinine Clearance 39 ml/min; Glucose 111 mg/dl (70-99); Potassium 4.8 mmol/L (3.5-5.1); Sodium 131 mmol/L (135-145); Total Protein 6.2 g/dl (6.3-8.2); eGFR > 60.00
[2025-08-09 05:54] VITALS: BMI 15.6
[2025-08-09 08:01] VITALS: BP 102/57
[2025-08-09] MEDS: HEPARIN 5000 UNITS SC ×2 (08:39→20:22)
[2025-08-09] MEDS: DESENEX/MITRAZOL/ZEASORB 1 APPLIC TOPICAL ×2 (08:39→20:24)
[2025-08-09] MEDS: PROTONIX 40 MG PO (08:39)
--- NOTE | 2025-08-09 11:32 | W.PN.HOSP.TC ---
Today's Communication/Plan
-
dispo planning
Assessment / Plan
Assessment / Plan
77M with PAF, DVT/PE s/p IVC filter, rectal CA s/p surgery with extensive postsurgical complications now with colostomy, urostomy, enterocutaneous/anal/ureteral fistulae, recent ex lap and DC lysis, follow-up attempted repair of the fistula was
aborted due to extensive compacted adhesions, was recently hospitalized in July 11- for acute kidney injury with hyperkalemia thought to be prerenal and status post ex lap on July 13 with lysis of adhesion and went for repair of the
enterocutaneous/ureteral/renal fistula and parastomal hernia, unfortunately he had significant adhesions and surgery was aborted, p/w lightheadedness, found to have septic shock.
A/P:
Possible Septic shock POA - resolved
with LA, requiring pressors, now off. BP currently some hypotension, cont midodrine
Suspected due to UTI, possible intra-abdominal abscess.
CT AP without contrast is limited, showed a 4.8 x 3.3 cm gas and fluid containing focus within the lower abdomen with a percutaneous drain present. This may represent an abscess or possibly the urinary bladder with superimposed infection. Patient
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 CRS consulted, no surgical intervention planned.
Admission urine culture contaminated, repeat urine culture grew kanika. BCx NGTD.
s/p Zosyn per ID, held today with plans to observe clinically.
Cachexia
Severe protein caloric malnutrition
Cont regular diet with ensure supplement. Possibility of TPN was discussed by colorectal surgery with patient and family, they declined at this time, plan is to monitor his oral intake. Seems to be doing well
JUANITA resolved
Prerenal, Creatinine 4.5 on admission, resolved with IVF. SCr today at 1.1
Renal consulted, signed off.
Deconditioning
PT/OT
SNF on discharge. Discussed with RN and CM
Anemia
Likely anemia of chronic disease
Continue to monitor, transfuse if Hgb<7
Hyponatremia
- Suspect hypovolemic, improving. Monitor with improved oral intake.
h/o DVT s/p IVC filter
Not on AC.
DVT ppx: HSQ
Code status - full code
Dispo: SNF
DW CM
Anticipated Discharge: Within 24 hours
Subjective/Interval History
-
Date of Service: August 09, 2025
Objective Data
-
Labs:
Laboratory Results
08/09/25
05:01
WBC 6.8
Hgb 9.3 L
Hct 28.5 L
Plt Count 269
Sodium 131 L
Potassium 4.8
Chloride 105
Carbon Dioxide 21 L
BUN 25 H
Creatinine 1.1
Glucose 111 H
Calcium 8.8
Total Bilirubin 0.6
AST 16 L
ALT 26
Alkaline Phosphatase 264 H
Vital Signs:
Vital Signs
Temp Pulse Resp BP Pulse Ox
36.8 C 74 18 102/57 100
08/09/25 08:01 08/09/25 08:38 08/09/25 08:01 08/09/25 08:38 08/09/25 09:51
I&O
08/08/25 08/09/25 08/10/25
06:59 06:59 06:59
Intake Total 720 / 720 550 / 550
Output Total 1570 / 1570 2800 / 2800
Balance -850 / -850 -2250 / -2250
Review of Systems
-
History Source: Patient
All other systems: Reviewed and negative
Physical Exam
-
General: No Apparent Distress, Comfortable, Appears Chronically Ill and Cachectic
HEENT: Moist Mucous Membranes, Anicteric and PERRLA
Respiratory: Clear to Auscultation and Non Labored Respirations; Negative Accessory Resp Muscle Use
Cardiac: Regular Rhythm and S1/S2; Negative Murmur, Rub or Gallop
GI: Soft, Nontender, Nondistended, Normal Bowel Sounds, Ostomy (With brown stool) and Other (Conduit bag with clear yellow urine)
Musculoskeletal: No Edema
Skin: Warm and Dry; Negative Rash, Ulcers or Lesions
Neuro: Awake and AO x 3
Psych: Calm and Intact Judgement/Insight
Data Reviewed
-
Labs: Labs Reviewed by me
[2025-08-09 14:59] VITALS: BP 115/78; BP 99/57; PULSE 77; PULSE 92; O2SAT 100
[2025-08-09 15:56] VITALS: BP 106/62
--- NOTE | 2025-08-09 16:17 | CM ---
CM met with Alberto and his today to discuss transfer to SNF. They are agreeable to transfer in the [facility] areas. CM to send additional referrals based on pt and preferences/locations.
[2025-08-09 23:00] VITALS: BP 111/60
[2025-08-10 05:41] VITALS: BMI 15.1
--- NOTE | 2025-08-10 06:34 | PTCARENOTE ---
Oral care was not performed on patient because he stated that it was his preference to do it in the morning.
[2025-08-10 08:00] VITALS: BP 90/53
[2025-08-10] MEDS: PROTONIX 40 MG PO (09:02)
[2025-08-10] MEDS: HEPARIN 5000 UNITS SC ×2 (09:03→19:59)
[2025-08-10] MEDS: DESENEX/MITRAZOL/ZEASORB 1 APPLIC TOPICAL ×2 (09:05→20:02)
--- NOTE | 2025-08-10 09:20 | W.PN.HOSP.TC ---
Today's Communication/Plan
-
Monitor vitals
dispo planning
Assessment / Plan
Assessment / Plan
77M with PAF, DVT/PE s/p IVC filter, rectal CA s/p surgery with extensive postsurgical complications now with colostomy, urostomy, enterocutaneous/anal/ureteral fistulae, recent ex lap and DC lysis, follow-up attempted repair of the fistula was
aborted due to extensive compacted adhesions, was recently hospitalized in July 11- for acute kidney injury with hyperkalemia thought to be prerenal and status post ex lap on July 13 with lysis of adhesion and went for repair of the
enterocutaneous/ureteral/renal fistula and parastomal hernia, unfortunately he had significant adhesions and surgery was aborted, p/w lightheadedness, found to have septic shock.
A/P:
Possible Septic shock POA - resolved
with LA, requiring pressors, now off. BP currently some hypotension, cont midodrine
Suspected due to UTI, possible intra-abdominal abscess.
CT AP without contrast is limited, showed a 4.8 x 3.3 cm gas and fluid containing focus within the lower abdomen with a percutaneous drain present. This may represent an abscess or possibly the urinary bladder with superimposed infection. Patient
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 CRS consulted, no surgical intervention planned.
Admission urine culture contaminated, repeat urine culture grew kanika. BCx NGTD.
s/p Zosyn per ID, held today with plans to observe clinically.
Cachexia
Severe protein caloric malnutrition
Cont regular diet with ensure supplement. Possibility of TPN was discussed by colorectal surgery with patient and family, they declined at this time, plan is to monitor his oral intake. Seems to be doing well
JUANITA resolved
Prerenal, Creatinine 4.5 on admission, resolved with IVF. SCr today at 1.1
Renal consulted, signed off.
Deconditioning
PT/OT
SNF on discharge. Discussed with RN and CM
Anemia
Likely anemia of chronic disease
Continue to monitor, transfuse if Hgb<7
Hyponatremia
- Suspect hypovolemic, improving. Monitor with improved oral intake.
h/o DVT s/p IVC filter
Not on AC.
DVT ppx: HSQ
Code status - full code
Dispo: SNF
DW CM
Anticipated Discharge: Within 24 hours
Subjective/Interval History
-
Date of Service: August 10, 2025
Objective Data
-
Vital Signs:
Vital Signs
Temp Pulse Resp BP Pulse Ox
36.8 C 69 16 90/53 99
08/10/25 08:00 08/10/25 09:01 08/10/25 08:00 08/10/25 09:01 08/10/25 08:00
I&O
08/09/25 08/10/25 08/11/25
06:59 06:59 06:59
Intake Total 550 / 550 1200 / 1200
Output Total 2800 / 2800 1525 / 1525
Balance -2250 / -2250 -325 / -325
Review of Systems
-
History Source: Patient
All other systems: Reviewed and negative
Physical Exam
-
General: No Apparent Distress, Comfortable, Appears Chronically Ill and Cachectic
Respiratory: Clear to Auscultation and Non Labored Respirations; Negative Accessory Resp Muscle Use
Cardiac: Regular Rhythm and S1/S2; Negative Murmur, Rub or Gallop
GI: Soft, Nontender, Nondistended, Normal Bowel Sounds, Ostomy (With brown stool) and Other (Conduit bag with clear yellow urine)
Musculoskeletal: No Edema
Skin: Warm and Dry; Negative Rash, Ulcers or Lesions
Neuro: Awake and AO x 3
Psych: Calm and Intact Judgement/Insight
[2025-08-10 16:10] VITALS: BP 133/59
[2025-08-10 23:00] VITALS: BP 105/61
[2025-08-11 06:00] VITALS: BMI 15.1
[2025-08-11 07:00] VITALS: BP 99/58
[2025-08-11 08:15] LABS: Hematocrit 30.6 % (39.0-52.0); Hemoglobin 9.8 g/dL (13.0-18.0); Mean Corp Hgb Conc. 32.0 g/dL (33.0-37.0); Mean Corpuscular Volume 84.8 fL (80.0-94.0); Platelet Count 319 10^3/uL (130-400); Red Cell Dist. Width 15.6 % (11.5-14.5)
[2025-08-11 09:04] LABS: Blood Urea Nitrogen 39 mg/dl (9-20); Calcium 8.8 mg/dl (8.4-10.2); Carbon Dioxide 19 mmol/L (22-30); Chloride 100 mmol/L (98-107); Estimated Creatinine Clearance 27 ml/min; Glucose 100 mg/dl (70-99); Magnesium 2.0 mg/dl (1.6-2.3); Potassium 6.4 mmol/L (3.5-5.1); Sodium 126 mmol/L (135-145); eGFR 47.95
[2025-08-11] MEDS: TYLENOL 650 MG PO (09:12)
[2025-08-11] MEDS: PROTONIX 40 MG PO (09:12)
[2025-08-11] MEDS: HEPARIN 5000 UNITS SC ×2 (09:13→20:22)
[2025-08-11] MEDS: DESENEX/MITRAZOL/ZEASORB 1 APPLIC TOPICAL ×2 (09:13→20:25)
--- NOTE | 2025-08-11 10:26 | CM ---
Patient seen at bedside with
K level today 6.4
spoke with patient/ - would like facility closer to home
referrals in for [facility]-spoke with Candy Aceves and will check if facility can manage rectal tube.
will get back to CM
Patient will need ins auth once bed secured, updated PT/OT notes will be needed for auth
PLAN: SNF, pending bed availability, when stable, ins auth will be needed once bed secured
[2025-08-11 10:54] LABS: Glucose - Point of Care 189 mg/dl (70-99)
[2025-08-11 11:00] VITALS: BP 121/54
[2025-08-11] MEDS: NOVOLIN R 0.05 UNITS IV (11:00)
[2025-08-11] MEDS: LOKELMA 10 GRAM PO (11:00)
[2025-08-11] MEDS: DEXTROSE 50% SYRINGE 25 GRAMS IV (11:00)
[2025-08-11 11:23] LABS: Glucose - Point of Care 421 mg/dl (70-99)
[2025-08-11 12:05] LABS: Glucose - Point of Care 180 mg/dl (70-99)
[2025-08-11 14:47] LABS: Glucose - Point of Care 192 mg/dl (70-99)
[2025-08-11 14:48] LABS: Potassium 5.0 mmol/L (3.5-5.1)
--- NOTE | 2025-08-11 14:52 | W.PN.HOSP.TC ---
Today's Communication/Plan
-
Treatment of hyperkalemia, elevated creatinine, hyponatremia as below
Assessment / Plan
Assessment / Plan
77M with PAF, DVT/PE s/p IVC filter, rectal CA s/p surgery with extensive postsurgical complications now with colostomy, urostomy, enterocutaneous/anal/ureteral fistulae, recent ex lap and DC lysis, follow-up attempted repair of the fistula was
aborted due to extensive compacted adhesions, was recently hospitalized in July 11- for acute kidney injury with hyperkalemia thought to be prerenal and status post ex lap on July 13 with lysis of adhesion and went for repair of the
enterocutaneous/ureteral/renal fistula and parastomal hernia, unfortunately he had significant adhesions and surgery was aborted, p/w lightheadedness, found to have septic shock.
A/P:
Possible Septic shock POA - resolved
with LA, requiring pressors, now off. BP currently some hypotension, cont midodrine
Suspected due to UTI, possible intra-abdominal abscess.
CT AP without contrast is limited, showed a 4.8 x 3.3 cm gas and fluid containing focus within the lower abdomen with a percutaneous drain present. This may represent an abscess or possibly the urinary bladder with superimposed infection. Patient
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 CRS consulted, no surgical intervention planned.
Admission urine culture contaminated, repeat urine culture grew kanika. BCx NGTD.
s/p Zosyn per ID, held today with plans to observe clinically.
Cachexia
Severe protein caloric malnutrition
Cont regular diet with ensure supplement. Possibility of TPN was discussed by colorectal surgery with patient and family, they declined at this time, plan is to monitor his oral intake. Seems to be doing well
Hyperkalemia
EKG is NSR, no peaked T waves
Insulin 5�D50
Lokelma
Resolved
JUANITA
Prerenal, Creatinine 4.5 on admission, resolved with IVF. SCr today at 1.5
Trial 1 L IV fluid
Renal consulted, signed off.
Deconditioning
PT/OT
SNF on discharge. Discussed with RN and CM
Anemia
Likely anemia of chronic disease
Continue to monitor, transfuse if Hgb<7
Hyponatremia
- Suspect hypovolemic, worsened again. Monitor with improved oral intake.
h/o DVT s/p IVC filter
Not on AC.
DVT ppx: HSQ
Code status - full code
Dispo: SNF
Anticipated Discharge: 24 - 48 hours
Subjective/Interval History
-
Date of Service: August 11, 2025
Patient denies any issues overnight, still eating well
Objective Data
-
Labs:
Laboratory Results
08/11/25 08/11/25 08/11/25
07:43 12:26 13:32
WBC 7.4
Hgb 9.8 L
Hct 30.6 L
Plt Count 319
Sodium 126 L
Potassium 6.4 H* D Cancelled 5.0
Chloride 100
Carbon Dioxide 19 L
BUN 39 H
Creatinine 1.5 H
Glucose 100 H
Calcium 8.8
08/11/25 08/11/25
14:26 15:00
WBC
Hgb
Hct
Plt Count
Sodium
Potassium Cancelled Pending
Chloride
Carbon Dioxide
BUN
Creatinine
Glucose
Calcium
Vital Signs:
Vital Signs
Temp Pulse Resp BP Pulse Ox
95.8 F L 67 16 121/54 100
08/11/25 11:00 08/11/25 11:00 08/11/25 11:00 08/11/25 11:00 08/11/25 11:00
I&O
08/10/25 08/11/25 08/12/25
06:59 06:59 06:59
Intake Total 1200 / 1200 720 / 720
Output Total 1525 / 1525 1690 / 1690 850 / 850
Balance -325 / -325 -970 / -970 -850 / -850
Review of Systems
-
All other systems: Reviewed and negative
Physical Exam
-
General: No Apparent Distress, Comfortable, Appears Chronically Ill and Cachectic
Respiratory: Clear to Auscultation and Non Labored Respirations; Negative Accessory Resp Muscle Use
Cardiac: Regular Rhythm and S1/S2; Negative Murmur, Rub or Gallop
GI: Soft, Nontender, Nondistended, Normal Bowel Sounds, Ostomy (With brown stool) and Other (Conduit bag with clear yellow urine)
Musculoskeletal: No Edema
Skin: Warm, Dry and Other (Abdominal lan C/D/I); Negative Rash, Ulcers or Lesions
Neuro: Awake and AO x 3
Psych: Calm and Intact Judgement/Insight
Data Reviewed
-
Labs: Labs Reviewed by me, Discussed with Nurse and Discussed with Patient
[2025-08-11 15:00] VITALS: BP 95/54
--- NOTE | 2025-08-11 15:16 | PTCARENOTE ---
PT aaox4 denies any pain at this time. PT is able to make all of his needs known. PT appears severely cachectic worse than last wednesday when he came to our floor. He has severe visible wasting of temples. shoulders, thighs and all intercostals
anteriorly and posterioly are wasted. he has severe sq loss from abomen to the point his supra pubic bone sticks out approx 1,5 inches from the low abden that is severely sunken in. severe fat loss from eyes cheecks tricepts and sacral area. the
patient appears very frail. He does make attempts to drink his boost and he eats all of his meals 100%. The patient has a LUQ colostomy draining small to moderate pale figueroa foul odor stool as well as a rectal trumpet that is liquid orange brown
with undigestible food particles along with large amount of flatus from both that require q 2 hour burping and emptying. The patient has a midline surgical incision with lan with edges well approximated crusted over and appear pink not
infected. in his Right lower quad is the SURAJ tube stitched in that causes him terrible pain. site care given q 2 hours and dressed with a drain sponges. medial to this thisthe fistuala leaking a pale figueroa pasty stool that needs q 2 hour cleaning. pt
repositioned onto left side
[2025-08-11 16:19] LABS: Potassium 5.4 mmol/L (3.5-5.1)
--- NOTE | 2025-08-11 17:09 | PTCARENOTE ---
texted this am with Critical K. when orders came in i asked if we should repeat it first. She stated no. Meds given as prescribed. K at 1300 was 5 and 5.4 at 1600 nnotified and no new orders
[2025-08-11] MEDS: LR 500 IV (17:21)
[2025-08-11 19:00] VITALS: BP 116/76
[2025-08-11 23:00] VITALS: BP 115/61
[2025-08-12 03:00] VITALS: BP 114/60
[2025-08-12 06:00] VITALS: BMI 16.4
[2025-08-12 06:08] LABS: Hematocrit 27.5 % (39.0-52.0); Hemoglobin 8.9 g/dL (13.0-18.0); Mean Corp Hgb Conc. 32.4 g/dL (33.0-37.0); Mean Corpuscular Volume 84.6 fL (80.0-94.0); Nucleated Red Blood Cells % 0 % (-); Platelet Count 333 10^3/uL (130-400); Red Cell Dist. Width 15.4 % (11.5-14.5)
[2025-08-12 06:21] LABS: Blood Urea Nitrogen 40 mg/dl (9-20); Calcium 8.8 mg/dl (8.4-10.2); Carbon Dioxide 20 mmol/L (22-30); Chloride 99 mmol/L (98-107); Estimated Creatinine Clearance 27 ml/min; Glucose 89 mg/dl (70-99); Potassium 5.8 mmol/L (3.5-5.1); Sodium 124 mmol/L (135-145); eGFR 47.95
[2025-08-12 08:09] VITALS: BP 100/57
[2025-08-12] MEDS: TYLENOL 650 MG PO (09:00)
[2025-08-12] MEDS: HEPARIN 5000 UNITS SC ×2 (09:00→21:22)
[2025-08-12] MEDS: DESENEX/MITRAZOL/ZEASORB 1 APPLIC TOPICAL ×2 (09:01→21:23)
[2025-08-12] MEDS: PROTONIX 40 MG PO (09:01)
[2025-08-12] MEDS: LOKELMA 10 GRAM PO (09:07)
--- NOTE | 2025-08-12 11:19 | W.PN.HOSP.TC ---
Today's Communication/Plan
-
Renal consulted for electrolyte abnormalities, hyponatremia, hyperkalemia, JUANITA
Assessment / Plan
Assessment / Plan
77M with PAF, DVT/PE s/p IVC filter, rectal CA s/p surgery with extensive postsurgical complications now with colostomy, urostomy, enterocutaneous/anal/ureteral fistulae, recent ex lap and DC lysis, follow-up attempted repair of the fistula was
aborted due to extensive compacted adhesions, was recently hospitalized in July 11- for acute kidney injury with hyperkalemia thought to be prerenal and status post ex lap on July 13 with lysis of adhesion and went for repair of the
enterocutaneous/ureteral/renal fistula and parastomal hernia, unfortunately he had significant adhesions and surgery was aborted, p/w lightheadedness, found to have septic shock.
A/P:
Hyponatremia
Sodium down to 124, could be secondary to GI losses given increased output and rectal tube and drain
Trial IVF 08/11, with no improvement
Consulted nephrology for further recs
NAGMA
Likely secondary to increased rectal output
Monitor BMP
Hyperkalemia
Potassium 6.8 on 08/11
EKG is NSR, no peaked T waves
Insulin 5�D50
Lokelma
Initially resolved, then 5.8 on 08/12. Another dose of Lokelma given
JUANITA
Prerenal, Creatinine 4.5 on admission, resolved with IVF. SCr today at 1.5
Trialed 1 L IV fluid on 08 11 with no improvement
Renal consulted again
Possible Septic shock POA - resolved
with LA, requiring pressors, now off. BP currently some hypotension, cont midodrine
Suspected due to UTI, possible intra-abdominal abscess.
CT AP without contrast is limited, showed a 4.8 x 3.3 cm gas and fluid containing focus within the lower abdomen with a percutaneous drain present. This may represent an abscess or possibly the urinary bladder with superimposed infection. Patient
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 CRS consulted, no surgical intervention planned.
Admission urine culture contaminated, repeat urine culture grew kanika. BCx NGTD.
s/p Zosyn per ID, held with plans to observe clinically.
Cachexia
Severe protein caloric malnutrition
Cont regular diet with ensure supplement. Possibility of TPN was discussed by colorectal surgery with patient and family, they declined at this time, plan is to monitor his oral intake. Seems to be doing well
Deconditioning
PT/OT
SNF on discharge. Discussed with RN and CM
Anemia
Likely anemia of chronic disease
Continue to monitor, transfuse if Hgb<7
h/o DVT s/p IVC filter
Not on AC.
DVT ppx: HSQ
Code status - full code
Dispo: SNF
Anticipated Discharge: 24 - 48 hours
Subjective/Interval History
-
Date of Service: August 12, 2025
Patient denies any acute issues overnight, is eating and drinking well
Objective Data
-
Labs:
Laboratory Results
08/12/25
05:23
WBC 7.6
Hgb 8.9 L
Hct 27.5 L
Plt Count 333
Sodium 124 L
Potassium 5.8 H
Chloride 99
Carbon Dioxide 20 L
BUN 40 H
Creatinine 1.5 H
Glucose 89
Calcium 8.8
Vital Signs:
Vital Signs
Temp Pulse Resp BP Pulse Ox
98.0 F 71 17 100/57 95
08/12/25 08:09 08/12/25 08:09 08/12/25 08:09 08/12/25 08:09 08/12/25 08:09
I&O
08/11/25 08/12/25 08/13/25
06:59 06:59 06:59
Intake Total 720 / 720 480 / 480
Output Total 1690 / 1690 1490 / 1490 805 / 805
Balance -970 / -970 -1490 / -1490 -325 / -325
Review of Systems
-
All other systems: Reviewed and negative
Physical Exam
-
General: No Apparent Distress, Comfortable, Appears Chronically Ill and Cachectic
Respiratory: Clear to Auscultation and Non Labored Respirations; Negative Accessory Resp Muscle Use
Cardiac: Regular Rhythm and S1/S2; Negative Murmur, Rub or Gallop
GI: Soft, Nontender, Nondistended, Normal Bowel Sounds, Ostomy (With brown stool) and Other (Conduit bag with clear yellow urine)
Musculoskeletal: No Edema
Skin: Warm, Dry and Other (Abdominal lan C/D/I); Negative Rash, Ulcers or Lesions
Neuro: Awake and AO x 3
Psych: Calm and Intact Judgement/Insight
Data Reviewed
-
Labs: Labs Reviewed by me, Discussed with Physician and Discussed with Patient
[2025-08-12 11:21] VITALS: BP 100/50
--- NOTE | 2025-08-12 14:24 | W.PN.NEPH.PH ---
Today's Communication / Plan
-
Normal saline 150 cc/h started
Assessment/Plan
-
Impression:
Acute kidney injury we had signed off on August 02 for resolving acute kidney injury and prerenal with request for reconsult for creatinine up to 1.5 and hyperkalemia as well as hyponatremia. Significant output of ostomy, urostomy
Hyperkalemia
Metabolic acidosis (lactic acidosis)
Hyponatremia
Hypotension in setting of suspected hypovolemia in underlying sepsis
History of DVT with IVC filter
History of atrial fibrillation
Chronic hypotension on midodrine
History of rectal cancer with bladder involvement status post multiple procedures
Enterocutaneous fistula
Colostomy/urostomy
GERD
Plan:
This all appears to be prerenal unable to keep up with the outputs.
He he did get some lactated Ringer's yesterday but certainly need component of volume at this time. He is having ongoing hypotension which is not helping a sodium potassium exchange of the distal tubule
I will start normal saline at 150 cc/h recheck labs in the morning.
I discussed with the medical nurse.
See orders
-
-
Date of Service: August 12, 2025
CC / HPI / ROS
-
Chief Complaint:
hypotension
History of Present Illness:
Na down to 131
JUANITA/Cr normalized and signed off on August 02 and now acute kidney injury and hyperkalemia with hyper bow natremia
BP low stable on midodrine, levo
s/p tube upsizing this admit
liquid stool from rectal tube
non oliguric with urostomy
Review of Systems:
no CP/SOB
no dizzines supine, no n/v
Labs
-
Labs:
WBC 7.6 10^3/uL (4.8-10.8) 08/12/25 05:23
RBC 3.25 10^6/uL (4.70-6.10) L 08/12/25 05:23
Hgb 8.9 g/dL (13.0-18.0) L 08/12/25 05:23
Hct 27.5 % (39.0-52.0) L 08/12/25 05:23
Plt Count 333 10^3/uL (130-400) 08/12/25 05:23
Sodium 124 mmol/L (135-145) L 08/12/25 05:23
Potassium 5.8 mmol/L (3.5-5.1) H 08/12/25 05:23
Chloride 99 mmol/L (98-107) 08/12/25 05:23
Carbon Dioxide 20 mmol/L (22-30) L 08/12/25 05:23
BUN 40 mg/dl (9-20) H 08/12/25 05:23
Creatinine 1.5 mg/dL (0.7-1.3) H 08/12/25 05:23
eGFR 47.95 08/12/25 05:23
Glucose 89 mg/dl (70-99) 08/12/25 05:23
Calcium 8.8 mg/dl (8.4-10.2) 08/12/25 05:23
Yht-O-Pjenfuvhpms Pept 1630 pg/ml 07/29/25 02:35
Albumin 2.8 g/dl (3.5-5.0) L 08/09/25 05:01
Physical Exam
-
Vital Signs:
Vital Signs
Temp Pulse Resp BP Pulse Ox
97.8 F 76 16 100/50 96
08/12/25 11:21 08/12/25 11:21 08/12/25 11:21 08/12/25 11:21 08/12/25 11:21
Cardiovascular:: Regular rate and rhythm
Respiratory:: Bilateral: CTA
Lung Excursion:: Normal
Abdomen:: Nontender and Soft (urostomy, colostomy )
Bowel Sounds:: Normal
Extremity Edema:: None: Bilateral:
Jackson Catheter: No
[2025-08-12 16:07] VITALS: BP 114/58
[2025-08-12] MEDS: NSS 1000 IV (17:13)
[2025-08-12 19:00] VITALS: BP 111/54
[2025-08-12 23:00] VITALS: BP 100/51
[2025-08-13] VITALS (7 sets, daily range): BP systolic 82–115; BP diastolic 46–84; PULSE 79–96; O2SAT 99; BMI 15.7
[2025-08-13] MEDS: NSS 1000 IV ×2 (00:05→05:21)
[2025-08-13 04:51] LABS: Hematocrit 22.7 % (39.0-52.0); Hemoglobin 7.5 g/dL (13.0-18.0); Mean Corp Hgb Conc. 33.0 g/dL (33.0-37.0); Mean Corpuscular Volume 83.8 fL (80.0-94.0); Nucleated Red Blood Cells % 0 % (-); Platelet Count 260 10^3/uL (130-400); Red Cell Dist. Width 15.6 % (11.5-14.5)
[2025-08-13 05:06] LABS: Blood Urea Nitrogen 30 mg/dl (9-20); Calcium 8.0 mg/dl (8.4-10.2); Carbon Dioxide 20 mmol/L (22-30); Chloride 104 mmol/L (98-107); Estimated Creatinine Clearance 43 ml/min; Glucose 109 mg/dl (70-99); Potassium 5.1 mmol/L (3.5-5.1); Sodium 125 mmol/L (135-145); eGFR > 60.00
[2025-08-13] MEDS: PROTONIX 40 MG PO (08:15)
[2025-08-13] MEDS: HEPARIN 5000 UNITS SC (08:15)
[2025-08-13] MEDS: DESENEX/MITRAZOL/ZEASORB 1 APPLIC TOPICAL ×2 (08:22→22:27)
[2025-08-13] MEDS: NSS IV (11:44)
--- NOTE | 2025-08-13 12:11 | W.PN.HOSP.TC ---
Addendum entered and electronically signed by Aniya Llanes MD 08/14/25 10:53:
updated renal Dr Gutierrez and CRS Dr Cooper about hospice plan.
They are in agreement.
Original Note:
Today's Communication/Plan
-
hospice care
Assessment / Plan
Assessment / Plan
77M with PAF, DVT/PE s/p IVC filter, rectal CA s/p surgery with extensive postsurgical complications now with colostomy, urostomy, enterocutaneous/anal/ureteral fistulae, recent ex lap and DC lysis, follow-up attempted repair of the fistula was
aborted due to extensive compacted adhesions, was recently hospitalized in July 11- for acute kidney injury with hyperkalemia thought to be prerenal and status post ex lap on July 13 with lysis of adhesion and went for repair of the
enterocutaneous/ureteral/renal fistula and parastomal hernia, unfortunately he had significant adhesions and surgery was aborted, p/w lightheadedness, found to have septic shock.
A/P:
# Hyponatremia
Sodium down to 125 today, could be secondary to GI losses given increased output and rectal tube and drain
Stop further IVF trial. GOC discussed with patient and . The plan is to transition to hospice care at facility or inpatient.
# NAGMA
Likely secondary to increased rectal output
# Hyperkalemia
resolved after Lokelma
No further blood draw with transitioning to hospice care
# JUANITA, Prerenal
Creatinine 4.5 on admission, resolved with IVF.
Developed JUANITA again and SCr improved from 1.5 to 1.0 following IVF
Stop further IVF with plan to transition to hospice care.
# Possible Septic shock POA - resolved
with LA, requiring pressors, now off.
s/p Zosyn
Stop midodrine with transition to hospice care.
# Cachexia
# Severe protein caloric malnutrition
# Severe clinical deconditioning
Cont regular diet with ensure supplement for comfort
# Anemia
# Likely anemia of chronic disease
No further blood draw or transfusion with hospice care
# h/o DVT s/p IVC filter
Not on AC.
DVT ppx: no need for hospice
Code status - DNR DNI
Dispo: hospice at facility or inpatient hospice
DW CM
DW RN
Extensive discussion with pt and with on the phone. Discussed GOC. Both are in agreement with transitioning to hospice care.
Anticipated Discharge: 24 - 48 hours
Subjective/Interval History
-
Date of Service: August 13, 2025
Objective Data
-
Labs:
Laboratory Results
08/13/25
04:29
WBC 5.6
Hgb 7.5 L
Hct 22.7 L
Plt Count 260 D
Sodium 125 L
Potassium 5.1
Chloride 104
Carbon Dioxide 20 L
BUN 30 H
Creatinine 1.0
Glucose 109 H
Calcium 8.0 L
Vital Signs:
Vital Signs
Temp Pulse Resp BP Pulse Ox
36.5 C 77 16 104/46 99
08/13/25 11:00 08/13/25 11:00 08/13/25 11:00 08/13/25 11:00 08/13/25 11:00
I&O
08/12/25 08/13/25 08/14/25
06:59 06:59 06:59
Intake Total 480 / 480
Output Total 1490 / 1490 3440 / 3440
Balance -1490 / -1490 -2960 / -2960
Review of Systems
-
All other systems: Reviewed and negative
Physical Exam
-
General: No Apparent Distress, Comfortable, Appears Chronically Ill and Cachectic
Respiratory: Clear to Auscultation and Non Labored Respirations; Negative Accessory Resp Muscle Use
Cardiac: Regular Rhythm and S1/S2; Negative Murmur, Rub or Gallop
GI: Soft, Nontender, Nondistended, Normal Bowel Sounds, Ostomy (With brown stool) and Other (Conduit bag with clear yellow urine)
Musculoskeletal: No Edema
Skin: Warm, Dry and Other (Abdominal lan C/D/I); Negative Rash, Ulcers or Lesions
Neuro: Awake and AO x 3
Psych: Calm and Intact Judgement/Insight
Data Reviewed
-
Labs: Labs Reviewed by me, Discussed with Patient and Discussed with Family
--- NOTE | 2025-08-13 12:26 | CM ---
CM consult completed for hospice consult
spoke with patient options reviewed, prefers hospice
referral added in [facility]
tt Faustina Lazo liaison
PLAN: Hospice eval
--- NOTE | 2025-08-13 13:59 | HOSPNOTE ---
Spoke with patient about hospice and the philosophy. Patient is in agreement but is unable to go home and would need placement in a facility with hospice care. CM states patient would be difficult to place due to the complexity of patient care. Will
re evaluate daily. More information to follow.
--- NOTE | 2025-08-13 14:44 | W.PN.UPDATE ---
Update Note
Progress Note Update
NOted he is on hospice now
will s/o, call with ?s
[2025-08-14 03:00] VITALS: BP 96/42
[2025-08-14 03:35] VITALS: BMI 15.6
[2025-08-14 07:30] VITALS: BP 100/45
[2025-08-14] MEDS: DESENEX/MITRAZOL/ZEASORB 1 APPLIC TOPICAL ×2 (09:09→21:27)
--- NOTE | 2025-08-14 09:34 | W.PN.UPDATE ---
Update Note
Progress Note Update
Patient seen this morning at the bedside. Updates noted. Patient's rectal trumpet has come out. There is no real way that I can think of the keep it in long-term. Unfortunately he is messing the bed every so often which is requiring a lot of
nursing care. Decision has apparently made for inpatient hospice, which I believe is reasonable. The patient seems to understand the situation. The details are being worked on by case management. I spoke to Kerri, the patient's on the
phone regarding his situation. She is understandably a bit overwhelmed but seems to appreciate the circumstances. I told them both that I am readily available to answer any questions.
--- NOTE | 2025-08-14 10:26 | W.PN.HOSP.TC ---
Today's Communication/Plan
-
see A/P
Assessment / Plan
Assessment / Plan
77M with PAF, DVT/PE s/p IVC filter, rectal CA s/p surgery with extensive postsurgical complications now with colostomy, urostomy, enterocutaneous/anal/ureteral fistulae, recent ex lap and DC lysis, follow-up attempted repair of the fistula was
aborted due to extensive compacted adhesions, was recently hospitalized in July 11- for acute kidney injury with hyperkalemia thought to be prerenal and status post ex lap on July 13 with lysis of adhesion and went for repair of the
enterocutaneous/ureteral/renal fistula and parastomal hernia, unfortunately he had significant adhesions and surgery was aborted, p/w lightheadedness, found to have septic shock.
A/P:
# Hyponatremia
Sodium down to 125, could be secondary to GI losses given increased output and rectal tube and drain
Stop further IVF trial. GOC discussed with patient and . Plan to transition to hospice care at facility or inpatient.
# NAGMA
Likely secondary to increased rectal output
# Hyperkalemia
resolved after Lokelma
No further blood draw with transitioning to hospice care
# JUANITA, Prerenal
Creatinine 4.5 on admission, resolved with IVF.
Developed JUANITA again and SCr improved from 1.5 to 1.0 following IVF
Stop further IVF with plan to transition to hospice care.
# Possible Septic shock POA - resolved
with LA, requiring pressors, now off.
s/p Zosyn
Stop midodrine with transition to hospice care.
# Cachexia
# Severe protein caloric malnutrition
# Severe clinical deconditioning
Cont regular diet with ensure supplement for comfort
# Anemia
# Likely anemia of chronic disease
No further blood draw or transfusion with hospice care
# h/o DVT s/p IVC filter
Not on AC.
DVT ppx: no need for hospice
Code status - DNR DNI
Dispo: hospice at facility or inpatient hospice
Cont hospice care- at facility or inpatient. Monitor clinically to determine when pt would qualify for inpatient hospice.
Anticipated Discharge: 24 - 48 hours
Subjective/Interval History
-
Date of Service: August 14, 2025
Objective Data
-
Vital Signs:
Vital Signs
Temp Pulse Resp BP Pulse Ox
36.5 C 73 16 100/45 100
08/14/25 07:30 08/14/25 07:30 08/14/25 07:30 08/14/25 07:30 08/14/25 07:30
I&O
08/13/25 08/14/25 08/15/25
06:59 06:59 06:59
Intake Total 480 / 480 480 / 480 480 / 480
Output Total 3440 / 3440 1705 / 1705 335 / 335
Balance -2960 / -2960 -1225 / -1225 145 / 145
Review of Systems
-
History Source: Patient
All other systems: Reviewed and negative
Physical Exam
-
General: No Apparent Distress, Comfortable, Appears Chronically Ill and Cachectic
Respiratory: Clear to Auscultation and Non Labored Respirations; Negative Accessory Resp Muscle Use
Cardiac: Regular Rhythm and S1/S2; Negative Murmur, Rub or Gallop
GI: Soft, Nontender, Nondistended, Normal Bowel Sounds, Ostomy (With brown stool) and Other (Conduit bag with clear yellow urine)
Musculoskeletal: No Edema
Skin: Warm, Dry and Other (Abdominal lan C/D/I); Negative Rash, Ulcers or Lesions
Neuro: Awake and AO x 3
Psych: Calm and Intact Judgement/Insight
Data Reviewed
-
Labs: Labs Reviewed by me, Discussed with Patient and Discussed with Family
--- NOTE | 2025-08-14 10:39 | HOSPNOTE ---
Patient denies pain, anxiety or shortness of breath. We will continue to assess daily for inpatient hospice since placement will be almost impossible. We will continue to follow and update Attending.
--- NOTE | 2025-08-14 11:44 | CM ---
CM called to patient to review options. Patient reviewed by [facility] hospice and per hospice account development representative patient is not currently GIP level, CM spoke with about Hospice benefit in a SNF. Patient wants patient to be covered under
insurance and states she does not have income for hospice in a SNF costs. Patient plans to call insurance specialist to discuss options. Per chart review,Dr. Cooper note of 08/14/25, patient no longer has rectal trumpet at this time. CM
called again to account development representative at [facility] to discuss options, VM left.
Plan; SNF, hospice vs GIP level hospice pending medical treatment plan
[2025-08-14 11:45] VITALS: BP 109/43
--- NOTE | 2025-08-14 14:00 | WOUNDNOTE ---
JANEY RN NOTE: Assisted nurse Bre as requested. Patient's skin surrounding rectum raw, red and painful from constant fistula drainage. Applied fungal powder then skin prep and fecal pouch to SBD, barrier extenders applied to edges. Dr. Cooper
aware of the above and confirmed that he is not a candidate for internal fecal contract administration manager due to anal opening that is contiguous with peritoneal cavity-too risky per MD. Prior to pouch application, patient's entire bed soaked with drainage. Skin care,
linens changed and repositioned patient for comfort. Patient on air overlay can turn self. Ostomy appliances intact, no leakage. Drainage sponges changed at fistula drain by nurse, applied dusting of fungal powder to skin. Nurse will evaluate if
fecal pouch works then will order more supplies to take upon discharge.
[2025-08-14 16:00] VITALS: BP 102/47
--- NOTE | 2025-08-14 17:09 | PTCARENOTE ---
pt rectal area raw, red and painful due to constant large amount of fistula drainage. Dr. Cooper didn't feel it was a good idea to place rectal trumpet again even though it had been in for days prior to falling out. He didn't feel that it would be
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 I franny texted him at 10:33 regarding placement of internal fecal management system, but inappropriate due to the fact that patient' anus is open to his peritoneal cavity. notified WOC RN, Mihaela and discussed placing
rectal pouch to help prevent further skin excoriation. at 14:00, assisted Mihaela with placing rectal pouch. patient is able to turn by self. all bed linens changed as they were soaked with drainage, skin care given and repositioned for comfort.
Also, drain sponges at SURAJ drain site changed again as well, will continue to monitor.
[2025-08-14 23:00] VITALS: BP 113/53
[2025-08-15 05:00] VITALS: BMI 15.6
[2025-08-15 08:25] VITALS: BP 98/49
--- NOTE | 2025-08-15 09:59 | W.PN.HOSP.TC ---
Today's Communication/Plan
-
monitor clinical status.
Hospice dispo planning ongoing
Assessment / Plan
Assessment / Plan
77M with PAF, DVT/PE s/p IVC filter, rectal CA s/p surgery with extensive postsurgical complications now with colostomy, urostomy, enterocutaneous/anal/ureteral fistulae, recent ex lap and DC lysis, follow-up attempted repair of the fistula was
aborted due to extensive compacted adhesions, was recently hospitalized in July 11- for acute kidney injury with hyperkalemia thought to be prerenal and status post ex lap on July 13 with lysis of adhesion and went for repair of the
enterocutaneous/ureteral/renal fistula and parastomal hernia, unfortunately he had significant adhesions and surgery was aborted, p/w lightheadedness, found to have septic shock.
A/P:
# Hyponatremia
Sodium was down to 125, likely secondary to GI losses given increased output and rectal tube and drain
Stop further IVF trial. GOC discussed with patient and . Plan to transition to hospice care at facility or inpatient.
# NAGMA
Likely secondary to increased rectal output
# Hyperkalemia
resolved after Lokelma
No further blood draw with transitioning to hospice care
# JUANITA, Prerenal
Creatinine 4.5 on admission, resolved with IVF.
Developed JUANITA again and SCr improved from 1.5 to 1.0 following IVF
Stop further IVF with plan to transition to hospice care.
# Possible Septic shock POA - resolved
with LA, requiring pressors, now off.
s/p Zosyn
Stop midodrine with transition to hospice care.
# Cachexia
# Severe protein caloric malnutrition
# Severe clinical deconditioning
Cont regular diet with ensure supplement for comfort
# Anemia
# Likely anemia of chronic disease
No further blood draw or transfusion with hospice care
# h/o DVT s/p IVC filter
Not on AC.
DVT ppx: no need for hospice
Code status - DNR DNI
Dispo: hospice at facility or inpatient hospice
Cont hospice care at facility or inpatient. Monitor clinically to determine when pt would qualify for inpatient hospice.
Anticipated Discharge: 24 - 48 hours
Subjective/Interval History
-
Date of Service: August 15, 2025
Objective Data
-
Vital Signs:
Vital Signs
Temp Pulse Resp BP Pulse Ox
36.4 C 76 16 98/49 100
08/15/25 08:25 08/15/25 08:25 08/15/25 08:25 08/15/25 08:25 08/15/25 08:25
I&O
08/14/25 08/15/25 08/16/25
06:59 06:59 06:59
Intake Total 480 / 480 960 / 960
Output Total 1705 / 1705 1680 / 1680
Balance -1225 / -1225 -720 / -720
Review of Systems
-
History Source: Patient
All other systems: Reviewed and negative
Physical Exam
-
General: No Apparent Distress, Comfortable, Appears Chronically Ill and Cachectic
Respiratory: Clear to Auscultation and Non Labored Respirations; Negative Accessory Resp Muscle Use
Cardiac: Regular Rhythm and S1/S2; Negative Murmur, Rub or Gallop
GI: Soft, Nontender, Nondistended, Normal Bowel Sounds, Ostomy (With brown stool) and Other (Conduit bag with clear yellow urine)
Musculoskeletal: No Edema
Skin: Warm, Dry and Other (Abdominal lan C/D/I); Negative Rash, Ulcers or Lesions
Neuro: Awake and AO x 3
Psych: Calm and Intact Judgement/Insight
[2025-08-15] MEDS: DESENEX/MITRAZOL/ZEASORB 1 APPLIC TOPICAL ×2 (10:06→21:45)
[2025-08-15 16:00] VITALS: BP 103/62
--- NOTE | 2025-08-15 18:31 | PTCARENOTE ---
Assumed care of pt at aprox 1100. Pt having liquid stools through rectum - also has colostomy. New pouch placed to ostomy (not wafer). Rectal and scrotal area very raw. Cleaned and ointment applied. Pt has urostomy, adapter placed and connected to
tanner bag. Pt with SURAJ drain with purulent drainage. New drain sponge placed. Pt denies any pain. Turned and repositioned.
[2025-08-15 23:00] VITALS: BP 108/58
[2025-08-16] MEDS: ULTRAM 25 MG PO (03:23)
--- NOTE | 2025-08-16 05:06 | PTCARENOTE ---
Pt informed this RN that he could not sleep and has pain throughout his body. He also stated 'I wish I could just already. I wish I'd have a heart attack or something. All I do is sit here and watch the clock tick by.' IWONA notified.
[2025-08-16 08:10] VITALS: BP 110/54
--- NOTE | 2025-08-16 08:42 | W.PN.HOSP.TC ---
Today's Communication/Plan
-
see A/P
Assessment / Plan
Assessment / Plan
77M with PAF, DVT/PE s/p IVC filter, rectal CA s/p surgery with extensive postsurgical complications now with colostomy, urostomy, enterocutaneous/anal/ureteral fistulae, recent ex lap and DC lysis, follow-up attempted repair of the fistula was
aborted due to extensive compacted adhesions, was recently hospitalized in July 11- for acute kidney injury with hyperkalemia thought to be prerenal and status post ex lap on July 13 with lysis of adhesion and went for repair of the
enterocutaneous/ureteral/renal fistula and parastomal hernia, unfortunately he had significant adhesions and surgery was aborted, p/w lightheadedness, found to have septic shock.
A/P:
# Hyponatremia
Sodium was down to 125, likely secondary to GI losses given increased output and rectal tube and drain
Stop further IVF trial. GOC discussed with patient and . Plan to transition to hospice care at facility or inpatient.
# NAGMA
Likely secondary to increased rectal output
# Hyperkalemia
resolved after Lokelma
No further blood draw with transitioning to hospice care
# JUANITA, Prerenal
Creatinine 4.5 on admission, resolved with IVF.
Developed JUANITA again and SCr improved from 1.5 to 1.0 following IVF
Stop further IVF with plan to transition to hospice care.
# Possible Septic shock POA - resolved
with LA, requiring pressors, now off.
s/p Zosyn
Stop midodrine with transition to hospice care.
# Cachexia
# Severe protein caloric malnutrition
# Severe clinical deconditioning
Cont regular diet with ensure supplement for comfort
# Anemia
# Likely anemia of chronic disease
No further blood draw or transfusion with hospice care
# h/o DVT s/p IVC filter
Not on AC.
DVT ppx: no need for hospice
Code status - DNR DNI
Dispo: hospice at facility or inpatient hospice
Cont hospice care at facility or inpatient. Monitor clinically to determine when pt would qualify for inpatient hospice.
Heath RN on board
Anticipated Discharge: 24 - 48 hours
Subjective/Interval History
-
Date of Service: August 16, 2025
Objective Data
-
Vital Signs:
Vital Signs
Temp Pulse Resp BP Pulse Ox
36.7 C 77 16 110/54 99
08/16/25 08:10 08/16/25 08:10 08/16/25 08:10 08/16/25 08:10 08/16/25 08:10
I&O
08/15/25 08/16/25 08/17/25
06:59 06:59 06:59
Intake Total 960 / 960 550 / 550 480 / 480
Output Total 1680 / 1680 365 / 365 300 / 300
Balance -720 / -720 185 / 185 180 / 180
Review of Systems
-
History Source: Patient
All other systems: Reviewed and negative
Physical Exam
-
General: No Apparent Distress, Comfortable, Appears Chronically Ill and Cachectic
Respiratory: Clear to Auscultation and Non Labored Respirations; Negative Accessory Resp Muscle Use
Cardiac: Regular Rhythm and S1/S2; Negative Murmur, Rub or Gallop
GI: Soft, Nontender, Nondistended, Normal Bowel Sounds, Ostomy (With brown stool) and Other (Conduit bag with clear yellow urine)
Musculoskeletal: No Edema
Skin: Warm, Dry and Other (Abdominal lan C/D/I); Negative Rash, Ulcers or Lesions
Neuro: Awake and AO x 3
Psych: Calm and Intact Judgement/Insight
Data Reviewed
-
Labs: Labs Reviewed by me, Discussed with Patient and Discussed with Family
[2025-08-16] MEDS: DESENEX/MITRAZOL/ZEASORB TOPICAL (08:51)
--- NOTE | 2025-08-16 12:38 | HOSPNOTE ---
Asked to review if patient is inpatient appropriate. Reviewed records with Saundra BUSTILLO and patient does not meet inpatient criteria at this time. Pain can be managed with oral medications. Updated CM, Primary RN, and Attending. I suggest to
continue to seek placement with the possibility of hospice services.
[2025-08-16 15:04] VITALS: BP 102/53
--- NOTE | 2025-08-16 16:36 | CM ---
CM met with Alberto and his to discuss SNF transfer, and likely transition to hospice care in the near future. Per pt's , she has applied for Medical Assistance with [facility] yesterday; she believes that hospice will be covered once [place]
is approved.
Referrals sent to [facility], [facility], [facility], [facility], [facility], [facility], [facility], [facility], [facility], [facility], and [facility].
Plan: CM to follow up with above facilities in AM.
[2025-08-16] MEDS: DESENEX/MITRAZOL/ZEASORB 1 APPLIC TOPICAL (19:55)
[2025-08-16 23:00] VITALS: BP 91/60
[2025-08-17 06:00] VITALS: BMI 15.6
[2025-08-17 07:00] VITALS: BP 84/47
--- NOTE | 2025-08-17 08:18 | W.PN.HOSP.TC ---
Today's Communication/Plan
-
Pending placement at SNF
Assessment / Plan
Assessment / Plan
77M with PAF, DVT/PE s/p IVC filter, rectal CA s/p surgery with extensive postsurgical complications now with colostomy, urostomy, enterocutaneous/anal/ureteral fistulae, recent ex lap and DC lysis, follow-up attempted repair of the fistula was
aborted due to extensive compacted adhesions, was recently hospitalized in July 11- for acute kidney injury with hyperkalemia thought to be prerenal and status post ex lap on July 13 with lysis of adhesion and went for repair of the
enterocutaneous/ureteral/renal fistula and parastomal hernia, unfortunately he had significant adhesions and surgery was aborted, p/w lightheadedness, found to have septic shock.
A/P:
# Hyponatremia
Sodium was down to 125, likely secondary to GI losses given increased output and rectal tube and drain
Stop further IVF trial. GOC discussed with patient and . Plan to transition to hospice care at facility or inpatient.
# NAGMA
Likely secondary to increased rectal output
# Hyperkalemia
resolved after Lokelma
No further blood draw with transitioning to hospice care
# JUANITA, Prerenal
Creatinine 4.5 on admission, resolved with IVF.
Developed JUANITA again and SCr improved from 1.5 to 1.0 following IVF
Stop further IVF with plan to transition to hospice care.
# Possible Septic shock POA - resolved
with LA, requiring pressors, now off.
s/p Zosyn
Stop midodrine with transition to hospice care.
# Cachexia
# Severe protein caloric malnutrition
# Severe clinical deconditioning
Cont regular diet with ensure supplement for comfort
# Anemia
# Likely anemia of chronic disease
No further blood draw or transfusion with hospice care
# h/o DVT s/p IVC filter
Not on AC.
#rectal CA
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
?entero-urethral fistula as wall as L parastomal hernia. Has chronic IR drain in place and was taken for elective surgery on 07/13/25 for laparotomy with planned open partial SBR with takedown fistula(s), resection of anal remnant, primary
parastomal hernia repair but the procedure had to be aborted due to a frozen abdomen.
anal trumpet has come out and per CRS there is no way to keep it in, discussed with RN and CM possible alternatives for patient's comfort that would be acceptable at SNF
DVT ppx: not on ac, hospice
Code status - DNR DNI
Dispo: hospice at facility or inpatient hospice
Cont hospice care at facility or inpatient. Monitor clinically to determine when pt would qualify for inpatient hospice.
Hopsice RN on board
Referrals made, acceptance pending, d/w CM
Anticipated Discharge: 24 - 48 hours
Subjective/Interval History
-
Date of Service: August 17, 2025
Patient denies any acute issues overnight, he notes that he has been having several episodes a day of rectal output now that his rectal tube is gone.
Objective Data
-
Vital Signs:
Vital Signs
Temp Pulse Resp BP Pulse Ox
98.1 F 79 18 84/47 99
08/17/25 07:00 08/17/25 07:00 08/17/25 07:00 08/17/25 07:00 08/17/25 07:00
I&O
08/16/25 08/17/25 08/18/25
06:59 06:59 06:59
Intake Total 550 / 550 1200 / 1200
Output Total 365 / 365 825 / 825
Balance 185 / 185 375 / 375
Review of Systems
-
All other systems: Reviewed and negative
Physical Exam
-
General: No Apparent Distress, Comfortable, Appears Chronically Ill and Cachectic
Respiratory: Clear to Auscultation and Non Labored Respirations; Negative Wheezes, Rales, Rhonchi or Accessory Resp Muscle Use
Cardiac: Regular Rhythm and S1/S2; Negative Murmur, Rub or Gallop
GI: Soft, Nontender, Nondistended, Normal Bowel Sounds, Ostomy (With brown stool) and Other (Conduit bag with clear yellow urine)
Musculoskeletal: No Edema
Skin: Warm, Dry and Other (Abdominal lan C/D/I); Negative Rash, Ulcers or Lesions
Neuro: Awake and AO x 3
Psych: Calm and Intact Judgement/Insight
[2025-08-17] MEDS: DESENEX/MITRAZOL/ZEASORB 1 APPLIC TOPICAL ×2 (08:27→20:10)
--- NOTE | 2025-08-17 11:43 | CM ---
CM continues to follow for discharge planning. Referrals sent to 12 facilities and none are currently offering a bed. reports having applied for [place] coverage on 08/15/2025. Will follow up with pt's regarding application.
[2025-08-17 15:00] VITALS: BP 98/53
[2025-08-17] MEDS: ULTRAM 25 MG PO (20:09)
[2025-08-17 23:00] VITALS: BP 95/49
[2025-08-18 06:00] VITALS: BMI 15.1
[2025-08-18 07:00] VITALS: BP 78/46
[2025-08-18] MEDS: DESENEX/MITRAZOL/ZEASORB 1 APPLIC TOPICAL ×2 (09:11→22:31)
[2025-08-18 15:00] VITALS: BP 100/53
--- NOTE | 2025-08-18 15:14 | W.PN.HOSP.TC ---
Today's Communication/Plan
-
Continue current care
Assessment / Plan
Assessment / Plan
77M with PMH of
PAF,
DVT/PE s/p IVC filter,
rectal CA s/p surgery with extensive postsurgical complications now with:
colostomy,
urostomy,
enterocutaneous/anal/ureteral fistulae,
recent ex lap and DC lysis,
follow-up attempted repair of the fistula
This was aborted due to extensive compacted adhesions, and he was recently hospitalized in July 11- for acute kidney injury with hyperkalemia thought to be prerenal and status post ex lap on July 13 with lysis of adhesion and went for repair
of the enterocutaneous/ureteral/renal fistula and parastomal hernia, unfortunately he had significant adhesions and surgery was aborted, p/w lightheadedness, found to have septic shock. Now transitioning to hospice care.
1. Hyponatremia
Sodium was down to 125, likely secondary to GI losses given increased output and rectal tube and drain
Stopped further IVF trial.
GOC discussed with patient and . Plan to transition to hospice care at facility or inpatient.
Keep comfortable
2. NAGMA
Likely secondary to increased rectal output
3. Hyperkalemia
resolved after Lokelma
No further blood draw with transitioning to hospice care
4. JUANITA, Prerenal
Creatinine 4.5 on admission, resolved with IVF.
Developed JUANITA again and SCr improved from 1.5 to 1.0 following IVF
Stopped further IVF with plan to transition to hospice care.
5. Possible Septic shock POA - resolved
with LA, requiring pressors, now off.
s/p Zosyn
Stopped midodrine with transition to hospice care.
6. Cachexia with Severe protein caloric malnutrition
Severe clinical deconditioning
Cont regular diet with ensure supplement for comfort
7. Anemia - Likely anemia of chronic disease
No further blood draw or transfusion with hospice care
8. h/o DVT s/p IVC filter - Not on AC.
9. rectal CA
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
?entero-urethral fistula as wall as L parastomal hernia. Has chronic IR drain in place and was taken for elective surgery on 07/13/25 for laparotomy with planned open partial SBR with takedown fistula(s), resection of anal remnant, primary
parastomal hernia repair but the procedure had to be aborted due to a frozen abdomen.
anal trumpet has come out and per CRS there is no way to keep it in, discussed with RN and CM possible alternatives for patient's comfort that would be acceptable at [facility]
DVT ppx: not on ac, hospice
Code status - DNR DNI
Dispo: hospice at facility or inpatient hospice
Hopsice RN on board
Referrals made, acceptance pending, d/w CM
Anticipated Discharge: 24 - 48 hours
Subjective/Interval History
-
Date of Service: August 18, 2025
Sleeping comfortably
Objective Data
-
Vital Signs:
Vital Signs
Temp Pulse Resp BP Pulse Ox
97.9 F 75 17 78/46 93
08/18/25 07:00 08/18/25 07:00 08/18/25 07:00 08/18/25 07:00 08/18/25 07:00
I&O
08/17/25 08/18/25 08/19/25
06:59 06:59 06:59
Intake Total 1200 / 1200 840 / 840
Output Total 825 / 825 1035 / 1035
Balance 375 / 375 -195 / -195
Review of Systems
-
Unable to obtain full review of systems at this time due to: Other
Physical Exam
-
General: Well Developed, No Apparent Distress, Comfortable, Appears Chronically Ill and Cachectic
HEENT: Nose Appears Normal and Ears Appear Normal
Musculoskeletal: No Clubbing and No Cyanosis
Skin: Warm and Dry
Psych: Calm
Data Reviewed
-
Labs: Labs Reviewed by me
[2025-08-18] MEDS: ULTRAM 25 MG PO (22:26)
[2025-08-18] MEDS: ATIVAN 0.5 MG PO (22:47)
[2025-08-18] MEDS: DILAUDID 0.25 MG IV (23:29)
[2025-08-18] MEDS: ZOFRAN 4 MG IV (23:30)
[2025-08-18 23:50] VITALS: BP 102/55
[2025-08-19 06:00] VITALS: BMI 16.3
[2025-08-19 07:00] VITALS: BP 79/48
[2025-08-19] MEDS: DESENEX/MITRAZOL/ZEASORB 1 APPLIC TOPICAL ×2 (09:34→21:44)
--- NOTE | 2025-08-19 10:27 | W.PN.HOSP.TC ---
Today's Communication/Plan
-
Continue current care. He is comfortable.
Assessment / Plan
Assessment / Plan
77M with PMH of
PAF,
DVT/PE s/p IVC filter,
rectal CA s/p surgery with extensive postsurgical complications now with:
colostomy,
urostomy,
enterocutaneous/anal/ureteral fistulae,
recent ex lap and DC lysis,
follow-up attempted repair of the fistula
The repair was aborted due to extensive compacted adhesions, and he was recently hospitalized in July 11- for acute kidney injury with hyperkalemia thought to be prerenal and status post ex lap on July 13 with lysis of adhesion and went for
repair of the enterocutaneous/ureteral/renal fistula and parastomal hernia, unfortunately he had significant adhesions and surgery was aborted, p/w lightheadedness, found to have septic shock. Now transitioning to hospice care.
1. Hyponatremia
Sodium was down to 125, likely secondary to GI losses given increased output and rectal tube and drain
Stopped further IVF trial.
GOC discussed with patient and . Plan to transition to hospice care at facility or inpatient.
Keep comfortable
He is taking po food/negrito
2. NAGMA
Likely secondary to increased rectal output
3. Hyperkalemia
resolved after Lokelma
No further blood draw with transitioning to hospice care
4. JUANITA, Prerenal
Creatinine 4.5 on admission, resolved with IVF.
Developed JUANITA again and SCr improved from 1.5 to 1.0 following IVF
Stopped further IVF with plan to transition to hospice care.
5. Possible Septic shock POA - resolved
with LA, requiring pressors, now off.
s/p Zosyn
Stopped midodrine with transition to hospice care.
6. Cachexia with Severe protein caloric malnutrition
Severe clinical deconditioning
Cont regular diet with ensure supplement for comfort
7. Anemia - Likely anemia of chronic disease
No further blood draw or transfusion with hospice care
8. h/o DVT s/p IVC filter - Not on AC.
9. rectal CA
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
?entero-urethral fistula as wall as L parastomal hernia. Has chronic IR drain in place and was taken for elective surgery on 07/13/25 for laparotomy with planned open partial SBR with takedown fistula(s), resection of anal remnant, primary
parastomal hernia repair but the procedure had to be aborted due to a frozen abdomen.
anal trumpet has come out and per CRS there is no way to keep it in, discussed with RN and CM possible alternatives for patient's comfort that would be acceptable at SNF
DVT ppx: not on ac, hospice
Code status - DNR DNI
Dispo: hospice at facility or inpatient hospice
Hopsice RN on board
Referrals made, acceptance pending, d/w CM
Anticipated Discharge: 24 - 48 hours
Subjective/Interval History
-
Date of Service: August 19, 2025
Comfortable, in good spirits this am.
Objective Data
-
Vital Signs:
Vital Signs
Temp Pulse Resp BP Pulse Ox
97.9 F 82 17 79/48 94
08/19/25 07:00 08/19/25 07:00 08/19/25 07:00 08/19/25 07:00 08/19/25 07:00
I&O
08/18/25 08/19/25 08/20/25
06:59 06:59 06:59
Intake Total 840 / 840 1440 / 1440
Output Total 1035 / 1035 690 / 690
Balance -195 / -195 750 / 750
Review of Systems
-
History Source: Patient
All other systems: Reviewed and negative
Physical Exam
-
General: No Apparent Distress, Comfortable and Conversant
HEENT: Nose Appears Normal and Ears Appear Normal; Negative Good Dentition
Musculoskeletal: No Cyanosis
Skin: Warm and Dry
Neuro: Awake, Alert and Oriented
Psych: Calm
Data Reviewed
-
Labs: Labs Reviewed by me
--- NOTE | 2025-08-19 13:04 | W.PN.UPDATE ---
Update Note
Progress Note Update
Pt seen and evaluated at bedside with Dr. Peters for evaluation of drain as suture no longer holding drain to skin. Tape in place to keep drain secured and it is functioning well.
Discussed resuturing the drain with patient who currently declines. He would prefer to anchor drain with tape for now as it has been effective.
Plan for inpatient hospice upon discharge. Please notify surgery with any questions/concerns.
[2025-08-19 15:00] VITALS: BP 89/50
[2025-08-19] MEDS: DILAUDID 0.25 MG IV (16:12)
[2025-08-19] MEDS: MAALOX 30 ML PO (21:44)
[2025-08-19 23:40] VITALS: BP 82/50
[2025-08-20] MEDS: DILAUDID 0.25 MG IV ×2 (01:24→23:52)
[2025-08-20 07:30] VITALS: BP 83/47
--- NOTE | 2025-08-20 09:00 | PTCARENOTE ---
Pt's BP 83/47 HR 83. made aware. No new orders at this time. Pt is resting in bed with call jarquin in reach.
[2025-08-20] MEDS: DESENEX/MITRAZOL/ZEASORB 1 APPLIC TOPICAL ×2 (09:14→20:33)
--- NOTE | 2025-08-20 13:50 | W.PN.HOSP.TC ---
Today's Communication/Plan
-
Awaiting placement
Assessment / Plan
Assessment / Plan
77M with PAF, DVT/PE s/p IVC filter, rectal CA s/p surgery with extensive postsurgical complications now with colostomy, urostomy, enterocutaneous/anal/ureteral fistulae, recent ex lap and DC lysis, follow-up attempted repair of the fistula was
aborted due to extensive compacted adhesions, was recently hospitalized in July 11- for acute kidney injury with hyperkalemia thought to be prerenal and status post ex lap on July 13 with lysis of adhesion and went for repair of the
enterocutaneous/ureteral/renal fistula and parastomal hernia, unfortunately he had significant adhesions and surgery was aborted, p/w lightheadedness, found to have septic shock.
At this time he has opted to transition to palliative/hospice level of care.
A/P:
# Hyponatremia
Sodium was down to 125, likely secondary to GI losses given increased output and rectal tube and drain
Stop further IVF trial. GOC discussed with patient and . Plan to DC to SNF and eventual transition to hospice care at facility.
# NAGMA
Likely secondary to increased rectal output
# Hyperkalemia
resolved after Lokelma
No further blood draw with transitioning to hospice care
# JUANITA, Prerenal
Creatinine 4.5 on admission, resolved with IVF.
Developed JUANITA again and SCr improved from 1.5 to 1.0 following IVF
Stopped further IVF with plan to transition to hospice care.
# Possible Septic shock POA - resolved
with LA, requiring pressors, now off.
s/p Zosyn
Stop midodrine with transition to hospice care.
# Cachexia
# Severe protein caloric malnutrition
# Severe clinical deconditioning
Cont regular diet with ensure supplement for comfort
# Anemia
# Likely anemia of chronic disease
No further blood draw or transfusion with hospice care
# h/o DVT s/p IVC filter
Not on AC.
#rectal CA
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
?entero-urethral fistula as wall as L parastomal hernia. Has chronic IR drain in place and was taken for elective surgery on 07/13/25 for laparotomy with planned open partial SBR with takedown fistula(s), resection of anal remnant, primary
parastomal hernia repair but the procedure had to be aborted due to a frozen abdomen.
anal trumpet has come out and per CRS there is no way to keep it in, discussed with RN and CM possible alternatives for patient's comfort that would be acceptable at SNF
DVT ppx: not on ac, hospice
Code status - DNR DNI
Dispo: SNF
pending acceptance/bed
Anticipated Discharge: 24 - 48 hours
Subjective/Interval History
-
Date of Service: August 20, 2025
Patient denies any acute issues overnight, eating well. Discussed discharge planning with assistant case manager
Objective Data
-
Vital Signs:
Vital Signs
Temp Pulse Resp BP Pulse Ox
97.6 F 83 18 83/47 99
08/20/25 07:30 08/20/25 07:30 08/20/25 07:30 08/20/25 07:30 08/20/25 07:30
I&O
08/19/25 08/20/25 08/21/25
06:59 06:59 06:59
Intake Total 1440 / 1440 1440 / 1440
Output Total 690 / 690 440 / 440
Balance 750 / 750 1000 / 1000
Review of Systems
-
All other systems: Reviewed and negative
Physical Exam
-
General: No Apparent Distress, Comfortable, Appears Chronically Ill and Cachectic
Respiratory: Clear to Auscultation and Non Labored Respirations; Negative Wheezes, Rales, Rhonchi or Accessory Resp Muscle Use
Cardiac: Regular Rhythm and S1/S2; Negative Murmur, Rub or Gallop
GI: Soft, Nontender, Nondistended, Normal Bowel Sounds, Ostomy (With brown stool) and Other (Conduit bag with clear yellow urine)
Musculoskeletal: No Edema
Skin: Warm, Dry and Other (Abdominal lan C/D/I); Negative Rash, Ulcers or Lesions
Neuro: Awake and AO x 3
Psych: Calm and Intact Judgement/Insight
[2025-08-20] MEDS: TYLENOL 650 MG PO (14:46)
--- NOTE | 2025-08-20 15:25 | CM ---
CM continues to follow for discharge planning needs. Pt is being considered for transfer to [facility] who will assist with Medical Assistance application based on financial information provided by pt's . Wound Care notes sent for review.
CM will continue to follow to coordinate transfer to [facility] when pt is medically cleared for transfer.
--- NOTE | 2025-08-20 15:47 | WOUNDNOTE ---
WOC RN note: Received a call from from [facility] and gave local skin care information and ostomy appliance order numbers. Also recommended an air mattress at [facility].
[2025-08-20 16:00] VITALS: BP 109/56
[2025-08-20] MEDS: DESITIN MAXIMUM STRENGTH PASTE 1 APPLIC TOPICAL ×2 (16:42→20:32)
[2025-08-20] MEDS: ANTIFUNGAL CLEAR 1 APPLIC TOPICAL (20:32)
[2025-08-20] MEDS: TUMS CHEWABLE TABLET 200 MG PO (21:13)
--- NOTE | 2025-08-20 21:50 | PTCARENOTE ---
Pt. refused, says they will do it in the morning(08/21).
[2025-08-20 23:00] VITALS: BP 121/64
[2025-08-20] MEDS: ZOFRAN 4 MG IV (23:46)
[2025-08-21] MEDS: COMPAZINE 5 MG IV (00:48)
[2025-08-21] MEDS: ULTRAM 25 MG PO (02:35)
[2025-08-21 02:36] VITALS: BMI 15.2
[2025-08-21] MEDS: DILAUDID 0.25 MG IV (05:22)
[2025-08-21 06:00] VITALS: BMI 15.2
--- NOTE | 2025-08-21 06:41 | PTCARENOTE ---
Pt complaining of shortness of breath, O2 94-97 on room air. Placed on 3L for comfort. WEIGHTER notified.
[2025-08-21 07:41] VITALS: BP 98/65
[2025-08-21] MEDS: ANTIFUNGAL CLEAR 1 APPLIC TOPICAL ×2 (08:36→20:00)
[2025-08-21] MEDS: DESENEX/MITRAZOL/ZEASORB 1 APPLIC TOPICAL ×2 (08:37→20:00)
[2025-08-21] MEDS: ATIVAN 1 MG PO (08:39)
[2025-08-21] MEDS: ULTRAM 50 MG PO (12:03)
[2025-08-21 15:00] VITALS: BP 105/60
--- NOTE | 2025-08-21 15:53 | W.PN.HOSP.TC ---
Addendum entered and electronically signed by Isaura Tello MD 08/21/25 16:56:
Patient having increasing oxygen requirements throughout the day, also hypotensive, at the last temperature 95.9. I revisited him. He is feeling worse, clinically appears to be declining. I discussed with diagnostic cardiac sonographer Jasmin, patient was not
previously a candidate for inpatient hospice, but now appears to be. Will transition to comfort measures. Order set placed. I called patient's and updated her, she was appreciative, she did not want patient to be moved and wanted him to be
here on inpatient hospice.
Original Note:
Today's Communication/Plan
-
Awaiting auth for placement
Assessment / Plan
Assessment / Plan
77M with PAF, DVT/PE s/p IVC filter, rectal CA s/p surgery with extensive postsurgical complications now with colostomy, urostomy, enterocutaneous/anal/ureteral fistulae, recent ex lap and DC lysis, follow-up attempted repair of the fistula was
aborted due to extensive compacted adhesions, was recently hospitalized in July 11- for acute kidney injury with hyperkalemia thought to be prerenal and status post ex lap on July 13 with lysis of adhesion and went for repair of the
enterocutaneous/ureteral/renal fistula and parastomal hernia, unfortunately he had significant adhesions and surgery was aborted, p/w lightheadedness, found to have septic shock.
At this time he has opted to transition to palliative/hospice level of care.
A/P:
# Hyponatremia
Sodium was down to 125, likely secondary to GI losses given increased output and rectal tube and drain
Stop further IVF trial. [facility] discussed with patient and . Plan to DC to SNF and eventual transition to hospice care at facility.
# NAGMA
Likely secondary to increased rectal output
# Hyperkalemia
resolved after Lokelma
No further blood draw with transitioning to hospice care
# JUANITA, Prerenal
Creatinine 4.5 on admission, resolved with IVF.
Developed JUANITA again and SCr improved from 1.5 to 1.0 following IVF
Stopped further IVF with plan to transition to hospice care.
# Possible Septic shock POA - resolved
with LA, requiring pressors, now off.
s/p Zosyn
Stop midodrine with transition to hospice care.
# Cachexia
# Severe protein caloric malnutrition
# Severe clinical deconditioning
Cont regular diet with ensure supplement for comfort
# Anemia
# Likely anemia of chronic disease
No further blood draw or transfusion with hospice care
# h/o DVT s/p IVC filter
Not on AC.
#rectal CA
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
?entero-urethral fistula as wall as L parastomal hernia. Has chronic IR drain in place and was taken for elective surgery on 07/13/25 for laparotomy with planned open partial SBR with takedown fistula(s), resection of anal remnant, primary
parastomal hernia repair but the procedure had to be aborted due to a frozen abdomen.
anal trumpet has come out and per CRS there is no way to keep it in, discussed with RN and CM possible alternatives for patient's comfort that would be acceptable at SNF
numbness of all fingers b/l
no tingling sensation noted, likely fingers were feeling cold, currently warm with good cap refill. keep fingers warm.
L ear pain
no e/o infection or impaction on otoscopic exam
DVT ppx: not on ac, hospice
Code status - DNR DNI
Dispo: SNF
pending acceptance/bed. PT ordered to help with auth
Anticipated Discharge: 24 - 48 hours
Subjective/Interval History
-
Date of Service: August 21, 2025
Patient had complaints of feeling short of breath, wearing oxygen now. Also feeling numb in all of his fingertips, this is starting to improve. Also having some pain in his left ear, he is concerned he has a ear infection
Objective Data
-
Vital Signs:
Vital Signs
Temp Pulse Resp BP Pulse Ox
97.7 F 89 15 98/65 98
08/20/25 23:00 08/21/25 07:41 08/21/25 07:41 08/21/25 07:41 08/21/25 08:45
I&O
08/20/25 08/21/25 08/22/25
06:59 06:59 06:59
Intake Total 1440 / 1440 440 / 440
Output Total 440 / 440 430 / 430
Balance 1000 / 1000
Review of Systems
-
All other systems: Reviewed and negative
Physical Exam
-
General: No Apparent Distress, Comfortable, Appears Chronically Ill and Cachectic
HEENT: Ears Appear Normal (L ear otoscope exam, TM translucent with normal light reflex, no bulging and no visible fluid. Small amt of wax in canal. )
Respiratory: Clear to Auscultation and Non Labored Respirations; Negative Wheezes, Rales, Rhonchi or Accessory Resp Muscle Use
Cardiac: Regular Rhythm and S1/S2; Negative Murmur, Rub or Gallop
GI: Soft, Nontender, Nondistended, Normal Bowel Sounds, Ostomy (With brown stool) and Other (Conduit bag with clear yellow urine)
Musculoskeletal: No Edema and Other (fingers warm with normal cap refill)
Skin: Warm, Dry and Other (Abdominal lan C/D/I); Negative Rash, Ulcers or Lesions
Neuro: Awake and AO x 3
Psych: Calm and Intact Judgement/Insight
--- NOTE | 2025-08-21 16:08 | CM ---
Plan [facility] Skilled rehab
NPI# [id number]
Accepting MD Chacko NPI# [id number]
Authorization initiated with Arlet from [employer]
Pended reference # [id number]
Arlet requested PT notes even though request for skilled is for wound care needs.
Order placed by , await PT evaluation.
Will need to call [employer] with updated PT notes once available.
Ambulance auth will also need to be obtained at that time per Arlet.
[2025-08-21 16:30] VITALS: BP 104/60; BP 75/54; PULSE 97
[2025-08-21] MEDS: MORPHINE SULFATE 2 MG IV (18:52)
--- NOTE | 2025-08-21 19:20 | PTCARENOTE ---
Pt complaining of generalized discomfort and anxiety in the morning. Md notified and order for ativan PO obtained and administered. Pt stated that it had little relief. PRN tramadol administered for pain which pt expressed provided some relief. In
afternoon, pt c/o difficulty breathing. O2 needs increased to 5L, pt sating 90-91%. Axillary temperature 95.9F and pt skin cool. Blood pressure still low, 79/49 after working with physical therapy and pt complaining of dizziness. MD made aware and
saw pt @bedside. Orders changed to comfort measures. Pt denied medications at that time. @1845 pt complaining of SOB and dyspnea. PRN morphine administered to pt by RN on floor. Pt's colostomy had no output throughout shift and drainage from anus
has decreased compared to yesterday. Pt had little to no appetite throughout shift and did not order any meals. One non-par tray was sent for a late lunch and pt only ate a few bites. Following administration of morphine, pt now appears comfortable.
Call jarquin is within reach, pt states no needs at this time.
[2025-08-21 23:00] VITALS: BP 102/65
[2025-08-22] MEDS: MORPHINE SULFATE 2 MG IV (02:27)
--- NOTE | 2025-08-22 04:05 | DOWNTIME ---
There was a [employer] Client [employer] Faculty Member Downtime on 08/22/2025 from 0100 to 08/22/2025 at 0255. Downtime documentation of patient's care, including medication administrations, has been reconciled in the electronic record per guidelines. Refer to the
patient's paper chart under the miscellaneous tab to see printed paper medication records and downtime forms.
[2025-08-22 06:00] VITALS: BMI 15.2
[2025-08-22 07:00] VITALS: BP 93/57
[2025-08-22] MEDS: DESENEX/MITRAZOL/ZEASORB 1 APPLIC TOPICAL (08:11)
[2025-08-22] MEDS: DILAUDID 0.25 MG IV (08:13)
[2025-08-22] MEDS: ANTIFUNGAL CLEAR 1 APPLIC TOPICAL (08:16)
--- NOTE | 2025-08-22 08:53 | CM ---
Approved for skilled rehab at [facility]
Authorization # [id number]
Start date 08/22/25, NRD 08/27/25
updates to p# [phone]
Authorization for Acute Care [facility] transport # [id number]
[2025-08-22] MEDS: MORPHINE SULFATE 1 MG IV (09:32)
[2025-08-22] MEDS: ATIVAN 1 MG IV (10:10)
--- NOTE | 2025-08-22 12:14 | CM ---
Pt passed earlier today. Hospice was at bedside. Pt's had been at the hospital last night and did not want to see him today after he passed.
CM will not continue to follow.
--- NOTE | 2025-08-22 13:12 | PTCARENOTE ---
Rn community education coordinator- Called gift of life. Patient not appropriate for donation related to age and medically unsuitable as per [employer].
--- NOTE | 2025-08-22 13:28 | W.DCSUMMARY ---
Discharge Summary
Discharge Data
Date of Admission: 07/29/25
Date of Discharge: 08/22/25
Total time spent discharging patient (in min): 35
-
Pending Results: No
Hospital Course
Attending physician:
Isaura Tello MD
Primary diagnosis:
Septic shock
UTI
JUANITA
Multiorgan system failure
Respiratory insufficiency
Secondary diagnoses:
Rectal cancer
Abdominal adhesions
EC fistula
Failure to thrive
Dehydration
Consultations:
Surgery
ID
Nephrology
Colorectal surgery
Procedures:
None
Hospital course:
77M with PAF, DVT/PE s/p IVC filter, rectal CA s/p surgery with extensive postsurgical complications now with colostomy, urostomy, enterocutaneous/anal/ureteral fistulae, recent ex lap and DC lysis, follow-up attempted repair of the fistula was
aborted due to extensive compacted adhesions, was recently hospitalized in July 11- for acute kidney injury with hyperkalemia thought to be prerenal and status post ex lap on July 13 with lysis of adhesion and went for repair of the
enterocutaneous/ureteral/renal fistula and parastomal hernia, unfortunately he had significant adhesions and surgery was aborted, p/w lightheadedness, found to have septic shock. He had lactic acidosis requiring pressors in the ICU he was treated
with IV Zosyn and IV fluids. Source was suspected to be UTI or abdominal abscess, urine culture was contaminated and repeat grew Johana, blood cultures were no growth to date, and his Zosyn was eventually held per ID after his white count
improved, and he had no further fever or leukocytosis. His JUANITA and hyponatremia improved. His pressors were eventually weaned with the use of midodrine, although his blood pressures remained very soft. He developed high output from his
enterocutaneous fistula and he had a rectal tube for this, however it was causing lab abnormalities, which coupled with his malnutrition, was making him more clinically deconditioned. He was offered TPN, however after several goals of care
discussion was the decision was made to see if his nutritional status could improve with oral intake, and he was able to eat an adequate amount p.o., However he remained very ill and developed again JUANITA, hyponatremia, and patient opted to
transition to hospice. CM made an effort to find outpatient hospice placement for the this patient. He developed dyspnea and hypoxia, hypothermia, hypotension, requiring oxygen, and was transitioned to inpatient hospice, placed on comfort measures
with morphine drip protocol, due to lethargy, agonal breathing, pain. He at 11:25 a.m. on 08/22/2025. Next of kin () was notified.
Discharge disposition:
Discharge Plan
-
Patient Disposition: Snf/SNF
Discharge Diagnosis/Procedures: Resolved septic shock (presumed due to UTI), completed antibiotic course with Zosyn;
Resolved acute kidney injury;
rectal cancer s/p surgery with extensive postsurgical complications (now with colostomy, urostomy, enterocutaneous/anal/ureteral fistulae);
DVT/PE s/p IVC filter,
Condition: Fair
Diet: Regular
Additional Diets: with ensure supplement three times a day
Activity: As tolerated
Wound Care: Wound care: Sacrum-clean with saline or soap and water, silicone border foam, change every 3 days and as needed for loosened dressing. If foam ineffective, apply zinc barrier ointment 3 times a day instead.
Perianal/buttocks-apply zinc barrier ointment 3 times a day.
Miconazole powder to yeasty red skin 2 times a day.
Pressure redistributing chair cushion (i.e. Air chair cushion).
Evaluate for an air mattress.
Colostomy: Umberto wafer # [id number], Natalie seal and [place] pouch # [id number]. Urostomy: 1 piece pouch # [id number] with Natalie seal. Change 2 times a week and as needed for leakage.
Call [facility] RN nurse for ostomy pouching concerns or leakage problems [phone] or [phone] or [phone].
Activity Restrictions/Additional Instructions:
Wound Care Instructions
Perianal: clean with mild soap and water or tony cleanser, pat dry then apply antifungal ointment BID. Zinc barrier ointment (i.e. Maximum strength Desitin or Triad paste) TID and prn soilage.
Referrals:
King Cooper MD [Active, ColoRectal] - in two to four weeks
Torito Brownlee MD [Family Provider, Family Practice] - in less than 1 week
Prescriptions:
New
miconazole nitrate [Miconazorb AF] 2 % Powder
1 applic topical BID Qty: 0 0RF
acetaminophen 325 mg Tablet
650 mg PO Q4HPRN PRN (Reason: GANDHI/mild pain/temp > 100.4 F) Qty: 0 0RF
midodrine 5 mg Tablet
10 mg PO TID @ 0800,1200,1700 Qty: 0 0RF
pantoprazole 40 mg Tablet,Delayed Release (Dr/Ec)
40 mg PO DAILY Qty: 0 0RF
Discontinued
midodrine 5 MG tablet
5 mg PO TID
rosuvastatin 20 mg tablet
20 mg PO DAILY
cholecalciferol (vitamin D3) [Vitamin D3] 25 mcg (1,000 unit) Tablet,Chewable
25 mcg PO DAILY
pantoprazole [Protonix] 40 mg Tablet,Delayed Release (Dr/Ec)
40 mg PO DAILY
Discharge Date and Time
Print Language: MOSOTHO
--- NOTE | 2025-08-22 15:02 | W.PN.UPDATE ---
Update Note
Progress Note Update
I received word that patient . I reached out and expressed condolences to patient's , Kerri.
--- NOTE | 2025-08-22 18:37 | PTCARENOTE ---
Pt earlier this shift. called regarding belongings left in room. stated 'I normally see him every other day and I was going to see him tomorrow any ways, could I pick it up then?' informed that pt's belongings will be left
at the back nurses station near the room the pt was in. Label placed on belongings (a red and white cooler), and placed under desk at nurses station.
--- NOTE | 2025-08-23 09:38 | W.PN.DEATH ---
Pronouncement of
-
Time of :
Date of : 08/22/25
Cause of : Respiratory insufficiency
Family Notified: Yes
== END 2025-08-22 14:11 | disposition expired | DRG 871 ==
LOC: 3 WEST ACU 06:09
PROVIDERS: Internal Medicine; Radiology Vascular & Interventional Radiology; ADMITTING PHYSICIAN Internal Medicine; ATTENDING PHYSICIAN Internal Medicine; CONSULT PHYSICIAN Specialist; CONSULT PHYSICIAN Student in an Organized Health Care Education/Training Program; EMERGENCY PHYSICIAN Emergency Medicine; FAMILY PHYSICIAN Family Medicine; OTHER PHYSICIAN Registered Nurse
PROC: 0W9J30Z Drainage of Pelvic Cavity with Drainage Device, Percutaneous Approach (ICD-10-PCS; 2025-07-30)
DX: A41.9 Sepsis, unspecified organism (principal); E43 Unspecified severe protein-calorie malnutrition; R65.21 Severe sepsis with septic shock; N39.0 Urinary tract infection, site not specified; N17.9 Acute kidney failure, unspecified; E87.1 Hypo-osmolality and hyponatremia; R64 Cachexia; Z68.1 Body mass index [BMI] 19.9 or less, adult; E87.21 Acute metabolic acidosis; K66.0 Peritoneal adhesions (postprocedural) (postinfection); R62.7 Adult failure to thrive; E86.0 Dehydration; I48.0 Paroxysmal atrial fibrillation; Z86.718 Personal history of other venous thrombosis and embolism; Z95.828 Presence of other vascular implants and grafts; Z85.048 Personal history of other malignant neoplasm of rectum, rectosigmoid junction, and anus; K60.50 Anorectal fistula, unspecified; K21.9 Gastro-esophageal reflux disease without esophagitis; Z93.3 Colostomy status; Z90.49 Acquired absence of other specified parts of digestive tract; D50.0 Iron deficiency anemia secondary to blood loss (chronic); I10 Essential (primary) hypertension; F17.210 Nicotine dependence, cigarettes, uncomplicated; E78.00 Pure hypercholesterolemia, unspecified; L89.152 Pressure ulcer of sacral region, stage 2; I95.1 Orthostatic hypotension; Z86.711 Personal history of pulmonary embolism; Z92.3 Personal history of irradiation; Z79.899 Other long term (current) drug therapy; Z11.52 Encounter for screening for COVID-19
CPT/HCPCS: 49424; 71046; 74176; 75984; 80048; 80053; 81003; 81015; 82962; 83605; 83735; 83880; 84132; 84484; 85025; 85027; 86803; 87040; 87070; 87086; 87502; 87811; 93005; 96361; 96365; 96375; 97163; 97167; 97530; 97535; 99291; 99406; C1729; C1769; J7030